=== PATIENT | female | born 1995 | race Caucasian/White ===

== ENCOUNTER 2017-01-03 19:50 | Emergency (ER) | payer OTHER ==
[2017-01-03 21:42] LABS: APPEARANCE,URINE CLOUDY; BILIRUBIN,URINE NEGATIVE (NEGATIVE); GLUCOSE, URINE NEGATIVE (NEGATIVE); KETONES,URINE NEGATIVE (NEGATIVE); LEUKOCYTE ESTERASE,URINE TRACE (NEGATIVE); NITRITE,URINE NEGATIVE (NEGATIVE); PROTEIN,URINE NEGATIVE (NEGATIVE); URINE SPECIFIC GRAVITY 1.013; UROBILINOGEN,URINE NEGATIVE mg/dL (<2.0)
[2017-01-03] MEDS ORDERED: DEXAMETHASONE SOD PHOS INJ 10 MG/1 ML VIAL IM ONE (21:50)
[2017-01-03] MEDS ORDERED: KETOROLAC TROMETHAMINE 60 MG/2 ML SDV IM ONE (21:51)
--- NOTE | 2017-01-03 21:52 | ER Document Report ---
ED General - General Chief Complaint: Pain in back and hips Stated Complaint: BACK/HIP PAIN Time Seen by Provider: 01/03/17 21:03 Mode of Arrival: Ambulatory Information source: Patient Notes: 21-year-old female presents with complaints of flank pain midline pain radiating down both legs to her toes. Patient denies any trauma notes pain has been ongoing intermittently for a while but worsened over the past 2 days. Patient denies any loss of bowel or bladder function. Patient denies any cauda equina concerns TRAVEL OUTSIDE OF THE [place] IN LAST 30 DAYS: No - HPI Onset: Other Onset/Duration: Persistent Quality of pain: Sharp Severity: Mild Pain Level: 1 Associated symptoms: Other Exacerbated by: Denies Relieved by: Denies Similar symptoms previously: Yes Recently seen / treated by doctor: Yes - Related Data Allergies/Adverse Reactions: No Known Allergies Allergy (Verified 01/03/17 21:37) Past Medical History - Social History Smoking Status: Never Smoker Cigarette use (# per day): No Chew tobacco use (# tins/day): No Smoking Education Provided: No Family History: Reviewed & Not Pertinent - Past Medical History Cardiac Medical History: Denies: Hx Heart Attack, Hx Hypertension Pulmonary Medical History: Denies: Hx Asthma Neurological Medical History: Denies: Hx Cerebrovascular Accident, Hx Seizures Renal/ Medical History: Denies: Hx Peritoneal Dialysis GI Medical History: Denies: Hx Hepatitis, Hx Hiatal Hernia, Hx Ulcer Infectious Medical History: Denies: Hx Hepatitis Past Surgical History: Reports: Hx Tonsillectomy. Denies: Hx Mastectomy, Hx Open Heart Surgery, Hx Pacemaker Review of Systems - Review of Systems Notes: REVIEW OF SYSTEMS: CONSTITUTIONAL : Denies fever, chills, or sweats. Denies recent illness. EENT: Denies eye, ear, throat, or mouth pain or symptoms. Denies nasal or sinus congestion or discharge. Denies throat, tongue, or mouth swelling or difficulty swallowing. CARDIOVASCULAR: Denies chest pain. Denies palpitations or racing or irregular heart beat. Denies ankle edema. RESPIRATORY: Denies cough, cold, or chest congestion. Denies shortness of breath, difficulty breathing, or wheezing. GASTROINTESTINAL: Denies abdominal pain or distention. Denies nausea, vomiting , or diarrhea. Denies blood in vomitus, stools, or per rectum. Denies black, tarry stools. Denies constipation. GENITOURINARY: Denies difficulty urinating, painful urination, burning, frequency, blood in urine, or discharge. FEMALE GENITOURINARY: Denies vaginal bleeding, heavy or abnormal periods, irregular periods. Denies vaginal discharge or odor. MUSCULOSKELETAL: Admits to low back pain SKIN: Denies rash, lesions or sores. HEMATOLOGIC : Denies easy bruising or bleeding. LYMPHATIC: Denies swollen, enlarged glands. NEUROLOGICAL: Denies confusion or altered mental status. Denies passing out or loss of consciousness. Denies dizziness or lightheadedness. Denies headache. Denies weakness or paralysis or loss of use of either side. Denies problems with gait or speech. Denies sensory loss, numbness, or tingling. Denies seizures. PSYCHIATRIC: Denies anxiety or stress. Denies depression, suicidal ideation, or homicidal ideation. ALL OTHER SYSTEMS REVIEWED AND NEGATIVE. PHYSICAL EXAMINATION: GENERAL: Well-appearing, well-nourished and in no acute distress. HEAD: Atraumatic, normocephalic. EYES: Pupils equal round and reactive to light, extraocular movements intact, conjunctiva are normal. ENT: Nares patent, oropharynx clear without exudates. Moist mucous membranes. NECK: Normal range of motion, supple without lymphadenopathy LUNGS: Breath sounds clear to auscultation bilaterally and equal. No wheezes rales or rhonchi. HEART: Regular rate and rhythm without murmurs ABDOMEN: Soft, nontender, nondistended abdomen. No guarding, no rebound. No masses appreciated. Female : deferred Musculoskeletal: Normal range of motion, no pitting or edema. No cyanosis. Bilateral tenderness in the sciatic nerve region NEUROLOGICAL: Cranial nerves grossly intact. Normal speech, normal gait. Normal sensory, motor exams PSYCH: Normal mood, normal affect. SKIN: Warm, Dry, normal turgor, no rashes or lesions noted. Dictation was performed using [employer] voice recognition software Physical Exam - Vital signs Vitals: Temp Pulse Resp BP Pulse Ox 97.9 F 127 H 20 122/78 99 01/03/17 20:14 01/03/17 20:14 01/03/17 20:14 01/03/17 20:14 01/03/17 20:14 Course - Re-evaluation Re-evalutation: 01/04/17 00:59 On physical examination patient appears to have sciatic nerve involvement with her low back pain. Given that she has no cauda equina concerns has no traumatic injury I do not believe imaging is appropriate at this time. Patient otherwise is well-appearing in no distress will be treated with steroids and has been given information regarding medications she was given After performing a Medical Screening Examination, I estimate there is LOW risk for EXPANDING OR RUPTURED ABDOMINAL AORTIC ANEURYSM, CAUDA EQUINA SYNDROME, EPIDURAL MASS LESION, or HERNIATED DISK CAUSING SEVERE SPINAL STENOSIS, thus I consider the discharge disposition reasonable. I have reevaluated this patient multiple times and no significant life threatening changes are noted. The patient and I have discussed the diagnosis and risks, and we agree with discharging home and close follow-up. We also discussed returning to the Emergency Department immediately if new or worsening symptoms occur with the understanding that symptoms and presentations can change. We have discussed the symptoms which are most concerning (e.g., saddle anesthesia, urinary or bowel incontinence or retention, changing or worsening pain) that necessitate immediate return. - Vital Signs Vital signs: Temp Pulse Resp BP Pulse Ox 97.9 F 110 H 18 124/77 100 01/03/17 22:16 01/03/17 22:16 01/03/17 22:16 01/03/17 22:16 01/03/17 22:16 - Laboratory Laboratory results interpreted by me: 01/03/17 21:27 Ur Leukocyte Esterase TRACE H Discharge - Discharge Clinical Impression: Low back pain Qualifiers: Chronicity: acute Back pain laterality: bilateral Sciatica presence: with sciatica Sciatica laterality: bilateral sciatica Qualified Code(s): M54.42 - Lumbago with sciatica, left side Condition: Stable Disposition: HOME, SELF-CARE Instructions: Low Back Pain ([facility]) Prescriptions: Naproxen 500 mg PO BID #20 tablet Prednisone [Deltasone 20 mg Tablet] 3 tab PO DAILY 5 Days Referrals: MELANY HORNE MD [Primary Care Provider] - Follow up tomorrow
[2017-01-03 21:54] LABS: BACTERIA,URINE 4+ /HPF
[2017-01-03 22:28] VITALS: BP 124/77
== END 2017-01-03 22:28 | disposition home or self-care (01) ==
LOC: ER 19:50
DX: M54.42 Lumbago with sciatica, left side (principal); M54.41 Lumbago with sciatica, right side
CPT/HCPCS: 99283; 96372; 81025; 81001; J1885; J1100

== ENCOUNTER 2017-01-29 09:49 | Observation (INO) | payer OTHER ==
--- NOTE | 2017-01-29 10:06 | ER Document Report ---
ED Medical Screen (RME) - General TRAVEL OUTSIDE OF THE [place] IN LAST 30 DAYS: No <CHINA BENOIT - Last Filed: 01/29/17 12:26> <DAVION HOUSTON - Last Filed: 01/29/17 21:07> - General Chief Complaint: Fainting Stated Complaint: POSSIBLE SYNCOPE/HIPS PAIN Notes: Patient is a 21 year old female presenting to the emergency department for possible syncope. Patient states she passed out x2 today and fell. Patient states she does not remember falling the first time but does remember grabbing the Patient complains of pain to her hips bilaterally. Patient's syncopal events were witnessed by the patient's mother. Patient also had some sharp, burning chest pain yesterday with shortness of breath. Patient has a history of chronic migraines and has some intermittent chest pain/racing heart over the past few months. Patient states she takes vitamins such as magnesium and B2. I have greeted and performed a rapid initial assessment of this patient. A comprehensive ED assessment and evaluation of the patient, analysis of test results and completion of the medical decision making process will be conducted by additional ED providers. (CHINA BENOIT) - Related Data Allergies/Adverse Reactions: No Known Allergies Allergy (Verified 01/29/17 09:53) Home Medications: Current Home Medications Amitriptyline HCl [Elavil 25 mg Tablet] 50 mg PO QHS 01/29/17 [History] Doxepin HCl [Silenor] 3 mg PO QHS 01/29/17 [History] Promethazine HCl [Phenergan 25 mg Tablet] 25 mg PO Q6HP PRN 01/29/17 [History] Rizatriptan Benzoate [Rizatriptan] 10 mg PO DAILYP PRN 01/29/17 [History] Past Medical History - Social History Cigarette use (# per day): No Chew tobacco use (# tins/day): No Frequency of alcohol use: None Drug Abuse: None Family history: Other - Grandmother of [place] at age 58; mother anemia - Past Medical History Cardiac Medical History: Denies: Hx Heart Attack, Hx Hypertension Pulmonary Medical History: Denies: Hx Asthma Neurological Medical History: Denies: Hx Cerebrovascular Accident, Hx Seizures Renal/ Medical History: Denies: Hx Peritoneal Dialysis GI Medical History: Denies: Hx Hepatitis, Hx Hiatal Hernia, Hx Ulcer Infectious Medical History: Denies: Hx Hepatitis Past Surgical History: Reports: Hx Tonsillectomy. Denies: Hx Mastectomy, Hx Open Heart Surgery, Hx Pacemaker <CHINA BENOIT - Last Filed: 01/29/17 12:26> Physical Exam <CHINA BENOIT - Last Filed: 01/29/17 12:26> <DAVION HOUSTON - Last Filed: 01/29/17 21:07> - Vital signs Vitals: Temp Pulse Resp BP Pulse Ox 97.5 F 131 H 16 119/88 H 99 01/29/17 09:53 01/29/17 09:53 01/29/17 09:53 01/29/17 09:53 01/29/17 09:53 - Notes Notes: GENERAL: Alert, interacts well. No acute distress. LUNGS: Clear to auscultation bilaterally, no wheezes, rhonchi, or rales. No respiratory distress. HEART: Tachycardia. Regular rhythm. No murmurs, gallops, or rubs. ABDOMEN: Normal inspection, normal bowel sounds, no distension. SKIN: Appears somewhat pale. Normal capillary refill. (CHINA BENOIT) Course - Laboratory Result Diagrams: 01/29/17 10:35 01/29/17 10:35 <CHINA BENOIT - Last Filed: 01/29/17 12:26> - Laboratory Result Diagrams: 01/29/17 10:35 01/29/17 10:35 <DAVION HOUSTON - Last Filed: 01/29/17 21:07> - Vital Signs Vital signs: Temp Pulse Resp BP Pulse Ox 97.8 F 126 H 17 106/67 100 01/29/17 15:08 01/29/17 15:08 01/29/17 15:08 01/29/17 15:08 01/29/17 15:08 - Laboratory Laboratory results interpreted by me: 01/29/17 10:25 Urine Nitrite POSITIVE H Ur Leukocyte Esterase TRACE H Doctor's Discharge <CHINA BENOIT - Last Filed: 01/29/17 12:26> <DAVION HOUSTON - Last Filed: 01/29/17 21:07> - Discharge Clinical Impression: Tachycardia Syncope Qualifiers: Encounter type: initial encounter Scribe Documentation - Scribe Written by Scribe:: Chester Flores 01/29/17 10:02 acting as scribe for :: Erik <CHINA BENOIT - Last Filed: 01/29/17 12:26>
[2017-01-29 10:52] LABS: ABSOLUTE BASOPHILS # (AUTO) 0.1 10^3/uL (0.0-0.2); ABSOLUTE EOSINOPHILS # (AUTO) 0.2 10^3/uL (0.0-0.6); ABSOLUTE LYMPHOCYTES (AUTO) 2.6 10^3/uL (0.5-4.7); ABSOLUTE MONOCYTES (AUTO) 0.7 10^3/uL (0.1-1.4); ABSOLUTE NEUT (AUTO) 3.8 10^3/uL (1.7-8.2); BASOPHILS % (AUTO) 0.9 % (0-2); EOSINOPHILS % (AUTO) 2.4 % (0-6); HEMATOCRIT 39.3 % (36.0-47.0); HEMOGLOBIN 13.1 g/dL (12.0-15.5); LYMPHOCYTES % (AUTO) 35.2 % (13-45); MEAN CORPUSCULAR HEMOGLOBIN 31.2 pg (27.0-33.4); MEAN CORPUSCULAR HGB CONC 33.2 g/dL (32.0-36.0); MEAN CORPUSCULAR VOLUME 94 fl (80-97); MONOCYTES % (AUTO) 9.4 % (3-13); RED BLOOD COUNT 4.18 10^6/uL (3.72-5.28); RED CELL DISTRIBUTION WIDTH 13.2 % (11.5-14.0); SEGMENTED NEUTROPHILS % (AUTO) 52.1 % (42-78); WHITE BLOOD COUNT 7.3 10^3/uL (4.0-10.5)
[2017-01-29 10:54] LABS: URINE BARBITURATES SCREEN NEGATIVE; URINE METHADONE SCREEN NEGATIVE; URINE OPIATES LOW UNCONFIRMED POSITIVE; URINE PHENCYCLIDINE SCREEN NEGATIVE
[2017-01-29 10:58] LABS: APPEARANCE,URINE CLOUDY; BILIRUBIN,URINE NEGATIVE (NEGATIVE); GLUCOSE, URINE NEGATIVE (NEGATIVE); KETONES,URINE NEGATIVE (NEGATIVE); LEUKOCYTE ESTERASE,URINE TRACE (NEGATIVE); NITRITE,URINE POSITIVE (NEGATIVE); PROTEIN,URINE NEGATIVE (NEGATIVE); URINE SPECIFIC GRAVITY 1.017; UROBILINOGEN,URINE NEGATIVE mg/dL (<2.0)
--- NOTE | 2017-01-29 11:02 | RADIOLOGY REPORT (SQ) ---
EXAM DESCRIPTION: CHEST PA/LAT COMPLETED DATE/TIME: 01/29/2017 10:55 am REASON FOR STUDY: syncope COMPARISON: None. EXAM PARAMETERS: NUMBER OF VIEWS: two views TECHNIQUE: Digital Frontal and Lateral radiographic views of the chest acquired. RADIATION DOSE: NA LIMITATIONS: none FINDINGS: LUNGS AND PLEURA: No opacities, masses or pneumothorax. No pleural effusion. MEDIASTINUM AND HILAR STRUCTURES: No masses or contour abnormalities. HEART AND VASCULAR STRUCTURES: Heart normal size. No evidence for failure. BONES: No acute findings. HARDWARE: None in the chest. OTHER: No other significant finding. IMPRESSION: NO SIGNIFICANT RADIOGRAPHIC FINDING IN THE CHEST. TECHNICAL DOCUMENTATION: JOB ID: [id number] 1953 [employer]- All Rights Reserved
[2017-01-29 11:05] LABS: ALANINE AMINOTRANSFERASE 30 U/L (5-35); ALBUMIN 4.5 g/dL (3.7-5.6); ALKALINE PHOSPHATASE 86 U/L (50-135); ANION GAP 13 (5-19); ASPARTATE AMINO TRANSFERASE 17 U/L (5-30); BILIRUBIN,DIRECT 0.3 mg/dL (0.0-0.4); BILIRUBIN,TOTAL 0.4 mg/dL (0.2-1.3); BLOOD UREA NITROGEN 12 mg/dL (7-20); CALCIUM 9.2 mg/dL (8.4-10.2); CARBON DIOXIDE 26 mmol/L (22-30); CHLORIDE 103 mmol/L (98-107); GLUCOSE 75 mg/dL (75-110); POTASSIUM 3.8 mmol/L (3.6-5.0); SODIUM 141.9 mmol/L (137-145); TOTAL PROTEIN 7.3 g/dL (6.3-8.2)
--- NOTE | 2017-01-29 11:19 | ER Document Report ---
ED Syncope and Near Syncope - General Chief Complaint: Fainting Stated Complaint: POSSIBLE SYNCOPE/HIPS PAIN Time Seen by Provider: 01/29/17 10:16 Notes: Patient is here to be evaluated for passing out twice this morning. Patient says that she had been up and doing well and then about 830 this morning, she was standing, changing a Band-Aid on a sore on her grandmother's arm when she suddenly collapsed and fell to the floor, landing on her buttocks. She was down for a couple of seconds and told that she appeared to be pale, but not sweaty. A few minutes later, she had another episode but that time she was able to grab the counter in the kitchen and keep herself from falling to the floor. She has never had this happen before. At this time, she feels fine. Patient said she ate a few crackers this morning, which is her normal morning food. Patient says that she had chest pains, primarily the left front of the chest, all day yesterday, but does not have them today. Also yesterday, she felt as if she could not catch her breath. Patient says that she has been told previously that she has an increased heart rate and her primary care provider did an EKG a couple of months ago and the patient was not told anything was abnormal. The chest pain and problem with her breathing have subsided today. Denies any fever or chills or sweats. Denies any cough or cold or chest congestion. Denies any UTI symptoms. No history of thyroid disease. Patient is on Depo shots for control and her last period was in October. Past history of migraine headaches and is on amitriptyline which he takes at nighttime. Recently started on a new sleeping medication, Silenor, which is doxepin. Other than that, patient only takes [id number] vitamins, no cold medications or Sudafed, etc. TRAVEL OUTSIDE OF THE [place] IN LAST 30 DAYS: No - Related Data Allergies/Adverse Reactions: No Known Allergies Allergy (Verified 01/29/17 09:53) Past Medical History - Social History Smoking Status: Never Smoker Cigarette use (# per day): No Chew tobacco use (# tins/day): No Frequency of alcohol use: None Drug Abuse: None. denies: Cocaine, Methamphetamine Family History: Reviewed & Not Pertinent Neurological Medical History: Reports: Hx Migraine Past Surgical History: Reports: Hx Tonsillectomy Review of Systems - Review of Systems Notes: REVIEW OF SYSTEMS: CONSTITUTIONAL : Denies fever. EENT: Denies eye, ear, nose or mouth or throat pain or other symptoms. CARDIOVASCULAR: See HPI. Had chest pains throughout the day yesterday. RESPIRATORY: Denies cough, alex but has had shortness of breath yesterday. See HPI. GASTROINTESTINAL: Denies abdominal pain or nausea, vomiting, or diarrhea. GENITOURINARY: Denies difficulty or painful urinating, urinary frequency, blood in urine. MUSCULOSKELETAL: Denies back or neck pain. Denies joint pain or swelling. SKIN: Denies rash or skin lesions. NEUROLOGICAL: Denies LOC or altered mental status. Denies headache. Denies sensory loss or motor deficits. ALL OTHER SYSTEMS REVIEWED AND NEGATIVE. Physical Exam - Vital signs Vitals: Temp Pulse Resp BP Pulse Ox 97.5 F 131 H 16 119/88 H 99 01/29/17 09:53 01/29/17 09:53 01/29/17 09:53 01/29/17 09:53 01/29/17 09:53 Interpretation: Normal, Tachycardic - Notes Notes: PHYSICAL EXAMINATION: GENERAL: Well-appearing, in no acute distress. Tachycardia 132 in triage. EKG heart rate 124. Other vital signs normal. HEAD: Atraumatic, normocephalic. EYES: Pupils equal round and reactive to light, extraocular movements intact. NECK: Normal range of motion, supple. LUNGS: Breath sounds clear and equal bilaterally. HEART: Regular rate and rhythm without murmurs. Tachycardia about 120/min to my exam ABDOMEN: Soft, nontender. No guarding or rebound. BACK: No tenderness throughout entire back. EXTREMITIES: Normal range of motion without pain. No pain or swelling. Negative Homans. NEUROLOGICAL: Normal speech, normal gait. Normal sensory, motor, and reflex exams. Awake, alert, and oriented x3. Cranial nerves normal. PSYCH: Normal mood, normal affect. SKIN: Warm, dry, no rashes. Course - Re-evaluation Re-evalutation: 01/29/17 12:10 Workup essentially negative except that the patient does have some urine findings suggestive of a possible infection, although I do not think that would cause her to be syncopal. I spoke with Dr. O, patient's primary care provider and he is going to admit the patient for observation. - Vital Signs Vital signs: Temp Pulse Resp BP Pulse Ox 97.5 F 131 H 12 119/88 H 98 01/29/17 09:53 01/29/17 09:53 01/29/17 11:21 01/29/17 09:53 01/29/17 11:21 - Laboratory Result Diagrams: 01/29/17 10:35 01/29/17 10:35 Laboratory results interpreted by me: 01/29/17 10:25 Urine Nitrite POSITIVE H Ur Leukocyte Esterase TRACE H - EKG Interpretation by Mo EKG shows normal: Sinus rhythm Rate: Tachycardia - Rate 124 Rhythm: NSR Discharge - Discharge Clinical Impression: Tachycardia Syncope Qualifiers: Encounter type: initial encounter Condition: Stable Disposition: ADMITTED OBSERVATION Admitting Provider: [facility] Unit Admitted: Telemetry
[2017-01-29 11:56] LABS: THYROID STIMULATING HORMONE 2.06 uIU/mL (0.47-4.68)
[2017-01-29] MEDS ORDERED: LEVOFLOXACIN 750 MG TABLET PO ONE (12:15)
[2017-01-29] MEDS ORDERED: ACETAMINOPHEN SOLN 325 MG/10.15 ML UDCUP PO ONE (12:19)
[2017-01-29] MEDS ORDERED: DIPHENHYDRAMINE HCL 25 MG CAPSULE PO ONE (12:20)
[2017-01-29] MEDS ORDERED: METOCLOPRAMIDE HCL 10 MG TABLET PO ONE (12:20)
[2017-01-29] MEDS ORDERED: ACETAMINOPHEN 325 MG TABLET PO ONE (12:23)
[2017-01-29] MEDS ORDERED: DEXTROSE 5%-NORMAL SALINE 1,000 ML IV PRN (15:50)
[2017-01-29] MEDS ORDERED: (PENDING PHARMACY ID) (Rizatriptan Benzoate [Rizatriptan] 10 MG) PO PRN (17:23)
[2017-01-29] MEDS ORDERED: PROMETHAZINE HCL 25 MG TABLET PO PRN (17:23)
[2017-01-29] MEDS ORDERED: (PENDING PHARMACY ID) (Doxepin Hcl [Silenor] 3 MG) PO SCH (22:00)
[2017-01-29] MEDS ORDERED: AMITRIPTYLINE HCL 25 MG TABLET PO SCH (22:00)
[2017-01-30] MEDS ORDERED: LEVOFLOXACIN 750 MG TABLET PO SCH (10:00)
--- NOTE | 2017-01-30 15:23 | PDOC H&P ---
History of Present Illness Admission Date/PCP: 01/29/17 12:36 MELANY HORNE MD History of Present Illness: BERTIN ASTORGA is a 21 year old female, She has a history of migraine headache, she came emergency room for evaluation of a near syncope spell. There was no loss of consciousness in the emergency room she was evaluated she was found to have tachycardia, the urine dipstick was consistent with urinary tract infection, she has bacteriuria with inflammatory cells, leukocytes and the urine culture is growing gram-negative bruno. 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 This degree of tachycardia is not expected with UTI. Past Medical History Neurological Medical History: Reports: Migraine Past Surgical History Past Surgical History: Reports: Tonsillectomy Social History Smoking Status: Never Smoker Frequency of Alcohol Use: None Hx Recreational Drug Use: No Drugs: None Hx Prescription Drug Abuse: No - Advance Directive Resuscitation Status: Full Code Family History Family History: Reviewed & Not Pertinent Parental Family History Reviewed: Yes Children Family History Reviewed: Yes Sibling(s) Family History Reviewed.: Yes Medication/Allergy Home Medications: Amitriptyline HCl [Elavil 25 mg Tablet] 50 mg PO QHS 01/29/17 Doxepin HCl [Silenor] 3 mg PO QHS 01/29/17 Promethazine HCl [Phenergan 25 mg Tablet] 25 mg PO Q6HP PRN 01/29/17 Rizatriptan Benzoate [Rizatriptan] 10 mg PO DAILYP PRN 01/29/17 Allergies/Adverse Reactions: No Known Allergies Allergy (Verified 01/29/17 09:53) Review of Systems Constitutional: ABSENT: chills, fever(s), headache(s), weight gain, weight loss Eyes: ABSENT: visual disturbances Ears: ABSENT: hearing changes Cardiovascular: PRESENT: palpitations Respiratory: ABSENT: cough, hemoptysis Gastrointestinal: ABSENT: abdominal pain, constipation, diarrhea, hematemesis, hematochezia, nausea, vomiting Genitourinary: PRESENT: dysuria Musculoskeletal: ABSENT: joint swelling Integumentary: ABSENT: rash, wounds Neurological: ABSENT: abnormal gait, abnormal speech, confusion, dizziness, focal weakness, syncope Psychiatric: ABSENT: anxiety, depression, homidical ideation, suicidal ideation Endocrine: ABSENT: cold intolerance, heat intolerance, menstrual abnormalities, polydipsia, polyuria Hematologic/Lymphatic: ABSENT: easy bleeding, easy bruising, lymphadenopathy Physical Exam Vital Signs: Temp Pulse Resp BP Pulse Ox 98.6 F 147 H 17 121/84 100 01/30/17 11:23 01/30/17 14:00 01/30/17 11:23 01/30/17 11:23 01/30/17 11:23 Intake & Output 01/29/17 01/30/17 01/31/17 06:59 06:59 06:59 Intake Total 1836 Balance 1836 General appearance: PRESENT: no acute distress, well-developed, well-nourished Head exam: PRESENT: atraumatic, normocephalic Eye exam: PRESENT: conjunctiva pink, EOMI, PERRLA. ABSENT: scleral icterus Ear exam: PRESENT: normal external ear exam Mouth exam: PRESENT: moist, tongue midline Neck exam: PRESENT: full ROM. ABSENT: carotid bruit, JVD, lymphadenopathy, thyromegaly Cardiovascular exam: PRESENT: RRR. ABSENT: diastolic murmur, rubs, systolic murmur Pulses: PRESENT: normal dorsalis pedis pul, +2 pedal pulses bilateral Vascular exam: PRESENT: normal capillary refill GI/Abdominal exam: PRESENT: normal bowel sounds, soft. ABSENT: distended, guarding, mass, organolmegaly, rebound, tenderness Rectal exam: PRESENT: deferred Neurological exam: PRESENT: alert, awake, oriented to person, oriented to place , oriented to time, oriented to situation, CN II-XII grossly intact. ABSENT: motor sensory deficit Psychiatric exam: PRESENT: appropriate affect, normal mood. ABSENT: homicidal ideation, suicidal ideation Skin exam: PRESENT: dry, intact, warm. ABSENT: cyanosis, rash Results Impressions: Chest X-Ray 01/29/17 10:27 IMPRESSION: NO SIGNIFICANT RADIOGRAPHIC FINDING IN THE CHEST. Assessment & Plan - Diagnosis (1) Supraventricular tachycardia Is this a current diagnosis for this admission?: Yes (2) AV dave re-entry tachycardia Is this a current diagnosis for this admission?: Yes (3) Urinary tract infection Qualifiers: Urinary tract infection type: acute cystitis Hematuria presence: without hematuria Qualified Code(s): N30.00 - Acute cystitis without hematuria Is this a current diagnosis for this admission?: YesPlan: She will be treated with p.o. antibiotic (4) Near syncope Is this a current diagnosis for this admission?: YesPlan: The near syncope spell is most likely from the AV node reentry tachycardia, she be treated with propranolol which we also the migraine headache, she be referred to cardiology for EP evaluation.
--- NOTE | 2017-01-30 15:37 | PDOC DISCHARGE SUMMARY ---
General - Admit/Disc Date/PCP Admission Date/Primary Care Provider: 01/29/17 12:36 MELANY HORNE MD Discharge Date: 01/30/17 - Discharge Diagnosis (1) Supraventricular tachycardia Is this a current diagnosis for this admission?: Yes (2) AV dave re-entry tachycardia Is this a current diagnosis for this admission?: Yes (3) Urinary tract infection Is this a current diagnosis for this admission?: Yes (4) Near syncope Is this a current diagnosis for this admission?: Yes - Additional Information Resuscitation Status: Full Code Home Medications: Amitriptyline HCl [Elavil 25 mg Tablet] 50 mg PO QHS 01/29/17 Doxepin HCl [Silenor] 3 mg PO QHS 01/29/17 Rizatriptan Benzoate [Rizatriptan] 10 mg PO DAILYP PRN 01/29/17 Levofloxacin [Levaquin 750 mg Tablet] 750 mg PO DAILY #4 tablet 01/30/17 Propranolol HCl [Propranolol HCl ER] 80 mg PO DAILY #30 cap.sa.24h 01/30/17 History of Present Illness History of Present Illness: BERTIN ASTORGA is a 21 year old female, She has a history of migraine headache, she came emergency room for evaluation of a near syncope spell. There was no loss of consciousness in the emergency room she was evaluated she was found to have tachycardia, the urine dipstick was consistent with urinary tract infection, she has bacteriuria with inflammatory cells, leukocytes and the urine culture is growing gram-negative bruno. 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 This degree of tachycardia is not expected with UTI. Hospital Course Hospital Course: Patient was admitted for the management of near syncope associated with supra ventricular tachycardia, AV node reentrant tachycardia. She also had a UTI. She was treated with p.o. Levaquin for UTI, she was given a dose of propranolol to control the AV node activity. She has a history of migraine headache propranolol was chosen because this will also act as a prophylaxis for the migraine. She may need outpatient EP study. Physical Exam Vital Signs: Temp Pulse Resp BP Pulse Ox 98.6 F 147 H 17 121/84 100 01/30/17 11:23 01/30/17 14:00 01/30/17 11:23 01/30/17 11:23 01/30/17 11:23 Intake & Output 01/29/17 01/30/17 01/31/17 06:59 06:59 06:59 Intake Total 1836 Balance 1836 General appearance: PRESENT: no acute distress, well-developed, well-nourished Head exam: PRESENT: atraumatic, normocephalic Eye exam: PRESENT: conjunctiva pink, EOMI, PERRLA. ABSENT: scleral icterus Ear exam: PRESENT: normal external ear exam Mouth exam: PRESENT: moist, tongue midline Neck exam: PRESENT: full ROM Respiratory exam: PRESENT: clear to auscultation shannan Cardiovascular exam: PRESENT: RRR, +S1, +S2 Vascular exam: PRESENT: normal capillary refill GI/Abdominal exam: PRESENT: normal bowel sounds, soft Rectal exam: PRESENT: deferred Neurological exam: PRESENT: alert Skin exam: PRESENT: dry, intact, warm Results Impressions: Chest X-Ray 01/29/17 10:27 IMPRESSION: NO SIGNIFICANT RADIOGRAPHIC FINDING IN THE CHEST.
[2017-01-30] MEDS ORDERED: PROPRANOLOL HCL 40 MG TABLET PO ONE (16:00)
[2017-01-30 16:05] VITALS: BP 123/75
--- NOTE | 2017-01-31 13:53 | EKG REPORT ---
SEVERITY:- BORDERLINE ECG - SINUS TACHYCARDIA PROBABLE LEFT ATRIAL ABNORMALITY BORDERLINE T ABNORMALITIES, INFERIOR LEADS : Confirmed by: Kacie Smith MD 31-Jan-2017 13:52:15
== END 2017-01-30 17:24 | disposition home or self-care (01) ==
LOC: ER 09:49 → EH 12:36 → UNDOADMOB 12:36 → 4S 12:36 → EH 14:53
PROVIDERS: ADMIT Internal Medicine; ATTEND Internal Medicine
DX: I47.1 Supraventricular tachycardia (principal); N30.00 Acute cystitis without hematuria; B96.89 Other specified bacterial agents as the cause of diseases classified elsewhere; R55 Syncope and collapse; G43.909 Migraine, unspecified, not intractable, without status migrainosus; Z79.899 Other long term (current) drug therapy; Z82.49 Family history of ischemic heart disease and other diseases of the circulatory system
CPT/HCPCS: 93005; 99285; 36415; 87086; 84439; 84443; 85025; 81025; 87088; 80053; 81001; 87186; 80307; 85379; 71020; 93010; G0378 ×2; J3490 ×2

== ENCOUNTER 2017-02-04 10:07 | Emergency (ER) | payer OTHER ==
--- NOTE | 2017-02-04 10:52 | ER Document Report ---
ED Medical Screen (RME) - General Chief Complaint: Chest Pain Stated Complaint: CHEST PAIN Time Seen by Provider: 02/04/17 10:48 Notes: Patient has shortness of breath and chest pain. This started this morning. She was recently admitted to the hospital approximately 5 days ago for an episode of SVT that was controlled with a beta-ralph. Patient has been referred to cardiology but has not been able to follow-up at this time. On this recent admission she was diagnosed with a urinary tract infection as well. sHe denies any current urinary complaints. Patient's test was negative. Patient is on the Depo shot but a d-dimer was negative. TRAVEL OUTSIDE OF THE [place] IN LAST 30 DAYS: No - Related Data Allergies/Adverse Reactions: No Known Allergies Allergy (Verified 02/04/17 10:12) Past Medical History - Social History Family history: Other - Grandmother of [place] at age 58; mother anemia - Past Medical History Cardiac Medical History: Denies: Hx Heart Attack, Hx Hypertension Pulmonary Medical History: Denies: Hx Asthma Neurological Medical History: Reports: Hx Migraine. Denies: Hx Cerebrovascular Accident, Hx Seizures Renal/ Medical History: Denies: Hx Peritoneal Dialysis GI Medical History: Denies: Hx Hepatitis, Hx Hiatal Hernia, Hx Ulcer Psychiatric Medical History: Denies: Hx Depression Infectious Medical History: Denies: Hx Hepatitis Past Surgical History: Reports: Hx Tonsillectomy. Denies: Hx Mastectomy, Hx Open Heart Surgery, Hx Pacemaker Physical Exam - Vital signs Vitals: Temp Pulse Resp BP Pulse Ox 98.2 F 104 H 18 122/77 100 02/04/17 10:12 02/04/17 10:12 02/04/17 10:12 02/04/17 10:12 02/04/17 10:12 Course - Vital Signs Vital signs: Temp Pulse Resp BP Pulse Ox 98.2 F 104 H 18 122/77 100 02/04/17 10:12 02/04/17 10:12 02/04/17 10:12 02/04/17 10:12 02/04/17 10:12
[2017-02-04 11:29] LABS: ABSOLUTE BASOPHILS # (AUTO) 0.1 10^3/uL (0.0-0.2); ABSOLUTE EOSINOPHILS # (AUTO) 0.2 10^3/uL (0.0-0.6); ABSOLUTE LYMPHOCYTES (AUTO) 1.3 10^3/uL (0.5-4.7); ABSOLUTE MONOCYTES (AUTO) 0.5 10^3/uL (0.1-1.4); ABSOLUTE NEUT (AUTO) 11.9 10^3/uL (1.7-8.2); BASOPHILS % (AUTO) 0.6 % (0-2); EOSINOPHILS % (AUTO) 1.2 % (0-6); HEMATOCRIT 42.1 % (36.0-47.0); HEMOGLOBIN 14.4 g/dL (12.0-15.5); HGB HCT DIFFERENCE 1.1; LYMPHOCYTES % (AUTO) 9.6 % (13-45); MEAN CORPUSCULAR HEMOGLOBIN 32.1 pg (27.0-33.4); MEAN CORPUSCULAR HGB CONC 34.2 g/dL (32.0-36.0); MEAN CORPUSCULAR VOLUME 94 fl (80-97); MONOCYTES % (AUTO) 3.2 % (3-13); RED BLOOD COUNT 4.49 10^6/uL (3.72-5.28); RED CELL DISTRIBUTION WIDTH 13.2 % (11.5-14.0); SEGMENTED NEUTROPHILS % (AUTO) 85.4 % (42-78); WHITE BLOOD COUNT 13.9 10^3/uL (4.0-10.5)
[2017-02-04 11:32] LABS: APPEARANCE,URINE SLIGHTLY-CLOUDY; BILIRUBIN,URINE NEGATIVE (NEGATIVE); GLUCOSE, URINE NEGATIVE (NEGATIVE); KETONES,URINE NEGATIVE (NEGATIVE); LEUKOCYTE ESTERASE,URINE NEGATIVE (NEGATIVE); NITRITE,URINE NEGATIVE (NEGATIVE); PROTEIN,URINE NEGATIVE (NEGATIVE); URINE SPECIFIC GRAVITY 1.006; UROBILINOGEN,URINE NEGATIVE mg/dL (<2.0)
[2017-02-04 11:50] LABS: ANION GAP 14 (5-19); BLOOD UREA NITROGEN 14 mg/dL (7-20); CALCIUM 10.1 mg/dL (8.4-10.2); CARBON DIOXIDE 24 mmol/L (22-30); CHLORIDE 104 mmol/L (98-107); CREATININE RESULT 0.77 mg/dL (0.52-1.25); GLUCOSE 88 mg/dL (75-110); MAGNESIUM 2.4 mg/dL (1.6-2.3); POTASSIUM 4.9 mmol/L (3.6-5.0); SODIUM 141.9 mmol/L (137-145)
--- NOTE | 2017-02-04 12:19 | ER Document Report ---
ED Cardiac - General Chief Complaint: Chest Pain Stated Complaint: CHEST PAIN Time Seen by Provider: 02/04/17 10:48 Mode of Arrival: Ambulatory Information source: Patient TRAVEL OUTSIDE OF THE [place] IN LAST 30 DAYS: No - HPI Patient complains to provider of: Chest pain, Palpitations, Shortness of breath Was the onset of pain: Sudden Chest pain location: Under breast - left Quality of pain: Burning Chest pain precipitating factors: At Rest Associated symptoms: Shortness of breath Exacerbated by: Denies Relieved by: Nothing Similar symptoms previously: Yes Recently seen / treated by doctor: Yes Notes: Patient is a 21-year-old female who presents to the emergency room complaining of left-sided chest pain or shortness of breath that started when she woke up this morning, she denies any cough, cold or congestion, pain is under the left breast and has a burning sensation, she reports palpitations as well, she has a history of SVT which she was recently admitted for, started on a beta-ralph, she was also discharged with a diagnosis of urinary tract infection and is currently on antibiotics for this - Related Data Allergies/Adverse Reactions: No Known Allergies Allergy (Verified 02/04/17 10:12) Home Medications: Current Home Medications Celecoxib [Celebrex] 200 mg PO BID 02/04/17 [History] Past Medical History - General Information source: Patient - Social History Smoking Status: Never Smoker Family History: Reviewed & Not Pertinent Patient has suicidal ideation: No Patient has homicidal ideation: No - Past Medical History Cardiac Medical History: Denies: Hx Heart Attack, Hx Hypertension Pulmonary Medical History: Denies: Hx Asthma Neurological Medical History: Reports: Hx Migraine. Denies: Hx Cerebrovascular Accident, Hx Seizures Renal/ Medical History: Denies: Hx Peritoneal Dialysis GI Medical History: Denies: Hx Hepatitis, Hx Hiatal Hernia, Hx Ulcer Psychiatric Medical History: Denies: Hx Depression Infectious Medical History: Denies: Hx Hepatitis Past Surgical History: Reports: Hx Tonsillectomy. Denies: Hx Mastectomy, Hx Open Heart Surgery, Hx Pacemaker Review of Systems - Review of Systems Constitutional: No symptoms reported EENT: No symptoms reported Cardiovascular: See HPI Respiratory: See HPI Gastrointestinal: No symptoms reported Genitourinary: No symptoms reported Female Genitourinary: No symptoms reported Musculoskeletal: No symptoms reported Skin: No symptoms reported Hematologic/Lymphatic: No symptoms reported Neurological/Psychological: No symptoms reported -: Yes All other systems reviewed and negative Physical Exam - Vital signs Vitals: Temp Pulse Resp BP Pulse Ox 98.2 F 104 H 18 122/77 100 02/04/17 10:12 02/04/17 10:12 02/04/17 10:12 02/04/17 10:12 02/04/17 10:12 Interpretation: Normal - General General appearance: Appears well, Alert - HEENT Head: Normocephalic, Atraumatic Eyes: Normal Pupils: PERRL - Respiratory Respiratory status: No respiratory distress Chest status: Nontender Breath sounds: Normal Chest palpation: Normal - Cardiovascular Rhythm: Regular Heart sounds: Normal auscultation Murmur: No - Abdominal Inspection: Normal Distension: No distension Bowel sounds: Normal Tenderness: Nontender Organomegaly: No organomegaly - Back Back: Normal, Nontender - Extremities General upper extremity: Normal inspection, Nontender, Normal color, Normal ROM , Normal temperature General lower extremity: Normal inspection, Nontender, Normal color, Normal ROM , Normal temperature, Normal weight bearing. No: David's sign - Neurological Neuro grossly intact: Yes Cognition: Normal Orientation: AAOx4 Hallie Coma Scale Eye Opening: Spontaneous Hallie Coma Scale Verbal: Oriented Melina Coma Scale Motor: Obeys Commands Melina Coma Scale Total: 15 Speech: Normal Motor strength normal: LUE, RUE, LLE, RLE Sensory: Normal - Psychological Associated symptoms: Normal affect, Normal mood - Skin Skin Temperature: Warm Skin Moisture: Dry Skin Color: Normal Course - Re-evaluation Re-evalutation: 02/04/17 12:18 At time of my initial evaluation patient reports her symptoms are completely resolved, physical exam findings are unremarkable, labs show leukocytosis of 13.9, however patient is currently on antibiotics for urinary tract infection, she was discharged with instructions for follow-up and advised to return if any additional concerns, patient acknowledges understanding and agreement with this plan - Vital Signs Vital signs: Temp Pulse Resp BP Pulse Ox 98.2 F 104 H 18 122/77 100 02/04/17 10:12 02/04/17 10:12 02/04/17 10:12 02/04/17 10:12 02/04/17 10:12 - Laboratory Result Diagrams: 02/04/17 11:15 02/04/17 11:15 Laboratory results interpreted by me: 02/04/17 02/04/17 11:15 11:15 WBC 13.9 H Seg Neutrophils % 85.4 H Lymphocytes % 9.6 L Absolute Neutrophils 11.9 H Magnesium 2.4 H - EKG Interpretation by Me EKG shows normal: Sinus rhythm Rate: Tachycardia Rhythm: NSR Discharge - Discharge Clinical Impression: Chest pain Qualifiers: Chest pain type: unspecified Qualified Code(s): R07.9 - Chest pain, unspecified Condition: Stable Disposition: HOME, SELF-CARE Instructions: Chest Pain of Unclear Cause ([facility]) Additional Instructions: Follow up with your primary care provider in one to 2 days. Return to the emergency room immediately if symptoms worsen or any additional concerns.
[2017-02-04 12:26] VITALS: BP 115/72
--- NOTE | 2017-02-04 17:28 | EKG REPORT ---
SEVERITY:- OTHERWISE NORMAL ECG - SINUS TACHYCARDIA BORDERLINE RIGHT AXIS DEVIATION : Confirmed by: Kacie Smith MD 04-Feb-2017 17:27:53
== END 2017-02-04 12:44 | disposition home or self-care (01) ==
LOC: ER 10:07
DX: R07.9 Chest pain, unspecified (principal); N39.0 Urinary tract infection, site not specified; I47.1 Supraventricular tachycardia; R06.02 Shortness of breath; R00.2 Palpitations
CPT/HCPCS: 36415; 80048; 81001; 81025; 83735; 85025; 93005; 93010; 99285

== ENCOUNTER → 2017-02-17 | Outpatient (CLI) | payer OTHER ==
[2017-02-17 17:32] LABS: ANION GAP 9 (5-19); BLOOD UREA NITROGEN 13 mg/dL (7-20); CALCIUM 9.3 mg/dL (8.4-10.2); CARBON DIOXIDE 25 mmol/L (22-30); CHLORIDE 105 mmol/L (98-107); CREATININE RESULT 0.75 mg/dL (0.52-1.25); GLUCOSE 95 mg/dL (75-110); POTASSIUM 4.6 mmol/L (3.6-5.0); SODIUM 139.3 mmol/L (137-145)
[2017-02-18 10:49] LABS: ADD ON TESTING BLD IN LAB ACKNOWLEDGE
== END ==
LOC: OD 16:29
PROVIDERS: ATTEND Internal Medicine Cardiovascular Disease
DX: R07.9 Chest pain, unspecified (principal); R55 Syncope and collapse
CPT/HCPCS: 36415; 80048; 84702

== ENCOUNTER 2017-05-29 09:06 | Emergency (ER) | payer OTHER ==
[2017-05-29] MEDS ORDERED: NORMAL SALINE 1000 ML 1,000 ML IV ONE (09:24)
--- NOTE | 2017-05-29 09:27 | ER Document Report ---
ED General - General Chief Complaint: Sore Throat Stated Complaint: SORE THROAT Time Seen by Provider: 05/29/17 09:16 Mode of Arrival: Ambulatory Information source: Patient, Relative Notes: Patient is a 22-year-old female comes emergency room complaining of sores in her mouth and on her lips. Patient went to see her primary care provider yesterday and was given acyclovir. Patient is here today because she had a temp yesterday of 102.8 and has had none today but the blisters in her mouth are worse. Patient states it is difficult for her to keep fluids down but she is managing. She is a history of neurocardiogenic syncope and states that they told her if she got dehydrated she would have problems so she is here today because of the high possibility of dehydration and the increasing pain in her mouth. She currently today has no fever she has not taken any Tylenol or Motrin today because she had difficulty with the tablets. TRAVEL OUTSIDE OF THE [place] IN LAST 30 DAYS: No - HPI Onset: Other - 2 days ago Onset/Duration: Gradual Quality of pain: Burning, Throbbing Severity: Moderate Pain Level: 3 Associated symptoms: Fever, Headache, Nausea, Other - Oral sores on her lips and inside her mouth on the cheeks gums and hard palate. Exacerbated by: Food Relieved by: Denies Similar symptoms previously: Yes Recently seen / treated by doctor: Yes - Related Data Allergies/Adverse Reactions: No Known Allergies Allergy (Verified 05/29/17 09:09) Home Medications: Current Home Medications Pramipexole Di-HCl [Mirapex 0.25 mg Tablet] 1 tab PO QHS 05/29/17 [History] Past Medical History - General Information source: Patient - Social History Smoking Status: Never Smoker Cigarette use (# per day): No Chew tobacco use (# tins/day): No Smoking Education Provided: No Frequency of alcohol use: None Drug Abuse: None Lives with: Family Family History: Reviewed & Not Pertinent - Past Medical History Cardiac Medical History: Denies: Hx Heart Attack, Hx Hypertension Pulmonary Medical History: Denies: Hx Asthma Neurological Medical History: Reports: Hx Migraine. Denies: Hx Cerebrovascular Accident, Hx Seizures Renal/ Medical History: Denies: Hx Peritoneal Dialysis GI Medical History: Denies: Hx Hepatitis, Hx Hiatal Hernia, Hx Ulcer Psychiatric Medical History: Denies: Hx Depression Infectious Medical History: Denies: Hx Hepatitis Past Surgical History: Reports: Hx Tonsillectomy. Denies: Hx Mastectomy, Hx Open Heart Surgery, Hx Pacemaker Review of Systems - Review of Systems Constitutional: Fever, Malaise, Weakness, Other - Blisters on the lips and mouth EENT: Nose congestion, Mouth pain Cardiovascular: No symptoms reported Respiratory: No symptoms reported Gastrointestinal: No symptoms reported Genitourinary: No symptoms reported Female Genitourinary: No symptoms reported Musculoskeletal: No symptoms reported Skin: No symptoms reported Hematologic/Lymphatic: No symptoms reported Neurological/Psychological: No symptoms reported -: Yes All other systems reviewed and negative Physical Exam - Vital signs Vitals: Temp Pulse Resp BP Pulse Ox 98.5 F 108 H 16 116/75 97 05/29/17 09:09 05/29/17 09:09 05/29/17 09:09 05/29/17 09:09 05/29/17 09:09 Interpretation: Normal, Tachycardic - General General appearance: Other - Uncomfortable appearing In distress: Mild - HEENT Head: Normocephalic, Atraumatic Eyes: Normal External canal: Normal Tympanic membrane: Bulging Sinus: Normal Nasal: Normal Mucous membranes: Moist, Other - Examination patient's oral cavity as stated earlier shows blisters around her mouth mostly on the cheeks and hard palate although there are occasional ones on the tongue. They appear to be Aphthous sores throughout. The 2 corners of the mouth also display fever blisters did not display classic presentation of fever blisters. Teeth diagram: 1 - Multiple sores that have a reddened base with a central whitish area mid lesion. Pharynx: Erythema Neck: Normal, Posterior cervical chain, Lymphadenopathy Course - Vital Signs Vital signs: Temp Pulse Resp BP Pulse Ox 97.8 F 84 16 106/53 L 100 05/29/17 11:06 05/29/17 11:06 05/29/17 09:09 05/29/17 11:06 05/29/17 11:06 - Laboratory Result Diagrams: 05/29/17 09:49 Laboratory results interpreted by me: 05/29/17 09:49 Monocytes % 13.8 H - Transfer of Care Notes: 05/29/17 22:13 Patient received a liter of fluids and vital signs improved somewhat. I am sending her home on Magic mouthwash and little hydrocodone elixir for the discomfort and pain. Patient is also been instructed to see a pharmacist and ask about probiotics which when he recommends for this type of presentation. Patient will return to ER if she gets worse if she has any inability to hold her secretions or she spikes a fever or has any concerns. Discharge - Discharge Clinical Impression: Aphthous pharyngitis Condition: Good Disposition: HOME, SELF-CARE Instructions: Oral Narcotic Medication ([facility]), Sore Throat ([facility]) Additional Instructions: I agree with your provider that this is a viral type presentation. These sores in your mouth are virus that will help deplete himself over time. I highly suggest continuation of the acyclovir your physician placed you on. I am adding to that Magic mouthwash as she has a swish and swallow/swish and spit but medication to help with the discomfort. I am also giving you a little bit hydrocodone elixir to help with the discomfort and pain as well. Monitor yourself very closely keep fluids going as best as possible should you have any concerns or problems if you have trouble handling her secretions or your drooling all the time return to ER once for recheck. Prescriptions: Hydrocodone/Acetaminophen [Hydrocodone-Acetamn 7.5-325/15] 10 ml PO Q4 PRN #120 solution PRN Reason: Nystatin/Dexameth/Diphen [Magic Mouthwash ([facility] Formula) Susp] 5 ml PO QID #180 ml
[2017-05-29 09:59] LABS: ABSOLUTE EOSINOPHILS # (AUTO) 0.1 10^3/uL (0.0-0.6); ABSOLUTE LYMPHOCYTES (AUTO) 1.8 10^3/uL (0.5-4.7); ABSOLUTE MONOCYTES (AUTO) 1.2 10^3/uL (0.1-1.4); ABSOLUTE NEUT (AUTO) 5.5 10^3/uL (1.7-8.2); BASOPHILS % (AUTO) 0.4 % (0-2); EOSINOPHILS % (AUTO) 1.4 % (0-6); HEMATOCRIT 38.7 % (36.0-47.0); HEMOGLOBIN 13.5 g/dL (12.0-15.5); HGB HCT DIFFERENCE 1.8; LYMPHOCYTES % (AUTO) 20.7 % (13-45); MEAN CORPUSCULAR HEMOGLOBIN 31.9 pg (27.0-33.4); MEAN CORPUSCULAR HGB CONC 34.8 g/dL (32.0-36.0); MEAN CORPUSCULAR VOLUME 92 fl (80-97); MONOCYTES % (AUTO) 13.8 % (3-13); RED BLOOD COUNT 4.23 10^6/uL (3.72-5.28); RED CELL DISTRIBUTION WIDTH 13.5 % (11.5-14.0); SEGMENTED NEUTROPHILS % (AUTO) 63.7 % (42-78); WHITE BLOOD COUNT 8.6 10^3/uL (4.0-10.5)
[2017-05-29 11:13] VITALS: BP 106/53
== END 2017-05-29 11:13 | disposition home or self-care (01) ==
LOC: ER 09:06
DX: J02.9 Acute pharyngitis, unspecified (principal); R50.9 Fever, unspecified; Z79.899 Other long term (current) drug therapy
CPT/HCPCS: 99283; 96360; 36415; 85025; J7030

== ENCOUNTER 2017-08-25 15:21 | Emergency (ER) | payer OTHER ==
[2017-08-25] MEDS ORDERED: HYDROCODONE/ACETAMINOPHEN 5-325 MG TABLET PO ONE (15:39)
[2017-08-25 16:21] LABS: ABSOLUTE BASOPHILS # (AUTO) 0.1 10^3/uL (0.0-0.2); ABSOLUTE EOSINOPHILS # (AUTO) 0.1 10^3/uL (0.0-0.6); ABSOLUTE LYMPHOCYTES (AUTO) 1.9 10^3/uL (0.5-4.7); ABSOLUTE MONOCYTES (AUTO) 0.7 10^3/uL (0.1-1.4); ABSOLUTE NEUT (AUTO) 6.2 10^3/uL (1.7-8.2); BASOPHILS % (AUTO) 0.9 % (0-2); EOSINOPHILS % (AUTO) 1.3 % (0-6); HEMOGLOBIN 14.1 g/dL (12.0-15.5); LYMPHOCYTES % (AUTO) 21.7 % (13-45); MEAN CORPUSCULAR HEMOGLOBIN 32.4 pg (27.0-33.4); MEAN CORPUSCULAR HGB CONC 34.5 g/dL (32.0-36.0); MEAN CORPUSCULAR VOLUME 94 fl (80-97); MONOCYTES % (AUTO) 7.4 % (3-13); PLATELET COUNT 350 10^3/uL (150-450); RED BLOOD COUNT 4.37 10^6/uL (3.72-5.28); RED CELL DISTRIBUTION WIDTH 14.5 % (11.5-14.0); SEGMENTED NEUTROPHILS % (AUTO) 68.7 % (42-78); TOTAL CELLS COUNTED % (AUTO) 100 %
[2017-08-25 16:30] LABS: APPEARANCE,URINE CLEAR; BILIRUBIN,URINE NEGATIVE (NEGATIVE); COLOR,URINE RED; GLUCOSE, URINE NEGATIVE (NEGATIVE); KETONES,URINE NEGATIVE (NEGATIVE); LEUKOCYTE ESTERASE,URINE TRACE (NEGATIVE); NITRITE,URINE POSITIVE (NEGATIVE); PROTEIN,URINE 30 mg/dL (NEGATIVE); URINE SPECIFIC GRAVITY 1.017
[2017-08-25 16:44] LABS: ALANINE AMINOTRANSFERASE 34 U/L (9-52); ALBUMIN 5.1 g/dL (3.5-5.0); ALKALINE PHOSPHATASE 102 U/L (38-126); ANION GAP 13 (5-19); ASPARTATE AMINO TRANSFERASE 24 U/L (14-36); BILIRUBIN,DIRECT 0.2 mg/dL (0.0-0.4); BILIRUBIN,TOTAL 0.8 mg/dL (0.2-1.3); BLOOD UREA NITROGEN 10 mg/dL (7-20); CALCIUM 10.4 mg/dL (8.4-10.2); CARBON DIOXIDE 24 mmol/L (22-30); CHLORIDE 106 mmol/L (98-107); GLUCOSE 92 mg/dL (75-110); POTASSIUM 4.5 mmol/L (3.6-5.0); TOTAL PROTEIN 8.1 g/dL (6.3-8.2)
--- NOTE | 2017-08-25 17:19 | ER Document Report ---
ED General - General Chief Complaint: Back Pain Stated Complaint: BACK PAIN Time Seen by Provider: 08/25/17 15:38 Mode of Arrival: Ambulatory Information source: Patient Notes: Patient presents with a history of chronic UTIs. She states she recently saw a urologist who believed that she may have reflux. She states she is currently under evaluation for this but all the tests have not yet been performed. She states occasionally she gets back pain when she has her urinary tract infections and the signals that she has a kidney infection. She states several days ago she was diagnosed with urinary tract infection and started on Macrobid. Today she began to have back pain and is concerned that she may have a kidney infection. Patient states she does have dysuria as well as bilateral flank pain. Nothing makes it better or worse. It does not radiate. It is moderate. She states is an aching sensation. No vaginal discharge or bleeding. She does not believe that she currently is . No fevers. TRAVEL OUTSIDE OF THE [place] IN LAST 30 DAYS: No - Related Data Allergies/Adverse Reactions: No Known Allergies Allergy (Verified 08/25/17 15:21) Past Medical History - General Information source: Patient - Social History Smoking Status: Never Smoker Chew tobacco use (# tins/day): No Frequency of alcohol use: None Drug Abuse: None Family History: Reviewed & Not Pertinent Patient has suicidal ideation: No Patient has homicidal ideation: No - Past Medical History Cardiac Medical History: Denies: Hx Heart Attack, Hx Hypertension Pulmonary Medical History: Denies: Hx Asthma Neurological Medical History: Reports: Hx Migraine. Denies: Hx Cerebrovascular Accident, Hx Seizures Renal/ Medical History: Denies: Hx Peritoneal Dialysis GI Medical History: Denies: Hx Hepatitis, Hx Hiatal Hernia, Hx Ulcer Psychiatric Medical History: Denies: Hx Depression Infectious Medical History: Denies: Hx Hepatitis Past Surgical History: Reports: Hx Tonsillectomy - T&A. Denies: Hx Mastectomy, Hx Open Heart Surgery, Hx Pacemaker Review of Systems - Review of Systems Constitutional: denies: Chills, Fever Cardiovascular: denies: Chest pain, Palpitations Respiratory: denies: Cough, Short of breath -: Yes All other systems reviewed and negative Physical Exam - Vital signs Vitals: Temp Pulse Resp BP Pulse Ox 98.0 F 91 16 115/67 97 08/25/17 15:27 08/25/17 15:27 08/25/17 15:27 08/25/17 15:27 08/25/17 15:27 Interpretation: Normal - General General appearance: Appears well, Alert - HEENT Head: Normocephalic, Atraumatic Eyes: Normal Pupils: PERRL - Respiratory Respiratory status: No respiratory distress Chest status: Nontender Breath sounds: Normal Chest palpation: Normal - Cardiovascular Rhythm: Regular Heart sounds: Normal auscultation Murmur: No - Abdominal Inspection: Normal Distension: No distension Bowel sounds: Normal Tenderness: Nontender Organomegaly: No organomegaly - Back Back: Normal, Tender - Patient has bilateral flank tenderness to percussion., CVA tenderness - Extremities General upper extremity: Normal inspection, Nontender, Normal color, Normal ROM , Normal temperature General lower extremity: Normal inspection, Nontender, Normal color, Normal ROM , Normal temperature, Normal weight bearing. No: David's sign - Neurological Neuro grossly intact: Yes Cognition: Normal Orientation: AAOx4 [place] Coma Scale Eye Opening: Spontaneous Melina Coma Scale Verbal: Oriented Melina Coma Scale Motor: Obeys Commands Melina Coma Scale Total: 15 Speech: Normal Motor strength normal: LUE, RUE, LLE, RLE Sensory: Normal - Psychological Associated symptoms: Normal affect, Normal mood - Skin Skin Temperature: Warm Skin Moisture: Dry Skin Color: Normal Course - Vital Signs Vital signs: Temp Pulse Resp BP Pulse Ox 98.0 F 91 16 115/67 97 08/25/17 15:27 08/25/17 15:27 08/25/17 15:27 08/25/17 15:27 08/25/17 15:27 - Laboratory Result Diagrams: 08/25/17 16:06 08/25/17 16:06 Laboratory results interpreted by me: 08/25/17 08/25/17 08/25/17 15:53 16:06 16:06 RDW 14.5 H Calcium 10.4 H Albumin 5.1 H Urine Protein 30 H Urine Nitrite POSITIVE H Urine Urobilinogen 4.0 H Ur Leukocyte Esterase TRACE H Discharge - Discharge Clinical Impression: Urinary tract infection Qualifiers: Urinary tract infection type: site unspecified Hematuria presence: without hematuria Qualified Code(s): N39.0 - Urinary tract infection, site not specified Condition: Stable Disposition: HOME, SELF-CARE Instructions: Urinary Tract Infection ([facility]) Additional Instructions: Please follow-up with the urologist as instructed. Please continue to take your Macrobid. Prescriptions: Hydrocodone/Acetaminophen [[place] 5-325 mg Tablet] 1 tab PO Q6 PRN 3 Days #12 tablet PRN Reason: Forms: Return to Work Referrals: MELANY HORNE MD [Primary Care Provider] - Follow up as needed
[2017-08-25 17:27] VITALS: BP 115/57
== END 2017-08-25 17:26 | disposition home or self-care (01) ==
LOC: ER 15:21
DX: N39.0 Urinary tract infection, site not specified (principal); M54.9 Dorsalgia, unspecified; Z87.440 Personal history of urinary (tract) infections
CPT/HCPCS: 36415; 80053; 81001; 81025; 85025; 99283

== ENCOUNTER 2017-08-29 17:55 | Emergency (ER) | payer OTHER ==
--- NOTE | 2017-08-29 18:57 | ER Document Report ---
ED General - General Chief Complaint: Back pain, kidney infection Stated Complaint: LOW BACK PAIN Time Seen by Provider: 08/29/17 18:44 Mode of Arrival: Ambulatory Information source: Patient Notes: 22-year-old female presents with complaints of flank pain of one-week duration. Patient denies any fevers or chills at this time notes that she was diagnosed with pyelonephritis but was started on antibiotics and her symptoms improved significantly however the flank pain worsened and was consistent. She spoke with her primary care physician and they requested evaluation for kidney stone TRAVEL OUTSIDE OF THE [place] IN LAST 30 DAYS: No - HPI Onset: Last week Onset/Duration: Persistent Quality of pain: No pain Severity: Mild Pain Level: 1 Associated symptoms: Fever, Nausea, Vomiting, Other - Flank pain Exacerbated by: Denies Relieved by: Denies Similar symptoms previously: Yes Recently seen / treated by doctor: Yes - Related Data Allergies/Adverse Reactions: No Known Allergies Allergy (Verified 08/25/17 15:21) Past Medical History - Social History Smoking Status: Never Smoker Cigarette use (# per day): No Chew tobacco use (# tins/day): No Smoking Education Provided: No Family History: Reviewed & Not Pertinent - Past Medical History Cardiac Medical History: Denies: Hx Heart Attack, Hx Hypertension Pulmonary Medical History: Denies: Hx Asthma Neurological Medical History: Reports: Hx Migraine. Denies: Hx Cerebrovascular Accident, Hx Seizures Renal/ Medical History: Denies: Hx Peritoneal Dialysis GI Medical History: Denies: Hx Hepatitis, Hx Hiatal Hernia, Hx Ulcer Psychiatric Medical History: Denies: Hx Depression Infectious Medical History: Denies: Hx Hepatitis Past Surgical History: Reports: Hx Tonsillectomy. Denies: Hx Mastectomy, Hx Open Heart Surgery, Hx Pacemaker Review of Systems - Review of Systems Notes: REVIEW OF SYSTEMS: Patient had multiple complaints initially which were treated , currently only complains of flank pain CONSTITUTIONAL : Denies fever, chills, or sweats. Denies recent illness. EENT: Denies eye, ear, throat, or mouth pain or symptoms. Denies nasal or sinus congestion or discharge. Denies throat, tongue, or mouth swelling or difficulty swallowing. CARDIOVASCULAR: Denies chest pain. Denies palpitations or racing or irregular heart beat. Denies ankle edema. RESPIRATORY: Denies cough, cold, or chest congestion. Denies shortness of breath, difficulty breathing, or wheezing. GASTROINTESTINAL: Admits to flank pain GENITOURINARY: Denies difficulty urinating, painful urination, burning, frequency, blood in urine, or discharge. FEMALE GENITOURINARY: Denies vaginal bleeding, heavy or abnormal periods, irregular periods. Denies vaginal discharge or odor. MUSCULOSKELETAL: Denies back or neck pain or stiffness. Denies joint pain or swelling. SKIN: Denies rash, lesions or sores. HEMATOLOGIC : Denies easy bruising or bleeding. LYMPHATIC: Denies swollen, enlarged glands. NEUROLOGICAL: Denies confusion or altered mental status. Denies passing out or loss of consciousness. Denies dizziness or lightheadedness. Denies headache. Denies weakness or paralysis or loss of use of either side. Denies problems with gait or speech. Denies sensory loss, numbness, or tingling. Denies seizures. PSYCHIATRIC: Denies anxiety or stress. Denies depression, suicidal ideation, or homicidal ideation. ALL OTHER SYSTEMS REVIEWED AND NEGATIVE. PHYSICAL EXAMINATION: GENERAL: Well-appearing, well-nourished and in no acute distress. HEAD: Atraumatic, normocephalic. EYES: Pupils equal round and reactive to light, extraocular movements intact, conjunctiva are normal. ENT: Nares patent, oropharynx clear without exudates. Moist mucous membranes. NECK: Normal range of motion, supple without lymphadenopathy LUNGS: Breath sounds clear to auscultation bilaterally and equal. No wheezes rales or rhonchi. HEART: Regular rate and rhythm without murmurs ABDOMEN: Soft, nontender, nondistended abdomen. No guarding, no rebound. No masses appreciated. Female : deferred Musculoskeletal: Normal range of motion, no pitting or edema. No cyanosis. NEUROLOGICAL: Cranial nerves grossly intact. Normal speech, normal gait. Normal sensory, motor exams PSYCH: Normal mood, normal affect. SKIN: Warm, Dry, normal turgor, no rashes or lesions noted. Dictation was performed using invi voice recognition software Physical Exam - Vital signs Vitals: Temp Pulse Resp BP Pulse Ox 97.9 F 102 H 16 115/75 100 08/29/17 18:13 08/29/17 18:13 08/29/17 18:13 08/29/17 18:13 08/29/17 18:13 Course - Re-evaluation Re-evalutation: 08/29/17 21:05 Significant workup was performed for the patient's complaints, CT noted no acute abnormality no stones, urinalysis was clear, I believe the patient just has irritation in the flank secondary to the previous infection otherwise looks well is in no distress and is stable for discharge After performing a Medical Screening Examination, I estimate there is LOW risk for ACUTE APPENDICITIS, BOWEL OBSTRUCTION, ACUTE CHOLECYSTITIS, PERFORATED DIVERTICULITIS, INCARCERATED HERNIA, PANCREATITIS, PELVIC INFLAMMATORY DISEASE, PERFORATED ULCER, ECTOPIC , or TUBO-OVARIAN ABSCESS, thus I consider the discharge disposition reasonable. Also, there is no evidence or peritonitis , sepsis, or toxicity. I have reevaluated this patient multiple times and no significant life threatening changes are noted. The patient and I have discussed the diagnosis and risks, and we agree with discharging home with close follow-up with the understanding that symptoms and presentations can change. We also discussed returning to the Emergency Department immediately if new or worsening symptoms occur. We have discussed the symptoms which are most concerning (e.g., bloody stool, fever, changing or worsening pain, vomiting) that necessitate immediate return. - Vital Signs Vital signs: Temp Pulse Resp BP Pulse Ox 97.9 F 97 16 114/65 99 08/29/17 18:13 08/29/17 19:52 08/29/17 19:52 08/29/17 19:52 08/29/17 19:52 - Laboratory Result Diagrams: 08/29/17 19:39 08/29/17 19:39 Laboratory results interpreted by me: 08/29/17 08/29/17 08/29/17 19:14 19:39 19:39 RDW 14.2 H Calcium 10.4 H Total Protein 8.3 H Albumin 5.3 H Urine Urobilinogen 2.0 H Ur Leukocyte Esterase TRACE H - Diagnostic Test Radiology reviewed: Image reviewed, Reports reviewed Discharge - Discharge Clinical Impression: Flank pain Condition: Stable Disposition: HOME, SELF-CARE Instructions: Flank Pain ([facility]) Additional Instructions: Follow up with your physician tomorrow for further care or return to the ED IMMEDIATELY if symptoms worsen or new concerns occur. If you cannot afford to follow up with your primary care physician a list of low cost clinics have been provided at the end of your discharge papers as well.
--- NOTE | 2017-08-29 19:34 | RADIOLOGY REPORT (SQ) ---
EXAM DESCRIPTION: CT LTD RENAL STONE PROTOCOL ON COMPLETED DATE/TIME: 08/29/2017 7:20 pm REASON FOR STUDY: flank pain, recnet pyelo COMPARISON: None. TECHNIQUE: CT scan of the abdomen and pelvis performed without intravenous or oral contrast. Images reviewed with lung, soft tissue, and bone windows. Reconstructed coronal and sagittal MPR images revi ewed. All images stored on PACS. All CT scanners at this facility use dose modulation, iterative reconstruction, and/or weight based d osing when appropriate to reduce radiation dose to as low as reasonably achievable (ALARA). [facility]: Dose Right [facility]: CareDose [facility]: Dose Right [facility]: Teradose 4D [facility]: Smart VertiFlex RADIATION DOSE: CT Rad equipment meets quality standard of care and radiation dose reduction techniq ues were employed. CTDIvol: 5.2 mGy. DLP: 276 mGy-cm.mGy. LIMITATIONS: None. FINDINGS: LOWER CHEST: No significant findings. No nodules or infiltrates. NON-CONTRASTED LIVER, SPLEEN, ADRENALS: Evaluation limited by lack of IV contrast. No identified sign ificant masses. PANCREAS: No masses. No peripancreatic inflammatory changes. GALLBLADDER: No identified stones by CT criteria. No inflammatory changes to suggest cholecystitis. RIGHT KIDNEY AND URETER: No solid masses. No significant calcification. No hydronephrosis or hydroure ter. LEFT KIDNEY AND URETER: No solid masses. No significant calcification. No hydronephrosis or hydrouret er. AORTA AND RETROPERITONEUM: No aneurysm. No retroperitoneal masses or adenopathy. BOWEL AND PERITONEAL CAVITY: Large amount of debris in the stomach, which otherwise looks normal. No mechanical bowel obstruction. Mild stool throughout the colon. No active inflammatory changes, asc ites or abnormal gas. APPENDIX: Normal. PELVIS, BLADDER, AND ABDOMINAL WALL:No abnormal masses. No free fluid. Bladder normal. BONES: No significant findings. OTHER: No other significant finding. IMPRESSION: NO SIGNIFICANT OR ACUTE PROCESS IN THE ABDOMEN OR PELVIS. TECHNICAL DOCUMENTATION: JOB ID: [id number] Quality ID # [id number]: Final reports with documentation of one or more dose reduction techniques (e.g., Au tomated exposure control, adjustment of the mA and/or kV according to patient size, use of iterative reconstruction technique) 2010 [email or web address]- All Rights Reserved
[2017-08-29 19:42] LABS: APPEARANCE,URINE SLIGHTLY HAZY; BILIRUBIN,URINE NEGATIVE (NEGATIVE); COLOR,URINE DARK YELLOW; GLUCOSE, URINE NEGATIVE (NEGATIVE); KETONES,URINE NEGATIVE (NEGATIVE); LEUKOCYTE ESTERASE,URINE TRACE (NEGATIVE); NITRITE,URINE NEGATIVE (NEGATIVE); PROTEIN,URINE NEGATIVE (NEGATIVE)
[2017-08-29 19:53] VITALS: BP 114/65
[2017-08-29 19:56] LABS: ABSOLUTE BASOPHILS # (AUTO) 0.1 10^3/uL (0.0-0.2); ABSOLUTE EOSINOPHILS # (AUTO) 0.3 10^3/uL (0.0-0.6); ABSOLUTE LYMPHOCYTES (AUTO) 2.5 10^3/uL (0.5-4.7); ABSOLUTE MONOCYTES (AUTO) 0.7 10^3/uL (0.1-1.4); BASOPHILS % (AUTO) 0.8 % (0-2); EOSINOPHILS % (AUTO) 2.9 % (0-6); HEMATOCRIT 41.4 % (36.0-47.0); HEMOGLOBIN 14.1 g/dL (12.0-15.5); LYMPHOCYTES % (AUTO) 25.9 % (13-45); MEAN CORPUSCULAR HGB CONC 33.9 g/dL (32.0-36.0); MEAN CORPUSCULAR VOLUME 94 fl (80-97); MONOCYTES % (AUTO) 7.7 % (3-13); PLATELET COUNT 368 10^3/uL (150-450); RED BLOOD COUNT 4.39 10^6/uL (3.72-5.28); RED CELL DISTRIBUTION WIDTH 14.2 % (11.5-14.0); SEGMENTED NEUTROPHILS % (AUTO) 62.7 % (42-78); TOTAL CELLS COUNTED % (AUTO) 100 %; WHITE BLOOD COUNT 9.5 10^3/uL (4.0-10.5)
[2017-08-29 20:17] LABS: ALANINE AMINOTRANSFERASE 36 U/L (9-52); ALBUMIN 5.3 g/dL (3.5-5.0); ALKALINE PHOSPHATASE 117 U/L (38-126); ANION GAP 14 (5-19); ASPARTATE AMINO TRANSFERASE 22 U/L (14-36); BILIRUBIN,DIRECT 0.4 mg/dL (0.0-0.4); BILIRUBIN,TOTAL 0.9 mg/dL (0.2-1.3); BLOOD UREA NITROGEN 10 mg/dL (7-20); CALCIUM 10.4 mg/dL (8.4-10.2); CARBON DIOXIDE 26 mmol/L (22-30); CHLORIDE 100 mmol/L (98-107); GLUCOSE 92 mg/dL (75-110); POTASSIUM 4.5 mmol/L (3.6-5.0); SODIUM 139.7 mmol/L (137-145); TOTAL PROTEIN 8.3 g/dL (6.3-8.2)
== END 2017-08-29 19:52 | disposition home or self-care (01) ==
LOC: ER 17:55
DX: R10.9 Unspecified abdominal pain (principal); M54.9 Dorsalgia, unspecified; R50.9 Fever, unspecified; R11.2 Nausea with vomiting, unspecified
CPT/HCPCS: 36415; 76380; 80053; 81001; 85025; 99284

== ENCOUNTER 2017-10-05 22:15 | Emergency (ER) | payer OTHER ==
[2017-10-05] MEDS ORDERED: NORMAL SALINE 1000 ML 1,000 ML IV ONE (23:27)
[2017-10-05] MEDS ORDERED: PROPRANOLOL HCL 40 MG TABLET PO ONE (23:27)
[2017-10-05 23:36] LABS: ABSOLUTE EOSINOPHILS # (AUTO) 0.2 10^3/uL (0.0-0.6); ABSOLUTE MONOCYTES (AUTO) 0.7 10^3/uL (0.1-1.4); ABSOLUTE NEUT (AUTO) 10.2 10^3/uL (1.7-8.2); BASOPHILS % (AUTO) 0.3 % (0-2); EOSINOPHILS % (AUTO) 1.6 % (0-6); HEMATOCRIT 42.4 % (36.0-47.0); HEMOGLOBIN 14.2 g/dL (12.0-15.5); LYMPHOCYTES % (AUTO) 15.3 % (13-45); MEAN CORPUSCULAR HEMOGLOBIN 31.4 pg (27.0-33.4); MEAN CORPUSCULAR HGB CONC 33.4 g/dL (32.0-36.0); MEAN CORPUSCULAR VOLUME 94 fl (80-97); MONOCYTES % (AUTO) 5.6 % (3-13); PLATELET COUNT 369 10^3/uL (150-450); RED CELL DISTRIBUTION WIDTH 13.7 % (11.5-14.0); SEGMENTED NEUTROPHILS % (AUTO) 77.2 % (42-78); TOTAL CELLS COUNTED % (AUTO) 100 %; WHITE BLOOD COUNT 13.3 10^3/uL (4.0-10.5)
[2017-10-05] MEDS ORDERED: PROPRANOLOL HCL 40 MG TABLET ONE (23:37)
[2017-10-05 23:47] LABS: ALANINE AMINOTRANSFERASE 33 U/L (9-52); ALBUMIN 4.8 g/dL (3.5-5.0); ALKALINE PHOSPHATASE 97 U/L (38-126); ANION GAP 13 (5-19); ASPARTATE AMINO TRANSFERASE 19 U/L (14-36); BILIRUBIN,DIRECT 0.2 mg/dL (0.0-0.4); BILIRUBIN,TOTAL 0.4 mg/dL (0.2-1.3); BLOOD UREA NITROGEN 11 mg/dL (7-20); CALCIUM 10.1 mg/dL (8.4-10.2); CARBON DIOXIDE 27 mmol/L (22-30); CHLORIDE 106 mmol/L (98-107); GLUCOSE 119 mg/dL (75-110); POTASSIUM 4.3 mmol/L (3.6-5.0); SODIUM 146.3 mmol/L (137-145); TOTAL PROTEIN 7.3 g/dL (6.3-8.2)
[2017-10-05 23:48] LABS: LIPASE 232.1 U/L (23-300)
[2017-10-06 00:04] LABS: FREE T4 (FREE THYROXINE) 0.79 ng/dL (0.78-2.19)
[2017-10-06 00:18] LABS: THYROID STIMULATING HORMONE 0.71 uIU/mL (0.47-4.68)
--- NOTE | 2017-10-06 01:05 | RADIOLOGY REPORT (SQ) ---
EXAM DESCRIPTION: CHEST PA/LAT CLINICAL HISTORY: 22 years, Female, sob COMPARISON: 7.21.17 NUMBER OF VIEWS: 2 FINDINGS: Normal lung volume, clear parenchyma, normal cardiac silhouette, and intact bony thorax. IMPRESSION: No acute cardiopulmonary findings.
[2017-10-06 01:35] VITALS: BP 113/66
--- NOTE | 2017-10-06 01:39 | ER Document Report ---
ED General - General Chief Complaint: Fast heart rate Stated Complaint: FAST HEART RATE Time Seen by Provider: 10/05/17 22:55 TRAVEL OUTSIDE OF THE [place] 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 Patient states feeling palpitations earlier this afternoon. Patient states she is not taking her propranolol tonight. Patient denies any pain shortness of breath denies fever chills nausea vomiting diarrhea. Patient looks to be resting comfortably upon my evaluation drinking a Mountain Dew. - Related Data Allergies/Adverse Reactions: No Known Allergies Allergy (Verified 08/25/17 15:21) Past Medical History - Social History Smoking Status: Never Smoker Chew tobacco use (# tins/day): No Frequency of alcohol use: None Drug Abuse: None Family History: Reviewed & Not Pertinent Patient has suicidal ideation: No Patient has homicidal ideation: No - Past Medical History Cardiac Medical History: Denies: Hx Heart Attack, Hx Hypertension Pulmonary Medical History: Denies: Hx Asthma Neurological Medical History: Reports: Hx Migraine. Denies: Hx Cerebrovascular Accident, Hx Seizures Renal/ Medical History: Denies: Hx Peritoneal Dialysis GI Medical History: Denies: Hx Hepatitis, Hx Hiatal Hernia, Hx Ulcer Psychiatric Medical History: Denies: Hx Depression Infectious Medical History: Denies: Hx Hepatitis Past Surgical History: Reports: Hx Tonsillectomy. Denies: Hx Mastectomy, Hx Open Heart Surgery, Hx Pacemaker Review of Systems - Review of Systems Constitutional: No symptoms reported EENT: No symptoms reported Cardiovascular: Palpitations Respiratory: No symptoms reported Gastrointestinal: No symptoms reported Genitourinary: No symptoms reported Female Genitourinary: No symptoms reported Musculoskeletal: No symptoms reported Skin: No symptoms reported Hematologic/Lymphatic: No symptoms reported Neurological/Psychological: No symptoms reported -: Yes All other systems reviewed and negative Physical Exam - Vital signs Vitals: Temp Pulse Resp BP Pulse Ox 97.4 F 141 H 20 127/72 H 99 10/05/17 22:37 10/05/17 22:37 10/05/17 22:37 10/05/17 22:37 10/05/17 22:37 Interpretation: Normal, Tachycardic - General General appearance: Appears well, Alert - HEENT Head: Normocephalic, Atraumatic Eyes: Normal Pupils: PERRL - Respiratory Respiratory status: No respiratory distress Chest status: Nontender Breath sounds: Normal Chest palpation: Normal - Cardiovascular Rhythm: Regular, Tachycardia Heart sounds: Normal auscultation Murmur: No - Abdominal Inspection: Normal Distension: No distension Bowel sounds: Normal Tenderness: Nontender Organomegaly: No organomegaly - Back Back: Normal, Nontender - Extremities General upper extremity: Normal inspection, Nontender, Normal color, Normal ROM , Normal temperature General lower extremity: Normal inspection, Nontender, Normal color, Normal ROM , Normal temperature, Normal weight bearing. No: David's sign - Neurological Neuro grossly intact: Yes Cognition: Normal Orientation: AAOx4 [place] Coma Scale Eye Opening: Spontaneous [place] Coma Scale Verbal: Oriented [place] Coma Scale Motor: Obeys Commands Melina Coma Scale Total: 15 Speech: Normal Motor strength normal: LUE, RUE, LLE, RLE Sensory: Normal - Psychological Associated symptoms: Normal affect, Normal mood - Skin Skin Temperature: Warm Skin Moisture: Dry Skin Color: Normal Course - Re-evaluation Re-evalutation: 10/06/17 05:28 The patient has palpitations as the patient's palpitations is not suggestive of pulmonary embolus, cardiac ischemia, aortic dissection, or other serious etiology. Given the extremely low risk of these diagnoses further testing and evaluation for these possibilities does not appear to be indicated at this time. The patient has been instructed to return if the symptoms worsen or change in any way. Heart rate improved with administration of the patient's home dose of propanolol. Patient encouraged follow-up PCP. - Vital Signs Vital signs: Temp Pulse Resp BP Pulse Ox 97.7 F 141 H 19 113/66 99 10/06/17 01:28 10/05/17 22:37 10/06/17 01:29 10/06/17 01:30 10/06/17 01:29 - Laboratory Result Diagrams: 10/05/17 23:15 10/05/17 23:15 Laboratory results interpreted by me: 10/05/17 10/05/17 23:15 23:15 WBC 13.3 H Absolute Neutrophils 10.2 H Sodium 146.3 H Glucose 119 H Discharge - Discharge Clinical Impression: Tachycardia Condition: Good Disposition: HOME, SELF-CARE Instructions: Palpitations (Irregular or Rapid Heartrate) ([facility]) Additional Instructions: Your laboratory studies not did not show any significant pathology except for a little bit of dehydration. I highly recommend drink plenty of fluids such as water please avoid stimulants such as caffeine. Please continue taking medication as prescribed return to ER symptoms worsen. Follow-up with your PCP tomorrow. Referrals: MELANY HORNE MD [Primary Care Provider] - Follow up tomorrow
--- NOTE | 2017-10-06 08:04 | EKG REPORT ---
SEVERITY:- ABNORMAL ECG - SINUS TACHYCARDIA NONSPECIFIC T ABNORMALITIES, DIFFUSE LEADS : Confirmed by: Lobo Samayoa MD 06-Oct-2017 08:04:21
--- NOTE | 2017-10-06 08:04 | EKG REPORT ---
SEVERITY:- OTHERWISE NORMAL ECG - SINUS TACHYCARDIA : Confirmed by: Lobo Samayoa MD 06-Oct-2017 08:04:08
== END 2017-10-06 01:30 | disposition home or self-care (01) ==
LOC: ER 22:15
DX: I47.1 Supraventricular tachycardia (principal); Z79.899 Other long term (current) drug therapy; R00.2 Palpitations
CPT/HCPCS: 93005 ×2; 99285; 96360; 36415; 84439; 83690; 83735; 84443; 85025; 80053; 71046; 93010 ×2; J3490; J7030

== ENCOUNTER 2017-11-02 16:36 | Emergency (ER) | payer OTHER ==
--- NOTE | 2017-11-02 16:58 | ER Document Report ---
HPI - HPI Patient complains to provider of: Dysuria frequency and urgency Onset: Other - 1-1/2 weeks Pain Level: 4 Context: 22-year-old with dysuria frequency and urgency for 1 and half weeks. No vaginal discharge or lesions. No abdominal pain. She woke up this morning with some low back pain bilateral so she wanted to see if she needed treatment for urinary tract infection. No fever or chills. No nausea vomiting or diarrhea. Associated Symptoms: None Exacerbated by: Denies Relieved by: Denies Similar symptoms previously: No Recently seen / treated by doctor: No - ROS ROS below otherwise negative: Yes Systems Reviewed and Negative: Yes All other systems reviewed and negative - REPRODUCTIVE Reproductive: DENIES: : Past Medical History - General Information source: Patient - Social History Smoking Status: Never Smoker Frequency of alcohol use: None Drug Abuse: None Lives with: Family Family History: Reviewed & Not Pertinent Neurological Medical History: Reports: Hx Migraine Renal/ Medical History: Denies: Hx Peritoneal Dialysis Past Surgical History: Reports: Hx Tonsillectomy Vertical Provider Document - CONSTITUTIONAL Agree With Documented VS: Yes Exam Limitations: No Limitations - INFECTION CONTROL TRAVEL OUTSIDE OF THE [place] IN LAST 30 DAYS: No - HEENT HEENT: Normal ENT Exam - NECK Neck: Supple - RESPIRATORY Respiratory: Breath Sounds Normal, No Respiratory Distress - CARDIOVASCULAR Cardiovascular: Regular Rate, Regular Rhythm - GI/ABDOMEN Gastrointestinal: Abdomen Soft, Abdomen Non-Tender, No Organomegaly - BACK Back: Normal Inspection. negative: CVA Tenderness-Right, CVA Tenderness-Left - MUSCULOSKELETAL/EXTREMETIES Musculoskeletal/Extremeties: MAEW - NEURO Level of Consciousness: Awake - DERM Integumentary: Warm, Dry, No Rash Course - Re-evaluation Re-evalutation: 11/02/17 17:18 Apical pulse is 108 at this time. 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 Discharge - Discharge Clinical Impression: Urinary tract infection, Low back pain Condition: Good Disposition: HOME, SELF-CARE Instructions: Low Back Pain ([facility]), Acetaminophen, Ibuprofen (General) ([facility]), Cephalexin ([facility]) Additional Instructions: Antibiotic cephalexin 500 mg 4 times a day for a week pending the urine culture Plenty of water Tylenol for pain. Up to 4000 mg per day Motrin for pain to 800 mg 3 times a day Warm compress to back Return to the emergency room for worsening symptoms Urine culture is pending Prescriptions: Cephalexin Monohydrate [Keflex 500 mg Capsule] 500 mg PO QID #28 capsule Referrals: MELANY HORNE MD [Primary Care Provider] - Follow up as needed
[2017-11-02 17:29] LABS: AMORPHOUS SEDIMENT,URINE TRACE /HPF; APPEARANCE,URINE CLOUDY; BILIRUBIN,URINE NEGATIVE (NEGATIVE); COLOR,URINE YELLOW; GLUCOSE, URINE NEGATIVE (NEGATIVE); KETONES,URINE NEGATIVE (NEGATIVE); LEUKOCYTE ESTERASE,URINE SMALL (NEGATIVE); NITRITE,URINE POSITIVE (NEGATIVE); PROTEIN,URINE NEGATIVE (NEGATIVE); URINE SPECIFIC GRAVITY 1.023
[2017-11-02 18:55] VITALS: BP 115/68
== END 2017-11-02 18:55 | disposition home or self-care (01) ==
LOC: ER 16:36
DX: N39.0 Urinary tract infection, site not specified (principal); M54.5 Low back pain; R30.0 Dysuria; R39.15 Urgency of urination; R35.0 Frequency of micturition; R00.0 Tachycardia, unspecified; Z79.899 Other long term (current) drug therapy
CPT/HCPCS: 81001; 87086; 99283

== ENCOUNTER 2017-11-04 21:08 | Inpatient (IN) | payer OTHER ==
[2017-11-04] MEDS ORDERED: ONDANSETRON 4 MG TAB.RAPDIS PO ONE (22:58)
--- NOTE | 2017-11-04 23:00 | ER Document Report ---
ED Medical Screen (RME) - General Chief Complaint: Abdominal Pain Stated Complaint: NAUSEA/VOMITING Time Seen by Provider: 11/04/17 22:57 Mode of Arrival: Ambulatory Information source: Patient Notes: Patient presents complaining of right sided abdominal pain that started yesterday with nausea vomiting and diarrhea. Patient states she is vomited about 10 times today and had diarrhea just a few episodes. Patient states she is currently being treated for UTI but feels as though her UTI symptoms are starting to improve. hx: Neurogenic cardiac syncope, Cj-Danlos, arthritis, tonsillectomy adenoidectomy I have greeted and performed a rapid initial assessment of this patient. A comprehensive ED assessment and evaluation of the patient, analysis of test results and completion of the medical decision making process will be conducted by additional ED providers. TRAVEL OUTSIDE OF THE [place] IN LAST 30 DAYS: No - Related Data Allergies/Adverse Reactions: No Known Allergies Allergy (Verified 08/25/17 15:21) Past Medical History - Social History Family history: Other - Grandmother of [place] at age 58; mother anemia - Past Medical History Cardiac Medical History: Denies: Hx Heart Attack, Hx Hypertension Pulmonary Medical History: Denies: Hx Asthma Neurological Medical History: Reports: Hx Migraine. Denies: Hx Cerebrovascular Accident, Hx Seizures Renal/ Medical History: Denies: Hx Peritoneal Dialysis GI Medical History: Denies: Hx Hepatitis, Hx Hiatal Hernia, Hx Ulcer Psychiatric Medical History: Denies: Hx Depression Infectious Medical History: Denies: Hx Hepatitis Past Surgical History: Reports: Hx Tonsillectomy. Denies: Hx Mastectomy, Hx Open Heart Surgery, Hx Pacemaker Physical Exam - Vital signs Vitals: Temp Pulse Resp BP Pulse Ox 98.2 F 85 18 123/76 99 11/04/17 21:30 11/04/17 21:30 11/04/17 21:30 11/04/17 21:30 11/04/17 21:30 - Abdominal Tenderness: Tender - Right lower quadrant tenderness Course - Vital Signs Vital signs: Temp Pulse Resp BP Pulse Ox 98.2 F 85 18 123/76 99 11/04/17 21:30 11/04/17 21:30 11/04/17 21:30 11/04/17 21:30 11/04/17 21:30
[2017-11-05 00:08] LABS: ABSOLUTE LYMPHOCYTES (AUTO) 1.2 10^3/uL (0.5-4.7); ABSOLUTE MONOCYTES (AUTO) 1.2 10^3/uL (0.1-1.4); ABSOLUTE NEUT (AUTO) 20.8 10^3/uL (1.7-8.2); APPEARANCE,URINE SLIGHTLY-CLOUDY; BASOPHILS % (AUTO) 0.1 % (0-2); BILIRUBIN,URINE NEGATIVE (NEGATIVE); COLOR,URINE AMBER; GLUCOSE, URINE NEGATIVE (NEGATIVE); HEMATOCRIT 40.8 % (36.0-47.0); HEMOGLOBIN 13.8 g/dL (12.0-15.5); KETONES,URINE 80 mg/dL (NEGATIVE); LEUKOCYTE ESTERASE,URINE TRACE (NEGATIVE); LYMPHOCYTES % (AUTO) 5.3 % (13-45); MEAN CORPUSCULAR HEMOGLOBIN 30.8 pg (27.0-33.4); MEAN CORPUSCULAR HGB CONC 33.8 g/dL (32.0-36.0); MEAN CORPUSCULAR VOLUME 91 fl (80-97); MONOCYTES % (AUTO) 5.3 % (3-13); NITRITE,URINE POSITIVE (NEGATIVE); PLATELET COUNT 337 10^3/uL (150-450); PROTEIN,URINE 30 mg/dL (NEGATIVE); RED BLOOD COUNT 4.48 10^6/uL (3.72-5.28); SEGMENTED NEUTROPHILS % (AUTO) 89.3 % (42-78); TOTAL CELLS COUNTED % (AUTO) 100 %; URINE SPECIFIC GRAVITY 1.029; WHITE BLOOD COUNT 23.3 10^3/uL (4.0-10.5)
[2017-11-05 00:14] LABS: ALANINE AMINOTRANSFERASE 25 U/L (9-52); ALBUMIN 5.1 g/dL (3.5-5.0); ALKALINE PHOSPHATASE 114 U/L (38-126); ANION GAP 17 (5-19); ASPARTATE AMINO TRANSFERASE 18 U/L (14-36); BILIRUBIN,DIRECT 0.3 mg/dL (0.0-0.4); BILIRUBIN,TOTAL 1.5 mg/dL (0.2-1.3); BLOOD UREA NITROGEN 14 mg/dL (7-20); CALCIUM 10.4 mg/dL (8.4-10.2); CARBON DIOXIDE 26 mmol/L (22-30); CHLORIDE 98 mmol/L (98-107); GLUCOSE 96 mg/dL (75-110); LIPASE 71.1 U/L (23-300); POTASSIUM 4.3 mmol/L (3.6-5.0); SODIUM 140.5 mmol/L (137-145); TOTAL PROTEIN 8.1 g/dL (6.3-8.2)
[2017-11-05] MEDS ORDERED: NORMAL SALINE 1000 ML 1,000 ML IV ONE ×2 (00:23→01:40)
[2017-11-05] MEDS ORDERED: MORPHINE SULFATE 10 MG/ML INJ IV ONE (00:36)
--- NOTE | 2017-11-05 00:36 | ER Document Report ---
ED GI/ - General Mode of Arrival: Ambulatory Information source: Patient TRAVEL OUTSIDE OF THE [place] IN LAST 30 DAYS: No <SHARRI GOODRICH - Last Filed: 11/05/17 01:50> <NAVEEN REDDY - Last Filed: 11/05/17 02:00> - General Chief Complaint: Abdominal Pain Stated Complaint: NAUSEA/VOMITING Time Seen by Provider: 11/04/17 22:57 Notes: Patient is a 22-year-old female who presents to the emergency department today with complaints of right lower quadrant abdominal pain x2 days. Patient states the pain has gradually become worse since onset. Patient states lying in a position relieves her pain somewhat. Patient states she has had associated nausea, vomiting, and diarrhea with her abdominal pain. Patient denies any history of abdominal surgeries. (SHARRI GOODRICH) - Related Data Allergies/Adverse Reactions: No Known Allergies Allergy (Verified 08/25/17 15:21) Past Medical History - General Information source: Patient - Social History Smoking Status: Never Smoker Cigarette use (# per day): No Frequency of alcohol use: None Drug Abuse: None Lives with: Family Family History: Reviewed & Not Pertinent Patient has suicidal ideation: No Patient has homicidal ideation: No - Past Medical History Cardiac Medical History: Reports: Other - neurogenic syncope Neurological Medical History: Reports: Hx Migraine Past Surgical History: Reports: Hx Tonsillectomy <SHARRI GOODRICH - Last Filed: 11/05/17 01:50> Review of Systems - Review of Systems Constitutional: No symptoms reported EENT: No symptoms reported Cardiovascular: No symptoms reported Respiratory: No symptoms reported Gastrointestinal: See HPI, Abdominal pain, Diarrhea, Nausea, Vomiting Genitourinary: No symptoms reported Female Genitourinary: No symptoms reported Musculoskeletal: No symptoms reported Skin: No symptoms reported Hematologic/Lymphatic: No symptoms reported Neurological/Psychological: No symptoms reported -: Yes All other systems reviewed and negative <SHARRI GOODRICH - Last Filed: 11/05/17 01:50> Physical Exam <SHARRI GOODRICH - Last Filed: 11/05/17 01:50> <NAVEEN REDDY - Last Filed: 11/05/17 02:00> - Vital signs Vitals: Temp Pulse Resp BP Pulse Ox 98.2 F 85 18 123/76 99 11/04/17 21:30 11/04/17 21:30 11/04/17 21:30 11/04/17 21:30 11/04/17 21:30 - Notes Notes: Physical Exam: General: Alert, appears well. HEENT: Normocephalic. Atraumatic. PERRL. Extraocular movements intact. Oropharynx clear. Neck: Supple. Non-tender. Respiratory: No respiratory distress. Clear and equal breath sounds bilaterally. Cardiovascular: Regular rate and rhythm. Abdominal: Point right lower quadrant tenderness with palpation. No distension. Normal Bowel Sounds. Back: Non-tender. No deformity or step off. Extremities: Moves all four extremities. Upper extremities: Normal inspection. Normal ROM. Lower extremities: Normal inspection. No edema. Normal ROM. Neurological: Normal cognition. AAOx4. Normal speech. Psychological: Normal affect. Normal Mood. Skin: Warm. Dry. Normal color. (SHARRI GOODRICH) Course - Laboratory Result Diagrams: 11/04/17 23:44 11/04/17 23:44 <SHARRI GOODRICH - Last Filed: 11/05/17 01:50> - Laboratory Result Diagrams: 11/04/17 23:44 11/04/17 23:44 - Diagnostic Test Radiology reviewed: Reports reviewed <NAVEEN REDDY - Last Filed: 11/05/17 02:00> - Re-evaluation Re-evalutation: 11/05/17 01:30 Patient is a 22-year-old female who presents with right lower quadrant pain and vomiting. White count 23. CT is consistent with appendicitis. Dr. Blum has been contacted regarding admission. He is down in the emergency department to see the patient. Patient is informed of her CT findings and that she is going to remain n.p.o. right now. Understands and agrees with plan. Stable at time of admission. (NAVEEN REDDY) - Vital Signs Vital signs: Temp Pulse Resp BP Pulse Ox 98.2 F 85 18 123/76 99 11/04/17 21:30 11/04/17 21:30 11/04/17 21:30 11/04/17 21:30 11/04/17 21:30 - Laboratory Laboratory results interpreted by me: 11/04/17 11/04/17 11/04/17 23:44 23:44 23:44 WBC 23.3 H Seg Neutrophils % 89.3 H Lymphocytes % 5.3 L Absolute Neutrophils 20.8 H Calcium 10.4 H Total Bilirubin 1.5 H Albumin 5.1 H Urine Protein 30 H Urine Ketones 80 H Urine Blood SMALL H Urine Nitrite POSITIVE H Urine Urobilinogen 2.0 H Ur Leukocyte Esterase TRACE H Discharge <SHARRI GOODRICH - Last Filed: 11/05/17 01:50> - Discharge Admitting Provider: Surgicalist - [facility] Unit Admitted: Surgical Floor <NAVEEN REDDY - Last Filed: 11/05/17 02:00> - Discharge Clinical Impression: Acute appendicitis Qualifiers: Acute appendicitis type: with localized peritonitis Qualified Code(s): K35.3 - Acute appendicitis with localized peritonitis Condition: Stable Disposition: ADMITTED INPATIENT Scribe Attestation: 11/05/17 02:00 I personally performed the services described in the documentation, reviewed and edited the documentation which was dictated to the scribe in my presence, and it accurately records my words and actions. (NAVEEN REDDY) Scribe Documentation - Scribe Written by Scribe:: Chester Hamilton, 11/05/2017 0150 acting as scribe for :: Jonathan <SHARRI GOODRICH - Last Filed: 11/05/17 01:50>
--- NOTE | 2017-11-05 01:35 | RADIOLOGY REPORT (SQ) ---
EXAM DESCRIPTION: CT ABD/PELVIS NO ORAL OR IV CLINICAL HISTORY: 22 years Female, RLQ pain, N/V COMPARISON: 08.29.17 TECHNIQUE: No contrast. Coronal and sagittal reformat. This exam was performed according to our departmental dose-optimization program, which includes automated exposure control, adjustment of the mA and/or kV according to patient size and/or use of iterative reconstruction technique. FINDINGS: 1.1 cm diameter fluid filled taut appendix with moderate inflamed surrounding fat consistent with acute appendicitis. No significant free fluid. No evidence of abscess. Unenhanced inferior chest, abdominopelvic structures, and musculoskeleton appear otherwise grossly intact. Impression: Acute appendicitis.
[2017-11-05] MEDS ORDERED: PIPERACILLIN/TAZOBACTAM 3.375 GM VIAL IV ONE (01:36)
[2017-11-05] MEDS ORDERED: ERTAPENEM SODIUM INJ 1 GM VIAL IV ONE (02:03)
--- NOTE | 2017-11-05 02:16 | PDOC H&P ---
History of Present Illness Admission Date/PCP: 11/05/17 02:02 MELANY HORNE MD Patient complains of: Abdominal pain History of Present Illness: BERTIN ASTORGA is a 22 year old female who was feeling well until yesterday evening when she had gradual onset the right lower quadrant abdominal pain along with nausea vomiting and anorexia. No fevers or chills. The pain worsened throughout the day and she subsequently came into the emergency department. She denies any prior history of this sort of pain. She notes that the pain is worsened with certain types of movements. She has been anorexic. No diarrhea. Past Medical History Medical History: Other - Cj-Danlos syndrome with mostly joint involvement, denies any known history of vascular complications Cardiac Medical History: Reports: Other - neurogenic cardiac syncope Denies: Myocardial Infarction, Hypertension Pulmonary Medical History: Denies: Asthma Neurological Medical History: Reports: Migraine Denies: Seizures GI Medical History: Denies: Hepatitis, Hiatal Hernia Psychiatric Medical History: Denies: Depression Hematology: Denies: Anemia, Sickle Cell Disease Past Surgical History Past Surgical History: Reports: Tonsillectomy Denies: Amputation, Mastectomy, Pacemaker Social History Lives with: Family Smoking Status: Never Smoker Frequency of Alcohol Use: None Hx Recreational Drug Use: No Drugs: None Hx Prescription Drug Abuse: No Family History Family History: Reviewed & Not Pertinent Parental Family History Reviewed: No Children Family History Reviewed: No Sibling(s) Family History Reviewed.: No Medication/Allergy Home Medications: Acyclovir [Acyclovir 400 mg Tablet] 400 mg PO BID 10/05/17 Amitriptyline HCl [Elavil 50 Mg Tablet] 50 mg PO QHS 10/05/17 Doxepin HCl [Silenor] 1 tab PO QHS 10/05/17 Duloxetine HCl [Cymbalta] 30 mg PO DAILY 10/05/17 Pantoprazole Sodium [Protonix] 40 mg PO DAILY 10/05/17 Propranolol HCl [Propranolol HCl ER] 80 mg PO DAILY 10/05/17 Cephalexin Monohydrate [Keflex 500 mg Capsule] 500 mg PO QID #28 capsule Allergies/Adverse Reactions: No Known Allergies Allergy (Verified 08/25/17 15:21) Physical Exam Vital Signs: Temp Pulse Resp BP Pulse Ox 98.2 F 85 18 123/76 99 11/04/17 21:30 11/04/17 21:30 11/04/17 21:30 11/04/17 21:30 11/04/17 21:30 General appearance: PRESENT: no acute distress, cooperative Eye exam: PRESENT: conjunctiva pink Neck exam: PRESENT: other - Supple with no tenderness and no masses Respiratory exam: PRESENT: clear to auscultation shannan Cardiovascular exam: PRESENT: RRR GI/Abdominal exam: PRESENT: other - Soft, nondistended, focal tenderness to palpation the right lower quadrant with guarding Extremities exam: PRESENT: other - No swelling and no tenderness Neurological exam: PRESENT: alert, awake Psychiatric exam: PRESENT: appropriate affect Skin exam: PRESENT: warm Assessment & Plan - Diagnosis (1) Acute appendicitis Qualifiers: Acute appendicitis type: with localized peritonitis Qualified Code(s): K35.3 - Acute appendicitis with localized peritonitis Is this a current diagnosis for this admission?: Yes Plan: Her white blood cell count is 23.3. CT scan demonstrates evidence of appendicitis but not radiographic evidence of perforation. However, with her marked leukocytosis and peritoneal signs most likely she has had contained perforation. I will plan laparoscopic appendectomy, possible open appendectomy. I have had a discussion with the patient concerning the risk and benefits of the procedure including risk of mistaken diagnosis, infection, bleeding, stump leak, damage to adjacent structures. I have also expressed the concerns about potential complications and technical difficulties due to her Cj Danlos syndrome. patient understands and agrees to proceed.
[2017-11-05] MEDS ORDERED: ERTAPENEM SODIUM 1 GM in NORMAL SALINE 50 ML IV ONE ×2 (02:45→12:00)
[2017-11-05] MEDS ORDERED: ERTAPENEM SODIUM INJ 1 GM VIAL IV PRN (02:45)
[2017-11-05] MEDS ORDERED: BUPIVACAINE HCL 0.25 % INJ/PF (2.5 MG/1 ML) 30 ML VIAL ONE (02:49)
[2017-11-05] MEDS ORDERED: MIDAZOLAM 2 MG/2 ML INJ ONE (02:51)
[2017-11-05] MEDS ORDERED: DEXAMETHASONE SOD PHOSPHATE INJ 4 MG/1 ML VIAL ONE (02:51)
[2017-11-05] MEDS ORDERED: FENTANYL CITRATE INJ/PF 100 MCG/2 ML AMPUL ONE (02:51)
[2017-11-05] MEDS ORDERED: ONDANSETRON HCL INJ/PF 4 MG/2 ML SDV ONE (02:52)
[2017-11-05] MEDS ORDERED: PROPOFOL INJ 200 MG/20 ML VIAL IV ONE (02:52)
[2017-11-05] MEDS ORDERED: MORPHINE SULFATE 10 MG/ML INJ ONE (02:52)
[2017-11-05] MEDS ORDERED: ACETAMINOPHEN 100 ML IV ONE (02:52)
[2017-11-05] MEDS ORDERED: DIPHENHYDRAMINE HCL 50 MG/ML VIAL IV PRN (03:49)
[2017-11-05] MEDS ORDERED: MORPHINE SULFATE 10 MG/ML INJ IV PRN ×2 (03:49→05:13)
[2017-11-05] MEDS ORDERED: PROMETHAZINE HCL INJ 25 MG/1 ML VIAL IV PRN ×2 (03:49)
[2017-11-05] MEDS ORDERED: MEPERIDINE HCL/PF INJ 25 MG/1 ML DISP.SYRIN IV PRN (03:49)
[2017-11-05] MEDS ORDERED: FENTANYL CITRATE INJ/PF 100 MCG/2 ML AMPUL IV PRN ×3 (03:49)
[2017-11-05] MEDS ORDERED: DEXTROSE 40% GEL 15 GM TUBE PO PRN ×2 (05:13)
[2017-11-05] MEDS ORDERED: ONDANSETRON 4 MG TAB.RAPDIS PO PRN (05:13)
[2017-11-05] MEDS ORDERED: DEXTROSE 5%-1/2 NORMAL SALINE 1,000 ML IV PRN (05:13)
[2017-11-05] MEDS ORDERED: GLUCAGON,HUMAN RECOMB 1 MG INJ SUBCUT PRN (05:13)
[2017-11-05] MEDS ORDERED: DEXTROSE 50%-WATER 25 GM/50 ML DISP.SYRIN IV PRN ×2 (05:13)
--- NOTE | 2017-11-05 05:13 | Operative Report ---
Operative Report DATE OF SURGERY: 11/05/17 PREOPERATIVE DIAGNOSIS: Appendicitis POSTOPERATIVE DIAGNOSIS: Appendicitis OPERATION: Laparoscopic appendectomy SURGEON: SLAVA VAUGHN ANESTHESIA: GA TISSUE REMOVED OR ALTERED: Appendix COMPLICATIONS: None ESTIMATED BLOOD LOSS: 20 cc INTRAOPERATIVE FINDINGS: Markedly inflamed appendix without perforation. Appendix firmly adhered to the anterior lateral aspect of the cecum. PROCEDURE: Informed consent was obtained. Patient was brought to the operating room and placed on the operating room table in supine position. After satisfactory induction of general anesthesia, patient's abdomen was prepped and draped in the usual sterile fashion. A supraumbilical midline incision was made and dissection carried down through the fascia and the peritoneal cavity was entered without difficulty. Canseco trocar was then inserted and pneumoperitoneum produced with good patient toleration. A 5 mm trocar was placed in the right lateral abdomen lateral to the rectus above the level of the umbilicus. And another 5 mm trocar was placed in the left lateral abdomen lateral to the rectus below the level of the umbilicus. Patient was placed in a Trendelenburg position with the right side up. The appendix appear markedly inflamed and it was firmly adhered anterolaterally to the cecum. The plane between the cecum and the appendix was not visible initially due to the inflammation. However the inflammatory process did not appear to involve the base of the appendix. The appendix was initially mobilized laterally off of its attachments to the lateral abdominal wall. A plane was able to be created between the appendix and the mesoappendix at the base of the appendix. The appendix was then taken off the cecum using a FORREST stapling device with a blue load taking it flush with the cecum. The stump closure appeared secure. Dissection was then carried out distally with combination of blunt and sharp dissection taking great care to avoid injury to the underlying cecum. A plane was able to be teased between the cecum and the appendix. The mesoappendix was taken in some portions with clipping and dividing and at other portions when it was teased well away from the cecum, the LigaSure device. At one point when it was close to the cecum I used a FORREST stapling device to divide the remainder of the mesoappendix. The operative field was closely examined. Couple of bleeding points were controlled with clips. There was no evidence of colon injury. Hemostasis appeared good at the end of the case. The appendix was placed in an Endobag and removed to the Canseco trocar site fascial defect. The operative field was irrigated and irrigant aspirated out. All trochars were removed under the direct vision of the laparoscope to ensure hemostasis. The Canseco trocar site fascial defect was closed with interrupted Vicryl sutures. All skin incisions were closed with subcuticular interrupted Monocryl sutures. Patient tolerated procedure well with no apparent complications and was taken to the recovery area in stable condition.
--- NOTE | 2017-11-05 07:52 | EKG REPORT ---
SEVERITY:- BORDERLINE ECG - SINUS RHYTHM BORDERLINE T ABNORMALITIES, DIFFUSE LEADS : Confirmed by: Lobo Samayoa MD 05-Nov-2017 07:51:40
[2017-11-05] MEDS: KETOROLAC TROMETHAMINE INJ/PF 30 MG/1 ML SDV IV PRN ×2 (09:01→15:04)
[2017-11-05] MEDS ORDERED: SUCCINYLCHOLINE CHLORIDE INJ 200 MG/10 ML VIAL ONE (11:03)
[2017-11-05] MEDS ORDERED: ROCURONIUM BROMIDE INJ 50 MG/5 ML VIAL IV ONE (11:03)
[2017-11-05 16:28] VITALS: BP 94/35
== END 2017-11-05 17:20 | disposition home or self-care (01) | DRG 339 ==
LOC: ER 21:08 → EH 11-05 02:02 → 4W 11-05 06:36
PROVIDERS: ADMIT Surgery; ATTEND Surgery
PROC: 0DTJ4ZZ Resection of Appendix, Percutaneous Endoscopic Approach (ICD-10-PCS; principal; 2017-11-05 03:30)
DX: K35.3 Acute appendicitis with localized peritonitis (principal); Q79.6 Ehlers-Danlos syndromes; G43.909 Migraine, unspecified, not intractable, without status migrainosus; Z79.899 Other long term (current) drug therapy
CPT/HCPCS: 36415; 74176; 80053; 81001; 81025; 83690; 840; 85025; 87040; 88304; 93005; 93010; 96361; 96374; 99285; J0131; J0330; J1100; J1335; J1885; J2250; J2270; J2405; J2704; J3010; J3490; J7030; S0119

== ENCOUNTER → 2018-01-10 | Outpatient (CLI) | payer BC ==
--- NOTE | 2018-01-10 12:47 | RADIOLOGY REPORT (SQ) ---
EXAM DESCRIPTION: U/S ABDOMEN LIMITED W/O DOP COMPLETED DATE/TIME: 01/10/2018 12:38 pm REASON FOR STUDY: EPIGASTRIC PAIN R10.13 EPIGASTRIC PAIN COMPARISON: CT abdomen pelvis 08/29/2017, 11/05/2017 TECHNIQUE: Dynamic and static grayscale images acquired of the abdomen and recorded on PACS. Additio nal selected color Doppler and spectral images recorded. LIMITATIONS: None. FINDINGS: PANCREAS: Midline pancreas unremarkable LIVER: No masses. Echotexture normal. LIVER VASCULATURE: Normal directional flow of the main portal vein and hepatic veins. GALLBLADDER: No stones. Normal wall thickness. No pericholecystic fluid. ULTRASOUND-DETECTED MURRIETA'S SIGN: Negative. INTRAHEPATIC DUCTS AND COMMON DUCT: CBD and intrahepatic ducts normal caliber. No filling defects. INFERIOR VENA CAVA: Normal flow. AORTA: No aneurysm. RIGHT KIDNEY: Normal size. Normal echogenicity. No solid or suspicious masses. No hydronephrosis. No calcifications. PERITONEAL AND RIGHT PLEURAL SPACE: No ascites or effusions. OTHER: No other significant findings. IMPRESSION: NORMAL RIGHT UPPER QUADRANT ULTRASOUND. TECHNICAL DOCUMENTATION: JOB ID: [id number] [employer]- All Rights Reserved Reading location - IP/workstation name: [email or web address]
== END ==
LOC: RAD 12:05
PROVIDERS: ATTEND Internal Medicine
DX: R10.13 Epigastric pain (principal)
CPT/HCPCS: 76705

== ENCOUNTER 2018-03-08 23:57 | Emergency (ER) | payer BC ==
[2018-03-09] MEDS ORDERED: OXYCODONE-ACETAMINOPHEN 5-325 MG TABLET PO ONE (00:39)
[2018-03-09] MEDS ORDERED: NORMAL SALINE 1000 ML 1,000 ML IV ONE (00:39)
--- NOTE | 2018-03-09 00:41 | ER Document Report ---
ED General - General Chief Complaint: Shortness Of Breath Stated Complaint: BACK PAIN,SHORTNESS OF BREATH Time Seen by Provider: 03/09/18 00:30 Notes: Patient is a 23-year-old female with a history of supraventricular tachycardia and [place] that comes emergency department for chief complaint of flank pain bilaterally and also feeling like her heart rate is elevated. She is a 22 beat very fast he feels slightly short of breath. She is on propanolol for this, she does not believe she missed any doses. She denies fever or chills, nausea vomiting, she states she does believe she is dehydrated. She states she thinks she has a kidney infection because she is been told she has kidney reflux and she gets them frequently. She denies abdominal pain, dizziness, chest pain. She states her average heart rate is 110. TRAVEL OUTSIDE OF THE [place] IN LAST 30 DAYS: No - Related Data Allergies/Adverse Reactions: No Known Allergies Allergy (Verified 08/25/17 15:21) Past Medical History - General Information source: Patient - Social History Smoking Status: Never Smoker Frequency of alcohol use: None Drug Abuse: None Lives with: Family Family History: Reviewed & Not Pertinent - Past Medical History Cardiac Medical History: Denies: Hx Heart Attack, Hx Hypertension Pulmonary Medical History: Denies: Hx Asthma Neurological Medical History: Reports: Hx Migraine. Denies: Hx Cerebrovascular Accident, Hx Seizures Renal/ Medical History: Denies: Hx Peritoneal Dialysis GI Medical History: Denies: Hx Hepatitis, Hx Hiatal Hernia, Hx Ulcer Psychiatric Medical History: Denies: Hx Depression Infectious Medical History: Denies: Hx Hepatitis Past Surgical History: Reports: Hx Tonsillectomy. Denies: Hx Mastectomy, Hx Open Heart Surgery, Hx Pacemaker - Immunizations Hx Diphtheria, Pertussis, Tetanus Vaccination: Yes Review of Systems - Review of Systems Constitutional: No symptoms reported EENT: No symptoms reported Cardiovascular: See HPI Respiratory: See HPI Gastrointestinal: See HPI Genitourinary: See HPI Female Genitourinary: No symptoms reported Musculoskeletal: No symptoms reported Skin: No symptoms reported Hematologic/Lymphatic: No symptoms reported Neurological/Psychological: No symptoms reported Physical Exam - Vital signs Vitals: Temp Pulse Resp BP Pulse Ox 97.7 F 152 H 18 142/78 H 97 03/09/18 00:05 03/09/18 00:05 03/09/18 00:05 03/09/18 00:05 03/09/18 00:05 - Notes Notes: GENERAL: Alert, interacts well. No acute distress. HEAD: Normocephalic, atraumatic. EYES: Pupils equal, round, and reactive to light. Extraocular movements intact. ENT: Oral mucosa moist, tongue midline. NECK: Full range of motion. Supple. Trachea midline. LUNGS: Clear to auscultation bilaterally, no wheezes, rales, or rhonchi. No respiratory distress. HEART: Tachycardic, regular rate, no extrasystoles, no murmur ABDOMEN: Soft, non-tender. Non-distended. Bowel sounds present in all 4 quadrants. EXTREMITIES: Moves all 4 extremities spontaneously. No edema, normal radial and dorsalis pedis pulses bilaterally. No cyanosis. BACK: no cervical, thoracic, lumbar midline tenderness. No saddle anesthesia, normal distal neurovascular exam. Mild bilateral CVA tenderness. NEUROLOGICAL: Alert and oriented x3. Normal speech. [cranial nerves II through XII grossly intact]. PSYCH: Normal affect, normal mood. SKIN: Warm, dry, normal turgor. No rashes or lesions noted. Course - Re-evaluation Re-evalutation: Patient initially given IV fluids and pain medication. After this her heart rate dropped to 115. She has a soft benign abdomen, she does have mild bilateral CVA tenderness, she is smiling and well-appearing. CBC shows mild leukocytosis, chemistry generally unremarkable, magnesium unremarkable, EKG showing sinus tachycardia. Chest x-ray unremarkable. Patient asymptomatic on my reevaluation. She does still have intermittent tachycardia, she was given a dose of propanolol with her home dose, after this her heart rate stayed at about 105. She does have a urinary tract infection with positive nitrates and leukocyte esterase, culture was placed, given dose of Rocephin. Patient is asking to leave. No fever, no vomiting, because of bilateral symptoms and history of the same I have low suspicion of infected ureterolithiasis. Discussed antibiotics, follow-up, and return precautions, patient states satisfaction and agreement. - Vital Signs Vital signs: Temp Pulse Resp BP Pulse Ox 97.7 F 152 H 15 115/83 99 03/09/18 00:05 03/09/18 00:05 03/09/18 03:01 03/09/18 03:00 03/09/18 03:01 - Laboratory Result Diagrams: 03/09/18 00:40 03/09/18 00:40 Laboratory results interpreted by me: 03/09/18 03/09/18 03/09/18 00:40 00:40 00:53 WBC 13.9 H RDW 14.7 H Absolute Neutrophils 9.7 H Sodium 145.4 H Alkaline Phosphatase 158 H Total Protein 8.5 H Urine Protein 30 H Urine Blood MODERATE H Urine Nitrite POSITIVE H Ur Leukocyte Esterase LARGE H Discharge - Discharge Clinical Impression: Flank pain, Tachycardia Urinary tract infection Qualifiers: Urinary tract infection type: site unspecified Hematuria presence: without hematuria Qualified Code(s): N39.0 - Urinary tract infection, site not specified Condition: Stable Disposition: HOME, SELF-CARE Additional Instructions: Take Keflex as prescribed for treatment of urinary tract infection, suspected kidney infection. Rest. Drink plenty of fluids. Because of your tachycardia continue propanolol, avoid caffeine, continue follow -up with cardiology. Return if you worsen including fever, vomiting, severe pain, passing out, or any other concerning or worsening symptoms. Prescriptions: Cephalexin Monohydrate [Keflex 500 mg Capsule] 500 mg PO BID #14 capsule Referrals: MELANY HORNE MD [Primary Care Provider] - Follow up as needed
[2018-03-09 00:50] LABS: ABSOLUTE BASOPHILS # (AUTO) 0.1 10^3/uL (0.0-0.2); ABSOLUTE EOSINOPHILS # (AUTO) 0.2 10^3/uL (0.0-0.6); ABSOLUTE LYMPHOCYTES (AUTO) 2.7 10^3/uL (0.5-4.7); ABSOLUTE MONOCYTES (AUTO) 1.2 10^3/uL (0.1-1.4); ABSOLUTE NEUT (AUTO) 9.7 10^3/uL (1.7-8.2); BASOPHILS % (AUTO) 0.8 % (0-2); EOSINOPHILS % (AUTO) 1.3 % (0-6); HEMOGLOBIN 15.3 g/dL (12.0-15.5); LYMPHOCYTES % (AUTO) 19.5 % (13-45); MEAN CORPUSCULAR HEMOGLOBIN 30.8 pg (27.0-33.4); MEAN CORPUSCULAR VOLUME 91 fl (80-97); MONOCYTES % (AUTO) 8.3 % (3-13); PLATELET COUNT 432 10^3/uL (150-450); RED BLOOD COUNT 4.96 10^6/uL (3.72-5.28); RED CELL DISTRIBUTION WIDTH 14.7 % (11.5-14.0); SEGMENTED NEUTROPHILS % (AUTO) 70.1 % (42-78); TOTAL CELLS COUNTED % (AUTO) 100 %; WHITE BLOOD COUNT 13.9 10^3/uL (4.0-10.5)
[2018-03-09 01:06] LABS: ALANINE AMINOTRANSFERASE 28 U/L (9-52); ALKALINE PHOSPHATASE 158 U/L (38-126); ANION GAP 17 (5-19); ASPARTATE AMINO TRANSFERASE 23 U/L (14-36); BILIRUBIN,DIRECT 0.4 mg/dL (0.0-0.4); BILIRUBIN,TOTAL 0.8 mg/dL (0.2-1.3); BLOOD UREA NITROGEN 18 mg/dL (7-20); CALCIUM 10.1 mg/dL (8.4-10.2); CARBON DIOXIDE 22 mmol/L (22-30); CHLORIDE 106 mmol/L (98-107); GLUCOSE 99 mg/dL (75-110); POTASSIUM 3.7 mmol/L (3.6-5.0); SODIUM 145.4 mmol/L (137-145); TOTAL PROTEIN 8.5 g/dL (6.3-8.2)
[2018-03-09 01:15] LABS: APPEARANCE,URINE CLOUDY; BILIRUBIN,URINE NEGATIVE (NEGATIVE); COLOR,URINE AMBER; GLUCOSE, URINE NEGATIVE (NEGATIVE); KETONES,URINE NEGATIVE (NEGATIVE); LEUKOCYTE ESTERASE,URINE LARGE (NEGATIVE); NITRITE,URINE POSITIVE (NEGATIVE); PROTEIN,URINE 30 mg/dL (NEGATIVE); URINE SPECIFIC GRAVITY 1.028; UROBILINOGEN,URINE NEGATIVE mg/dL (<2.0)
--- NOTE | 2018-03-09 01:16 | RADIOLOGY REPORT (SQ) ---
XR CHEST 1 VIEW HISTORY: Shortness of breath. Back pain. COMPARISON: None. FINDINGS/IMPRESSION: Normal cardiomediastinal contours. Pulmonary vasculature is unremarkable. Lungs are clear. No pleural effusion or pneumothorax. No acute osseous findings.
[2018-03-09] MEDS ORDERED: CEFTRIAXONE INJ 1000 MG VIAL IV ONE (01:35)
[2018-03-09] MEDS ORDERED: PROPRANOLOL HCL 40 MG TABLET PO ONE (01:38)
[2018-03-09] MEDS ORDERED: PROPRANOLOL HCL 40 MG TABLET ONE (02:31)
[2018-03-09] MEDS ORDERED: HYDROCODONE/ACETAMINOPHEN 5-325 MG (6 TAB/ER DISP) PO PRN (03:16)
[2018-03-09 03:33] VITALS: BP 115/83
--- NOTE | 2018-03-09 07:53 | EKG REPORT ---
SEVERITY:- ABNORMAL ECG - SINUS TACHYCARDIA BORDERLINE RIGHT AXIS DEVIATION ABNORMAL T, CONSIDER ISCHEMIA, DIFFUSE LEADS : Confirmed by: Lobo Samayoa MD 09-Mar-2018 07:52:52
== END 2018-03-09 03:25 | disposition home or self-care (01) ==
LOC: ER 23:57
DX: N39.0 Urinary tract infection, site not specified (principal); R00.0 Tachycardia, unspecified; R10.9 Unspecified abdominal pain; R06.02 Shortness of breath
CPT/HCPCS: 93005; 99284; 36415; 87086; 83735; 84703; 85025; 87088; 80053; 81001; 87186; 71045; 93010; J3490; J0696; J7030

== ENCOUNTER 2018-03-16 22:29 | Emergency (ER) | payer BC ==
[2018-03-16 22:38] VITALS: BP 113/67
--- NOTE | 2018-03-17 | ER Document Report ---
Doctor's Note Notes: 03/17/18 00:00 Note: Patient walked out prior to my evaluation
== END 2018-03-17 00:05 | disposition left against medical advice (07) ==
LOC: ER 22:29
DX: R55 Syncope and collapse (principal); Z53.21 Procedure and treatment not carried out due to patient leaving prior to being seen by health care provider

== ENCOUNTER 2018-04-27 12:14 | Emergency (ER) | payer BC ==
[2018-04-27] MEDS ORDERED: MECLIZINE HCL 25 MG TABLET PO ONE (13:38)
[2018-04-27] MEDS ORDERED: PROCHLORPERAZINE MALEATE 10 MG TABLET PO ONE (13:38)
--- NOTE | 2018-04-27 13:43 | ER Document Report ---
ED Dizziness/Weakness - General Chief Complaint: Dizziness Stated Complaint: DIZZINESS Time Seen by Provider: 04/27/18 13:33 Mode of Arrival: Ambulatory Information source: Patient Notes: Chief complaint: Dizziness History of complain:( obtained from----patient) 23 years old female presents today with ringing sensation in the year and spinning sensation and dizziness since this morning. She has been taking anti-depression medications like Cymbalta and also she has positional hypotension for that she is taking taking propranolol. Denies any headache focal weakness numbness tingling sensation denies any fever chills or other constitutional symptoms. She had a CT scan of the head done last late last year, which was reported as normal. Onset: As above Duration: Just prior to arrival Severity: Moderate Quality: As above Context: As above Exacerbating factor and relieving factors: Change of position REVIEW OF SYSTEMS: CONSTITUTIONAL : Denies fever, chills, or sweats. Denies recent illness. EENT: Denies eye, ear, throat, or mouth pain or symptoms. Denies nasal or sinus congestion or discharge. Denies throat, tongue, or mouth swelling or difficulty swallowing. CARDIOVASCULAR: Denies chest pain. Denies palpitations or racing or irregular heart beat. Denies ankle edema. RESPIRATORY: Denies cough, cold, or chest congestion. Denies shortness of breath, difficulty breathing, or wheezing. GASTROINTESTINAL: Denies distention. Denies nausea, vomiting, or diarrhea. Denies blood in vomitus, stools, or per rectum. Denies black, tarry stools. Denies constipation. GENITOURINARY: Denies difficulty urinating, painful urination, burning, frequency, blood in urine, or discharge. FEMALE GENITOURINARY: Denies vaginal bleeding, heavy or abnormal periods, irregular periods. Denies vaginal discharge or odor. MUSCULOSKELETAL: Denies back or neck pain or stiffness. Denies joint pain or swelling. SKIN: Denies rash, lesions or sores. HEMATOLOGIC : Denies easy bruising or bleeding. LYMPHATIC: Denies swollen, enlarged glands. NEUROLOGICAL: Denies confusion or altered mental status. Denies passing out or loss of consciousness. Denies dizziness or lightheadedness. Denies headache. Denies weakness or paralysis or loss of use of either side. Denies problems with gait or speech. Denies sensory loss, numbness, or tingling. Denies seizures. PSYCHIATRIC: Denies anxiety or stress. Denies depression, suicidal ideation, or homicidal ideation. ALL OTHER SYSTEMS REVIEWED AND NEGATIVE. PHYSICAL EXAMINATION: GENERAL: Well-appearing, well-nourished and in no acute distress. HEAD: Atraumatic, normocephalic. EYES: Pupils equal round and reactive to light, extraocular movements intact, conjunctiva are normal. But has sharp lateral nystagmus both on the right and the left side. ENT: Nares patent, oropharynx clear without exudates. Moist mucous membranes. NECK: Normal range of motion, supple without lymphadenopathy LUNGS: Breath sounds clear to auscultation bilaterally and equal. No wheezes rales or rhonchi. HEART: Regular rate and rhythm without murmurs ABDOMEN: Soft, nontender, nondistended abdomen. No guarding, no rebound. No masses appreciated. Examination of genitals-deferred Musculoskeletal: Normal range of motion, no pitting or edema. No cyanosis. NEUROLOGICAL: Cranial nerves grossly intact. Normal speech, normal gait. Normal sensory, motor exams PSYCH: Normal mood, normal affect. SKIN: Warm, Dry, normal turgor, no rashes or lesions noted. Dictation was performed using [employer] voice recognition software TRAVEL OUTSIDE OF THE [place] IN LAST 30 DAYS: No - HPI Notes: Dictated - Related Data Allergies/Adverse Reactions: No Known Allergies Allergy (Verified 04/27/18 12:15) Past Medical History - Social History Smoking Status: Never Smoker Frequency of alcohol use: None Drug Abuse: None Family History: Reviewed & Not Pertinent Patient has suicidal ideation: No Patient has homicidal ideation: No - Past Medical History Cardiac Medical History: Denies: Hx Heart Attack, Hx Hypertension Pulmonary Medical History: Denies: Hx Asthma Neurological Medical History: Reports: Hx Migraine. Denies: Hx Cerebrovascular Accident, Hx Seizures Renal/ Medical History: Denies: Hx Peritoneal Dialysis GI Medical History: Denies: Hx Hepatitis, Hx Hiatal Hernia, Hx Ulcer Psychiatric Medical History: Denies: Hx Depression Infectious Medical History: Denies: Hx Hepatitis Past Surgical History: Reports: Hx Appendectomy, Hx Tonsillectomy. Denies: Hx Mastectomy, Hx Open Heart Surgery, Hx Pacemaker - Immunizations Hx Diphtheria, Pertussis, Tetanus Vaccination: Yes Review of Systems - Review of Systems Notes: Dictated Physical Exam - Vital signs Vitals: Temp Pulse Resp BP Pulse Ox 97.9 F 73 16 95/48 L 98 04/27/18 12:54 04/27/18 12:54 04/27/18 12:54 04/27/18 12:54 04/27/18 12:54 - Notes Notes: Dictated Course - Re-evaluation Re-evalutation: 04/27/18 13:41 Given Antivert, Compazine - Vital Signs Vital signs: Temp Pulse Resp BP Pulse Ox 97.9 F 73 16 95/48 L 98 04/27/18 12:54 04/27/18 12:54 04/27/18 12:54 04/27/18 12:54 04/27/18 12:54 Discharge - Discharge Clinical Impression: Benign positional vertigo Qualifiers: Laterality: bilateral Qualified Code(s): H81.13 - Benign paroxysmal vertigo, bilateral Condition: Fair Disposition: HOME, SELF-CARE Instructions: Vertigo ([facility]) Prescriptions: Meclizine HCl 25 mg PO TID #30 tab.chew Prochlorperazine Maleate [Compazine 10 mg Tablet] 10 mg PO ASDIR PRN #30 tablet PRN Reason: 4 times daily Referrals: MELANY HORNE MD [Primary Care Provider] - Follow up as needed
[2018-04-27 14:09] VITALS: BP 93/55
== END 2018-04-27 14:09 | disposition home or self-care (01) ==
LOC: ER 12:14
DX: H81.13 Benign paroxysmal vertigo, bilateral (principal); I95.9 Hypotension, unspecified; H93.19 Tinnitus, unspecified ear; Z79.899 Other long term (current) drug therapy
CPT/HCPCS: 99283; S0183

== ENCOUNTER 2018-04-29 10:15 | Inpatient (IN) | payer BC ==
--- NOTE | 2018-04-29 10:21 | ER Document Report ---
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 When she got out of bed her vision was fuzzy she got lightheaded everything got black and she passed out. She woke up on the floor and she states that she passed out for only a few seconds. This occurred 7-8 times today. Her disabled mother called her who called EMS and when they got there her systolic pressure was 80. On her way to the hospital she developed a frontal headache 5/5 and feeling sore on the left hip and neck. She also states she thinks she has had a UTI this week because she has had dysuria and frequency. She states her blood pressure gets low when she gets urinary tract infections. She takes amitriptyline 50 mg daily, hydrocodone for her joint pain but she has not had any for a few days, ambien 5mg, Cymbalta 60 mg daily, propanolol 80 mg are daily, pramipexole 0.125 daily, and 2 new meds prescribed on 04-27 for vertigo. Meclizine HCl 25 mg PO TID and Prochlorperazine Maleate 10mg qid. PCP dr. oconnor, as Lilo Mcghee. TRAVEL OUTSIDE OF THE [place] IN LAST 30 DAYS: No - Related Data Allergies/Adverse Reactions: No Known Allergies Allergy (Verified 04/29/18 13:03) Past Medical History - General Information source: Patient - Social History Smoking Status: Unknown if Ever Smoked Family History: Reviewed & Not Pertinent - Past Medical History Cardiac Medical History: Denies: Hx Heart Attack, Hx Hypertension Pulmonary Medical History: Denies: Hx Asthma Neurological Medical History: Reports: Hx Migraine. Denies: Hx Cerebrovascular Accident, Hx Seizures Renal/ Medical History: Denies: Hx Peritoneal Dialysis GI Medical History: Denies: Hx Hepatitis, Hx Hiatal Hernia, Hx Ulcer Psychiatric Medical History: Denies: Hx Depression Infectious Medical History: Denies: Hx Hepatitis Past Surgical History: Reports: Hx Appendectomy, Hx Tonsillectomy. Denies: Hx Mastectomy, Hx Open Heart Surgery, Hx Pacemaker - Immunizations Hx Diphtheria, Pertussis, Tetanus Vaccination: Yes Physical Exam - Vital signs Vitals: Resp Pulse Ox 22 H 100 04/29/18 10:22 04/29/18 10:22 Interpretation: Hypotensive - General General appearance: Alert, Other - pale, dry - HEENT Head: Normocephalic, Atraumatic Eyes: Normal Pupils: PERRL - Respiratory Respiratory status: No respiratory distress Chest status: Nontender Breath sounds: Normal Chest palpation: Normal - Cardiovascular Rhythm: Regular Heart sounds: Normal auscultation Murmur: No - Abdominal Inspection: Normal Distension: No distension Bowel sounds: Normal Tenderness: Nontender Organomegaly: No organomegaly - Back Back: Normal, Nontender - Extremities General upper extremity: Normal inspection, Nontender, Normal color, Normal ROM , Normal temperature General lower extremity: Normal inspection, Nontender, Normal color, Normal ROM , Normal temperature, Normal weight bearing. No: David's sign - Neurological Neuro grossly intact: Yes Cognition: Normal Orientation: AAOx4 [place] Coma Scale Eye Opening: Spontaneous Melina Coma Scale Verbal: Oriented [place] Coma Scale Motor: Obeys Commands Melina Coma Scale Total: 15 Speech: Normal Motor strength normal: LUE, RUE, LLE, RLE Sensory: Normal - Psychological Associated symptoms: Normal affect, Normal mood - Skin Skin Temperature: Warm Skin Moisture: Dry Skin Color: Normal Course - Re-evaluation Re-evalutation: 04/29/18 12:23 chem show acute renal failure most likely dehydration. ua is negative for infection and spec grav 1.009 which is not consistant with dehydration. BP sys above 100 now, looks better. xray's and ct's negative per rad. c collar removed. 04/29/18 12:40 Urine toxicology is negative 04/29/18 13:23 Patient looks better her blood pressure is 109 systolic her basic chemistry hemolyzed will be getting another one. 04/29/18 14:59 Repeat chemistry after 2 L of fluid the BUN and creatinine are normal. no symptoms when standing but bp 56/46, then 68/29. supine prior was 96/[address] oconnor for admission. 04/29/18 15:20 Dr. Oconnor will admit the patient and put her on IMCU I asked if there were any other orders that he wanted to to do I had already added a TSH and a test. Patient is agreeable to being admitted - Vital Signs Vital signs: Temp Pulse Resp BP Pulse Ox 98.1 F 19 102/69 100 04/29/18 10:26 04/29/18 12:35 04/29/18 12:35 04/29/18 12:35 - Laboratory Result Diagrams: 04/29/18 10:25 04/29/18 13:57 Laboratory results interpreted by me: 04/29/18 04/29/18 04/29/18 10:25 10:25 10:53 WBC 16.2 H RDW 15.4 H Seg Neutrophils % 86.9 H Lymphocytes % 5.3 L Absolute Neutrophils 14.1 H VBG pH 7.25 L VBG HCO3 19.2 L Chloride Carbon Dioxide 19 L BUN 22 H Creatinine 1.47 H Est GFR ( Amer) 54 L Est GFR (Non-Af Amer) 45 L Glucose 115 H Urine Glucose (UA) Urine Blood Urine Urobilinogen 04/29/18 04/29/18 11:51 13:57 WBC RDW Seg Neutrophils % Lymphocytes % Absolute Neutrophils VBG pH VBG HCO3 Chloride 110 H Carbon Dioxide 21 L BUN Creatinine Est GFR ( Amer) Est GFR (Non-Af Amer) Glucose Urine Glucose (UA) 50 H Urine Blood SMALL H Urine Urobilinogen 2.0 H Discharge - Discharge Clinical Impression: Dysuria Hypotension Qualifiers: Hypotension type: other hypotension type Qualified Code(s): I95.89 - Other hypotension Acute renal failure Qualifiers: Acute renal failure type: unspecified Qualified Code(s): N17.9 - Acute kidney failure, unspecified Syncope Qualifiers: Syncope type: unspecified Qualified Code(s): R55 - Syncope and collapse Condition: Fair Disposition: ADMITTED INPATIENT Admitting Provider: [facility] Unit Admitted: [facility]
[2018-04-29] MEDS ORDERED: RINGERS SOLUTION,LACTATED 1,000 ML IV ONE (10:25)
[2018-04-29] MEDS ORDERED: NORMAL SALINE 1000 ML 1,000 ML IV ONE ×2 (10:41→16:27)
[2018-04-29 10:47] LABS: ABSOLUTE EOSINOPHILS # (AUTO) 0.1 10^3/uL (0.0-0.6); ABSOLUTE LYMPHOCYTES (AUTO) 0.9 10^3/uL (0.5-4.7); ABSOLUTE MONOCYTES (AUTO) 1.1 10^3/uL (0.1-1.4); ABSOLUTE NEUT (AUTO) 14.1 10^3/uL (1.7-8.2); BASOPHILS % (AUTO) 0.3 % (0-2); EOSINOPHILS % (AUTO) 0.6 % (0-6); HEMATOCRIT 36.6 % (36.0-47.0); HEMOGLOBIN 12.5 g/dL (12.0-15.5); LYMPHOCYTES % (AUTO) 5.3 % (13-45); MEAN CORPUSCULAR HEMOGLOBIN 31.3 pg (27.0-33.4); MEAN CORPUSCULAR VOLUME 92 fl (80-97); MONOCYTES % (AUTO) 6.9 % (3-13); PLATELET COUNT 299 10^3/uL (150-450); RED BLOOD COUNT 3.98 10^6/uL (3.72-5.28); RED CELL DISTRIBUTION WIDTH 15.4 % (11.5-14.0); SEGMENTED NEUTROPHILS % (AUTO) 86.9 % (42-78); TOTAL CELLS COUNTED % (AUTO) 100 %; WHITE BLOOD COUNT 16.2 10^3/uL (4.0-10.5)
[2018-04-29] MEDS ORDERED: CEFTRIAXONE 1 GM/D5W RTU 50 ML IV ONE (10:55)
[2018-04-29 11:09] LABS: ALANINE AMINOTRANSFERASE 16 U/L (9-52); ALBUMIN 3.9 g/dL (3.5-5.0); ALKALINE PHOSPHATASE 124 U/L (38-126); ANION GAP 17 (5-19); ASPARTATE AMINO TRANSFERASE 19 U/L (14-36); BILIRUBIN,DIRECT 0.4 mg/dL (0.0-0.4); BILIRUBIN,TOTAL 0.8 mg/dL (0.2-1.3); BLOOD UREA NITROGEN 22 mg/dL (7-20); CALCIUM 9.2 mg/dL (8.4-10.2); CARBON DIOXIDE 19 mmol/L (22-30); CHLORIDE 104 mmol/L (98-107); GLUCOSE 115 mg/dL (75-110); POTASSIUM 4.1 mmol/L (3.6-5.0); SODIUM 139.5 mmol/L (137-145); TOTAL PROTEIN 6.9 g/dL (6.3-8.2)
[2018-04-29 11:17] LABS: VENOUS BLOOD BASE EXCESS -7.9 mmol/L; VENOUS BLOOD HCO3 19.2 mmol/L (20-32); VENOUS BLOOD PCO2 44.4 mmHg (35-63); VENOUS BLOOD PH 7.25 (7.30-7.42)
[2018-04-29] MEDS ORDERED: RINGERS SOLUTION,LACTATED 1,000 ML IV PRN (11:21)
[2018-04-29 11:22] LABS: CREATINE KINASE MB < 0.22 ng/mL (<4.55); TROPONIN I < 0.012 ng/mL
[2018-04-29] MEDS ORDERED: CEFTRIAXONE SODIUM 1,000 MG in NORMAL SALINE 50 ML IV ONE (11:30)
--- NOTE | 2018-04-29 11:38 | RADIOLOGY REPORT (SQ) ---
EXAM DESCRIPTION: CT CERVICAL SPINE WITHOUT COMPLETED DATE/TIME: 04/29/2018 11:27 am REASON FOR STUDY: neck pain after syncope falls COMPARISON: None. TECHNIQUE: Axial images acquired through the cervical spine without intravenous contrast. Images re viewed with lung, soft tissue and bone windows. Reconstructed coronal and sagittal MPR images review ed. Images stored on PACS. All CT scanners at this facility use dose modulation, iterative reconstruction, and/or weight based d osing when appropriate to reduce radiation dose to as low as reasonably achievable (ALARA). [facility]: Dose Right [facility]: CareDose [facility]: Dose Right [facility]: Teradose 4D [facility]: Smart [employer] RADIATION DOSE: CT Rad equipment meets quality standard of care and radiation dose reduction techniq ues were employed. CTDIvol: 16.6 mGy. DLP: 293 mGy-cm. mGy. LIMITATIONS: None. FINDINGS: ALIGNMENT: Anatomic. MINERALIZATION: Normal. VERTEBRAL BODIES: No fractures or dislocation. DISCS: No significant disc disease. FACETS, LATERAL MASSES, POSTERIOR ELEMENTS: No fractures. No dislocation. No acute findings. HARDWARE: None in the spine. VISUALIZED RIBS: No fractures. LUNG APICES AND SOFT TISSUES: No significant or acute findings. OTHER: No other significant finding. IMPRESSION: NO ACUTE OR SIGNIFICANT FINDINGS IN THE CERVICAL SPINE. TECHNICAL DOCUMENTATION: JOB ID: [id number] Quality ID # [id number]: Final reports with documentation of one or more dose reduction techniques (e.g., Au tomated exposure control, adjustment of the mA and/or kV according to patient size, use of iterative reconstruction technique) 2010 [employer]- All Rights Reserved Reading location - IP/workstation name: [email or web address]
--- NOTE | 2018-04-29 11:39 | RADIOLOGY REPORT (SQ) ---
EXAM DESCRIPTION: CT HEAD WITHOUT COMPLETED DATE/TIME: 04/29/2018 11:27 am REASON FOR STUDY: headache COMPARISON: None. TECHNIQUE: Axial images acquired through the brain without intravenous contrast. Images reviewed wi th bone, brain and subdural windows. Additional sagittal and coronal reconstructions were generated. Images stored on PACS. All CT scanners at this facility use dose modulation, iterative reconstruction, and/or weight based d osing when appropriate to reduce radiation dose to as low as reasonably achievable (ALARA). [facility]: Dose Right [facility]: CareDose [facility]: Dose Right [facility]: Teradose 4D [facility]: [employer] RADIATION DOSE: CT Rad equipment meets quality standard of care and radiation dose reduction techniq ues were employed. CTDIvol: 53.2 mGy. DLP: 1044 mGy-cm. mGy. LIMITATIONS: None. FINDINGS: VENTRICLES: Normal size and contour. CEREBRUM: No masses. No hemorrhage. No midline shift. No evidence for acute infarction. Normal gra y/white matter differentiation. No areas of low density in the white matter. CEREBELLUM: No masses. No hemorrhage. No alteration of density. No evidence for acute infarction. EXTRAAXIAL SPACES: No fluid collections. No masses. ORBITS AND GLOBE: No intra- or extraconal masses. Normal contour of globe without masses. CALVARIUM: No fracture. PARANASAL SINUSES: No fluid or mucosal thickening. SOFT TISSUES: No mass or hematoma. OTHER: No other significant finding. IMPRESSION: NORMAL BRAIN CT WITHOUT CONTRAST. EVIDENCE OF ACUTE STROKE: NO. COMMENT: Quality ID # [id number]: Final reports with documentation of one or more dose reduction techniques (e.g., Automated exposure control, adjustment of the mA and/or kV according to patient size, use of iterative reconstruction technique) TECHNICAL DOCUMENTATION: JOB ID: [id number] [employer]- All Rights Reserved Reading location - IP/workstation name: [email or web address]
--- NOTE | 2018-04-29 11:49 | RADIOLOGY REPORT (SQ) ---
EXAM DESCRIPTION: T SPINE AP/LAT COMPLETED DATE/TIME: 04/29/2018 11:37 am REASON FOR STUDY: mid t spine pain after fall COMPARISON: None. NUMBER OF VIEWS: Two views. TECHNIQUE: AP and lateral radiographic images acquired of the thoracic spine. LIMITATIONS: None. FINDINGS: MINERALIZATION: Normal. ALIGNMENT: Normal. No scoliosis. VERTEBRAE: No fracture or bone lesion. Maintained height, normal segmentation. DISCS: No significant loss of height or significant narrowing. No large osteophytes. HARDWARE: None in the spine. MEDIASTINUM AND SOFT TISSUES: Normal heart size and aortic contour. No soft tissue abnormality. VISUALIZED LUNG PERSON: Clear. OTHER: No other significant finding. IMPRESSION: NO SIGNIFICANT RADIOGRAPHIC FINDING IN THE THORACIC SPINE. TECHNICAL DOCUMENTATION: JOB ID: [id number] [employer]- All Rights Reserved Reading location - IP/workstation name: [email or web address]
--- NOTE | 2018-04-29 11:49 | RADIOLOGY REPORT (SQ) ---
EXAM DESCRIPTION: HIP LEFT AP/LATERAL COMPLETED DATE/TIME: 04/29/2018 11:37 am REASON FOR STUDY: hip pain after syncope and fall COMPARISON: None. NUMBER OF VIEWS: Two views. TECHNIQUE: AP pelvis and additional frog-leg view of the left hip. LIMITATIONS: None. FINDINGS: MINERALIZATION: Normal. LEFT HIP: No fracture or dislocation. No worrisome bone lesions. RIGHT HIP: No fracture or dislocation. No worrisome bone lesions. PUBIS AND ISCHIUM: No fracture. PELVIS: No fracture. SACRUM: No fracture or dislocation. No worrisome bone lesions. LOWER LUMBAR SPINE: No fracture or dislocation. No worrisome bone lesions. No significant disc disea se. SOFT TISSUES: No findings. OTHER: No other significant finding. IMPRESSION: NEGATIVE STUDY OF THE LEFT HIP AND PELVIS. NO RADIOGRAPHIC EVIDENCE OF ACUTE INJURY. TECHNICAL DOCUMENTATION: JOB ID: [id number] [employer]- All Rights Reserved Reading location - IP/workstation name: [email or web address]
[2018-04-29 12:20] LABS: APPEARANCE,URINE SLIGHTLY-CLOUDY; BILIRUBIN,URINE NEGATIVE (NEGATIVE); GLUCOSE, URINE 50 mg/dL (NEGATIVE); KETONES,URINE NEGATIVE (NEGATIVE); LEUKOCYTE ESTERASE,URINE NEGATIVE (NEGATIVE); NITRITE,URINE NEGATIVE (NEGATIVE); PROTEIN,URINE NEGATIVE (NEGATIVE); URINE SPECIFIC GRAVITY 1.009
[2018-04-29 12:21] LABS: COLOR,URINE DARK YELLOW
[2018-04-29 12:35] LABS: URINE AMPHETAMINES SCREEN NEGATIVE; URINE BARBITURATES SCREEN NEGATIVE; URINE BENZODIAZEPINES SCREEN NEGATIVE; URINE COCAINE SCREEN NEGATIVE; URINE MARIJUANA (THC) SCREEN NEGATIVE; URINE METHADONE SCREEN NEGATIVE; URINE PHENCYCLIDINE SCREEN NEGATIVE
--- NOTE | 2018-04-29 13:23 | EKG REPORT ---
SEVERITY:- NORMAL ECG - SINUS RHYTHM : Confirmed by: Lobo Samayoa MD 29-Apr-2018 13:22:59
[2018-04-29 14:46] LABS: ANION GAP 12 (5-19); BLOOD UREA NITROGEN 17 mg/dL (7-20); CALCIUM 8.5 mg/dL (8.4-10.2); CARBON DIOXIDE 21 mmol/L (22-30); CHLORIDE 110 mmol/L (98-107); GLUCOSE 83 mg/dL (75-110); POTASSIUM 4.3 mmol/L (3.6-5.0); SODIUM 142.6 mmol/L (137-145)
--- NOTE | 2018-04-29 15:35 | ER Document Report ---
ED Syncope and Near Syncope - General Chief Complaint: Syncope Stated Complaint: FALL/SYNCOPAL EPISODE Time Seen by Provider: 04/29/18 10:21 Mode of Arrival: Medic TRAVEL OUTSIDE OF THE [place] IN LAST 30 DAYS: No - Related Data Allergies/Adverse Reactions: No Known Allergies Allergy (Verified 04/29/18 13:03) Past Medical History - General Information source: Patient - Social History Smoking Status: Unknown if Ever Smoked Chew tobacco use (# tins/day): No Frequency of alcohol use: None Drug Abuse: None Family History: Reviewed & Not Pertinent Patient has suicidal ideation: No Patient has homicidal ideation: No - Past Medical History Cardiac Medical History: Denies: Hx Heart Attack, Hx Hypertension Pulmonary Medical History: Denies: Hx Asthma Neurological Medical History: Reports: Hx Migraine. Denies: Hx Cerebrovascular Accident, Hx Seizures Renal/ Medical History: Denies: Hx Peritoneal Dialysis GI Medical History: Denies: Hx Hepatitis, Hx Hiatal Hernia, Hx Ulcer Psychiatric Medical History: Denies: Hx Depression Infectious Medical History: Denies: Hx Hepatitis Past Surgical History: Reports: Hx Appendectomy, Hx Tonsillectomy. Denies: Hx Mastectomy, Hx Open Heart Surgery, Hx Pacemaker - Immunizations Hx Diphtheria, Pertussis, Tetanus Vaccination: Yes Physical Exam - Vital signs Vitals: Resp Pulse Ox 22 H 100 04/29/18 10:22 04/29/18 10:22 Course - Re-evaluation Re-evalutation: 04/29/18 15:35 04/29/18 16:02 - Vital Signs Vital signs: Temp Pulse Resp BP Pulse Ox 98.1 F 28 H 89/36 L 100 04/29/18 10:26 04/29/18 15:56 04/29/18 15:56 04/29/18 15:56 - Laboratory Result Diagrams: 04/29/18 10:25 04/29/18 13:57 Laboratory results interpreted by me: 04/29/18 04/29/18 04/29/18 10:25 10:25 10:53 WBC 16.2 H RDW 15.4 H Seg Neutrophils % 86.9 H Lymphocytes % 5.3 L Absolute Neutrophils 14.1 H VBG pH 7.25 L VBG HCO3 19.2 L Chloride Carbon Dioxide 19 L BUN 22 H Creatinine 1.47 H Est GFR ( Amer) 54 L Est GFR (Non-Af Amer) 45 L Glucose 115 H Urine Glucose (UA) Urine Blood Urine Urobilinogen 04/29/18 04/29/18 11:51 13:57 WBC RDW Seg Neutrophils % Lymphocytes % Absolute Neutrophils VBG pH VBG HCO3 Chloride 110 H Carbon Dioxide 21 L BUN Creatinine Est GFR ( Amer) Est GFR (Non-Af Amer) Glucose Urine Glucose (UA) 50 H Urine Blood SMALL H Urine Urobilinogen 2.0 H Discharge - Discharge Clinical Impression: Dysuria Hypotension Qualifiers: Hypotension type: other hypotension type Qualified Code(s): I95.89 - Other hypotension Acute renal failure Qualifiers: Acute renal failure type: unspecified Qualified Code(s): N17.9 - Acute kidney failure, unspecified Syncope Qualifiers: Syncope type: unspecified Qualified Code(s): R55 - Syncope and collapse Condition: Fair Disposition: ADMITTED INPATIENT
[2018-04-29 16:22] LABS: APPEARANCE,URINE CLEAR; BILIRUBIN,URINE NEGATIVE (NEGATIVE); COLOR,URINE YELLOW; GLUCOSE, URINE NEGATIVE (NEGATIVE); KETONES,URINE NEGATIVE (NEGATIVE); LEUKOCYTE ESTERASE,URINE NEGATIVE (NEGATIVE); NITRITE,URINE NEGATIVE (NEGATIVE); PROTEIN,URINE NEGATIVE (NEGATIVE); UROBILINOGEN,URINE NEGATIVE mg/dL (<2.0)
--- NOTE | 2018-04-29 19:04 | RADIOLOGY REPORT (SQ) ---
EXAM DESCRIPTION: CHEST SINGLE VIEW COMPLETED DATE/TIME: 04/29/2018 6:45 pm REASON FOR STUDY: syncope, hypotension COMPARISON: 10/06/2017 EXAM PARAMETERS: NUMBER OF VIEWS: One view. TECHNIQUE: Single frontal radiographic view of the chest acquired. RADIATION DOSE: NA LIMITATIONS: None. FINDINGS: LUNGS AND PLEURA: No opacities, masses or pneumothorax. No pleural effusion. MEDIASTINUM AND HILAR STRUCTURES: No masses. Contour normal. HEART AND VASCULAR STRUCTURES: Heart normal in size. Normal vasculature. BONES: No acute findings. HARDWARE: None in the chest. OTHER: No other significant finding. IMPRESSION: NO ACUTE RADIOGRAPHIC FINDING IN THE CHEST. TECHNICAL DOCUMENTATION: JOB ID: [id number] [employer]- All Rights Reserved Reading location - IP/workstation name: [email or web address]
--- NOTE | 2018-04-29 21:05 | PDOC H&P ---
History of Present Illness Admission Date/PCP: 04/29/18 15:36 MELANY HORNE MD History of Present Illness: BERTIN HECK is a 23 year old female,She was brought to the emergency room for evaluation of loss of consciousness, she has a history of ehler-danlos syndrome. In the emergency room she was found to be hypotensive and also orthostatic, the blood pressure recorded was 60 systolic. She has a history of narrow complex tachycardia that was extensively evaluated from cardiac standpoint, ultimately she was referred to neurology, it was felt that she may have seizure disorder and that could be the provocative etiology of the tachycardia that she was experiencing previously. She apparently is on opioid therapy, she was referred to pain specialist by the neurologist she is also on a nonselective beta-ralph, propranolol this is for migraine prophylaxis. In the Emergency room she was also found to have leukocytosis, she stated that it seemed that she had a UTI 2 days ago Past Medical History Neurological Medical History: Reports: Migraine Psychiatric Medical History: Denies: Depression Hematology: Denies: Anemia, Sickle Cell Disease Past Surgical History Past Surgical History: Reports: Appendectomy, Tonsillectomy Social History Smoking Status: Never Smoker Frequency of Alcohol Use: None Hx Recreational Drug Use: No Drugs: None Hx Prescription Drug Abuse: No Family History Family History: Reviewed & Not Pertinent Parental Family History Reviewed: Yes Children Family History Reviewed: Yes Sibling(s) Family History Reviewed.: Yes Medication/Allergy Home Medications: Amitriptyline HCl [Elavil 50 Mg Tablet] 50 mg PO QHS 04/29/18 Duloxetine HCl [Cymbalta] 60 mg PO QHS 04/29/18 Hydrocodone/Acetaminophen [[place] 5-325 mg Tablet] 1 tab PO Q6HP PRN 04/29/18 Pantoprazole Sodium [Protonix] 20 mg PO DAILY 04/29/18 Pramipexole Di-HCl [Pramipexole Dihydrochloride] 0.125 mg PO QHS 04/29/18 Propranolol HCl [Propranolol HCl ER] 80 mg PO QHS 04/29/18 Zolpidem Tartrate [Ambien 5 mg Tablet] 5 mg PO QHS 04/29/18 Allergies/Adverse Reactions: No Known Allergies Allergy (Verified 04/29/18 13:03) Review of Systems Constitutional: ABSENT: chills, fever(s), headache(s), weight gain, weight loss Eyes: ABSENT: visual disturbances Ears: ABSENT: hearing changes Cardiovascular: ABSENT: chest pain, dyspnea on exertion, edema, orthropnea, palpitations Respiratory: ABSENT: cough, hemoptysis Gastrointestinal: ABSENT: abdominal pain, constipation, diarrhea, hematemesis, hematochezia, nausea, vomiting Genitourinary: ABSENT: dysuria, hematuria Musculoskeletal: ABSENT: joint swelling Integumentary: ABSENT: rash, wounds Neurological: PRESENT: syncope. ABSENT: abnormal gait, abnormal speech, confusion, dizziness, focal weakness Psychiatric: ABSENT: anxiety, depression, homidical ideation, suicidal ideation Endocrine: ABSENT: cold intolerance, heat intolerance, menstrual abnormalities, polydipsia, polyuria Hematologic/Lymphatic: ABSENT: easy bleeding, easy bruising, lymphadenopathy Physical Exam Vital Signs: Temp Pulse Resp BP Pulse Ox 98.0 F 82 16 102/53 L 100 04/29/18 19:32 04/29/18 19:32 04/29/18 19:32 04/29/18 19:32 04/29/18 19:32 Intake & Output 04/28/18 04/29/18 04/30/18 06:59 06:59 06:59 Intake Total 610 Balance 610 General appearance: PRESENT: no acute distress Eye exam: PRESENT: conjunctiva pink, EOMI, PERRLA Ear exam: PRESENT: normal external ear exam Neck exam: PRESENT: full ROM Respiratory exam: PRESENT: clear to auscultation shannan Cardiovascular exam: PRESENT: RRR, +S1, +S2 Vascular exam: PRESENT: normal capillary refill GI/Abdominal exam: PRESENT: normal bowel sounds, soft Rectal exam: PRESENT: deferred Neurological exam: PRESENT: alert, awake, oriented to person, oriented to place , oriented to time, oriented to situation, CN II-XII grossly intact Psychiatric exam: PRESENT: appropriate affect, normal mood Skin exam: PRESENT: dry, intact, warm Results Laboratory Results: 04/29/18 15:53 Urine Color YELLOW Urine Appearance CLEAR Urine pH 5.0 Ur Specific [place] 1.010 Urine Protein NEGATIVE Urine Glucose (UA) NEGATIVE Urine Ketones NEGATIVE Urine Blood MODERATE H Urine Nitrite NEGATIVE Ur Leukocyte Esterase NEGATIVE Urine WBC (Auto) 3 Urine RBC (Auto) 3 Impressions: Cervical Spine CT 04/29/18 10:44 IMPRESSION: NO ACUTE OR SIGNIFICANT FINDINGS IN THE CERVICAL SPINE. Head CT 04/29/18 10:44 IMPRESSION: NORMAL BRAIN CT WITHOUT CONTRAST. EVIDENCE OF ACUTE STROKE: NO. Thoracic Spine X-Ray 04/29/18 10:45 IMPRESSION: NO SIGNIFICANT RADIOGRAPHIC FINDING IN THE THORACIC SPINE. Hip X-Ray 04/29/18 10:46 IMPRESSION: NEGATIVE STUDY OF THE LEFT HIP AND PELVIS. NO RADIOGRAPHIC EVIDENCE OF ACUTE INJURY. Chest X-Ray 04/29/18 17:22 IMPRESSION: NO ACUTE RADIOGRAPHIC FINDING IN THE CHEST. Assessment & Plan - Diagnosis (1) Hypotension Qualifiers: Hypotension type: unspecified hypotension type Qualified Code(s): I95.9 - Hypotension, unspecified Is this a current diagnosis for this admission?: Yes Plan: She has orthostatic hypotension, the exact cause is not clear in standing position the blood pressure drops precipitously, the nonselective beta ralph could also be a factor in the etiology of the orthostasis., Continue hydration (2) Urinary tract infection Qualifiers: Urinary tract infection type: site unspecified Hematuria presence: without hematuria Qualified Code(s): N39.0 - Urinary tract infection, site not specified Is this a current diagnosis for this admission?: Yes Plan: Treat with antibiotic
[2018-04-29 21:15] LABS: ARTERIAL BLOOD BASE EXCESS -5.1 mmol/L; ARTERIAL BLOOD H2CO3 0.92 mmol/L (1.05-1.35); ARTERIAL BLOOD HCO3 18.6 mmol/L (20-24); ARTERIAL BLOOD PCO2 30.4 mmHg (35-45); ARTERIAL BLOOD PO2 107.4 mmHg (80-100); ARTERIAL BLOOD TOTAL CO2 19.5 mmol/L (21-25)
[2018-04-29 21:16] LABS: ARTERIAL BLOOD FIO2 21%
[2018-04-30] MEDS: NORMAL SALINE 1000 ML 1,000 ML IV PRN ×3 (01:22→16:50)
[2018-04-30] MEDS: CEFTRIAXONE SODIUM 1,000 MG in DEXTROSE 5%-WATER 50 ML IV SCH (09:04)
[2018-04-30] MEDS ORDERED: (PENDING PHARMACY ID) (Pantoprazole Sodium [Protonix] 20 MG) PO SCH (10:00)
[2018-04-30] MEDS ORDERED: CEFTRIAXONE 1 GM/D5W RTU 1 GM/50 ML RTUPB IV SCH (10:00)
[2018-04-30] MEDS: LANSOPRAZOLE 30 MG TAB.RAP.DR PO SCH (10:09)
--- NOTE | 2018-04-30 10:09 | PDOC PROGRESS REPORT ---
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 Also have a chronic migraine headache and currently see a neurologist Patient also schedule the EEG per neurologist as outpatient Patient was admitted yesterday because of the hypotensive and a syncopal episode Is a very orthostatic Currently patient's doing well Patient's denied any chest pain denied any shortness of the breath No any syncopal episode in the hospital Patient was taking the propranolol currently on hold Reason For Visit: HYPOTENSION,DYSURIA,ACUTE RENAL FAILURE,SYNCOPE Physical Exam Vital Signs: Temp Pulse Resp BP Pulse Ox 98.4 F 68 18 122/78 100 04/30/18 07:51 04/30/18 07:51 04/30/18 07:51 04/30/18 07:51 04/30/18 07:51 Intake & Output 04/29/18 04/30/18 05/01/18 06:59 06:59 06:59 Intake Total 2202 926 Balance 2202 926 Weight 68.7 kg General appearance: PRESENT: no acute distress, well-developed, well-nourished Head exam: PRESENT: atraumatic, normocephalic Eye exam: PRESENT: conjunctiva pink, EOMI, PERRLA. ABSENT: scleral icterus Ear exam: PRESENT: normal external ear exam Mouth exam: PRESENT: moist, tongue midline Neck exam: PRESENT: full ROM. ABSENT: carotid bruit, JVD, lymphadenopathy, thyromegaly Respiratory exam: PRESENT: clear to auscultation shannan Cardiovascular exam: PRESENT: RRR. ABSENT: diastolic murmur, rubs, systolic murmur Pulses: PRESENT: normal dorsalis pedis pul, +2 pedal pulses bilateral Vascular exam: PRESENT: normal capillary refill GI/Abdominal exam: PRESENT: normal bowel sounds, soft. ABSENT: distended, guarding, mass, organolmegaly, rebound, tenderness Rectal exam: PRESENT: deferred Extremities exam: ABSENT: pedal edema Musculoskeletal exam: PRESENT: ambulatory Neurological exam: PRESENT: alert, awake, oriented to person, oriented to place , oriented to time, oriented to situation, CN II-XII grossly intact. ABSENT: motor sensory deficit Psychiatric exam: PRESENT: appropriate affect, normal mood. ABSENT: homicidal ideation, suicidal ideation Skin exam: PRESENT: dry, intact, warm. ABSENT: cyanosis, rash Results Laboratory Results: 04/29/18 04/29/18 15:53 21:05 Carbonic Acid 0.92 L HCO3/H2CO3 Ratio 20:1 ABG pH 7.40 ABG pCO2 30.4 L ABG pO2 107.4 H ABG HCO3 18.6 L ABG O2 Saturation 98.0 ABG Base Excess -5.1 FiO2 21% Urine Color YELLOW Urine Appearance CLEAR Urine pH 5.0 Ur Specific [place] 1.010 Urine Protein NEGATIVE Urine Glucose (UA) NEGATIVE Urine Ketones NEGATIVE Urine Blood MODERATE H Urine Nitrite NEGATIVE Ur Leukocyte Esterase NEGATIVE Urine WBC (Auto) 3 Urine RBC (Auto) 3 Impressions: Cervical Spine CT 04/29/18 10:44 IMPRESSION: NO ACUTE OR SIGNIFICANT FINDINGS IN THE CERVICAL SPINE. Head CT 04/29/18 10:44 IMPRESSION: NORMAL BRAIN CT WITHOUT CONTRAST. EVIDENCE OF ACUTE STROKE: NO. Thoracic Spine X-Ray 04/29/18 10:45 IMPRESSION: NO SIGNIFICANT RADIOGRAPHIC FINDING IN THE THORACIC SPINE. Hip X-Ray 04/29/18 10:46 IMPRESSION: NEGATIVE STUDY OF THE LEFT HIP AND PELVIS. NO RADIOGRAPHIC EVIDENCE OF ACUTE INJURY. Chest X-Ray 04/29/18 17:22 IMPRESSION: NO ACUTE RADIOGRAPHIC FINDING IN THE CHEST. Assessment & Plan - Diagnosis (1) Acute renal failure Qualifiers: Acute renal failure type: unspecified Qualified Code(s): N17.9 - Acute kidney failure, unspecified Is this a current diagnosis for this admission?: Yes Plan: Currently all improving continues to IV fluid (2) Hypotension Qualifiers: Hypotension type: other hypotension type Qualified Code(s): I95.89 - Other hypotension Is this a current diagnosis for this admission?: Yes Plan: Currently all resolving continues IV fluid (3) Syncope Qualifiers: Syncope type: unspecified Qualified Code(s): R55 - Syncope and collapse Is this a current diagnosis for this admission?: Yes Plan: Not very clear etiology Patient seen by the cardiology and seen by the neurology We will consult the cardiology here currently hold the beta-ralph (4) Urinary tract infection Qualifiers: Urinary tract infection type: site unspecified Hematuria presence: without hematuria Qualified Code(s): N39.0 - Urinary tract infection, site not specified Is this a current diagnosis for this admission?: Yes Plan: Continues to IV antibiotic (5) AV dave re-entry tachycardia Is this a current diagnosis for this admission?: Yes - Time Time Spent with patient: 15-24 minutes Medications reviewed and adjusted accordingly: Yes Anticipated discharge: Home Within: Other - Inpatient Certification Medical Necessity: Need Close Monitoring Due to Risk of Patient Decompensation, Need For IV Fluids Post Hospital Care: D/C Biochemistry Technician Documentation - Plan Summary Plan Summary: Continues to current medication
[2018-04-30] MEDS: HYDROCODONE/ACETAMINOPHEN 5-325 MG TABLET PO PRN ×2 (11:54→18:16)
[2018-04-30] MEDS ORDERED: ZOLPIDEM TARTRATE 5 MG TABLET PO SCH (22:00)
[2018-04-30] MEDS ORDERED: PROPRANOLOL HCL 40 MG TABLET PO SCH (22:00)
[2018-04-30] MEDS ORDERED: AMITRIPTYLINE HCL 50 MG TABLET PO SCH (22:00)
[2018-05-01] MEDS: HYDROCODONE/ACETAMINOPHEN 5-325 MG TABLET PO PRN ×3 (00:01→12:12)
[2018-05-01] MEDS: NORMAL SALINE 1000 ML 1,000 ML IV PRN ×2 (00:46→09:15)
[2018-05-01 08:37] VITALS: BP 114/60
[2018-05-01] MEDS: CEFTRIAXONE SODIUM 1,000 MG in DEXTROSE 5%-WATER 50 ML IV SCH (09:15)
[2018-05-01] MEDS: LANSOPRAZOLE 30 MG TAB.RAP.DR PO SCH (09:15)
--- NOTE | 2018-05-01 10:43 | PDOC PROGRESS REPORT ---
Subjective Progress Note for:: 05/01/18 Subjective:: Patient is feeling much better no episode of presyncopal here As per discussed with the cardiology locally here Dr. Smith and suggest no need for further evaluation well patient already all evaluations done Reason For Visit: HYPOTENSION,DYSURIA,ACUTE RENAL FAILURE,SYNCOPE Physical Exam Vital Signs: Temp Pulse Resp BP Pulse Ox 98.2 F 75 18 114/60 100 05/01/18 08:13 05/01/18 08:13 05/01/18 08:13 05/01/18 08:13 05/01/18 08:13 Intake & Output 04/30/18 05/01/18 05/02/18 06:59 06:59 06:59 Intake Total 2202 3305 1000 Output Total 2150 Balance 2202 1155 1000 Weight 68.7 kg 66.8 kg General appearance: PRESENT: no acute distress, well-developed, well-nourished Head exam: PRESENT: atraumatic, normocephalic Eye exam: PRESENT: conjunctiva pink, EOMI, PERRLA. ABSENT: scleral icterus Ear exam: PRESENT: normal external ear exam Mouth exam: PRESENT: moist, tongue midline Neck exam: PRESENT: full ROM. ABSENT: carotid bruit, JVD, lymphadenopathy, thyromegaly Respiratory exam: PRESENT: clear to auscultation shannan Cardiovascular exam: PRESENT: RRR. ABSENT: diastolic murmur, rubs, systolic murmur Pulses: PRESENT: normal dorsalis pedis pul, +2 pedal pulses bilateral Vascular exam: PRESENT: normal capillary refill GI/Abdominal exam: PRESENT: normal bowel sounds, soft. ABSENT: distended, guarding, mass, organolmegaly, rebound, tenderness Rectal exam: PRESENT: deferred Musculoskeletal exam: PRESENT: ambulatory Neurological exam: PRESENT: alert, awake, oriented to person, oriented to place , oriented to time, oriented to situation, CN II-XII grossly intact. ABSENT: motor sensory deficit Psychiatric exam: PRESENT: appropriate affect, normal mood. ABSENT: homicidal ideation, suicidal ideation Skin exam: PRESENT: dry, intact, warm. ABSENT: cyanosis, rash Results Laboratory Results: 04/30/18 09:50 TSH 1.45 Impressions: Cervical Spine CT 04/29/18 10:44 IMPRESSION: NO ACUTE OR SIGNIFICANT FINDINGS IN THE CERVICAL SPINE. Head CT 04/29/18 10:44 IMPRESSION: NORMAL BRAIN CT WITHOUT CONTRAST. EVIDENCE OF ACUTE STROKE: NO. Thoracic Spine X-Ray 04/29/18 10:45 IMPRESSION: NO SIGNIFICANT RADIOGRAPHIC FINDING IN THE THORACIC SPINE. Hip X-Ray 04/29/18 10:46 IMPRESSION: NEGATIVE STUDY OF THE LEFT HIP AND PELVIS. NO RADIOGRAPHIC EVIDENCE OF ACUTE INJURY. Chest X-Ray 04/29/18 17:22 IMPRESSION: NO ACUTE RADIOGRAPHIC FINDING IN THE CHEST. Assessment & Plan - Diagnosis (1) Acute renal failure Qualifiers: Acute renal failure type: unspecified Qualified Code(s): N17.9 - Acute kidney failure, unspecified Is this a current diagnosis for this admission?: Yes Plan: Currently all resolved we will stop the IV fluid recheck the BMP (2) Hypotension Qualifiers: Hypotension type: other hypotension type Qualified Code(s): I95.89 - Other hypotension Is this a current diagnosis for this admission?: Yes Plan: Currently all resolved (3) Syncope Qualifiers: Syncope type: unspecified Qualified Code(s): R55 - Syncope and collapse Is this a current diagnosis for this admission?: Yes Plan: Not very clear etiology Patient seen by the cardiology and seen by the neurology We will consult the cardiology here currently hold the beta-ralph (4) Urinary tract infection Qualifiers: Urinary tract infection type: site unspecified Hematuria presence: without hematuria Qualified Code(s): N39.0 - Urinary tract infection, site not specified Is this a current diagnosis for this admission?: Yes Plan: Continues to IV antibiotic (5) AV dave re-entry tachycardia Is this a current diagnosis for this admission?: Yes - Time Time Spent with patient: 15-24 minutes Medications reviewed and adjusted accordingly: Yes Anticipated discharge: Home Within: within 24 hours - Inpatient Certification Based on my medical assessment, after consideration of the patient's comorbidities, presenting symptoms, or acuity I expect that the services needed warrant INPATIENT care.: Yes I certify that my determination is in accordance with my understanding of Medicare's requirements for reasonable and necessary INPATIENT services [42 CFR 412.3e].: Yes Medical Necessity: Need For IV Fluids Post Hospital Care: D/C Carpenter/Labor Documentation - Plan Summary Plan Summary: Will check the BMP stop the IV fluid stop the IV antibiotic monitor for next 24 hours the patient's remained stable discharge home
[2018-05-01 11:19] LABS: ANION GAP 12 (5-19); BLOOD UREA NITROGEN 3 mg/dL (7-20); CALCIUM 9.5 mg/dL (8.4-10.2); CARBON DIOXIDE 26 mmol/L (22-30); CHLORIDE 104 mmol/L (98-107); GLUCOSE 96 mg/dL (75-110); POTASSIUM 3.9 mmol/L (3.6-5.0); SODIUM 141.6 mmol/L (137-145)
[2018-05-01] MEDS ORDERED: CEPHALEXIN 500 MG CAPSULE PO SCH (12:00)
--- NOTE | 2018-06-20 10:30 | PDOC DISCHARGE SUMMARY ---
General - Admit/Disc Date/PCP Admission Date/Primary Care Provider: 04/29/18 15:36 MELANY HORNE MD Discharge Date: 06/01/18 - Discharge Diagnosis (1) Acute renal failure Is this a current diagnosis for this admission?: Yes Summary: Resolved (2) Hypotension Is this a current diagnosis for this admission?: Yes Summary: Currently all resolved (3) Syncope Is this a current diagnosis for this admission?: Yes (4) Urinary tract infection Is this a current diagnosis for this admission?: Yes (5) AV dave re-entry tachycardia Is this a current diagnosis for this admission?: Yes Summary: discuss with the Dr. Smith and suggested no need for further evaluation - Additional Information Home Medications: Acyclovir [Acyclovir 400 mg Tablet] 400 mg PO BID 06/03/18 Hydrocodone Bit/Acetaminophen [Hydrocodon-Acetaminophen 5-325] 1 tab PO Q6HP PRN 06/03/18 Levetiracetam [Keppra 500 mg Tablet] 500 mg PO Q12 06/03/18 Metoprolol Succinate [Toprol Xl 25 mg Tab.sr] 25 mg PO DAILY 06/03/18 Pramipexole Di-HCl [Pramipexole Dihydrochloride] 0.125 mg PO QHS 06/03/18 Prochlorperazine Maleate [Compazine 10 mg Tablet] 10 mg PO Q6HP PRN 06/03/18 History of Present Illness History of Present Illness: BERTIN HECK is a 23 year old female Patient was admitted for the hypertension's and urinary tract infections [facility] Hospital Course Hospital Course: This is a 23-year-old female admitting in the hospital for the hypertension's possible UTI and ongoing tachycardia problems Patient is giving the IV fluid and antibiotics Patient is seen by the Dr. Smith Patient's all blood work is stable Patient's renal failure is all resolved Patient's all cultures negatives At this point patient is discharged home to follow outpatient Physical Exam Vital Signs: Temp Pulse Resp BP Pulse Ox 98.2 F 72 18 114/60 100 05/01/18 08:13 05/01/18 14:00 05/01/18 08:13 05/01/18 08:13 05/01/18 08:13 General appearance: PRESENT: no acute distress, well-developed, well-nourished Head exam: PRESENT: atraumatic, normocephalic Eye exam: PRESENT: conjunctiva pink, EOMI, PERRLA. ABSENT: scleral icterus Ear exam: PRESENT: normal external ear exam Mouth exam: PRESENT: moist, tongue midline Neck exam: PRESENT: full ROM. ABSENT: carotid bruit, JVD, lymphadenopathy, thyromegaly Respiratory exam: PRESENT: clear to auscultation shannan Cardiovascular exam: PRESENT: RRR. ABSENT: diastolic murmur, rubs, systolic murmur Pulses: PRESENT: normal dorsalis pedis pul, +2 pedal pulses bilateral Vascular exam: PRESENT: normal capillary refill GI/Abdominal exam: PRESENT: normal bowel sounds, soft. ABSENT: distended, guarding, mass, organolmegaly, rebound, tenderness Rectal exam: PRESENT: deferred Musculoskeletal exam: PRESENT: ambulatory Neurological exam: PRESENT: alert, awake, oriented to person, oriented to place , oriented to time, oriented to situation, CN II-XII grossly intact. ABSENT: motor sensory deficit Psychiatric exam: PRESENT: appropriate affect, normal mood. ABSENT: homicidal ideation, suicidal ideation Skin exam: PRESENT: dry, intact, warm. ABSENT: cyanosis, rash Results Laboratory Results: 05/01/18 10:45 Impressions: Cervical Spine CT 04/29/18 10:44 IMPRESSION: NO ACUTE OR SIGNIFICANT FINDINGS IN THE CERVICAL SPINE. Head CT 04/29/18 10:44 IMPRESSION: NORMAL BRAIN CT WITHOUT CONTRAST. EVIDENCE OF ACUTE STROKE: NO. Thoracic Spine X-Ray 04/29/18 10:45 IMPRESSION: NO SIGNIFICANT RADIOGRAPHIC FINDING IN THE THORACIC SPINE. Hip X-Ray 04/29/18 10:46 IMPRESSION: NEGATIVE STUDY OF THE LEFT HIP AND PELVIS. NO RADIOGRAPHIC EVIDENCE OF ACUTE INJURY. Chest X-Ray 04/29/18 17:22 IMPRESSION: NO ACUTE RADIOGRAPHIC FINDING IN THE CHEST. Qualifiers - * PATIENT BEING DISCHARGED WITH ANY OF THE FOLLOWING DIAGNOSIS: No VTE patient discharged on overlapping Therapy?: Yes Plan Time Spent: Greater than 30 Minutes - All stable discharge home
== END 2018-05-01 16:43 | disposition left against medical advice (07) | DRG 312 ==
LOC: ER 10:15 → EH 15:36 → 3S 18:15
PROVIDERS: ADMIT Internal Medicine; ATTEND Internal Medicine
DX: I95.1 Orthostatic hypotension (principal); Q79.6 Ehlers-Danlos syndromes; N39.0 Urinary tract infection, site not specified; I47.1 Supraventricular tachycardia; N17.9 Acute kidney failure, unspecified; G43.909 Migraine, unspecified, not intractable, without status migrainosus; Z79.899 Other long term (current) drug therapy
CPT/HCPCS: 36415; 36600; 51701; 70450; 71045; 72070; 72125; 80048; 80053; 80307; 81001; 82550; 82553; 82803; 83605; 84443; 84484; 84703; 85025; 87040; 87086; 93005; 93010; 96361; 96365; 99285; J0696; J3490; J7030; J7120

== ENCOUNTER 2018-05-13 12:04 | Emergency (ER) | payer BC ==
--- NOTE | 2018-05-13 12:47 | ER Document Report ---
ED Seizure - General Mode of Arrival: Ambulatory Information source: Patient, Friend - [facility] Patient complains to provider of: Other - History of possible seizures <SHARRI GOODRICH - Last Filed: 05/13/18 14:07> <CHERELLE PATRICIA - Last Filed: 05/13/18 15:00> - General Chief Complaint: Probable Seizure Stated Complaint: POSSIBLE SEIZURE Time Seen by Provider: 05/13/18 12:31 Notes: 23 year old female that presents to the emergency department today with complaints of seizure-like activity prior to arrival. Patient was seen in this ED about one week ago for a similar complaint. According to the records from that visit, a video of the episode was shown and with that and the history at that time the ED provider stated that the episodes seemed to be more indicative of narcolepsy than a seizure disorder. Patient has not been worked up by neurology yet but does have an appointment with Dr. Godinez coming up shortly but she cannot remember when. Friend at bedside states that the patient called her today because she was alone at her home and began "twitching really bad" and she became scared. Friend states when she arrived the patient was having "twitches" that are described as looking like "extreme cold chills". Patient was able to talk during these. Friend states that they got in the car and about 5 minutes later the patients "eyes rolled back, legs went stiff, arms and head began shaking". Friend states the patient was not responsive during this episode , which lasted about 60 seconds. Friend states that for 2-3 minutes after this episode the patient was "unable to focus, blank stare, not talking". Patient is now back to baseline. Patient has no tongue chewing and denies any urinary incontinence. (SHARRI GOODRICH) - Related Data Allergies/Adverse Reactions: No Known Allergies Allergy (Verified 05/06/18 21:50) Past Medical History - General Information source: Patient - Social History Smoking Status: Never Smoker Cigarette use (# per day): No Chew tobacco use (# tins/day): No Frequency of alcohol use: None Drug Abuse: None Lives with: Family Family History: Reviewed & Not Pertinent Patient has suicidal ideation: No Patient has homicidal ideation: No Neurological Medical History: Reports: Hx Migraine, Hx Seizures - History of possible seizures, no neuro work up yet Psychiatric Medical History: Reports: Hx Depression Past Surgical History: Reports: Hx Adenoidectomy, Hx Appendectomy, Hx Tonsillectomy - Immunizations Hx Diphtheria, Pertussis, Tetanus Vaccination: Yes <SHARRI GOODRICH - Last Filed: 05/13/18 14:07> Review of Systems - Review of Systems Constitutional: No symptoms reported EENT: No symptoms reported Cardiovascular: No symptoms reported Respiratory: No symptoms reported Gastrointestinal: No symptoms reported Genitourinary: No symptoms reported Female Genitourinary: No symptoms reported Musculoskeletal: No symptoms reported Skin: No symptoms reported Hematologic/Lymphatic: No symptoms reported Neurological/Psychological: See HPI, Seizure -: Yes All other systems reviewed and negative <SHARRI GOODRICH - Last Filed: 05/13/18 14:07> Physical Exam <SHARRI GOODRICH - Last Filed: 05/13/18 14:07> <CHERELLE PATRICIA - Last Filed: 05/13/18 15:00> - Vital signs Vitals: Resp 25 H 05/13/18 12:21 - Notes Notes: Physical Exam: General: Alert, appears well. HEENT: Normocephalic. Atraumatic. PERRL. Extraocular movements intact. Oropharynx clear. Tongue is unremarkable without any chewing/laceration. Neck: Supple. Non-tender. Respiratory: No respiratory distress. Clear and equal breath sounds bilaterally. Cardiovascular: Tachycardic, regular rhythm. Abdominal: Normal Inspection. Non-tender. No distension. Normal Bowel Sounds. Back: Non-tender. No deformity or step off. Extremities: Moves all four extremities. Upper extremities: Normal inspection. Normal ROM. Lower extremities: Normal inspection. No edema. Normal ROM. Neurological: Normal cognition. AAOx4. Normal speech. Denies any incontinence. Psychological: Normal affect. Normal Mood. Skin: Warm. Dry. Normal color. (SHARRI GOODRICH) Course - Laboratory Result Diagrams: 05/13/18 11:35 05/13/18 11:35 <SHARRI GOODRICH - Last Filed: 05/13/18 14:07> - Laboratory Result Diagrams: 05/13/18 13:00 05/13/18 13:00 <CHERELLE PATRICIA - Last Filed: 05/13/18 15:00> - Vital Signs Vital signs: Temp Pulse Resp BP Pulse Ox 98.6 F 18 114/73 96 05/13/18 12:22 05/13/18 13:06 05/13/18 13:06 05/13/18 13:06 - Laboratory Laboratory results interpreted by me: 05/13/18 05/13/18 05/13/18 13:00 13:00 13:00 RDW 15.4 H Seg Neutrophils % 89.1 H Lymphocytes % 6.3 L Absolute Neutrophils 8.3 H Carbon Dioxide 19 L Glucose 116 H Urine Protein 30 H Urine Blood SMALL H Ur Leukocyte Esterase TRACE H Discharge <SHARRI GOODRICH - Last Filed: 05/13/18 14:07> <CHERELLE PATRICIA - Last Filed: 05/13/18 15:00> - Discharge Clinical Impression: Witnessed seizure-like activity Condition: Stable Disposition: HOME, SELF-CARE Additional Instructions: Seizure: You MAY have had a seizure. Seizure disorders (epilepsy) of one sort or another affect about one out of 50 people. The seizure occurs because of abnormal electrical activity in the brain. Seizures may be due to drugs and alcohol, strokes, brain injury, or infection. In the most common form of epilepsy, no cause can be found. You will require further evaluation to determine the cause of your seizure, and to determine whether anti-seizure medication is required. This follow-up testing is important, so please call us if you encounter problems with scheduling of tests or appointments. YOU SHOULD NOT DRIVE until released to do so by your physician. The law requires that seizures be reported to the [place] driver's license bureau--a seizure while driving could be catastrophic. Call the doctor if seizures recur, or if you develop new symptoms such as fever, severe headache, stiff neck, confusion or increasing sleepiness, weakness or numbness, or visual problems. Take the medication as prescribed to prevent having further seizures. Follow-up with Dr. Godinez next week for further evaluation. RETURN TO THE EMERGENCY ROOM IF ANY NEW OR WORSENING SYMPTOMS. Prescriptions: Levetiracetam [Keppra 500 mg Tablet] 500 mg PO Q12 #30 tablet Referrals: MELANY HORNE MD [Primary Care Provider] - Follow up as needed HANNA GODINEZ MD [NO LOCAL MD] - Follow up in 1 week Scribe Attestation: 05/13/18 12:58 I personally performed the services described in the documentation, reviewed and edited the documentation which was dictated to the scribe in my presence, and it accurately records my words and actions. (CHERELLE PATRICIA) Scribe Documentation - Scribe Written by Chester:: Chester Hamilton, 05/13/2018 [id number] acting as scribe for :: Marino <SHARRI GOODRICH - Last Filed: 05/13/18 14:07>
[2018-05-13] MEDS ORDERED: LEVETIRACETAM 500 MG TABLET PO ONE (12:56)
[2018-05-13 13:29] LABS: APPEARANCE,URINE CLOUDY; BILIRUBIN,URINE NEGATIVE (NEGATIVE); COLOR,URINE YELLOW; GLUCOSE, URINE NEGATIVE (NEGATIVE); KETONES,URINE NEGATIVE (NEGATIVE); LEUKOCYTE ESTERASE,URINE TRACE (NEGATIVE); NITRITE,URINE NEGATIVE (NEGATIVE); PROTEIN,URINE 30 mg/dL (NEGATIVE); URINE SPECIFIC GRAVITY 1.017; UROBILINOGEN,URINE NEGATIVE mg/dL (<2.0)
[2018-05-13 14:17] LABS: ABSOLUTE BASOPHILS # (AUTO) 0.1 10^3/uL (0.0-0.2); ABSOLUTE LYMPHOCYTES (AUTO) 0.6 10^3/uL (0.5-4.7); ABSOLUTE MONOCYTES (AUTO) 0.3 10^3/uL (0.1-1.4); ABSOLUTE NEUT (AUTO) 8.3 10^3/uL (1.7-8.2); BASOPHILS % (AUTO) 0.7 % (0-2); EOSINOPHILS % (AUTO) 0.4 % (0-6); HEMATOCRIT 39.6 % (36.0-47.0); HEMOGLOBIN 13.8 g/dL (12.0-15.5); LYMPHOCYTES % (AUTO) 6.3 % (13-45); MEAN CORPUSCULAR HEMOGLOBIN 32.1 pg (27.0-33.4); MEAN CORPUSCULAR HGB CONC 34.8 g/dL (32.0-36.0); MEAN CORPUSCULAR VOLUME 93 fl (80-97); MONOCYTES % (AUTO) 3.5 % (3-13); PLATELET COUNT 333 10^3/uL (150-450); RED BLOOD COUNT 4.28 10^6/uL (3.72-5.28); RED CELL DISTRIBUTION WIDTH 15.4 % (11.5-14.0); SEGMENTED NEUTROPHILS % (AUTO) 89.1 % (42-78); TOTAL CELLS COUNTED % (AUTO) 100 %; WHITE BLOOD COUNT 9.3 10^3/uL (4.0-10.5)
[2018-05-13 14:45] LABS: ALANINE AMINOTRANSFERASE 21 U/L (9-52); ALBUMIN 4.8 g/dL (3.5-5.0); ALKALINE PHOSPHATASE 111 U/L (38-126); ANION GAP 17 (5-19); ASPARTATE AMINO TRANSFERASE 21 U/L (14-36); BILIRUBIN,DIRECT 0.2 mg/dL (0.0-0.4); BILIRUBIN,TOTAL 0.4 mg/dL (0.2-1.3); BLOOD UREA NITROGEN 8 mg/dL (7-20); CALCIUM 9.8 mg/dL (8.4-10.2); CARBON DIOXIDE 19 mmol/L (22-30); CHLORIDE 107 mmol/L (98-107); CREATINE KINASE 55 U/L (30-135); GLUCOSE 116 mg/dL (75-110); POTASSIUM 4.7 mmol/L (3.6-5.0); SODIUM 143.3 mmol/L (137-145); TOTAL PROTEIN 7.7 g/dL (6.3-8.2)
[2018-05-13 15:10] VITALS: BP 110/65
== END 2018-05-13 15:40 | disposition home or self-care (01) ==
LOC: ER 12:04
DX: R56.9 Unspecified convulsions (principal)
CPT/HCPCS: 36415; 80053; 81001; 82550; 83735; 84703; 85025; 99285

== ENCOUNTER 2018-05-28 02:27 | Emergency (ER) | payer BC ==
[2018-05-28 02:34] VITALS: BP 129/74
--- NOTE | 2018-05-28 03:04 | ER Document Report ---
ED General - General Chief Complaint: Knee Pain Stated Complaint: RIGHT KNEE PAIN Time Seen by Provider: 05/28/18 02:37 TRAVEL OUTSIDE OF THE [place] IN LAST 30 DAYS: No - HPI Patient complains to provider of: knee pain and burning Notes: 23-year-old well-appearing female no acute distress with past medical history of pots and possible seizures who presents to the emergency department with knee pain that started last Wednesday but got acutely worse at 8 PM tonight. She denies any trauma denies fever, chills, shortness of breath, nausea, vomiting or any other constitutional symptoms. She denies any warmth or erythema to the right knee. He endorses normal range of motion and is able to bear weight. She says that she just could not fall asleep and was concerned about the sudden change. - Related Data Allergies/Adverse Reactions: No Known Allergies Allergy (Verified 05/06/18 21:50) Past Medical History - General Information source: Patient - Social History Smoking Status: Never Smoker Frequency of alcohol use: None Drug Abuse: None Family History: Reviewed & Not Pertinent - Past Medical History Cardiac Medical History: Denies: Hx Heart Attack, Hx Hypertension Pulmonary Medical History: Denies: Hx Asthma Neurological Medical History: Reports: Hx Migraine, Hx Seizures - History of possible seizures, no neuro work up yet. Denies: Hx Cerebrovascular Accident Renal/ Medical History: Denies: Hx Peritoneal Dialysis GI Medical History: Denies: Hx Hepatitis, Hx Hiatal Hernia, Hx Ulcer Psychiatric Medical History: Reports: Hx Depression Infectious Medical History: Denies: Hx Hepatitis Past Surgical History: Reports: Hx Adenoidectomy, Hx Appendectomy, Hx Tonsillectomy. Denies: Hx Mastectomy, Hx Open Heart Surgery, Hx Pacemaker - Immunizations Hx Diphtheria, Pertussis, Tetanus Vaccination: Yes Review of Systems - Review of Systems Constitutional: See HPI EENT: No symptoms reported Cardiovascular: No symptoms reported Respiratory: See HPI Gastrointestinal: See HPI Genitourinary: No symptoms reported Female Genitourinary: No symptoms reported Musculoskeletal: Joint pain - right knee Skin: No symptoms reported Hematologic/Lymphatic: No symptoms reported Neurological/Psychological: No symptoms reported Physical Exam - Vital signs Vitals: Temp Pulse Resp BP Pulse Ox 97.6 F 118 H 16 129/74 H 97 05/28/18 02:27 05/28/18 02:27 05/28/18 02:27 05/28/18 02:27 05/28/18 02:27 Interpretation: Normal - General General appearance: Appears well, Alert - HEENT Head: Normocephalic, Atraumatic Eyes: Normal Pupils: PERRL - Respiratory Respiratory status: No respiratory distress Chest status: Nontender Breath sounds: Normal Chest palpation: Normal - Cardiovascular Rhythm: Regular Heart sounds: Normal auscultation Murmur: No - Abdominal Inspection: Normal Distension: No distension Bowel sounds: Normal Tenderness: Nontender Organomegaly: No organomegaly - Back Back: Normal, Nontender - Extremities General upper extremity: Normal inspection, Nontender, Normal color, Normal ROM , Normal temperature General lower extremity: Tender - Right knee with tenderness to palpation in region of patellofemoral tendon. No edema, no erythema, normal range of motion both passive and active. No tenderness to palpation of any other joint line. Negative anterior drawers, negative varus and valgus stress testing, negative Dilma's, negative patellar grind.. No: David's sign - Neurological Neuro grossly intact: Yes Cognition: Normal Orientation: AAOx4 Melina Coma Scale Eye Opening: Spontaneous Melina Coma Scale Verbal: Oriented Melina Coma Scale Motor: Obeys Commands [place] Coma Scale Total: 15 Speech: Normal Motor strength normal: LUE, RUE, LLE, RLE Sensory: Normal - Psychological Associated symptoms: Normal affect, Normal mood - Skin Skin Temperature: Warm Skin Moisture: Dry Skin Color: Normal Course - Re-evaluation Re-evalutation: 05/28/18 03:05 Patient most likely presents with a right knee strain from "popping" her knees. Endorses that she does not subconsciously. Vascular status was intact, distal pulses were strong 2+, no evidence of erythema, no warmth at the joint, no concern for septic arthritis as she has normal range of motion to the joint. Advised patient to follow-up with her primary care doc on Wednesday, take ibuprofen 600 mg 4 times a day with food or milk, and to wear an Nazario wrap for comfort. Patient is safe to discharge home - Vital Signs Vital signs: Temp Pulse Resp BP Pulse Ox 97.6 F 118 H 16 129/74 H 97 05/28/18 02:27 05/28/18 02:27 05/28/18 02:27 05/28/18 02:27 05/28/18 02:27 Discharge - Discharge Clinical Impression: Knee pain, right Qualifiers: Chronicity: acute Qualified Code(s): M25.561 - Pain in right knee Condition: Good Disposition: HOME, SELF-CARE Instructions: Sprained Knee ([facility]) Additional Instructions: Came to the emergency department tonight for knee pain. It is okay to bear weight on it. Keep an Nazario wrap on it, rest it, ice it for 20 minutes at a time , and elevate it as needed. If you develop a fever greater than 101 if he noticed the knee becomes red or swollen, or if you lose range of motion in your knee and cannot bear weight on it please immediately return to the emergency department. Referrals: MELANY HORNE MD [Primary Care Provider] - Follow up as needed
== END 2018-05-28 03:18 | disposition home or self-care (01) ==
LOC: ER 02:27
DX: M25.561 Pain in right knee (principal)
CPT/HCPCS: 99283

== ENCOUNTER 2018-05-28 09:34 | Observation (INO) | payer BC ==
[2018-05-28 10:17] LABS: ABSOLUTE LYMPHOCYTES (AUTO) 0.9 10^3/uL (0.5-4.7); ABSOLUTE MONOCYTES (AUTO) 0.5 10^3/uL (0.1-1.4); ABSOLUTE NEUT (AUTO) 5.1 10^3/uL (1.7-8.2); BASOPHILS % (AUTO) 0.6 % (0-2); EOSINOPHILS % (AUTO) 0.5 % (0-6); HEMATOCRIT 35.6 % (36.0-47.0); LYMPHOCYTES % (AUTO) 13.7 % (13-45); MEAN CORPUSCULAR HEMOGLOBIN 31.9 pg (27.0-33.4); MEAN CORPUSCULAR HGB CONC 33.8 g/dL (32.0-36.0); MEAN CORPUSCULAR VOLUME 94 fl (80-97); MONOCYTES % (AUTO) 7.5 % (3-13); PLATELET COUNT 230 10^3/uL (150-450); RED BLOOD COUNT 3.78 10^6/uL (3.72-5.28); RED CELL DISTRIBUTION WIDTH 15.2 % (11.5-14.0); SEGMENTED NEUTROPHILS % (AUTO) 77.7 % (42-78); TOTAL CELLS COUNTED % (AUTO) 100 %; WHITE BLOOD COUNT 6.5 10^3/uL (4.0-10.5)
[2018-05-28] MEDS ORDERED: LEVETIRACETAM 500 MG/NACL-ISO 500 MG/100 ML RTUPB IV ONE (10:22)
[2018-05-28 10:23] LABS: ALANINE AMINOTRANSFERASE 53 U/L (9-52); ALBUMIN 4.4 g/dL (3.5-5.0); ALKALINE PHOSPHATASE 114 U/L (38-126); ANION GAP 14 (5-19); ASPARTATE AMINO TRANSFERASE 33 U/L (14-36); BILIRUBIN,DIRECT 0.3 mg/dL (0.0-0.4); BILIRUBIN,TOTAL 0.3 mg/dL (0.2-1.3); BLOOD UREA NITROGEN 15 mg/dL (7-20); CALCIUM 9.4 mg/dL (8.4-10.2); CARBON DIOXIDE 27 mmol/L (22-30); CHLORIDE 100 mmol/L (98-107); GLUCOSE 149 mg/dL (75-110); POTASSIUM 4.6 mmol/L (3.6-5.0); SODIUM 140.5 mmol/L (137-145)
[2018-05-28 10:24] LABS: ALCOHOL < 10 mg/dL (NONE DETECTED)
[2018-05-28 10:56] LABS: APPEARANCE,URINE CLEAR; BILIRUBIN,URINE NEGATIVE (NEGATIVE); COLOR,URINE STRAW; GLUCOSE, URINE NEGATIVE (NEGATIVE); KETONES,URINE NEGATIVE (NEGATIVE); LEUKOCYTE ESTERASE,URINE NEGATIVE (NEGATIVE); NITRITE,URINE NEGATIVE (NEGATIVE); PROTEIN,URINE NEGATIVE (NEGATIVE); URINE SPECIFIC GRAVITY 1.012; UROBILINOGEN,URINE NEGATIVE mg/dL (<2.0)
[2018-05-28 11:12] LABS: URINE AMPHETAMINES SCREEN NEGATIVE; URINE BARBITURATES SCREEN NEGATIVE; URINE BENZODIAZEPINES SCREEN NEGATIVE; URINE COCAINE SCREEN NEGATIVE; URINE MARIJUANA (THC) SCREEN NEGATIVE; URINE METHADONE SCREEN NEGATIVE; URINE PHENCYCLIDINE SCREEN NEGATIVE
--- NOTE | 2018-05-28 12:00 | RADIOLOGY REPORT (SQ) ---
EXAM DESCRIPTION: CT HEAD WITHOUT COMPLETED DATE/TIME: 05/28/2018 11:30 am REASON FOR STUDY: SEIZURE, FOUND IN CAR COMPARISON: 05/06/2018 TECHNIQUE: Axial images acquired through the brain without intravenous contrast. Images reviewed wi th bone, brain and subdural windows. Additional sagittal and coronal reconstructions were generated. Images stored on PACS. All CT scanners at this facility use dose modulation, iterative reconstruction, and/or weight based d osing when appropriate to reduce radiation dose to as low as reasonably achievable (ALARA). [facility]: Dose Right [facility]: CareDose [facility]: Dose Right [facility]: Teradose 4D [facility]: Smart PBS-Bio RADIATION DOSE: CT Rad equipment meets quality standard of care and radiation dose reduction techniq ues were employed. CTDIvol: 53.2 mGy. DLP: 1017 mGy-cm. mGy. LIMITATIONS: None. FINDINGS: VENTRICLES: Normal size and contour. CEREBRUM: No masses. No hemorrhage. No midline shift. No evidence for acute infarction. Normal gra y/white matter differentiation. No areas of low density in the white matter. CEREBELLUM: No masses. No hemorrhage. No alteration of density. No evidence for acute infarction. EXTRAAXIAL SPACES: No fluid collections. No masses. ORBITS AND GLOBE: No intra- or extraconal masses. Normal contour of globe without masses. CALVARIUM: No fracture. PARANASAL SINUSES: No fluid or mucosal thickening. SOFT TISSUES: No mass or hematoma. OTHER: No other significant finding. IMPRESSION: No acute intracranial pathology. EVIDENCE OF ACUTE STROKE: NO. COMMENT: Quality ID # [id number]: Final reports with documentation of one or more dose reduction techniques (e.g., Automated exposure control, adjustment of the mA and/or kV according to patient size, use of iterative reconstruction technique) TECHNICAL DOCUMENTATION: JOB ID: [id number] [employer]- All Rights Reserved Reading location - IP/workstation name: [email or web address]
[2018-05-28] MEDS ORDERED: NORMAL SALINE 1000 ML 1,000 ML IV ONE (13:28)
--- NOTE | 2018-05-28 15:04 | ER Document Report ---
ED General - General Chief Complaint: Seizure Stated Complaint: SEIZURE Time Seen by Provider: 05/28/18 09:51 Mode of Arrival: Medic Information source: Emergency Med Personnel Notes: Patient is a 23-year-old female with past medical history of epilepsy, tachycardia and Cj-Danlos syndrome. Patient presents the emergency department via EMS after she was found sitting in her car unresponsive this morning. Patient's reported to EMS that he believes she had a seizure, he stated to them that she typically has a long period of time where she is unresponsive after having seizures. Patient takes Keppra but he is unsure if she has been compliant with her medications. It was reports that patient was hypothermic on their arrival but otherwise had normal vital signs. TRAVEL OUTSIDE OF THE [place] IN LAST 30 DAYS: No - Related Data Allergies/Adverse Reactions: No Known Allergies Allergy (Verified 05/06/18 21:50) Past Medical History - General Information source: Relative - Social History Smoking Status: Current Some Day Smoker Frequency of alcohol use: None Drug Abuse: None Family History: Reviewed & Not Pertinent Patient has suicidal ideation: No Patient has homicidal ideation: No - Past Medical History Cardiac Medical History: Denies: Hx Heart Attack, Hx Hypertension Pulmonary Medical History: Denies: Hx Asthma Neurological Medical History: Reports: Hx Migraine, Hx Seizures - History of possible seizures, no neuro work up yet. Denies: Hx Cerebrovascular Accident Renal/ Medical History: Denies: Hx Peritoneal Dialysis GI Medical History: Denies: Hx Hepatitis, Hx Hiatal Hernia, Hx Ulcer Psychiatric Medical History: Reports: Hx Depression Infectious Medical History: Denies: Hx Hepatitis Past Surgical History: Reports: Hx Adenoidectomy, Hx Appendectomy, Hx Tonsillectomy. Denies: Hx Mastectomy, Hx Open Heart Surgery, Hx Pacemaker - Immunizations Hx Diphtheria, Pertussis, Tetanus Vaccination: Yes Review of Systems - Review of Systems Neurological/Psychological: Seizure Physical Exam - Vital signs Vitals: Temp 92.7 F L 05/28/18 09:35 - Notes Notes: PHYSICAL EXAMINATION: GENERAL: Well-appearing, well-nourished and in no acute distress. HEAD: Atraumatic, normocephalic. EYES: Pupils equal round and reactive to light, extraocular movements intact, conjunctiva are normal. ENT: Airway patent. Nares patent, oropharynx clear without exudates. Moist mucous membranes. Poor dentition. NECK: Normal range of motion, supple without lymphadenopathy LUNGS: Breath sounds clear to auscultation bilaterally and equal. No wheezes rales or rhonchi. HEART: S1-S2 present, no murmur appreciated. ABDOMEN: Soft, nontender, nondistended abdomen. No guarding, no rebound. No masses appreciated. Female : deferred Musculoskeletal: Normal range of motion, no pitting or edema. No cyanosis. NEUROLOGICAL: Pupils 3 mm bilaterally, equal and reactive. Cranial nerves grossly intact. Patient responds to painful stimuli, opens her eyes looks around and then nods back off to sleep. Patient maintaining her own airway. PSYCH: Deferred. SKIN: Warm, Dry, normal turgor, no rashes or lesions noted. Course - Re-evaluation Re-evalutation: On arrival to the emergency department patient is somnolent but arousable with sternal rub. Patient maintaining her own airway. Patient is normotensive, tachycardic, hypothermic. Patient will open her eyes for brief amounts of time and then not back off to sleep. Patient's physical assessment is otherwise benign, there are no skin abnormalities or evidence of IV drug use. There is no family at bedside to obtain history from. Temperature monitoring [place] was inserted on arrival to the emergency department and bear hugger was applied. 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 HCG is negative. Chest x-ray is normal. Head CT negative for any acute findings. EKG sinus rhythm, rate of 97, normal axis, no ST segment elevations or depressions. Patient continues to be very somnolent. Maintaining her own airway. Dr. Melara did come to the bedside to evaluate the patient. Patient has not had any seizure-like activity while in the department. Family has now arrived to the bedside and states that she is they are not sure if she actually had a seizure prior to arrival. They state that she does have a history of seizures and does have prolonged periods of somnolence after her seizures. Patient currently being given IV fluid bolus as her heart rate has increased to the 130s. Mild hypotension noted however map is staying around 65. Patient continues to maintain her own airway. Patient's temperature now up to 99, bear hugger discontinued. Patient does remain with a heart rate in the 120s-130s, remains very sleepy although she did have a brief period where she woke up and was speaking in full and complete sentences although she did appear to have some confusion about the events leading up to her arrival to the emergency department. On further review patient's chart does state that she has been previously diagnosed with narcolepsy. Called and spoke with Dr. Horne who is patient's primary care provider. He agrees to admit the patient to IMCU for continued monitoring. - Vital Signs Vital signs: Temp Pulse Resp BP Pulse Ox 100.0 F 13 91/49 L 96 05/28/18 16:01 05/28/18 16:01 05/28/18 16:00 05/28/18 16:01 - Laboratory Result Diagrams: 05/28/18 09:41 05/28/18 09:41 Laboratory results interpreted by me: 05/28/18 05/28/18 05/28/18 09:41 09:41 09:41 Hct 35.6 L RDW 15.2 H Glucose 149 H ALT 53 H Acetaminophen < 10 L - Diagnostic Test Radiology reviewed: Reports reviewed - EKG Interpretation by Me EKG shows normal: Sinus rhythm Rate: Normal When compared to previous EKG there are: No significant change Critical Care Note - Critical Care Note Total time excluding time spent on procedures (mins): 45 - Multiple re- evaluations Discharge - Discharge Clinical Impression: Tachycardia, Somnolence Hypothermia Qualifiers: Encounter type: initial encounter Qualified Code(s): T68.XXXA - Hypothermia, initial encounter Condition: Stable Disposition: ADMITTED INPATIENT Admitting Provider: Donal Unit Admitted: [facility] Referrals: MELANY HORNE MD [Primary Care Provider] - Follow up as needed
--- NOTE | 2018-05-28 15:04 | RADIOLOGY REPORT (SQ) ---
EXAM DESCRIPTION: CHEST SINGLE VIEW COMPLETED DATE/TIME: 05/28/2018 2:53 pm REASON FOR STUDY: altered mental status COMPARISON: 04/29/2018 NUMBER OF VIEWS: One view. TECHNIQUE: Single frontal radiographic view of the chest acquired. LIMITATIONS: None. FINDINGS: LUNGS AND PLEURA: Low lung volumes. No opacities, masses or pneumothorax. No pleural eff usion. MEDIASTINUM AND HILAR STRUCTURES: No masses. No contour abnormality. HEART AND VASCULAR STRUCTURES: Normal size. No evidence for failure. BONES: No acute findings. HARDWARE: None in the chest. OTHER: No other significant finding. IMPRESSION: LOW LUNG VOLUMES. NO SIGNIFICANT RADIOGRAPHIC FINDING IN THE CHEST. TECHNICAL DOCUMENTATION: JOB ID: [id number] [employer]- All Rights Reserved Reading location - IP/workstation name: [email or web address]
[2018-05-28] MEDS ORDERED: ACYCLOVIR 200 MG CAPSULE PO ONE (20:00)
[2018-05-28] MEDS ORDERED: NALOXONE HCL INJ/PF 0.4 MG/1 ML SDV IV ONE (20:00)
[2018-05-28] MEDS: NORMAL SALINE 1000 ML 1,000 ML IV PRN (20:11)
[2018-05-28] MEDS ORDERED: DULOXETINE HCL 30 MG CAPSULE.DR PO SCH (22:00)
[2018-05-28] MEDS ORDERED: AMITRIPTYLINE HCL 50 MG TABLET PO SCH (22:00)
[2018-05-28] MEDS ORDERED: PRAMIPEXOLE DI-HCL 0.25 MG TABLET PO SCH (22:00)
[2018-05-28] MEDS ORDERED: PRAMIPEXOLE DI-HCL 0.25 MG TABLET PO ONE (22:15)
[2018-05-28] MEDS ORDERED: LEVETIRACETAM 500 MG TABLET PO ONE (22:41)
[2018-05-28] MEDS ORDERED: PRAMIPEXOLE DI-HCL 0.25 MG TABLET ONE (22:41)
[2018-05-28] MEDS ORDERED: ACYCLOVIR 200 MG CAPSULE ONE (22:43)
[2018-05-28] MEDS: LEVETIRACETAM 500 MG TABLET PO SCH (22:55)
[2018-05-29] MEDS: NORMAL SALINE 1000 ML 1,000 ML IV PRN (05:16)
[2018-05-29] MEDS ORDERED: METOPROLOL SUCCINATE 25 MG TAB.SR.24H PO SCH (10:00)
[2018-05-29] MEDS ORDERED: ACYCLOVIR 200 MG CAPSULE PO SCH (10:00)
[2018-05-29] MEDS: LEVETIRACETAM 500 MG TABLET PO SCH (10:25)
--- NOTE | 2018-05-29 10:48 | EKG REPORT ---
SEVERITY:- NORMAL ECG - SINUS RHYTHM : Confirmed by: Ken Mcgovern 29-May-2018 10:48:30
[2018-05-29] MEDS ORDERED: LORAZEPAM INJ 2 MG/1 ML VIAL ONE (12:06)
[2018-05-29 12:32] VITALS: BP 103/53
--- NOTE | 2018-05-29 13:20 | RADIOLOGY REPORT (SQ) ---
EXAM DESCRIPTION: MRI HEAD WITHOUT COMPLETED DATE/TIME: 05/29/2018 12:41 pm REASON FOR STUDY: unexplained weakness of the right upper extremity COMPARISON: None. TECHNIQUE: Multiplanar imaging includes non-contrasted T1, T2, FLAIR, and diffusion with ADC map seq uences. Images stored on PACS. LIMITATIONS: None. FINDINGS: ANATOMY: No anomalies. Normal vascular flow voids. Pituitary fossa normal. CSF SPACES: Normal in size and contour. No hemorrhage. CEREBRUM: Sulci and gyri normal in size and contour. Normal white matter signal on FLAIR imaging. No evidence of hemorrhage, mass, or extraaxial fluid collection. POSTERIOR FOSSA: No signal alteration. No hemorrhage. No edema, masses or mass effect. Internal nguyen tory canals, cerebello-pontine angles, mastoids normal. DIFFUSION IMAGING: Negative for acute or sub-acute infarction. ORBITS: No masses. Globes normal. PARANASAL SINUSES: No fluid levels. Mucosa normal. OTHER: No other significant finding. IMPRESSION: NORMAL MRI OF THE BRAIN WITHOUT INTRAVENOUS GADOLINIUM CONTRAST. EVIDENCE OF ACUTE STROKE: NO. TECHNICAL DOCUMENTATION: JOB ID: [id number] [employer]- All Rights Reserved Reading location - IP/workstation name: [email or web address]
--- NOTE | 2018-05-29 14:57 | PDOC H&P ---
History of Present Illness Admission Date/PCP: 05/28/18 15:38 MELANY HORNE MD History of Present Illness: BERTIN HECK is a 23 year old female, she has a history of seizure she apparently was transferred from her residence when she was found unresponsive in her own car in the parking lot of her residence. She stated that she was in the emergency room earlier in the day for evaluation of knee pain that was the last she remembered. She has history of seizure the concern was if she had episode of seizure and she was postictal phase no one witnessed the seizure activity she was transferred to the emergency room for evaluation by EMS. When she arrived in the emergency room she was evaluated CT head was done it was negative she was hypothermic otherwise vital signs were stable the electrolytes were normal. She was very somnolent in the ER but arousable on sternal pressure because of continued somnolence the ED physician/provider suggest that patient needed to be admitted for continued monitoring. She was admitted into IMCU bed MRI of the brain was done this morning and that came back normal. Past Medical History Neurological Medical History: Reports: Migraine, Seizures - History of possible seizures, no neuro work up yet Psychiatric Medical History: Reports: Depression Past Surgical History Past Surgical History: Reports: Adenoidectomy, Appendectomy, Tonsillectomy Social History Smoking Status: Never Smoker Frequency of Alcohol Use: None Hx Recreational Drug Use: No Drugs: None Hx Prescription Drug Abuse: No - Advance Directive Resuscitation Status: Full Code Family History Family History: Reviewed & Not Pertinent Parental Family History Reviewed: Yes Children Family History Reviewed: Yes Sibling(s) Family History Reviewed.: Yes Medication/Allergy Home Medications: Amitriptyline HCl [Elavil 50 Mg Tablet] 50 mg PO QHS 04/29/18 Duloxetine HCl [Cymbalta] 60 mg PO QHS 04/29/18 Hydrocodone/Acetaminophen [[place] 5-325 mg Tablet] 1 tab PO Q6HP PRN 04/29/18 Pramipexole Di-HCl [Pramipexole Dihydrochloride] 0.125 mg PO QHS 04/29/18 Zolpidem Tartrate [Ambien 5 mg Tablet] 10 mg PO QHS 04/29/18 Metoprolol Succinate [Toprol Xl] 25 mg PO DAILY 05/06/18 Levetiracetam [Keppra 500 mg Tablet] 500 mg PO Q12 #30 tablet 05/13/18 Acyclovir [Acyclovir 400 mg Tablet] 400 mg PO BID 05/28/18 Allergies/Adverse Reactions: No Known Allergies Allergy (Verified 05/06/18 21:50) Review of Systems Constitutional: ABSENT: chills, fever(s), headache(s), weight gain, weight loss Eyes: ABSENT: visual disturbances Ears: ABSENT: hearing changes Cardiovascular: ABSENT: chest pain, dyspnea on exertion, edema, orthropnea, palpitations Respiratory: ABSENT: cough, hemoptysis Gastrointestinal: ABSENT: abdominal pain, constipation, diarrhea, hematemesis, hematochezia, nausea, vomiting Genitourinary: ABSENT: dysuria, hematuria Musculoskeletal: ABSENT: joint swelling Integumentary: ABSENT: rash, wounds Neurological: PRESENT: confusion Psychiatric: ABSENT: anxiety, depression, homidical ideation, suicidal ideation Endocrine: ABSENT: cold intolerance, heat intolerance, menstrual abnormalities, polydipsia, polyuria Hematologic/Lymphatic: ABSENT: easy bleeding, easy bruising, lymphadenopathy Physical Exam Vital Signs: Temp Pulse Resp BP Pulse Ox 98.0 F 101 H 16 103/53 L 97 05/29/18 11:27 05/29/18 11:27 05/29/18 11:27 05/29/18 11:27 05/29/18 11:27 Intake & Output 05/28/18 05/29/18 05/30/18 06:59 06:59 06:59 Intake Total 908 450 Output Total 1100 1100 Balance -192 -650 Weight 69.2 kg General appearance: PRESENT: no acute distress, well-developed, well-nourished Head exam: PRESENT: atraumatic, normocephalic Eye exam: PRESENT: conjunctiva pink, EOMI, PERRLA Ear exam: PRESENT: normal external ear exam Mouth exam: PRESENT: moist, tongue midline Neck exam: PRESENT: full ROM Respiratory exam: PRESENT: clear to auscultation shannan Cardiovascular exam: PRESENT: RRR, +S1, +S2 Pulses: PRESENT: normal dorsalis pedis pul, +2 pedal pulses bilateral Vascular exam: PRESENT: normal capillary refill GI/Abdominal exam: PRESENT: normal bowel sounds, soft Rectal exam: PRESENT: deferred Neurological exam: PRESENT: alert, awake, oriented to person, oriented to place , oriented to time, oriented to situation, CN II-XII grossly intact Psychiatric exam: PRESENT: appropriate affect, normal mood Skin exam: PRESENT: dry, intact, warm Results Impressions: Head CT 05/28/18 10:20 IMPRESSION: No acute intracranial pathology. EVIDENCE OF ACUTE STROKE: NO. Chest X-Ray 05/28/18 13:32 IMPRESSION: LOW LUNG VOLUMES. NO SIGNIFICANT RADIOGRAPHIC FINDING IN THE CHEST. Head MRI 05/29/18 00:00 IMPRESSION: NORMAL MRI OF THE BRAIN WITHOUT INTRAVENOUS GADOLINIUM CONTRAST. EVIDENCE OF ACUTE STROKE: NO. Assessment & Plan - Diagnosis (1) Loss of consciousness Is this a current diagnosis for this admission?: Yes Plan: The etiology is not clear, history of seizure disorder, it was felt that this is probably postictal phase of seizure. She is admitted for observation because she was excessively somnolent in the emergency room there was no activity recorded throughout his admission. (2) Seizure Is this a current diagnosis for this admission?: Yes
--- NOTE | 2018-05-29 15:00 | PDOC DISCHARGE SUMMARY ---
General - Admit/Disc Date/PCP Admission Date/Primary Care Provider: 05/28/18 15:38 MELANY HORNE MD Discharge Date: 05/29/18 - Discharge Diagnosis (1) Loss of consciousness Is this a current diagnosis for this admission?: Yes (2) Seizure Is this a current diagnosis for this admission?: Yes - Additional Information Resuscitation Status: Full Code Home Medications: Amitriptyline HCl [Elavil 50 mg Tablet] 50 mg PO QHS 04/29/18 Duloxetine HCl [Cymbalta] 60 mg PO QHS 04/29/18 Pramipexole Di-HCl [Pramipexole Dihydrochloride] 0.125 mg PO QHS 04/29/18 Metoprolol Succinate [Toprol Xl] 25 mg PO DAILY 05/06/18 Levetiracetam [Keppra 500 mg Tablet] 500 mg PO Q12 #30 tablet 05/13/18 Acyclovir [Acyclovir 400 mg Tablet] 400 mg PO BID 05/28/18 History of Present Illness History of Present Illness: BERTIN HECK is a 23 year old female, she has a history of seizure she apparently was transferred from her residence when she was found unresponsive in her own car in the parking lot of her residence. She stated that she was in the emergency room earlier in the day for evaluation of knee pain that was the last she remembered. She has history of seizure the concern was if she had episode of seizure and she was postictal phase no one witnessed the seizure activity she was transferred to the emergency room for evaluation by EMS. When she arrived in the emergency room she was evaluated CT head was done it was negative she was hypothermic otherwise vital signs were stable the electrolytes were normal. She was very somnolent in the ER but arousable on sternal pressure because of continued somnolence the ED physician/provider suggest that patient needed to be admitted for continued monitoring. She was admitted into [facility] bed MRI of the brain was done this morning and that came back normal. Hospital Course Hospital Course: She was admitted for observation because she was excessively somnolent, MRI brain was done it was negative for any acute pathology no definitive lesion was found, the electrolytes were normal, she is advised to stop Ambien and hydrocodone this could also be contributing to her symptoms Physical Exam Vital Signs: Temp Pulse Resp BP Pulse Ox 98.0 F 101 H 16 103/53 L 97 05/29/18 11:27 05/29/18 11:27 05/29/18 11:27 05/29/18 11:27 05/29/18 11:27 Intake & Output 05/28/18 05/29/18 05/30/18 06:59 06:59 06:59 Intake Total 908 450 Output Total 1100 1100 Balance -192 -650 Weight 69.2 kg General appearance: PRESENT: no acute distress, well-developed, well-nourished Head exam: PRESENT: atraumatic, normocephalic Eye exam: PRESENT: conjunctiva pink, EOMI, PERRLA Ear exam: PRESENT: normal external ear exam Mouth exam: PRESENT: moist, tongue midline Neck exam: PRESENT: full ROM Respiratory exam: PRESENT: clear to auscultation shannan Cardiovascular exam: PRESENT: RRR, +S1, systolic murmur Pulses: PRESENT: normal dorsalis pedis pul, +2 pedal pulses bilateral Vascular exam: PRESENT: normal capillary refill GI/Abdominal exam: PRESENT: normal bowel sounds, soft Rectal exam: PRESENT: deferred Neurological exam: PRESENT: alert, awake, oriented to person, oriented to place , oriented to time, oriented to situation, CN II-XII grossly intact Psychiatric exam: PRESENT: appropriate affect, normal mood Skin exam: PRESENT: dry, intact, warm Results Impressions: Head CT 05/28/18 10:20 IMPRESSION: No acute intracranial pathology. EVIDENCE OF ACUTE STROKE: NO. Chest X-Ray 05/28/18 13:32 IMPRESSION: LOW LUNG VOLUMES. NO SIGNIFICANT RADIOGRAPHIC FINDING IN THE CHEST. Head MRI 05/29/18 00:00 IMPRESSION: NORMAL MRI OF THE BRAIN WITHOUT INTRAVENOUS GADOLINIUM CONTRAST. EVIDENCE OF ACUTE STROKE: NO. Qualifiers - * PATIENT BEING DISCHARGED WITH ANY OF THE FOLLOWING DIAGNOSIS: No
[2018-05-29] MEDS ORDERED: PRAMIPEXOLE DI-HCL 0.25 MG TABLET PO SCH ×2 (22:00)
== END 2018-05-29 16:30 | disposition home or self-care (01) ==
LOC: ER 09:34 → INTOOBSV 15:38 → EH 15:38 → 3W 17:51
PROVIDERS: ADMIT Internal Medicine; ATTEND Internal Medicine
DX: R55 Syncope and collapse (principal); R56.9 Unspecified convulsions; T68.XXXA Hypothermia, initial encounter; X58.XXXA Exposure to other specified factors, initial encounter; R40.0 Somnolence; R41.0 Disorientation, unspecified; R00.0 Tachycardia, unspecified; I95.9 Hypotension, unspecified; Q79.6 Ehlers-Danlos syndromes; F17.200 Nicotine dependence, unspecified, uncomplicated; Z86.69 Personal history of other diseases of the nervous system and sense organs; Z79.899 Other long term (current) drug therapy; Z90.49 Acquired absence of other specified parts of digestive tract; Z23 Encounter for immunization
CPT/HCPCS: 99291; 96361; 51702; 96365; 36415; 80307 ×3; 83735; 85025; 81025; 80053; 81001; 70551; 71045; 70450; 90686; 93005; 93010; G0378 ×2; J3490; J2060; J7030 ×2; J1953

== ENCOUNTER 2018-06-03 01:57 | Inpatient (IN) | payer BC ==
[2018-06-03] MEDS ORDERED: DIPHENHYDRAMINE HCL 50 MG/ML VIAL IV ONE (02:01)
[2018-06-03] MEDS ORDERED: HALOPERIDOL LACTATE INJ 5 MG/1 ML VIAL IV ONE (02:01)
--- NOTE | 2018-06-03 02:07 | ER Document Report ---
ED General - General Stated Complaint: TREMORS Time Seen by Provider: 06/03/18 02:00 Notes: Patient is a 23-year-old female, previously known to me from a prior visit in the emergency department who presents by EMS with concerns of uncontrollable muscle spasms. The patient has been seen and evaluated multiple times in this facility for a multitude of vague neurologic complaints including episodes of falling asleep randomly, possible seizures, and today is complaining of involuntary muscle movements which apparently she alleges is a prodrome for generalized tonic-clonic seizures. The history is somewhat limited due to the patient's degree of agitation and inability to cooperate with examination or history taking. She is apparently taking Keppra for a possible diagnosis of seizures. TRAVEL OUTSIDE OF THE [place] IN LAST 30 DAYS: No - Related Data Allergies/Adverse Reactions: No Known Allergies Allergy (Verified 05/06/18 21:50) Past Medical History - General Information source: Patient - Social History Smoking Status: Current Every Day Smoker Frequency of alcohol use: None Drug Abuse: None Lives with: Family Family History: Reviewed & Not Pertinent - Past Medical History Cardiac Medical History: Denies: Hx Heart Attack, Hx Hypertension Pulmonary Medical History: Denies: Hx Asthma Neurological Medical History: Reports: Hx Migraine, Hx Seizures - History of possible seizures, no neuro work up yet. Denies: Hx Cerebrovascular Accident Renal/ Medical History: Denies: Hx Peritoneal Dialysis GI Medical History: Denies: Hx Hepatitis, Hx Hiatal Hernia, Hx Ulcer Psychiatric Medical History: Reports: Hx Depression Infectious Medical History: Denies: Hx Hepatitis Past Surgical History: Reports: Hx Adenoidectomy, Hx Appendectomy, Hx Tonsillectomy. Denies: Hx Mastectomy, Hx Open Heart Surgery, Hx Pacemaker - Immunizations Hx Diphtheria, Pertussis, Tetanus Vaccination: Yes Review of Systems - Review of Systems Notes: Constitutional: Negative for fever. HENT: Negative for sore throat. Eyes: Negative for visual changes. Cardiovascular: Negative for chest pain. Respiratory: Negative for shortness of breath. Gastrointestinal: Negative for abdominal pain, vomiting or diarrhea. Genitourinary: Negative for dysuria. Musculoskeletal: Negative for back pain. Skin: Negative for rash. Neurological: Negative for headaches, weakness or numbness. 10 point ROS negative except as marked above and in HPI. Physical Exam - Vital signs Vitals: Resp 18 06/03/18 02:10 Interpretation: Normal Notes: PHYSICAL EXAMINATION: GENERAL: Patient is agitated, moving around rapidly. Has periods where she speaks cogently and then has periods where she apparently either chooses to or become psychiatrically unable to answer questions. Again rapidly moving around the bed. HEAD: Atraumatic, normocephalic. EYES: Pupils equal round and reactive to light, extraocular movements intact, sclera anicteric, conjunctiva are normal. ENT: nares patent, oropharynx clear without exudates. Moist mucous membranes. NECK: Normal range of motion, supple without lymphadenopathy LUNGS: Breath sounds clear to auscultation bilaterally and equal. No wheezes rales or rhonchi. HEART: Regular rate and rhythm without murmurs ABDOMEN: Soft, nontender, normoactive bowel sounds. No guarding, no rebound. No masses appreciated. EXTREMITIES: Normal range of motion, no pitting or edema. No cyanosis. NEUROLOGICAL: Face symmetric. Tongue protrudes midline. Extraocular motions intact. Pupils are 2 mm and equally reactive. Normal speech, normal gait. 5 out of 5 strength in both the distal and proximal upper and lower extremities bilaterally. Sensation is grossly intact throughout. PSYCH: Agitated, anxious SKIN: Warm, Dry, normal turgor, no rashes or lesions noted. Course - Re-evaluation Re-evalutation: 06/03/18 02:02 Patient presents with complaints of whole body tremors which she states usually follow episodes of seizures. The patient to clarify has never been formally diagnosed with true seizures by a neurologist. I know this patient well from a previous encounter. She states that they were working through possible considerations of seizures versus narcolepsy versus cataplexy. The way the patient presents today is somewhat agitated, thrashing around in the bed. There is nothing consistent with a seizure about her current presentation. There are no neurologic deficits on examination. The patient will require anxiolysis. She has already received Lorazepam without any apparent improvement. She will receive haloperidol and Benadryl. No indication for repeat neuroimaging as the patient has had an MRI and 2 CTs of her head within the past 1 month. She has had 4 distinct sets of blood work all of which have been unremarkable. 06/03/18 03:00 Patient continues to have periods of agitation, despite both haloperidol and Versed continues to act out, thrashing around in the bed. Her behaviors are consistent with voluntary actions as she is redirectable momentarily and then continues her behaviors. This is concerning for either behavioral versus toxin induced. These are not generalized tonic-clonic activity. Will continue to treat the patient symptomatically. I do suspect that there may be a component of sympathomimetic and drug intoxication. Will continue to monitor. Patient does continue to have periods of tachycardia. This is a known issue for which the patient is supposed be taking beta-blockers which she notes she is currently not taking. She has been evaluated extensively by cardiology regarding this issue. 06/03/18 03:31 Patient continues to have periods of tachycardia and agitation. At this point I do believe that she will require psychiatric evaluation. Will obtain standard psychiatric screening laboratories, obtain creatinine kinase. Reestablish IV access. 06/03/18 04:17 Patient continues to demonstrate periods most consistent with either toxin induced behavioral disturbances. The quantity of benzodiazepines that have been required to calm the patient are extraordinarily suggestive of a sympathomimetic ingestion. Mother at the bedside does provide history that the patient was acting completely normally this evening, ate things giving dinner with her and apparently symptoms started after the patient returned to her grandmother's home where she resides. Mother states very clearly that the neighbors adjacent to the grandmother are very heavy drug users, frequently use sympathomimetic type drugs and that she is very concerned that the patient may have used these type of drugs tonight. We have been able to establish IV access , patient has been placed in soft restraints to include re-removal of the IV. Dr. Liu will monitor the patient in the interim. - Vital Signs Vital signs: Temp Pulse Resp BP Pulse Ox 28 H 149/114 H 06/03/18 02:19 06/03/18 02:19 - Laboratory Result Diagrams: 06/03/18 04:20 06/03/18 04:20 Critical Care Note - Critical Care Note Total time excluding time spent on procedures (mins): 38 Comments: Critical care time spent on multiple re-evaluations of the patient, reevaluation of response to medications, ordering laboratories, review of vitals. Discharge - Discharge Clinical Impression: Pseudoseizure, Agitation, Tachycardia Referrals: MELANY HORNE MD [Primary Care Provider] - Follow up as needed
[2018-06-03] MEDS: MIDAZOLAM 2 MG/2 ML INJ IV ONE ×2 (02:39→02:50)
[2018-06-03] MEDS ORDERED: MIDAZOLAM 2 MG/2 ML INJ ONE (02:45)
[2018-06-03] MEDS ORDERED: MIDAZOLAM 2 MG/2 ML INJ IM ONE ×2 (02:49→03:22)
[2018-06-03] MEDS ORDERED: NORMAL SALINE 1000 ML 1,000 ML IV ONE ×2 (03:29→07:34)
[2018-06-03] MEDS ORDERED: PROPRANOLOL HCL 40 MG TABLET PO ONE (03:38)
[2018-06-03] MEDS ORDERED: LORAZEPAM INJ 2 MG/1 ML VIAL IV ONE ×2 (04:18→05:28)
[2018-06-03 04:31] LABS: ABSOLUTE LYMPHOCYTES (AUTO) 1.7 10^3/uL (0.5-4.7); ABSOLUTE MONOCYTES (AUTO) 0.6 10^3/uL (0.1-1.4); ABSOLUTE NEUT (AUTO) 12.7 10^3/uL (1.7-8.2); BASOPHILS % (AUTO) 0.3 % (0-2); EOSINOPHILS % (AUTO) 0.3 % (0-6); HEMATOCRIT 41.4 % (36.0-47.0); HEMOGLOBIN 13.9 g/dL (12.0-15.5); MEAN CORPUSCULAR HEMOGLOBIN 31.6 pg (27.0-33.4); MEAN CORPUSCULAR HGB CONC 33.5 g/dL (32.0-36.0); MEAN CORPUSCULAR VOLUME 94 fl (80-97); MONOCYTES % (AUTO) 4.3 % (3-13); PLATELET COUNT 416 10^3/uL (150-450); SEGMENTED NEUTROPHILS % (AUTO) 84.1 % (42-78); TOTAL CELLS COUNTED % (AUTO) 100 %; WHITE BLOOD COUNT 15.1 10^3/uL (4.0-10.5)
[2018-06-03 04:44] LABS: ACETAMINOPHEN 12 ug/mL (10-30); ALANINE AMINOTRANSFERASE 75 U/L (9-52); ALBUMIN 5.5 g/dL (3.5-5.0); ALCOHOL < 10 mg/dL (NONE DETECTED); ALKALINE PHOSPHATASE 145 U/L (38-126); ASPARTATE AMINO TRANSFERASE 38 U/L (14-36); BILIRUBIN,DIRECT 0.2 mg/dL (0.0-0.4); BILIRUBIN,TOTAL 0.4 mg/dL (0.2-1.3); BLOOD UREA NITROGEN 14 mg/dL (7-20); CREATINE KINASE 98 U/L (30-135); GLUCOSE 122 mg/dL (75-110); POTASSIUM 4.6 mmol/L (3.6-5.0); SALICYLATE < 1.0 mg/dL (2.0-20.0); TOTAL PROTEIN 8.6 g/dL (6.3-8.2)
[2018-06-03 04:48] LABS: ANION GAP 24 (5-19); CARBON DIOXIDE 22 mmol/L (22-30); CHLORIDE 106 mmol/L (98-107); SODIUM 151.5 mmol/L (137-145)
[2018-06-03] MEDS ORDERED: MIDAZOLAM 2 MG/2 ML INJ IV ONE ×3 (05:50→08:14)
[2018-06-03] MEDS ORDERED: CEFTRIAXONE INJ 1000 MG VIAL IV ONE (06:12)
[2018-06-03] MEDS ORDERED: VANCOMYCIN HCL INJ 1000 MG VIAL IV ONE (06:12)
[2018-06-03] MEDS ORDERED: ETOMIDATE INJ/PF 20 MG/10 ML SDV IV ONE ×3 (06:26→06:56)
[2018-06-03] MEDS ORDERED: MIDAZOLAM HCL 50 MG/100 ML RTUINJ ONE (06:31)
[2018-06-03] MEDS: MIDAZOLAM HCL 50 MG/100 ML RTUINJ IV PRN ×4 (06:42→14:34)
[2018-06-03] MEDS ORDERED: SUCCINYLCHOLINE CHLORIDE INJ 200 MG/10 ML VIAL IV ONE (06:45)
[2018-06-03] MEDS ORDERED: LIDOCAINE 1% INJ-PF (10 MG/ML) 30 ML SDV INJ ONE (06:48)
--- NOTE | 2018-06-03 07:09 | RADIOLOGY REPORT (SQ) ---
CLINICAL HISTORY: post intubation COMPARISON: May 28, 2018. TECHNIQUE: XR CHEST 1 VIEW 06/03/2018 6:46 AM INK BLENDER FINDINGS: Cardiac silhouette is normal in size. Lungs are clear without consolidation, atelectasis, mass or edema. There is no pleural effusion. There is no pneumothorax. There are no acute osseous findings. There is a new endotracheal tube with the tip in the midtrachea. NG tube tip is in the stomach. IMPRESSION: Clear lungs.
[2018-06-03] MEDS ORDERED: ACYCLOVIR SODIUM INJ/PF 500 MG/10 ML SDV IV ONE ×2 (07:12→11:30)
[2018-06-03 08:03] LABS: APPEARANCE,URINE CLEAR; BILIRUBIN,URINE NEGATIVE (NEGATIVE); COLOR,URINE STRAW; GLUCOSE, URINE NEGATIVE (NEGATIVE); KETONES,URINE NEGATIVE (NEGATIVE); LEUKOCYTE ESTERASE,URINE NEGATIVE (NEGATIVE); NITRITE,URINE NEGATIVE (NEGATIVE); PROTEIN,URINE NEGATIVE (NEGATIVE); URINE SPECIFIC GRAVITY 1.015; UROBILINOGEN,URINE NEGATIVE mg/dL (<2.0)
[2018-06-03 08:13] LABS: URINE AMPHETAMINES SCREEN NEGATIVE; URINE BARBITURATES SCREEN NEGATIVE; URINE BENZODIAZEPINES SCREEN UNCONFIRMED POSITIVE; URINE COCAINE SCREEN NEGATIVE; URINE MARIJUANA (THC) SCREEN NEGATIVE; URINE METHADONE SCREEN NEGATIVE; URINE PHENCYCLIDINE SCREEN NEGATIVE
[2018-06-03] MEDS ORDERED: VANCOMYCIN HCL INJ 1000 MG VIAL ONE (08:21)
[2018-06-03] MEDS: PROPOFOL 1,000 MG/100 ML INFUS..BTL IV PRN ×2 (08:35→12:25)
--- NOTE | 2018-06-03 08:37 | RADIOLOGY REPORT (SQ) ---
EXAM DESCRIPTION: CT HEAD WITHOUT COMPLETED DATE/TIME: 06/03/2018 8:16 am REASON FOR STUDY: altered mental status COMPARISON: None. TECHNIQUE: Axial images acquired through the brain without intravenous contrast. Images reviewed wi th bone, brain and subdural windows. Additional sagittal and coronal reconstructions were generated. Images stored on PACS. All CT scanners at this facility use dose modulation, iterative reconstruction, and/or weight based d osing when appropriate to reduce radiation dose to as low as reasonably achievable (ALARA). [facility]: Dose Right [facility]: CareDose [facility]: Dose Right [facility]: Teradose 4D [facility]: Smart [employer] RADIATION DOSE: CT Rad equipment meets quality standard of care and radiation dose reduction techniq ues were employed. CTDIvol: 55.2 mGy. DLP: 1029 mGy-cm. mGy. LIMITATIONS: None. FINDINGS: VENTRICLES: Normal size and contour. CEREBRUM: No masses. No hemorrhage. No midline shift. No evidence for acute infarction. Normal gra y/white matter differentiation. No areas of low density in the white matter. CEREBELLUM: No masses. No hemorrhage. No alteration of density. No evidence for acute infarction. EXTRAAXIAL SPACES: No fluid collections. No masses. ORBITS AND GLOBE: No intra- or extraconal masses. Normal contour of globe without masses. CALVARIUM: No fracture. PARANASAL SINUSES: No fluid or mucosal thickening. SOFT TISSUES: No mass or hematoma. OTHER: Nasogastric tube down. IMPRESSION: NORMAL BRAIN CT WITHOUT CONTRAST. EVIDENCE OF ACUTE STROKE: NO. COMMENT: Quality ID # [id number]: Final reports with documentation of one or more dose reduction techniques (e.g., Automated exposure control, adjustment of the mA and/or kV according to patient size, use of iterative reconstruction technique) TECHNICAL DOCUMENTATION: JOB ID: [id number] [employer]- All Rights Reserved Reading location - IP/workstation name: [email or web address]
[2018-06-03] MEDS ORDERED: SUCCINYLCHOLINE CHLORIDE INJ 200 MG/10 ML VIAL ONE (08:57)
[2018-06-03] MEDS ORDERED: PROPOFOL 1,000 MG/100 ML INFUS..BTL IV PRN (11:44)
[2018-06-03] MEDS ORDERED: LEVETIRACETAM 500 MG/NACL-ISO 500 MG/100 ML RTUPB IV SCH (12:00)
[2018-06-03] MEDS ORDERED: DEXTROSE 5%-1/2 NORMAL SALINE 1,000 ML IV PRN (13:36)
[2018-06-03] MEDS ORDERED: IPRATROPIUM/ALBUTEROL 0.5-2.5 MG/3 ML AMPUL NEB PRN (13:36)
[2018-06-03] MEDS ORDERED: ACETAMINOPHEN 650 MG SUPP.RECT PR PRN (13:36)
[2018-06-03 13:50] LABS: ARTERIAL BLOOD BASE EXCESS -1.1 mmol/L; ARTERIAL BLOOD O2 SATURATION 78.4 % (94-98); ARTERIAL BLOOD PCO2 36.4 mmHg (35-45); ARTERIAL BLOOD PH 7.42 (7.35-7.45); ARTERIAL BLOOD PO2 41.6 mmHg (80-100); ARTERIAL BLOOD TOTAL CO2 24.1 mmol/L (21-25)
[2018-06-03 13:51] LABS: ARTERIAL BLOOD FIO2 25%
[2018-06-03] MEDS ORDERED: HEPARIN SOD (PORCINE) 5,000 UNIT/ML 1 ML SYRINGE SUBCUT SCH (14:00)
--- NOTE | 2018-06-03 14:18 | PDOC H&P ---
History of Present Illness Admission Date/PCP: 06/03/18 08:30 MELANY HORNE MD Patient complains of: Agitation and altered mental status History of Present Illness: BERTIN HECK is a 23 year old female This is a 23-year-old female with a history of the seizures disorders diagnosed 1 month back seen by the neurologist last week had a EEG done and put on a Keppra and the patient also scheduled for 48 hours EEG Patient also have a tachycardia syndrome and extensive workup done per cardiology was also stable According to the mother patient was very agitated yesterday and act very strange and patient's 's brought to the emergency department where patient was found like very active differently very agitated and patient was given several sedative drugs unable to control and finally need to intubated Patient had a lumbar puncture attempt unable to successfully done Is covered with acyclovir and IV antibiotic When I saw the patient in the emergency departments in ICU patients was intubated with a high-dose of the sedating drugs and still presented with some involuntary movements According to the mother patients may be given some drugs but patient's not using drugs by herself and according to the mother somebody may be given drugs to the patient Patient urine drug screen so the positive for opiates and positive for benzo Patient is currently taking the Vicodin for the pain Also taking the cyclobenzaprine for the muscle relaxants Past Medical History Cardiac Medical History: Reports: Other Denies: Myocardial Infarction, Hypertension Cardiac History Note: Tachycardic syndrome Pulmonary Medical History: Denies: Asthma Neurological Medical History: Reports: Migraine, Seizures - History of possible seizures, no neuro work up yet GI Medical History: Denies: Hepatitis, Hiatal Hernia Psychiatric Medical History: Reports: Depression Hematology: Denies: Anemia, Sickle Cell Disease Past Surgical History Past Surgical History: Reports: Adenoidectomy, Appendectomy, Tonsillectomy Denies: Amputation, Mastectomy, Pacemaker Social History Lives with: Family Smoking Status: Current Every Day Smoker Frequency of Alcohol Use: None Hx Recreational Drug Use: No Drugs: None Hx Prescription Drug Abuse: No - Advance Directive Resuscitation Status: Full Code Family History Family History: Reviewed & Not Pertinent Parental Family History Reviewed: Yes Children Family History Reviewed: Yes Sibling(s) Family History Reviewed.: Yes Medication/Allergy Home Medications: Acyclovir [Acyclovir 400 mg Tablet] 400 mg PO BID 06/03/18 Hydrocodone Bit/Acetaminophen [Hydrocodon-Acetaminophen 5-325] 1 tab PO Q6HP PRN 06/03/18 Levetiracetam [Keppra 500 mg Tablet] 500 mg PO Q12 06/03/18 Metoprolol Succinate [Toprol Xl 25 mg Tab.sr] 25 mg PO DAILY 06/03/18 Pramipexole Di-HCl [Pramipexole Dihydrochloride] 0.125 mg PO QHS 06/03/18 Prochlorperazine Maleate [Compazine 10 mg Tablet] 10 mg PO Q6HP PRN 06/03/18 Allergies/Adverse Reactions: No Known Allergies Allergy (Verified 05/06/18 21:50) Review of Systems ROS unobtainable: Due to endotracheal tube, Due to mental status, Other All systems: reviewed and no additional remarkable complaints except as stated Physical Exam Vital Signs: Temp Pulse Resp BP Pulse Ox 100.3 F 16 112/58 L 100 06/03/18 06:06 06/03/18 13:01 06/03/18 13:01 06/03/18 13:36 Intake & Output 06/02/18 06/03/18 06/04/18 06:59 06:59 06:59 Intake Total 265 Output Total 425 Balance -160 Physical Exam: Currently intubated under sedation's General appearance: PRESENT: other Head exam: PRESENT: atraumatic Eye exam: PRESENT: PERRLA Mouth exam: PRESENT: dry mucosa Respiratory exam: PRESENT: clear to auscultation shannan Cardiovascular exam: PRESENT: +S1, +S2, tachycardia GI/Abdominal exam: PRESENT: normal bowel sounds, soft Neurological exam: PRESENT: altered Skin exam: PRESENT: dry Results Laboratory Results: 06/03/18 13:40 Carbonic Acid 1.10 HCO3/H2CO3 Ratio 20:1 ABG pH 7.42 ABG pCO2 36.4 ABG pO2 41.6 L ABG HCO3 23.0 ABG O2 Saturation 78.4 L ABG Base Excess -1.1 FiO2 25% Impressions: Chest X-Ray 06/03/18 06:46 IMPRESSION: Clear lungs. Head CT 06/03/18 07:20 IMPRESSION: NORMAL BRAIN CT WITHOUT CONTRAST. EVIDENCE OF ACUTE STROKE: NO. Assessment & Plan - Diagnosis (1) Altered mental status Qualifiers: Altered mental status type: unspecified Qualified Code(s): R41.82 - Altered mental status, unspecified Is this a current diagnosis for this admission?: Yes Plan: Due to the multifactorial may be a seizures activity versus infectious versus a synthetic drug use Patient is currently covered with the IV antibiotic and acyclovir Unfortunately we do not have a no neurology service available (2) Agitation Is this a current diagnosis for this admission?: Yes Plan: Due to the synthetic drugs versus seizure activity versus infections (3) Tachycardia Is this a current diagnosis for this admission?: Yes Plan: She did have extensive workup done by cardiology currently on a beta-ralph (4) Seizure Is this a current diagnosis for this admission?: Yes Plan: increase dose thousand milligrams twice a day - Time Time Spent: 50 to 70 Minutes Critical Time spent with patient: 35 or more minutes Medications reviewed and adjusted accordingly: Yes Anticipated discharge: [facility] Within: when bed available - Inpatient Certification Based on my medical assessment, after consideration of the patient's comorbidities, presenting symptoms, or acuity I expect that the services needed warrant INPATIENT care.: Yes I certify that my determination is in accordance with my understanding of Medicare's requirements for reasonable and necessary INPATIENT services [42 CFR 412.3e].: Yes Medical Necessity: Significant Comorbidiites Make Outpatient Treatment Too Risky , Need Close Monitoring Due to Risk of Patient Decompensation, Need For IV Fluids, Need for IV Antibiotics Post Hospital Care: D/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
--- NOTE | 2018-06-03 14:21 | PDOC TRANSFER SUMMARY ---
General Admission Date/PCP: 06/03/18 08:30 MELANY HORNE MD Transfer Date: 06/03/18 Accepting Facility: [facility] Resuscitation Status: Full Code - Transfer Diagnosis (1) Altered mental status Is this a current diagnosis for this admission?: Yes (2) Agitation Is this a current diagnosis for this admission?: Yes (3) Tachycardia Is this a current diagnosis for this admission?: Yes (4) Seizure Is this a current diagnosis for this admission?: Yes - Transfer Medications Home Medications: Acyclovir [Acyclovir 400 mg Tablet] 400 mg PO BID 06/03/18 Hydrocodone Bit/Acetaminophen [Hydrocodon-Acetaminophen 5-325] 1 tab PO Q6HP PRN 06/03/18 Levetiracetam [Keppra 500 mg Tablet] 500 mg PO Q12 06/03/18 Metoprolol Succinate [Toprol Xl 25 mg Tab.sr] 25 mg PO DAILY 06/03/18 Pramipexole Di-HCl [Pramipexole Dihydrochloride] 0.125 mg PO QHS 06/03/18 Prochlorperazine Maleate [Compazine 10 mg Tablet] 10 mg PO Q6HP PRN 06/03/18 Transfer Medications: Current Medications Acetaminophen (Tylenol 650 Mg Supp) 650 mg OH Q4HP PRN PRN Reason: FOR PAIN OR TEMP Stop: 07/03/18 13:35 Albuterol/Ipratropium (Duoneb 3 Ml Ampul) 3 ml NEB RTQ6HP PRN PRN Reason: SHORTNESS OF BREATH Stop: 07/03/18 13:35 Heparin Sodium (Porcine) (Heparin Inj 5,000 Units/Ml 1 Ml Syringe) 5,000 unit SUBCUT Q8 LINA Stop: 07/03/18 13:59 Levetiracetam (Keppra Rtu 500 Mg/Nacl-Iso 100 Ml Premix) 500 mg in 100 mls @ 400 mls/hr IV Q12 LINA Stop: 07/03/18 11:59 Last Infusion: 06/03/18 12:28 Dose: Infused Acyclovir Sodium 800 mg/ (Sodium Chloride) 266 mls @ 266 mls/hr IV Q8A LINA Stop: 06/10/18 17:59 Ceftriaxone Sodium 2,000 mg/ (Dextrose) 100 mls @ 200 mls/hr IV Q12A LINA Stop: 06/10/18 17:59 Midazolam HCl (Versed Rtu 50 Mg/100 Ml Premix Bag) 50 mg in 100 mls @ 0 mls/hr IV CONTINUOUS PRN; Protocol; Titrate PRN Reason: THIS MED IS NOT "PRN" Stop: 06/10/18 11:42 Last Admin: 06/03/18 14:04 Dose: 30 mls/hr, 30 mls/hr Propofol (Diprivan Rtu 1000 Mg/100 Ml Inf.Bottle) 1,000 mg in 100 mls @ 0 mls/ hr IV CONTINUOUS PRN; Protocol; Titrate PRN Reason: THIS MED IS NOT "PRN" Stop: 07/03/18 11:43 Last Admin: 06/03/18 14:03 Dose: 25.56 mls/hr, 25.56 mls/hr Dextrose/Sodium Chloride (D5-1/2ns 1000 Ml Iv Soln) 1,000 mls @ 70 mls/hr IV CONTINUOUS PRN PRN Reason: THIS MED IS NOT "PRN" Stop: 07/03/18 13:35 Last Admin: 06/03/18 14:06 Dose: 70 mls/hr Vancomycin HCl 1,500 mg/ (Dextrose) 250 mls @ 166.667 mls/hr IV Q12 LINA Stop: 06/10/18 21:59 Pantoprazole Sodium (Protonix Iv Inj 40 Mg Vial) 40 mg IV Q12 LINA Stop: 06/06/18 21:59 Sodium Chloride (Saline Flush 2.5 Ml Monoject Prefil Syrin) 2.5 ml IV Q8 [facility] Stop: 07/03/18 13:59 - Allergies Allergies/Adverse Reactions: No Known Allergies Allergy (Verified 05/06/18 21:50) Hospital Course Hospital Course: This is a 23-year-old female admitting in the hospital for the altered mental status and agitation's with questionable infections versus drugs patient's intubated in the ICU and patient received IV antibiotic and IV acyclovir and unsuccessful lumbar puncture Was recently diagnosed with the seizures activity seen by the neurologist locally had a EEG done and scheduled for 48-hour EEG with this unquestionable involuntary movement Patient is currently intubated still having some involuntary movement at this point patient is requiring further evaluation and symptom neurology service while there is no local neurologist come to the hospital transport the patient faustino for further evaluations Physical Exam Vital Signs: Temp Pulse Resp BP Pulse Ox 100.3 F 16 112/58 L 100 06/03/18 06:06 06/03/18 13:01 06/03/18 13:01 06/03/18 13:36 Intake & Output 06/02/18 06/03/18 06/04/18 06:59 06:59 06:59 Intake Total 265 Output Total 425 Balance -160 General appearance: PRESENT: no acute distress Exam: Currently intubated under sedation Head exam: PRESENT: atraumatic Eye exam: PRESENT: PERRLA Mouth exam: PRESENT: dry mucosa Respiratory exam: PRESENT: clear to auscultation shannan Cardiovascular exam: PRESENT: +S1, +S2, tachycardia GI/Abdominal exam: PRESENT: normal bowel sounds, soft Neurological exam: PRESENT: altered Skin exam: PRESENT: dry Results Laboratory Results: 06/03/18 13:40 Carbonic Acid 1.10 HCO3/H2CO3 Ratio 20:1 ABG pH 7.42 ABG pCO2 36.4 ABG pO2 41.6 L ABG HCO3 23.0 ABG O2 Saturation 78.4 L ABG Base Excess -1.1 FiO2 25% Impressions: Chest X-Ray 06/03/18 06:46 IMPRESSION: Clear lungs. Head CT 06/03/18 07:20 IMPRESSION: NORMAL BRAIN CT WITHOUT CONTRAST. EVIDENCE OF ACUTE STROKE: NO. Plan Time Spent: Greater than 30 Minutes - Transfer the patient and agreed with neurological ICU discussed with the mother and the bedside regarding the patient 's current condition is currently critical
[2018-06-03 17:41] VITALS: BP 109/63
[2018-06-03] MEDS ORDERED: ACYCLOVIR SODIUM 800 MG in NORMAL SALINE 250 ML IV SCH (18:00)
[2018-06-03] MEDS ORDERED: CEFTRIAXONE SODIUM 2,000 MG in DEXTROSE 5%-WATER 100 ML IV SCH (18:00)
--- NOTE | 2018-06-03 19:17 | EKG REPORT ---
SEVERITY:- OTHERWISE NORMAL ECG - SINUS TACHYCARDIA : Confirmed by: Kacie Smith MD 03-Jun-2018 19:17:13
[2018-06-03] MEDS ORDERED: PANTOPRAZOLE SODIUM 40 MG VIAL IV SCH (22:00)
[2018-06-03] MEDS ORDERED: VANCOMYCIN HCL 1,500 MG in DEXTROSE 5%-WATER 250 ML IV SCH (22:00)
--- NOTE | 2018-06-04 12:38 | PSYCHOLOGICAL NOTE ---
Psych Note - Psych Note Psych Note: Reason for Consult: possible substance abuse Patient is a 23-year-old female, previously known to me from a prior visit in the emergency department who presents by EMS with concerns of uncontrollable muscle spasms. Patient was intubated prior to clinician arrival yesterday. She was accepted as a medical patient to ICU however during the evening was flown to [place]. Patient was not seen by the Behavioral Health Team.
--- NOTE | 2018-06-06 13:35 | PDOC CONSULTATION ---
Consultation Consult Date: 06/03/18 Attending physician:: CHARLES ORTIZ Consult reason:: septic shock History of Present Illness Admission Date/PCP: 06/03/18 08:30 MELANY HORNE MD History of Present Illness: BERTIN HECK is a 23 year old female, presented to the emergency room with seizures and altered mental status lumbar puncture and other workups were non- diagnostic and she was subsequently sent to the ICU where she became agitated and intubated. Patient was very very difficult to sedate history subsequently transferred to [facility] with on board neurology services Past Medical History Cardiac Medical History: Reports: Other Denies: Myocardial Infarction, Hypertension Pulmonary Medical History: Denies: Asthma Neurological Medical History: Reports: Migraine, Seizures - History of possible seizures, no neuro work up yet GI Medical History: Denies: Hepatitis, Hiatal Hernia Psychiatric Medical History: Reports: Depression Hematology: Denies: Anemia, Sickle Cell Disease Past Surgical History Past Surgical History: Reports: Adenoidectomy, Appendectomy, Tonsillectomy Denies: Amputation, Mastectomy, Pacemaker Social History Lives with: Family Smoking Status: Current Every Day Smoker Frequency of Alcohol Use: None Hx Recreational Drug Use: No Drugs: None Hx Prescription Drug Abuse: No - Advance Directive Resuscitation Status: Full Code Family History Parental Family History Reviewed: No Children Family History Reviewed: No Sibling(s) Family History Reviewed.: No Medication/Allergy Home Medications: Acyclovir [Acyclovir 400 mg Tablet] 400 mg PO BID 06/03/18 Hydrocodone Bit/Acetaminophen [Hydrocodon-Acetaminophen 5-325] 1 tab PO Q6HP PRN 06/03/18 Levetiracetam [Keppra 500 mg Tablet] 500 mg PO Q12 06/03/18 Metoprolol Succinate [Toprol Xl 25 mg Tab.sr] 25 mg PO DAILY 06/03/18 Pramipexole Di-HCl [Pramipexole Dihydrochloride] 0.125 mg PO QHS 06/03/18 Prochlorperazine Maleate [Compazine 10 mg Tablet] 10 mg PO Q6HP PRN 06/03/18 Allergies/Adverse Reactions: No Known Allergies Allergy (Verified 05/06/18 21:50) Review of Systems ROS unobtainable: Due to endotracheal tube, Due to mental status Physical Exam Vital Signs: Temp Pulse Resp BP Pulse Ox 98.4 F 120 H 16 109/63 100 06/03/18 14:00 06/03/18 14:00 06/03/18 14:00 06/03/18 14:00 06/03/18 14:00 General appearance: PRESENT: disheveled, well-developed, well-nourished. ABSENT : cooperative Head exam: PRESENT: atraumatic, normocephalic Eye exam: PRESENT: conjunctiva pale. ABSENT: nystagmus, periorbital swelling, scleral icterus Mouth exam: PRESENT: dry mucosa, neck supple, tongue midline, other - ET tube in place Neck exam: ABSENT: carotid bruit, JVD, lymphadenopathy, thyromegaly, tracheal deviation, tracheostomy Respiratory exam: PRESENT: rhonchi, symmetrical, unlabored. ABSENT: retraction , stridor, tachypnea Cardiovascular exam: PRESENT: RRR, +S1, +S2, tachycardia Pulses: PRESENT: normal radial pulses GI/Abdominal exam: PRESENT: soft. ABSENT: tenderness Gentrourinary exam: PRESENT: indwelling catheter Extremities exam: ABSENT: calf tenderness, clubbing, joint swelling, pedal edema Musculoskeletal exam: ABSENT: ambulatory, deformity, dislocation Neurological exam: ABSENT: awake Skin exam: PRESENT: dry, warm Results Impressions: Chest X-Ray 06/03/18 06:46 IMPRESSION: Clear lungs. Head CT 06/03/18 07:20 IMPRESSION: NORMAL BRAIN CT WITHOUT CONTRAST. EVIDENCE OF ACUTE STROKE: NO. Assessment & Plan - Diagnosis (1) Altered mental status Qualifiers: Altered mental status type: unspecified Qualified Code(s): R41.82 - Altered mental status, unspecified Is this a current diagnosis for this admission?: Yes Plan: Etiology unknown (2) Seizure Is this a current diagnosis for this admission?: Yes Plan: Etiology unknown unable to protect her airway - Time Total Critical Time (Minutes): 50
== END 2018-06-03 15:35 | disposition short-term general hospital (02) | DRG 101 ==
LOC: ER 01:57 → EH 08:30 → ICU 13:21
PROVIDERS: ADMIT Internal Medicine; ATTEND Internal Medicine
PROC: 00JU3ZZ Inspection of Spinal Canal, Percutaneous Approach (ICD-10-PCS; principal; 2018-06-03)
PROC: 0BH17EZ Insertion of Endotracheal Airway into Trachea, Via Natural or Artificial Opening (ICD-10-PCS; 2018-06-03)
PROC: 5A1935Z Respiratory Ventilation, Less than 24 Consecutive Hours (ICD-10-PCS; 2018-06-03)
DX: G40.909 Epilepsy, unspecified, not intractable, without status epilepticus (principal); R41.82 Altered mental status, unspecified; T44.901A Poisoning by unspecified drugs primarily affecting the autonomic nervous system, accidental (unintentional), initial encounter; R45.1 Restlessness and agitation; R00.0 Tachycardia, unspecified; R25.9 Unspecified abnormal involuntary movements; F17.200 Nicotine dependence, unspecified, uncomplicated; G43.909 Migraine, unspecified, not intractable, without status migrainosus; F32.9 Major depressive disorder, single episode, unspecified; Z90.49 Acquired absence of other specified parts of digestive tract; Z79.899 Other long term (current) drug therapy; Z78.1 Physical restraint status
CPT/HCPCS: 36415; 51702; 70450; 71045; 80053; 80307; 81001; 82550; 82803; 84703; 85025; 87040; 93005; 93010; 94002; 96361; 96365; 96372; 96375; 96376; 99291; J0133; J0330; J0696; J1200; J1630; J1953; J2060; J2250; J2704; J3370; J3490; J7030

== ENCOUNTER 2018-06-07 13:13 | Emergency (ER) | payer BC ==
--- NOTE | 2018-06-07 13:20 | ER Document Report ---
ED General - General Stated Complaint: WEAKNESS Time Seen by Provider: 06/07/18 13:20 Notes: Patient is a 23-year-old female with seizure disorder that presents to the emergency department for chief complaint of seizure activity. Patient reportedly had just been discharged from a tertiary center, yesterday, for having severe agitation, and seizure-like activity, she did have extensive workup according to EMS, and her mother that at bedside, and was discharged to home, to follow-up with neuroloGY. During that workup she was intubated, due to extreme agitation, and what sounds like ongoing seizure activity. Today the patient was apparently convulsing, and was postictal per EMS, and then she was more alert, but speaking incoherently, and nonsensically. Patient is unable to provide any significant history at this time. Patient's mother did prior to bedside, and stated she did not specifically speak to the physician at [facility], so she is not sure of any of the diagnoses. She is also not sure of any new medications that she was prescribed, she was previously on Keppra for seizures. Past Medical History: Seizure disorder Past Surgical History: Reviewed and not pertinent to presentation Social History: Per family, no alcohol, tobacco or drug use, but they are not 100% sure. Family History: Reviewed and noncontributory for presenting illness Allergies: Reviewed, see documented allergy list. REVIEW OF SYSTEMS: Other than noted above, the 12 point review of systems was reviewed with the patient and were negative, all pertinent findings are included in the HPI. PHYSICAL EXAMINATION: Vital signs reviewed, nursing noted reviewed. GENERAL: Agitated, not speaking in complete sentences currently HEAD: Atraumatic, normocephalic. EYES: Eyes appear normal, extraocular movements intact, sclera anicteric, conjunctiva are normal. ENT: nares patent, oropharynx clear without exudates. Moist mucous membranes. No tongue lacerations. NECK: Normal range of motion, supple without lymphadenopathy LUNGS: Breath sounds clear to auscultation bilaterally and equal. No wheezes rales or rhonchi. HEART: Heart rate tachycardic, regular rhythm, no audible murmur ABDOMEN: Soft, nontender, normoactive bowel sounds. No rebound, guarding, or rigidity. No masses appreciated. EXTREMITIES: Nontender, good range of motion, no pitting or edema. NEUROLOGICAL: No focal neurological deficits. Moves all extremities spontaneously Motor and sensory grossly intact on exam. PSYCH: Patient is rather agitated on exam, not answering questions appropriately , bizarre affect. SKIN: Warm, Dry, normal turgor, bruising noted on the upper and lower extremities, various degrees of healing. TRAVEL OUTSIDE OF THE [place] IN LAST 30 DAYS: No - Related Data Allergies/Adverse Reactions: No Known Allergies Allergy (Verified 06/07/18 14:58) Past Medical History - Social History Smoking Status: Never Smoker Family History: Reviewed & Not Pertinent - Past Medical History Cardiac Medical History: Denies: Hx Heart Attack, Hx Hypertension Pulmonary Medical History: Denies: Hx Asthma Neurological Medical History: Reports: Hx Migraine, Hx Seizures - History of possible seizures, no neuro work up yet. Denies: Hx Cerebrovascular Accident Renal/ Medical History: Denies: Hx Peritoneal Dialysis GI Medical History: Denies: Hx Hepatitis, Hx Hiatal Hernia, Hx Ulcer Psychiatric Medical History: Reports: Hx Depression Infectious Medical History: Denies: Hx Hepatitis Past Surgical History: Reports: Hx Adenoidectomy, Hx Appendectomy, Hx Tonsillectomy. Denies: Hx Mastectomy, Hx Open Heart Surgery, Hx Pacemaker - Immunizations Hx Diphtheria, Pertussis, Tetanus Vaccination: Yes Physical Exam - Vital signs Vitals: Resp Pulse Ox 26 H 96 06/07/18 15:00 06/07/18 15:00 Course - Re-evaluation Re-evalutation: Patient seen and examined, vital signs reviewed. Patient was noted to very agitated and writhing, and intermittently would be unresponsive and have convulsive/tremor activity. She was initially given 2mg of IV ativan and 1000mg of keppra. Patient continued to be agitated, tachycardic, she was given additional 3mg of IV ativan with no effect on her condition, continued to be tachycardic and agitated, and inconherent. At this point it was decided it was best for the patient to intubate her for her own protection to prevent her from harming herself and for possible atypical status epilepticus. I am also concerned that the patient may have ingested a sympathomemetic drug as a possible explanation of her symptoms. Bloodwork was obtained and essentially unremarkable. Prior charts were reviewed and CSF studies were unremarkable as well. I discussed with the patients mother that she will need further work up and evaluation at a tertiary center and since she was recently discharged from [facility] that it would make sense to have her transfer to there again. Patient's mother was agreeable to this plan of care. Patient was intubated and placed on versed and propofol infusion, her heart rate was improving on sedation but was still agitated, and was given a bolus of 4mg of versed, which did help with her overall agitated state and tachycardia. Patient's evaluation was most consistent with agitated state, seizure activity, differential at this point is broad, including serotonin syndrome, as the patient is tachycardic and severely agitated and flushed on her exam, I did relay this concern to the fabrication lead that was accepting at [facility], Dr. Howard who agreed to accept the patient, and they will look into more extensive workup with the patient on this admission. Results were discussed with the patient mother at this point after careful consideration I feel that that patient should be transferred to [facility] due to need for neurological evaluation, and intensive workup. This was discussed with the patient mother that it is in the best interest for their care to be transferred, the risks and benefits of transfer were discussed, including but not limited to clinical deterioration during transport, respiratory distress, and potential for traumatic injuries. Patient mother agreed with this plan of care. *Note is created using voice recognition software and may contain spelling, syntax or grammatical errors. Laboratory 06/07/18 06/07/18 06/07/18 13:33 13:33 14:15 WBC 5.5 RBC 3.94 Hgb 12.6 Hct 36.2 MCV 92 MCH 31.9 MCHC 34.8 RDW 14.6 H Plt Count 292 Seg Neutrophils % 78.0 Lymphocytes % 13.9 Monocytes % 5.5 Eosinophils % 1.9 Basophils % 0.7 Absolute Neutrophils 4.3 Absolute Lymphocytes 0.8 Absolute Monocytes 0.3 Absolute Eosinophils 0.1 Absolute Basophils 0.0 Sodium 144.9 Potassium 4.2 Chloride 106 Carbon Dioxide 26 Anion Gap 13 BUN 11 Creatinine 0.59 Est GFR ( Amer) > 60 Est GFR (Non-Af Amer) > 60 Glucose 125 H Calcium 10.1 Total Bilirubin 0.5 Direct Bilirubin 0.3 Neonat Total Bilirubin Not Reportable Neonat Direct Bilirubin Not Reportable Neonat Indirect Bili Not Reportable AST 33 ALT 30 Alkaline Phosphatase 115 Total Protein 8.2 Albumin 4.7 Urine Color YELLOW Urine Appearance CLOUDY Urine pH 8.0 Ur Specific [place] 1.005 Urine Protein NEGATIVE Urine Glucose (UA) NEGATIVE Urine Ketones NEGATIVE Urine Blood NEGATIVE Urine Nitrite NEGATIVE Urine Bilirubin NEGATIVE Urine Urobilinogen NEGATIVE Ur Leukocyte Esterase MODERATE H Urine WBC (Auto) 8 Urine RBC (Auto) 6 Urine Bacteria (Auto) 2+ Squamous Epi Cells Auto 85 Urine Mucus (Auto) RARE Urine Ascorbic Acid NEGATIVE Urine HCG, Qual Urine Opiates Screen Urine Methadone Screen Ur Barbiturates Screen Ur Phencyclidine Scrn Ur Amphetamines Screen U Benzodiazepines Scrn Urine Cocaine Screen U Marijuana (THC) Screen 06/07/18 06/07/18 14:15 14:15 WBC RBC Hgb Hct MCV MCH MCHC RDW Plt Count Seg Neutrophils % Lymphocytes % Monocytes % Eosinophils % Basophils % Absolute Neutrophils Absolute Lymphocytes Absolute Monocytes Absolute Eosinophils Absolute Basophils Sodium Potassium Chloride Carbon Dioxide Anion Gap BUN Creatinine Est GFR ( Amer) Est GFR (Non-Af Amer) Glucose Calcium Total Bilirubin Direct Bilirubin Neonat Total Bilirubin Neonat Direct Bilirubin Neonat Indirect Bili AST ALT Alkaline Phosphatase Total Protein Albumin Urine Color Urine Appearance Urine pH Ur Specific [place] Urine Protein Urine Glucose (UA) Urine Ketones Urine Blood Urine Nitrite Urine Bilirubin Urine Urobilinogen Ur Leukocyte Esterase Urine WBC (Auto) Urine RBC (Auto) Urine Bacteria (Auto) Squamous Epi Cells Auto Urine Mucus (Auto) Urine Ascorbic Acid Urine HCG, Qual NEGATIVE Urine Opiates Screen NEGATIVE Urine Methadone Screen NEGATIVE Ur Barbiturates Screen NEGATIVE Ur Phencyclidine Scrn NEGATIVE Ur Amphetamines Screen NEGATIVE U Benzodiazepines Scrn NEGATIVE Urine Cocaine Screen NEGATIVE U Marijuana (THC) Screen NEGATIVE Chest X-Ray 06/07/18 00:00 IMPRESSION: No acute finding in the chest. Endotracheal tube remains in position. - Vital Signs Vital signs: Temp Pulse Resp BP Pulse Ox 99.3 F 25 H 136/81 H 99 06/07/18 17:55 06/07/18 17:55 06/07/18 17:55 06/07/18 17:55 - Laboratory Result Diagrams: 06/07/18 13:33 06/07/18 13:33 Laboratory results interpreted by me: 06/07/18 06/07/18 06/07/18 13:33 13:33 14:15 RDW 14.6 H Glucose 125 H Ur Leukocyte Esterase MODERATE H - EKG Interpretation by Me Additional EKG results interpreted by me: EKG demonstrates sinus tachycardia with a ventricular rate of 116 bpm, normal axis, normal intervals, no evidence of acute ischemia on this EKG, this is compared with prior EKG from 06/03/2018, without significant change. Procedures - Intubation Orotracheal Mallampati Classification: Class 1 Intubation method: Orotracheal Blade type: Mouna Blade size: 4 ETT size: 7.5 ETT secured at: Teeth ETT secured at (cm): 21 Breath Sounds after Intubation: Equal End tidal CO2 confirmed: Yes Ventilator settings: SIMV Post Intubation Xray: Yes Intubation Complications: No complications Critical Care Note - Critical Care Note Total time excluding time spent on procedures (mins): 110 Comments: Critical care time 110 minutes exclusive from separate billable procedures for a patient requiring complex medical decision making, and high potential for clinical deterioration. For patient with agitated state, persistent tachycardia , agitation reducing of multiple benzodiazepines, requiring intubation, and frequent reevaluation, for persistent agitation, and setting of transport to tertiary facility. Time spent obtaining history from patient or surrogate, discussions with consultants, development of treatment plan with patient or surrogate, evaluation of patient's response to treatment, examination of patient , ordering and performing treatments and interventions, ordering and review of laboratory studies, re-evaluation of patient's condition, ordering and review of radiographic studies and review of old charts Discharge - Discharge Clinical Impression: Seizure, Agitation, Tachycardia Acute respiratory failure Qualifiers: Respiratory failure complication: unspecified whether with hypoxia or hypercapnia Qualified Code(s): J96.00 - Acute respiratory failure, unspecified whether with hypoxia or hypercapnia Condition: Stable Disposition: [facility] Referrals: MELANY HORNE MD [Primary Care Provider] - Follow up as needed
[2018-06-07] MEDS ORDERED: NORMAL SALINE 1000 ML 1,000 ML IV ONE (13:21)
[2018-06-07] MEDS ORDERED: LORAZEPAM INJ 2 MG/1 ML VIAL IV ONE ×2 (13:21→14:27)
[2018-06-07] MEDS ORDERED: LEVETIRACETAM 1000 MG/NACL-ISO 1,000 MG/100 ML RTUPB IV ONE (13:22)
[2018-06-07 13:54] LABS: ABSOLUTE EOSINOPHILS # (AUTO) 0.1 10^3/uL (0.0-0.6); ABSOLUTE LYMPHOCYTES (AUTO) 0.8 10^3/uL (0.5-4.7); ABSOLUTE MONOCYTES (AUTO) 0.3 10^3/uL (0.1-1.4); ABSOLUTE NEUT (AUTO) 4.3 10^3/uL (1.7-8.2); BASOPHILS % (AUTO) 0.7 % (0-2); EOSINOPHILS % (AUTO) 1.9 % (0-6); HEMATOCRIT 36.2 % (36.0-47.0); HEMOGLOBIN 12.6 g/dL (12.0-15.5); LYMPHOCYTES % (AUTO) 13.9 % (13-45); MEAN CORPUSCULAR HEMOGLOBIN 31.9 pg (27.0-33.4); MEAN CORPUSCULAR HGB CONC 34.8 g/dL (32.0-36.0); MEAN CORPUSCULAR VOLUME 92 fl (80-97); MONOCYTES % (AUTO) 5.5 % (3-13); PLATELET COUNT 292 10^3/uL (150-450); RED BLOOD COUNT 3.94 10^6/uL (3.72-5.28); RED CELL DISTRIBUTION WIDTH 14.6 % (11.5-14.0); TOTAL CELLS COUNTED % (AUTO) 100 %; WHITE BLOOD COUNT 5.5 10^3/uL (4.0-10.5)
[2018-06-07 14:21] LABS: ALANINE AMINOTRANSFERASE 30 U/L (9-52); ALBUMIN 4.7 g/dL (3.5-5.0); ALKALINE PHOSPHATASE 115 U/L (38-126); ANION GAP 13 (5-19); ASPARTATE AMINO TRANSFERASE 33 U/L (14-36); BILIRUBIN,DIRECT 0.3 mg/dL (0.0-0.4); BILIRUBIN,TOTAL 0.5 mg/dL (0.2-1.3); BLOOD UREA NITROGEN 11 mg/dL (7-20); CALCIUM 10.1 mg/dL (8.4-10.2); CARBON DIOXIDE 26 mmol/L (22-30); CHLORIDE 106 mmol/L (98-107); GLUCOSE 125 mg/dL (75-110); POTASSIUM 4.2 mmol/L (3.6-5.0); SODIUM 144.9 mmol/L (137-145); TOTAL PROTEIN 8.2 g/dL (6.3-8.2)
[2018-06-07 14:50] LABS: APPEARANCE,URINE CLOUDY; BILIRUBIN,URINE NEGATIVE (NEGATIVE); COLOR,URINE YELLOW; GLUCOSE, URINE NEGATIVE (NEGATIVE); KETONES,URINE NEGATIVE (NEGATIVE); LEUKOCYTE ESTERASE,URINE MODERATE (NEGATIVE); NITRITE,URINE NEGATIVE (NEGATIVE); PROTEIN,URINE NEGATIVE (NEGATIVE); URINE SPECIFIC GRAVITY 1.005; UROBILINOGEN,URINE NEGATIVE mg/dL (<2.0)
[2018-06-07] MEDS ORDERED: ETOMIDATE INJ/PF 20 MG/10 ML SDV IV ONE ×2 (15:45→16:14)
[2018-06-07] MEDS ORDERED: PROPOFOL 1,000 MG/100 ML INFUS..BTL IV ONE (15:58)
[2018-06-07] MEDS ORDERED: MIDAZOLAM HCL 50 MG/100 ML RTUINJ IV PRN (16:01)
[2018-06-07 16:06] LABS: URINE AMPHETAMINES SCREEN NEGATIVE; URINE BARBITURATES SCREEN NEGATIVE; URINE BENZODIAZEPINES SCREEN NEGATIVE; URINE COCAINE SCREEN NEGATIVE; URINE MARIJUANA (THC) SCREEN NEGATIVE; URINE METHADONE SCREEN NEGATIVE; URINE PHENCYCLIDINE SCREEN NEGATIVE
[2018-06-07] MEDS: PROPOFOL 1,000 MG/100 ML INFUS..BTL IV PRN ×2 (16:10→18:17)
[2018-06-07] MEDS ORDERED: ROCURONIUM BROMIDE INJ 50 MG/5 ML VIAL IV ONE ×2 (16:14→21:22)
--- NOTE | 2018-06-07 16:36 | RADIOLOGY REPORT (SQ) ---
EXAM DESCRIPTION: CHEST SINGLE VIEW COMPLETED DATE/TIME: 06/07/2018 4:25 pm REASON FOR STUDY: INTUBATION COMPARISON: None. EXAM PARAMETERS: NUMBER OF VIEWS: One view. TECHNIQUE: Single frontal radiographic view of the chest acquired. RADIATION DOSE: NA LIMITATIONS: None. FINDINGS: LUNGS AND PLEURA: No opacities, masses or pneumothorax. No pleural effusion. MEDIASTINUM AND HILAR STRUCTURES: No masses. Contour normal. HEART AND VASCULAR STRUCTURES: Heart normal in size. Normal vasculature. BONES: No acute findings. HARDWARE: An endotracheal tube has its tip 3 cm above the jeanie. OTHER: No other significant finding. IMPRESSION: No acute finding in the chest. Endotracheal tube remains in position. TECHNICAL DOCUMENTATION: JOB ID: [id number] [employer]- All Rights Reserved Reading location - IP/workstation name: [email or web address]
[2018-06-07] MEDS ORDERED: MIDAZOLAM 2 MG/2 ML INJ IV ONE (17:28)
[2018-06-07 17:51] VITALS: BP 136/81
--- NOTE | 2018-06-07 18:35 | EKG REPORT ---
SEVERITY:- BORDERLINE ECG - SINUS TACHYCARDIA WITH IRREGULAR RATE 91-135 BORDERLINE T WAVE ABNORMALITIES : Confirmed by: Lobo Samayoa MD 07-Jun-2018 18:35:11
== END 2018-06-07 18:15 | disposition short-term general hospital (02) ==
LOC: ER 13:13
DX: G40.909 Epilepsy, unspecified, not intractable, without status epilepticus (principal); J96.00 Acute respiratory failure, unspecified whether with hypoxia or hypercapnia; R53.1 Weakness; R00.0 Tachycardia, unspecified; R45.1 Restlessness and agitation
CPT/HCPCS: 93005; 96376; 99291; 99292; 96361; 51702; 96374; 96375; 36415; 85025; 81025; 80053; 81001; 80307; 71045; 94660; 93010; 31500; J2250 ×2; J3490; J2704; J2060; J7030; J1953

== ENCOUNTER 2018-07-28 20:13 | Emergency (ER) | payer BC ==
[2018-07-28] MEDS ORDERED: RINGERS SOLUTION,LACTATED 1,000 ML IV ONE (20:31)
--- NOTE | 2018-07-28 20:35 | ER Document Report ---
ED General - General Stated Complaint: HYPOTENSIVE Time Seen by Provider: 07/28/18 20:25 Mode of Arrival: Medic Information source: Patient, Emergency Med Personnel, [facility] Records Notes: 23-year-old female with POTS, migraine headaches, pseudoseizures presents via EMS after 2 near syncopal episodes. Patient states that "I am dehydrated". When asked why she thinks that she states that "I get return current urinary tr act infection". Patient denies decreased p.o. intake, vomiting, diarrhea, recent illness, headache, chest pain, shortness of breath, abdominal pain, nausea, chills, diarrhea. Patient does admit to dysuria that started 3 days prior to arrival. TRAVEL OUTSIDE OF THE [place] IN LAST 30 DAYS: No - HPI Onset: Just prior to arrival Onset/Duration: Sudden Quality of pain: No pain Associated symptoms: denies: Body/muscle aches, Chest pain, Fever, Nausea, Vomiting, Shortness of breath Exacerbated by: Other - Standing up too quickly Relieved by: Supine Similar symptoms previously: Yes Recently seen / treated by doctor: Yes - Related Data Allergies/Adverse Reactions: No Known Allergies Allergy (Verified 06/07/18 14:58) Past Medical History - General Information source: Patient, [facility] Records - Social History Smoking Status: Never Smoker Frequency of alcohol use: None Drug Abuse: None Lives with: Family Family History: Reviewed & Not Pertinent Patient has suicidal ideation: No Patient has homicidal ideation: No - Past Medical History Cardiac Medical History: Denies: Hx Heart Attack, Hx Hypertension Pulmonary Medical History: Denies: Hx Asthma Neurological Medical History: Reports: Hx Migraine, Hx Seizures - History of possible seizures, no neuro work up yet. Denies: Hx Cerebrovascular Accident Renal/ Medical History: Denies: Hx Peritoneal Dialysis GI Medical History: Denies: Hx Hepatitis, Hx Hiatal Hernia, Hx Ulcer Psychiatric Medical History: Reports: Hx Depression Infectious Medical History: Denies: Hx Hepatitis Past Surgical History: Reports: Hx Adenoidectomy, Hx Appendectomy, Hx Tonsillectomy. Denies: Hx Mastectomy, Hx Open Heart Surgery, Hx Pacemaker - Immunizations Hx Diphtheria, Pertussis, Tetanus Vaccination: Yes Review of Systems - Review of Systems Notes: REVIEW OF SYSTEMS: CONSTITUTIONAL : Denies fever, chills, or sweats. Denies recent illness. Denies weight loss, recent hospitalizations. EENT: Denies visual changes, eye pain. Denies sore throat, oral lesions, difficulty swallowing. CARDIOVASCULAR: Denies chest pain. Denies palpitations. Denies lower extremity edema. RESPIRATORY: Denies cough. Denies shortness of breath, wheezing. GASTROINTESTINAL: Denies abdominal pain or distention. Denies nausea, vomiting, or diarrhea. Denies blood in vomitus, stools, or per rectum. Denies black, tarry stools. Denies constipation. GENITOURINARY: Denies difficulty urinating, painful urination, frequency, blood in urine, or vaginal discharge. MUSCULOSKELETAL: Denies back or neck pain or stiffness. Denies joint pain or swelling. SKIN: Denies rash, lesions or sores. HEMATOLOGIC : Denies easy bruising or bleeding. LYMPHATIC: Denies swollen glands. NEUROLOGICAL: Denies confusion or altered mental status. Denies headache. Denies weakness or paralysis. Denies problems difficulty with ambulation, slurred speech. Denies sensory loss, numbness, or tingling. PSYCHIATRIC: Denies anxiety or stress. Denies depression, suicidal ideation, or homicidal ideation. Denies visual or auditory hallucinations. Physical Exam - Vital signs Vitals: Temp Resp Pulse Ox 97.9 F 21 H 100 07/28/18 20:17 07/28/18 20:17 07/28/18 20:17 - Notes Notes: PHYSICAL EXAMINATION: GENERAL: Well-appearing, well-nourished and in no acute distress. HEAD: Atraumatic, normocephalic. EYES: Pupils equal round and reactive to light, extraocular movements intact, conjunctiva are normal. ENT: Nares patent, oropharynx clear without exudates. Moist mucous membranes. Poor dentition NECK: Normal range of motion, supple without lymphadenopathy LUNGS: Breath sounds clear to auscultation bilaterally and equal. No wheezes rales or rhonchi. HEART: Regular rate and rhythm without murmurs ABDOMEN: Soft, nontender, nondistended abdomen. No guarding, no rebound. No masses appreciated. Female : deferred Musculoskeletal: Normal range of motion, no pitting or edema. No cyanosis. NEUROLOGICAL: Cranial nerves grossly intact. Normal speech, normal gait. Normal sensory, motor exams PSYCH: Normal mood, normal affect. SKIN: Pale, no rash.. Course - Re-evaluation Re-evalutation: 07/28/18 22:05 Laboratory 07/28/18 07/28/18 07/28/18 20:25 20:25 21:16 WBC 8.3 RBC 4.07 Hgb 12.3 Hct 37.1 MCV 91 MCH 30.4 MCHC 33.3 RDW 14.3 H Plt Count 347 Seg Neutrophils % 66.3 Lymphocytes % 25.1 Monocytes % 6.0 Eosinophils % 1.9 Basophils % 0.7 Absolute Neutrophils 5.5 Absolute Lymphocytes 2.1 Absolute Monocytes 0.5 Absolute Eosinophils 0.2 Absolute Basophils 0.1 Sodium 137.1 Potassium 4.3 Chloride 104 Carbon Dioxide 24 Anion Gap 9 BUN 10 Creatinine 0.56 Est GFR ( Amer) > 60 Est GFR (Non-Af Amer) > 60 Glucose 96 Calcium 8.8 Urine Color YELLOW Urine Appearance CLEAR Urine pH 7.0 Ur Specific Richards 1.008 Urine Protein NEGATIVE Urine Glucose (UA) NEGATIVE Urine Ketones NEGATIVE Urine Blood NEGATIVE Urine Nitrite NEGATIVE Urine Bilirubin NEGATIVE Urine Urobilinogen NEGATIVE Ur Leukocyte Esterase NEGATIVE Urine WBC (Auto) 1 Urine RBC (Auto) 0 U Hyaline Cast (Auto) 3 Squamous Epi Cells Auto 2 Urine Mucus (Auto) RARE Urine Ascorbic Acid NEGATIVE Urine HCG, Qual NEGATIVE Urine Opiates Screen Urine Methadone Screen Ur Barbiturates Screen Ur Phencyclidine Scrn Ur Amphetamines Screen U Benzodiazepines Scrn Urine Cocaine Screen U Marijuana (THC) Screen 07/28/18 21:16 WBC RBC Hgb Hct MCV MCH MCHC RDW Plt Count Seg Neutrophils % Lymphocytes % Monocytes % Eosinophils % Basophils % Absolute Neutrophils Absolute Lymphocytes Absolute Monocytes Absolute Eosinophils Absolute Basophils Sodium Potassium Chloride Carbon Dioxide Anion Gap BUN Creatinine Est GFR ( Amer) Est GFR (Non-Af Amer) Glucose Calcium Urine Color Urine Appearance Urine pH Ur Specific Richards Urine Protein Urine Glucose (UA) Urine Ketones Urine Blood Urine Nitrite Urine Bilirubin Urine Urobilinogen Ur Leukocyte Esterase Urine WBC (Auto) Urine RBC (Auto) U Hyaline Cast (Auto) Squamous Epi Cells Auto Urine Mucus (Auto) Urine Ascorbic Acid Urine HCG, Qual Urine Opiates Screen UNCONFIRMED POSITIVE Urine Methadone Screen NEGATIVE Ur Barbiturates Screen NEGATIVE Ur Phencyclidine Scrn NEGATIVE Ur Amphetamines Screen NEGATIVE U Benzodiazepines Scrn NEGATIVE Urine Cocaine Screen NEGATIVE U Marijuana (THC) Screen NEGATIVE Temp Pulse Resp BP Pulse Ox 97.9 F 18 107/69 100 07/28/18 20:17 07/28/18 20:18 07/28/18 20:18 07/28/18 20:18 23-year-old female with POTS, migraine headaches, pseudoseizures presents via EMS after 2 near syncopal episodes. Patient states that "I am dehydrated". Wh en asked why she thinks that she states that "I get return current urinary tract infection". Patient denies decreased p.o. intake, vomiting, diarrhea, recent illness, headache, chest pain, shortness of breath, abdominal pain, nausea, chills, diarrhea. Patient does admit to dysuria that started 3 days prior to arrival. Vital signs reviewed upon arrival and patient initially mildly bradycardic but this resolved prior to discharge. Patient reevaluated after receiving IV fluids. She states that she is feeling much better. She has ambulated to the bathroom several times without difficulty. Her hemoglobin is within normal limits. BMP within normal limits. Urinalysis within normal limits. HCG negative. Urine drug screen positive for opiates. 07/28/18 22:09 Mother is at the bedside and states that she will take the patient home. 07/28/18 22:25 Patient was evaluated and treated as appropriate for the patient's presenting symptoms and complaint, with consideration of any critical or life threatening conditions that may be associated with their obtained history and exam as noted above. All results were discussed with patient and the patient's mother, patient provided the opportunity to ask questions, and express concerns. Patient was educated on treatments based on their presumed diagnosis as noted above. At this time we will discharge the patient with return precautions and follow-up recommendations. Verbal discharge instructions given a the bedside. Medication warnings reviewed. Patient is in agreement with this plan and has verbalized understanding of return precautions. After careful consideration I feel that that patient can be safely discharged from the emergency department, they were advised to followup with a primary care physician in 2-3 days. Dictation on this chart was performed using voice recognition software and may result in unintended grammatical, spelling, syntax or errors. - Vital Signs Vital signs: Temp Pulse Resp BP Pulse Ox 97.9 F 15 114/72 100 07/28/18 20:17 07/28/18 22:00 07/28/18 22:01 07/28/18 22:01 - Laboratory Result Diagrams: 07/28/18 20:25 07/28/18 20:25 Laboratory results interpreted by me: 07/28/18 20:25 RDW 14.3 H - EKG Interpretation by Me EKG shows normal: Sinus rhythm Rate: Bradycardia Rhythm: NSR Discharge - Discharge Clinical Impression: POTS (postural orthostatic tachycardia syndrome) Syncope Qualifiers: Syncope type: unspecified Qualified Code(s): R55 - Syncope and collapse Condition: Good Disposition: HOME, SELF-CARE Instructions: Near Syncopal Episode ([facility]) Additional Instructions: Follow up with your [id number] hours for further care or return to the ED IMMEDIATELY if symptoms worsen or you have any concerns. If you cannot afford to follow up with your primary care physician a list of low cost clinics have been provided at the end of your discharge papers as well. Most prescribed medications have multiple side effects. The safest thing to do is when filling your prescription speak to your pharmacist regarding possible interactions with your normal home medications and over the counter medications such as Ibuprofen, Tylenol, Benadryl. If you experience any symptoms that cause you discomfort or concern you should discontinue the medication immediately and return to the emergency room or call your primary care physician. Referrals: MELANY HORNE MD [Primary Care Provider] - Follow up in 3-5 days
[2018-07-28 20:41] LABS: ABSOLUTE BASOPHILS # (AUTO) 0.1 10^3/uL (0.0-0.2); ABSOLUTE EOSINOPHILS # (AUTO) 0.2 10^3/uL (0.0-0.6); ABSOLUTE LYMPHOCYTES (AUTO) 2.1 10^3/uL (0.5-4.7); ABSOLUTE MONOCYTES (AUTO) 0.5 10^3/uL (0.1-1.4); ABSOLUTE NEUT (AUTO) 5.5 10^3/uL (1.7-8.2); BASOPHILS % (AUTO) 0.7 % (0-2); EOSINOPHILS % (AUTO) 1.9 % (0-6); HEMATOCRIT 37.1 % (36.0-47.0); HEMOGLOBIN 12.3 g/dL (12.0-15.5); LYMPHOCYTES % (AUTO) 25.1 % (13-45); MEAN CORPUSCULAR HEMOGLOBIN 30.4 pg (27.0-33.4); MEAN CORPUSCULAR HGB CONC 33.3 g/dL (32.0-36.0); MEAN CORPUSCULAR VOLUME 91 fl (80-97); PLATELET COUNT 347 10^3/uL (150-450); RED BLOOD COUNT 4.07 10^6/uL (3.72-5.28); RED CELL DISTRIBUTION WIDTH 14.3 % (11.5-14.0); SEGMENTED NEUTROPHILS % (AUTO) 66.3 % (42-78); TOTAL CELLS COUNTED % (AUTO) 100 %; WHITE BLOOD COUNT 8.3 10^3/uL (4.0-10.5)
[2018-07-28 20:59] LABS: ANION GAP 9 (5-19); BLOOD UREA NITROGEN 10 mg/dL (7-20); CALCIUM 8.8 mg/dL (8.4-10.2); CARBON DIOXIDE 24 mmol/L (22-30); CHLORIDE 104 mmol/L (98-107); GLUCOSE 96 mg/dL (75-110); POTASSIUM 4.3 mmol/L (3.6-5.0); SODIUM 137.1 mmol/L (137-145)
[2018-07-28 21:38] LABS: APPEARANCE,URINE CLEAR; BILIRUBIN,URINE NEGATIVE (NEGATIVE); COLOR,URINE YELLOW; GLUCOSE, URINE NEGATIVE (NEGATIVE); KETONES,URINE NEGATIVE (NEGATIVE); LEUKOCYTE ESTERASE,URINE NEGATIVE (NEGATIVE); NITRITE,URINE NEGATIVE (NEGATIVE); PROTEIN,URINE NEGATIVE (NEGATIVE); URINE SPECIFIC GRAVITY 1.008; UROBILINOGEN,URINE NEGATIVE mg/dL (<2.0)
[2018-07-28 21:52] LABS: URINE AMPHETAMINES SCREEN NEGATIVE; URINE BARBITURATES SCREEN NEGATIVE; URINE BENZODIAZEPINES SCREEN NEGATIVE; URINE COCAINE SCREEN NEGATIVE; URINE MARIJUANA (THC) SCREEN NEGATIVE; URINE METHADONE SCREEN NEGATIVE; URINE PHENCYCLIDINE SCREEN NEGATIVE
[2018-07-28 22:09] VITALS: BP 114/72
--- NOTE | 2018-07-28 23:08 | EKG REPORT ---
SEVERITY:- OTHERWISE NORMAL ECG - SINUS BRADYCARDIA : Confirmed by: Ken Mcgovern 28-Jul-2018 23:07:31
== END 2018-07-28 22:26 | disposition home or self-care (01) ==
LOC: ER 20:13
DX: I95.1 Orthostatic hypotension (principal)
CPT/HCPCS: 36415; 80048; 80307; 81001; 81025; 85025; 93005; 93010; 99284

== ENCOUNTER 2018-07-29 20:20 | Emergency (ER) | payer BC ==
[2018-07-29] MEDS ORDERED: OLANZAPINE INJ/PF 10 MG SDV IM ONE (20:40)
[2018-07-29] MEDS ORDERED: DIAZEPAM INJ 10 MG/2 ML DISP.SYRIN IV ONE ×3 (20:45→23:39)
--- NOTE | 2018-07-29 20:49 | ER Document Report ---
ED General - General Chief Complaint: Altered Mental Status Stated Complaint: ALTERED MENTAL STATUS Time Seen by Provider: 07/29/18 20:30 Cannot obtain history due to: Uncooperative, Altered mental status Notes: Patient is a 23-year-old female who presents for concerns of altered mental status. History is quite limited as patient is unable to provide any kind of meaningful history. Her symptoms apparently started 10-20 minutes prior to arrival at the hospital. She has had similar presentations in the past. TRAVEL OUTSIDE OF THE [place] IN LAST 30 DAYS: No - Related Data Allergies/Adverse Reactions: No Known Allergies Allergy (Verified 06/07/18 14:58) Past Medical History - General Information source: Patient Cannot obtain history due to: Altered mental status - Social History Smoking Status: Unknown if Ever Smoked Frequency of alcohol use: Rare Drug Abuse: None Lives with: Family Family History: Reviewed & Not Pertinent - Past Medical History Cardiac Medical History: Denies: Hx Heart Attack, Hx Hypertension Pulmonary Medical History: Denies: Hx Asthma Neurological Medical History: Reports: Hx Migraine, Hx Seizures - History of possible seizures, no neuro work up yet. Denies: Hx Cerebrovascular Accident Renal/ Medical History: Denies: Hx Peritoneal Dialysis GI Medical History: Denies: Hx Hepatitis, Hx Hiatal Hernia, Hx Ulcer Psychiatric Medical History: Reports: Hx Depression Infectious Medical History: Denies: Hx Hepatitis Past Surgical History: Reports: Hx Adenoidectomy, Hx Appendectomy, Hx Tonsillectomy. Denies: Hx Mastectomy, Hx Open Heart Surgery, Hx Pacemaker - Immunizations Hx Diphtheria, Pertussis, Tetanus Vaccination: Yes Review of Systems - Review of Systems -: Yes ROS unobtainable due to patient's medical condition Physical Exam - Vital signs Vitals: Temp 98.7 F 07/29/18 20:05 Interpretation: Hypertensive, Tachycardic Notes: PHYSICAL EXAMINATION: GENERAL: Agitated, combative, unable to be redirected. HEAD: Atraumatic, normocephalic. EYES: Pupils are 6-7 mm, reactive bilaterally ENT: nares patent, oropharynx clear without exudates. Moderately dry mucous membranes. NECK: Normal range of motion, supple without lymphadenopathy LUNGS: Moderate tachypnea. Breath sounds clear to auscultation bilaterally and equal. No wheezes rales or rhonchi. HEART: Regular tachycardia without murmurs ABDOMEN: Soft, nontender, normoactive bowel sounds. No guarding, no rebound. No masses appreciated. EXTREMITIES: Normal range of motion, no pitting or edema. No cyanosis. NEUROLOGICAL: No focal neurological deficits. Moves all extremities spontaneously and on command. PSYCH: Highly agitated, intermittent periods of unintelligible speech. Unable to be redirected. SKIN: Warm, Dry, normal turgor, no rashes or lesions noted. Course - Re-evaluation Re-evalutation: 07/29/18 20:47 Patient presents with severe agitation, tachycardia, fluctuating mental status between lying flat in the bed and then again speaking in nonsensical terms. I have seen this patient on multiple previous occasions under one circumstance she was presenting exactly the same as she is today. On 2 separate occasions since May 2018 the patient is active and intubated secondary to her degree of agitation and inability to calm the patient with standard doses of benzodiazepines and antipsychotics. I have ongoing strong suspicion that the patient continues to abuse some variant of a sympathomimetic toxin that does not show up on urine tox screens. Her pupils are 7 mm and dilated, she is agitated, has tachycardia and hypertension at the time of my evaluation. The patient also presents in this manner abruptly and did so again when I saw her in May. Family reports that she goes from acting normally, leaves disability from other family members and then returned like this. I did contact [facility] where she has been transferred on 2 separate occasions. 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 To confirm, the patient does not have a history of true seizures or any alternative neurologic disorder. The patient has multiple known psychiatric diagnoses. She was seen yesterday for complaints of dehydration and apparently at that time was acting normally. Labs obtained at that time are noted to be unremarkable. Will repeat basic laboratories today, proceed with IV fluids, calming agents of Zyprexa and diazepam which although they have not worked in the past would still be first-line agents. I plan to speak to the patient's primary care physician for admission to the hospital as I do believe that the patient requires monitoring particularly for tachycardia and agitation do not resolve with these measures. 07/29/18 22:36 I reassessed this patient on multiple occasions. Patient remains agitated, continues to not provide any meaningful history. Despite 20 mg of olanzapine as well as 10 mg of intravenous Valium the patient remains quite agitated, requiring soft restraints for her safety as well as safety of staff. Patient continues to remain quite tachycardic, current heart rate 152 which does respond intermittently to receiving diazepam. Blood pressure is currently normal at 117 and 73. Laboratories today are notable for hypocalcemia and hypokalemia. Magnesium, calcium and potassium repletion have been initiated. The patient will be discussed with her primary care physician Dr. Rivers for admission. I have ordered a 10 mg of additional diazepam. 07/29/18 22:42 I did discuss this case at length with Dr. Rivers who does not feel comfortable readmitting the patient as he has done so in the past the patient was very difficult to manage and required transfer to [facility] on both previous occasions. I did discuss with [facility] and I am awaiting callback. Patient will continue to reassess at regular intervals. 07/29/18 23:37 I did discuss with Dr. Grant at [facility] who has accepted the patient. I have reviewed at length the patient's ongoing agitation and tachycardia. Will obtain a CT head to definitively exclude any intracranial process for which have a very low suspicion. 07/30/18 00:50 Patient has received an additional 20 mg of diazepam since the most recent documentation. The shear quantity of benzodiazepines that the patient is able to tolerate goes against a true psychiatric origin and again makes me very suspicious for a sympathomimetic toxicity particular given her ongoing tachycardia. I am giving her doses of 10 mg at a time to avoid having recurrence of what has happened on previous occasions with the patient has had respiratory suppression secondary to sedation. Patient does not respond relatively well to this dose, has improvement of her heart rate and agitation lasting approximately 1 hour and then requires additional dosing. 07/30/18 03:34 Patient has remained relatively calm since her last dose of diazepam. Remains tachycardic. Continues to receive fluids. Awaiting transport. - Vital Signs Vital signs: Temp Pulse Resp BP Pulse Ox 98.7 F 27 H 112/42 L 100 07/29/18 20:05 07/29/18 23:01 07/29/18 23:01 07/29/18 22:29 - Laboratory Result Diagrams: 07/29/18 20:30 07/29/18 20:30 Laboratory results interpreted by me: 07/29/18 07/29/18 20:30 20:30 RDW 14.1 H Potassium 2.9 L* Chloride 119 H Carbon Dioxide 18 L Creatinine 0.46 L Calcium 6.9 L* Total Protein 5.3 L Albumin 3.2 L Salicylates < 1.0 L Acetaminophen < 10 L - Diagnostic Test Radiology reviewed: Image reviewed, Reports reviewed Radiology results interpreted by me: 07/30/18 03:36 CT head: No acute intracranial bleed or mass Critical Care Note - Critical Care Note Total time excluding time spent on procedures (mins): 40 Comments: Critical care time spent obtaining history from patient or surrogate, discussions with consultants, development of treatment plan with patient or surrogate, evaluation of patient's response to treatment, examination of patient, ordering and performing treatments and interventions, ordering and review of laboratory studies, re-evaluation of patient's condition, ordering and review of radiographic studies and review of old charts Discharge - Discharge Clinical Impression: Agitation, Pseudoseizure, Tachycardia Altered mental status Qualifiers: Altered mental status type: disorientation Qualified Code(s): R41.0 - Disorientation, unspecified Condition: Serious Disposition: [facility] Referrals: MELANY HORNE MD [Primary Care Provider] - Follow up as needed
[2018-07-29 21:02] LABS: ABSOLUTE LYMPHOCYTES (AUTO) 1.2 10^3/uL (0.5-4.7); ABSOLUTE MONOCYTES (AUTO) 0.5 10^3/uL (0.1-1.4); BASOPHILS % (AUTO) 0.6 % (0-2); EOSINOPHILS % (AUTO) 0.4 % (0-6); HEMATOCRIT 37.7 % (36.0-47.0); HEMOGLOBIN 12.7 g/dL (12.0-15.5); LYMPHOCYTES % (AUTO) 15.3 % (13-45); MEAN CORPUSCULAR HEMOGLOBIN 30.4 pg (27.0-33.4); MEAN CORPUSCULAR HGB CONC 33.8 g/dL (32.0-36.0); MEAN CORPUSCULAR VOLUME 90 fl (80-97); MONOCYTES % (AUTO) 6.4 % (3-13); PLATELET COUNT 287 10^3/uL (150-450); RED BLOOD COUNT 4.19 10^6/uL (3.72-5.28); RED CELL DISTRIBUTION WIDTH 14.1 % (11.5-14.0); SEGMENTED NEUTROPHILS % (AUTO) 77.3 % (42-78); TOTAL CELLS COUNTED % (AUTO) 100 %; WHITE BLOOD COUNT 7.7 10^3/uL (4.0-10.5)
[2018-07-29 21:08] LABS: ALANINE AMINOTRANSFERASE 39 U/L (9-52); ALBUMIN 3.2 g/dL (3.5-5.0); ALKALINE PHOSPHATASE 94 U/L (38-126); ANION GAP 7 (5-19); ASPARTATE AMINO TRANSFERASE 15 U/L (14-36); BILIRUBIN,DIRECT 0.2 mg/dL (0.0-0.4); BILIRUBIN,TOTAL 0.3 mg/dL (0.2-1.3); BLOOD UREA NITROGEN 7 mg/dL (7-20); CARBON DIOXIDE 18 mmol/L (22-30); CHLORIDE 119 mmol/L (98-107); CREATINE KINASE 35 U/L (30-135); GLUCOSE 80 mg/dL (75-110); TOTAL PROTEIN 5.3 g/dL (6.3-8.2)
[2018-07-29 21:15] LABS: ACETAMINOPHEN < 10 ug/mL (10-30); ALCOHOL < 10 mg/dL (NONE DETECTED); SALICYLATE < 1.0 mg/dL (2.0-20.0)
[2018-07-29 21:18] LABS: CALCIUM 6.9 mg/dL (8.4-10.2); POTASSIUM 2.9 mmol/L (3.6-5.0)
[2018-07-29 22:05] LABS: APPEARANCE,URINE CLEAR; BILIRUBIN,URINE NEGATIVE (NEGATIVE); COLOR,URINE STRAW; GLUCOSE, URINE NEGATIVE (NEGATIVE); KETONES,URINE NEGATIVE (NEGATIVE); LEUKOCYTE ESTERASE,URINE NEGATIVE (NEGATIVE); NITRITE,URINE NEGATIVE (NEGATIVE); PROTEIN,URINE NEGATIVE (NEGATIVE); URINE SPECIFIC GRAVITY 1.004; UROBILINOGEN,URINE NEGATIVE mg/dL (<2.0)
[2018-07-29 22:16] LABS: URINE AMPHETAMINES SCREEN NEGATIVE; URINE BARBITURATES SCREEN NEGATIVE; URINE BENZODIAZEPINES SCREEN NEGATIVE; URINE COCAINE SCREEN NEGATIVE; URINE MARIJUANA (THC) SCREEN NEGATIVE; URINE METHADONE SCREEN NEGATIVE; URINE PHENCYCLIDINE SCREEN NEGATIVE
[2018-07-29] MEDS ORDERED: RINGERS SOLUTION,LACTATED 1,000 ML IV ONE (22:35)
[2018-07-29] MEDS ORDERED: CALCIUM GLUCONATE 1000 MG/10 ML INJ IV ONE (22:35)
[2018-07-29] MEDS: MAGNESIUM SULFATE/D5W 1 GM/100 ML RTUPB IV SCH (23:15)
[2018-07-30] MEDS: MAGNESIUM SULFATE/D5W 1 GM/100 ML RTUPB IV SCH (00:06)
[2018-07-30] MEDS: POTASSI CL 20 MEQ/50 ML RIDER 20 MEQ/50 ML RTUPB IV SCH ×2 (00:21→01:37)
[2018-07-30] MEDS ORDERED: DIAZEPAM INJ 10 MG/2 ML DISP.SYRIN IV ONE (00:49)
--- NOTE | 2018-07-30 01:37 | RADIOLOGY REPORT (SQ) ---
EXAM DESCRIPTION: CT HEAD WITHOUT IV CONTRAST COMPLETED DATE/TME: 07/29/2018 22:47 CLINICAL HISTORY: 23 years Female, ams COMPARISON: None. TECHNIQUE: No contrast. Coronal and sagittal reformat. This exam was performed according to our departmental dose-optimization program, which includes automated exposure control, adjustment of the mA and/or kV according to patient size and/or use of iterative reconstruction technique. Quality: Suboptimal. Streak artifact. FINDINGS: No hemorrhage or infarct. No mass, mass effect, or midline shift. Subcentimeter left maxillary mucous retention cyst. Brain and extra-axial structures appear otherwise intact. IMPRESSION: No acute findings.
[2018-07-30 08:42] LABS: ALANINE AMINOTRANSFERASE 50 U/L (9-52); ALBUMIN 4.5 g/dL (3.5-5.0); ALKALINE PHOSPHATASE 142 U/L (38-126); ANION GAP 8 (5-19); ASPARTATE AMINO TRANSFERASE 33 U/L (14-36); BILIRUBIN,DIRECT 0.3 mg/dL (0.0-0.4); BILIRUBIN,TOTAL 0.7 mg/dL (0.2-1.3); BLOOD UREA NITROGEN 5 mg/dL (7-20); CALCIUM 9.2 mg/dL (8.4-10.2); CARBON DIOXIDE 23 mmol/L (22-30); CHLORIDE 112 mmol/L (98-107); GLUCOSE 90 mg/dL (75-110); SODIUM 143.3 mmol/L (137-145); TOTAL PROTEIN 6.8 g/dL (6.3-8.2)
[2018-07-30 08:54] LABS: POTASSIUM 4.3 mmol/L (3.6-5.0)
[2018-07-30] MEDS ORDERED: ACETAMINOPHEN 325 MG TABLET PO ONE ×2 (09:12→14:57)
[2018-07-30] MEDS ORDERED: RINGERS SOLUTION,LACTATED 1,000 ML IV ONE ×2 (18:25)
--- NOTE | 2018-07-30 18:35 | EKG REPORT ---
SEVERITY:- OTHERWISE NORMAL ECG - SINUS TACHYCARDIA : Confirmed by: Ken Mcgovern 30-Jul-2018 18:35:00
[2018-07-30] MEDS ORDERED: METOPROLOL SUCCINATE 50 MG TAB.SR.24H PO ONE (19:31)
[2018-07-30] MEDS ORDERED: DIPHENHYDRAMINE HCL 50 MG CAPSULE PO ONE (19:50)
[2018-07-31 11:03] LABS: ABSOLUTE BASOPHILS # (AUTO) 0.1 10^3/uL (0.0-0.2); ABSOLUTE EOSINOPHILS # (AUTO) 0.1 10^3/uL (0.0-0.6); ABSOLUTE LYMPHOCYTES (AUTO) 1.5 10^3/uL (0.5-4.7); ABSOLUTE MONOCYTES (AUTO) 0.4 10^3/uL (0.1-1.4); ABSOLUTE NEUT (AUTO) 3.7 10^3/uL (1.7-8.2); BASOPHILS % (AUTO) 1.1 % (0-2); EOSINOPHILS % (AUTO) 1.1 % (0-6); HEMATOCRIT 37.4 % (36.0-47.0); HEMOGLOBIN 12.6 g/dL (12.0-15.5); LYMPHOCYTES % (AUTO) 25.6 % (13-45); MEAN CORPUSCULAR HEMOGLOBIN 30.1 pg (27.0-33.4); MEAN CORPUSCULAR HGB CONC 33.8 g/dL (32.0-36.0); MEAN CORPUSCULAR VOLUME 89 fl (80-97); MONOCYTES % (AUTO) 7.7 % (3-13); PLATELET COUNT 296 10^3/uL (150-450); RED BLOOD COUNT 4.19 10^6/uL (3.72-5.28); RED CELL DISTRIBUTION WIDTH 14.6 % (11.5-14.0); SEGMENTED NEUTROPHILS % (AUTO) 64.5 % (42-78); TOTAL CELLS COUNTED % (AUTO) 100 %; WHITE BLOOD COUNT 5.7 10^3/uL (4.0-10.5)
[2018-07-31 11:20] LABS: ALANINE AMINOTRANSFERASE 49 U/L (9-52); ALBUMIN 4.6 g/dL (3.5-5.0); ALKALINE PHOSPHATASE 125 U/L (38-126); ANION GAP 10 (5-19); ASPARTATE AMINO TRANSFERASE 33 U/L (14-36); BILIRUBIN,DIRECT 0.1 mg/dL (0.0-0.4); BILIRUBIN,TOTAL 0.4 mg/dL (0.2-1.3); BLOOD UREA NITROGEN 8 mg/dL (7-20); CALCIUM 9.7 mg/dL (8.4-10.2); CARBON DIOXIDE 28 mmol/L (22-30); CHLORIDE 106 mmol/L (98-107); GLUCOSE 103 mg/dL (75-110); POTASSIUM 3.9 mmol/L (3.6-5.0); SODIUM 143.7 mmol/L (137-145); TOTAL PROTEIN 6.8 g/dL (6.3-8.2)
--- NOTE | 2018-07-31 12:37 | ER Document Report ---
Doctor's Note Notes: 07/31/18 14:50 CBC repeated and normal. Able to ambulate around the department with some tachycardia but no difficulty with ambulating. No falls. Discussed discharging the patient home and she states that she thinks she is having some intermittent problems with her speech although this has never been observed by myself or nursing staff.
[2018-07-31 15:19] VITALS: BP 113/67
== END 2018-07-31 16:05 | disposition home or self-care (01) ==
LOC: ER 20:20
DX: R45.1 Restlessness and agitation (principal); R41.0 Disorientation, unspecified; R00.0 Tachycardia, unspecified; R56.9 Unspecified convulsions
CPT/HCPCS: 93005; 99291; 99292; 36415; 80307 ×4; 82550; 83735; 84703; 85025; 80053; 81001; 70450; 93010; J0610; J3360 ×2; J3475 ×2; J3480; J7120 ×2

== ENCOUNTER 2018-08-03 06:44 | Emergency (ER) | payer BC ==
--- NOTE | 2018-08-03 08:20 | ER Document Report ---
Addendum entered and electronically signed by BROCK NICOLE PA-C 08/03/18 09:09: Discharge - Discharge Clinical Impression: Sacroiliitis, Cough, Near syncope Condition: Stable Disposition: HOME, SELF-CARE Additional Instructions: Maintain adequate fluid and food intake Healthy diet, exercise Monitor blood pressure daily and keep a log Monitor symptoms for any acute changes Recheck with your PCM in 3-5 days Consider a follow-up with your neurologist Return to the ED with any worsening symptoms and/or development of fever, headache, chest pain, palpitations, syncope, shortness of breath, trouble breathing, abdominal pain, n/v/d, blood in stool/urine, loss of control of bowel/bladder, urinary retention, muscle weakness/paralysis, numbness/tingling, or other worsening symptoms that are concerning to you. Prescriptions: Benzonatate [Tessalon Perle 100 mg Capsule] 100 mg PO Q8HP PRN #15 cap PRN Reason: Referrals: MELANY HORNE MD [Primary Care Provider] - 08/05/18 Original Note: ED General - General Chief Complaint: Probable Seizure Stated Complaint: CONFUSION SYNCOPE Time Seen by Provider: 08/03/18 08:02 Primary Care Provider: MELANY HORNE MD [Primary Care Provider] - Follow up as needed TRAVEL OUTSIDE OF THE [place] IN LAST 30 DAYS: No - HPI Notes: Patient is a 23-year-old female with a history of PNES, POTS, migraines, and other mental health disorders who presents to the emergency department complaining of a near syncopal episode prior to arrival. Patient states that she stood up too quickly and started getting lightheaded and seeing spots when she slid herself down to the floor and resulted in soreness in her buttock area. Patient states that she has been able to ambulate since then without difficult ies. Patient states that her mom suggested that she come to the emergency department for evaluation. Patient states that she is otherwise feeling well and at baseline. She is eating and drinking without difficulty. She is urinating normally and having normal bowel movements. She denies any smoking or IV drug abuse. No alcohol intake. She has no other concerns or complaints aside from an occasional cough and would like Tessalon. Patient states that she does not want any blood work performed. She was here a couple times within the last week and had blood work done that was unremarkable. Denies any headache, fever, head injury, neck pain, changes in vision/speech/mentation/hearing, URI, sore throat, chest pain, palpitations, full syncopal episode, cough, shortness of breath, wheeze, dyspnea, abdominal pain, nausea/vomiting/diarrhea, urinary retention, dysuria, hematuria, loss of control of bowel or bladder, numbness/tingling, saddle anesthesia, muscle paralysis/weakness, or rash. - Related Data Allergies/Adverse Reactions: No Known Allergies Allergy (Verified 06/07/18 14:58) Past Medical History - Social History Smoking Status: Never Smoker Frequency of alcohol use: None Drug Abuse: None Family History: Reviewed & Not Pertinent Patient has suicidal ideation: No Patient has homicidal ideation: No - Past Medical History Cardiac Medical History: Denies: Hx Heart Attack, Hx Hypertension Pulmonary Medical History: Denies: Hx Asthma Neurological Medical History: Reports: Hx Migraine. Denies: Hx Cerebrovascular Accident. Comment Only: Hx Seizures - History of possible seizures, no neuro work up yet Renal/ Medical History: Denies: Hx Peritoneal Dialysis GI Medical History: Denies: Hx Hepatitis, Hx Hiatal Hernia, Hx Ulcer Psychiatric Medical History: Reports: Hx Depression Infectious Medical History: Denies: Hx Hepatitis Past Surgical History: Reports: Hx Adenoidectomy, Hx Appendectomy, Hx Tonsillectomy. Denies: Hx Mastectomy, Hx Open Heart Surgery, Hx Pacemaker - Immunizations Hx Diphtheria, Pertussis, Tetanus Vaccination: Yes Review of Systems - Review of Systems -: Yes All other systems reviewed and negative Physical Exam - Vital signs Vitals: Temp Pulse Resp BP Pulse Ox 97.9 F 136 H 19 131/76 H 99 08/03/18 06:56 08/03/18 06:56 08/03/18 06:56 08/03/18 06:56 08/03/18 06:56 - Notes Notes: PHYSICAL EXAMINATION: GENERAL: Well-appearing, well-nourished and in no acute distress. A&Ox4. Answers questions appropriately. HEAD: Atraumatic, normocephalic. Non-tender. EYES: Pupils equal round and reactive to light, extraocular movements intact, sclera anicteric, conjunctiva are normal. No nystagmus. vis key intact. ENT: EAC clear b/l. TM's intact b/l without erythema, fluid, or perforation. Nares patent and without discharge. oropharynx clear without exudates. No tonsilar hypertrophy or erythema. Moist mucous membranes. No sinus tenderness. NECK: Normal range of motion, supple without lymphadenopathy. No rigidity/meningismus. No midline tenderness. LUNGS: Breath sounds clear to auscultation bilaterally and equal. No wheezes rales or rhonchi. HEART: Regular rate and rhythm without murmurs, rubs, gallops. ABDOMEN: Soft, nontender, nondistended abdomen. No guarding, no rebound. Normal bowel sounds present. No CVA tenderness bilaterally. Musculoskeletal: Ext's b/l: FROM to passive/active. Strength 5+/5. No deficits noted. No bony tenderness of extremities. Back: FROM. Strength 5+/5. SLR neg. No foot drop. + reproducible mild tenderness at her left SI joint. Pt is able to stand, walk, and sit cross- legged without any discomfort otherwise. Extremities: No cyanosis, clubbing, or edema b/l. Peripheral pulses 2+. Capillary refill less than 2 seconds. NEUROLOGICAL: NIH 0. GCS 15. Cranial nerves grossly intact. Normal speech, normal gait. Normal sensory, motor exams. Reflexes 2+ b/l. BRIGETTE's negative. Pronator drift negative. Heel/parker, finger/nose wnl. PSYCH: Normal mood, normal affect. SKIN: Warm, Dry, normal turgor, no rashes or lesions noted. Course - Re-evaluation Re-evalutation: 08/03/18 08:55 Patient is an afebrile, well-hydrated, 23-year-old female who presents emergency department with a cough (suspect viral-mild), left buttock pain that I suspect to be sacroiliitis and near syncopal episode. Vitals are acceptable without significant tachycardia from baseline, tachypnea, or hypoxia. PE is otherwise unremarkable for any focal neurological deficits. Orthostatics were unremarkable. Patient is nontoxic-appearing and is tolerating p.o. without difficulty. Patient has declined any lab work at this time. EKG unremarkable. She has not had any obvious rhythm abnormalities. Lungs are clear to auscultation bilaterally. Abdomen is soft nontender. Low suspicion for any acute intracranial process, sepsis, meningitis, severe dehydration, respiratory compromise, or other systemic emergent condition at this time. Patient is aware that condition can change from initial presentation and she needs to monitor symptoms closely and seek medical attention with any acute changes. Pt states that she feels well and at her normal baseline. I will send her home with a prescription for Tessalon Perles per her request for her cough. Recheck with your PCM in 2-3 days. Consider consult with your neurologist. Return to the ED with any other worsening/concerning symptoms as reviewed. Patient is in agreement. Reviewed with Dr. Cummings who is in agreement with dispo/plan. - Vital Signs Vital signs: Temp Pulse Resp BP Pulse Ox 97.9 F 120 H 19 122/77 99 08/03/18 06:56 08/03/18 08:32 08/03/18 06:56 08/03/18 08:32 08/03/18 06:56 Discharge - Discharge Clinical Impression: Sacroiliitis, Cough, Near syncope Condition: Stable Disposition: HOME, SELF-CARE Additional Instructions: Maintain adequate fluid and food intake Healthy diet, exercise Monitor blood pressure daily and keep a log Monitor symptoms for any acute changes Recheck with your PCM in 3-5 days Consider a follow-up with your neurologist Return to the ED with any worsening symptoms and/or development of fever, headache, chest pain, palpitations, syncope, shortness of breath, trouble breathing, abdominal pain, n/v/d, blood in stool/urine, loss of control of bowel/bladder, urinary retention, muscle weakness/paralysis, numbness/tingling, or other worsening symptoms that are concerning to you. Referrals: MELANY HORNE MD [Primary Care Provider] - 08/05/18
[2018-08-03 09:20] VITALS: BP 120/70
--- NOTE | 2018-08-04 08:05 | EKG REPORT ---
SEVERITY:- BORDERLINE ECG - SINUS TACHYCARDIA BORDERLINE T ABNORMALITIES, DIFFUSE LEADS : Confirmed by: Kacie Smith MD 04-Aug-2018 08:05:05
== END 2018-08-03 09:17 | disposition home or self-care (01) ==
LOC: ER 06:44
DX: R55 Syncope and collapse (principal); M46.1 Sacroiliitis, not elsewhere classified; R05 Cough
CPT/HCPCS: 93005; 93010; 99284

== ENCOUNTER 2018-08-17 22:25 | Emergency (ER) | payer BC ==
--- NOTE | 2018-08-18 00:10 | ER Document Report ---
ED Medical Screen (RME) - General Chief Complaint: Seizure Stated Complaint: POSSIBLE SEIZURE Time Seen by Provider: 08/18/18 00:05 Primary Care Provider: MELANY HORNE MD [Primary Care Provider] - Follow up as needed Information source: Patient Notes: Patient is a 23-year-old female coming in today with history of frontal seizures. She is currently being evaluated for these. Is not presently on any antiseizure medication. Patient also is very tachycardic. Has a history of POTS. 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 I have treated and performed a rapid initial assessment of this patient. A comprehensive ED assessment and evaluation of the patient, analysis of test results and completion of medical decision making process will be conducted by additional ED providers. PHYSICAL EXAMINATION: GENERAL: Well-appearing, well-nourished and in no acute distress. A&Ox4. Answers questions appropriately. LUNGS: Breath sounds clear to auscultation bilaterally and equal. No wheezes rales or rhonchi. HEART: TACHYCARDIC ABDOMEN: Soft, nondistended abdomen. No guarding, no rebound. Normal bowel sounds present. No CVA tenderness bilaterally. + mild epigastric tenderness (cannot elicit thorough abd exam w/o table, however). Extremities: No cyanosis, clubbing, or edema b/l. NEUROLOGICAL: No FOCAL NEURO DEFICITS PSYCH: Normal mood, normal affect. TRAVEL OUTSIDE OF THE [place] IN LAST 30 DAYS: No - Related Data Allergies/Adverse Reactions: No Known Allergies Allergy (Verified 08/17/18 22:28) Past Medical History - Social History Frequency of alcohol use: None Drug Abuse: None Family history: Other - Grandmother of [place] at age 58; mother anemia - Past Medical History Cardiac Medical History: Denies: Hx Heart Attack, Hx Hypertension Pulmonary Medical History: Reports: Hx Asthma Neurological Medical History: Reports: Hx Migraine, Hx Seizures - History of possible seizures, no neuro work up yet. Denies: Hx Cerebrovascular Accident Renal/ Medical History: Denies: Hx Peritoneal Dialysis GI Medical History: Denies: Hx Hepatitis, Hx Hiatal Hernia, Hx Ulcer Psychiatric Medical History: Reports: Hx Depression Infectious Medical History: Denies: Hx Hepatitis Past Surgical History: Reports: Hx Adenoidectomy, Hx Appendectomy, Hx Tonsillectomy. Denies: Hx Mastectomy, Hx Open Heart Surgery, Hx Pacemaker - Immunizations Hx Diphtheria, Pertussis, Tetanus Vaccination: Yes History of Influenza Vaccine for 04/2017 - 09/2017 Season: Unknown Physical Exam - Vital signs Vitals: Temp Pulse Resp BP Pulse Ox 98.8 F 150 H 16 140/80 H 100 08/17/18 22:31 08/17/18 22:31 08/17/18 22:31 08/17/18 22:31 08/17/18 22:31 Course - Vital Signs Vital signs: Temp Pulse Resp BP Pulse Ox 98.8 F 150 H 16 140/80 H 100 08/17/18 22:31 08/17/18 22:31 08/17/18 22:31 08/17/18 22:31 08/17/18 22:31 Doctor's Discharge - Discharge Referrals: MELANY HORNE MD [Primary Care Provider] - Follow up as needed
[2018-08-18 01:40] LABS: ABSOLUTE BASOPHILS # (AUTO) 0.1 10^3/uL (0.0-0.2); ABSOLUTE EOSINOPHILS # (AUTO) 0.2 10^3/uL (0.0-0.6); ABSOLUTE LYMPHOCYTES (AUTO) 2.6 10^3/uL (0.5-4.7); ABSOLUTE MONOCYTES (AUTO) 0.9 10^3/uL (0.1-1.4); BASOPHILS % (AUTO) 0.7 % (0-2); EOSINOPHILS % (AUTO) 1.2 % (0-6); HEMOGLOBIN 13.9 g/dL (12.0-15.5); LYMPHOCYTES % (AUTO) 17.5 % (13-45); MEAN CORPUSCULAR HEMOGLOBIN 30.2 pg (27.0-33.4); MEAN CORPUSCULAR HGB CONC 33.9 g/dL (32.0-36.0); MEAN CORPUSCULAR VOLUME 89 fl (80-97); MONOCYTES % (AUTO) 6.3 % (3-13); PLATELET COUNT 357 10^3/uL (150-450); RED CELL DISTRIBUTION WIDTH 15.4 % (11.5-14.0); SEGMENTED NEUTROPHILS % (AUTO) 74.3 % (42-78); TOTAL CELLS COUNTED % (AUTO) 100 %; WHITE BLOOD COUNT 14.7 10^3/uL (4.0-10.5)
[2018-08-18 01:43] LABS: APPEARANCE,URINE CLEAR; BILIRUBIN,URINE MODERATE (NEGATIVE); COLOR,URINE YELLOW; GLUCOSE, URINE NEGATIVE (NEGATIVE); KETONES,URINE NEGATIVE (NEGATIVE); LEUKOCYTE ESTERASE,URINE NEGATIVE (NEGATIVE); NITRITE,URINE NEGATIVE (NEGATIVE); PROTEIN,URINE NEGATIVE (NEGATIVE); UROBILINOGEN,URINE NEGATIVE mg/dL (<2.0)
[2018-08-18 01:54] LABS: ALANINE AMINOTRANSFERASE 30 U/L (9-52); ALBUMIN 5.4 g/dL (3.5-5.0); ALKALINE PHOSPHATASE 147 U/L (38-126); ANION GAP 15 (5-19); ASPARTATE AMINO TRANSFERASE 22 U/L (14-36); BILIRUBIN,DIRECT 0.4 mg/dL (0.0-0.4); BILIRUBIN,TOTAL 0.5 mg/dL (0.2-1.3); BLOOD UREA NITROGEN 19 mg/dL (7-20); CALCIUM 10.2 mg/dL (8.4-10.2); CARBON DIOXIDE 26 mmol/L (22-30); CHLORIDE 103 mmol/L (98-107); GLUCOSE 100 mg/dL (75-110); POTASSIUM 4.1 mmol/L (3.6-5.0); SODIUM 143.7 mmol/L (137-145); TOTAL PROTEIN 8.4 g/dL (6.3-8.2)
[2018-08-18] MEDS ORDERED: METOPROLOL TARTRATE 50 MG TABLET PO ONE (02:49)
--- NOTE | 2018-08-18 02:50 | ER Document Report ---
ED General - General Chief Complaint: Seizure Stated Complaint: POSSIBLE SEIZURE Time Seen by Provider: 08/18/18 00:05 Primary Care Provider: MELANY HORNE MD [Primary Care Provider] - Follow up as needed Notes: 23-year-old female patient emergency department for tachycardia. Patient has history of pots disease. On beta-blockers. Questionable whether she is taking them today. Also has some sort of seizure disorder but does not think she has had a seizure. Wanted to get seen here before she did though. TRAVEL OUTSIDE OF THE [place] IN LAST 30 DAYS: No - Related Data Allergies/Adverse Reactions: No Known Allergies Allergy (Verified 08/17/18 22:28) Past Medical History - General Information source: Patient - Social History Smoking Status: Never Smoker Frequency of alcohol use: None Drug Abuse: None Family History: Reviewed & Not Pertinent Patient has suicidal ideation: No Patient has homicidal ideation: No - Past Medical History Cardiac Medical History: Denies: Hx Heart Attack, Hx Hypertension Pulmonary Medical History: Reports: Hx Asthma Neurological Medical History: Reports: Hx Migraine, Hx Seizures - History of possible seizures, no neuro work up yet. Denies: Hx Cerebrovascular Accident Renal/ Medical History: Denies: Hx Peritoneal Dialysis GI Medical History: Denies: Hx Hepatitis, Hx Hiatal Hernia, Hx Ulcer Psychiatric Medical History: Reports: Hx Depression Infectious Medical History: Denies: Hx Hepatitis Past Surgical History: Reports: Hx Adenoidectomy, Hx Appendectomy, Hx Tonsillectomy. Denies: Hx Mastectomy, Hx Open Heart Surgery, Hx Pacemaker - Immunizations Hx Diphtheria, Pertussis, Tetanus Vaccination: Yes Review of Systems - Review of Systems Notes: Constitutional: denies: Chills, Diaphoresis, Fever, Malaise, Weakness EENT: denies: Eye discharge, Blurred vision, Tearing, Double vision, Nose congestion, Nose discharge, Throat swelling, Mouth pain Cardiovascular: + chest pain, tachycardia, heart racing. Respiratory: denies: Cough, Hurts to breathe, Wheezing, Shortness of breath Gastrointestinal: denies: Abdominal pain, Diarrhea, Nausea, Vomiting, Black stools, bright red blood in stool Genitourinary: denies: Burning, Dysuria, Discharge, Frequency, Flank pain, Hematuria Musculoskeletal: denies: Joint pain, Joint swelling, Muscle pain, Muscle stiffness, back pain Hematologic/Lymphatic: denies: Anemia, Easy bleeding, Easy bruising, Blood clots Neurological/Psychological: denies: Confusion, Dementia, Depression, Loss of consciousness Skin: No lesions, no masses, no skin breakdown, no abscesses Physical Exam - Vital signs Vitals: Temp Pulse Resp BP Pulse Ox 98.8 F 150 H 16 140/80 H 100 08/17/18 22:31 08/17/18 22:31 08/17/18 22:31 08/17/18 22:31 08/17/18 22:31 Interpretation: Tachycardic - General General appearance: Appears well, Alert - HEENT Head: Normocephalic, Atraumatic Eyes: Normal Pupils: PERRL, Dilated - Respiratory Respiratory status: No respiratory distress Chest status: Nontender Breath sounds: Normal Chest palpation: Normal - Cardiovascular Rhythm: Tachycardia Heart sounds: Normal auscultation Murmur: No - Abdominal Inspection: Normal Distension: No distension Bowel sounds: Normal Tenderness: Nontender Organomegaly: No organomegaly - Back Back: Normal, Nontender - Extremities General upper extremity: Normal inspection, Nontender, Normal color, Normal ROM, Normal temperature General lower extremity: Normal inspection, Nontender, Normal color, Normal ROM, Normal temperature, Normal weight bearing. No: David's sign - Neurological Neuro grossly intact: Yes Cognition: Normal Orientation: AAOx4 [place] Coma Scale Eye Opening: Spontaneous [place]ina Coma Scale Verbal: Oriented Melina Coma Scale Motor: Obeys Commands [place] Coma Scale Total: 15 Speech: Normal Motor strength normal: LUE, RUE, LLE, RLE Sensory: Normal - Psychological Associated symptoms: Normal affect, Normal mood - Skin Skin Temperature: Warm Skin Moisture: Dry Skin Color: Normal Course - Re-evaluation Re-evalutation: 08/18/18 03:42 This is a well-appearing 23-year-old female no acute distress. No seizure-like activity. Tachycardia has resolved after putting her on beta-blockers. Patient is being prescribed beta blockers. I find no convincing evidence that this time that she has any pathology going on. Is followed by cardiology. Followed by neurology. Patient has been checked multiple times for thyroid dysfunction which is neg. DC at this time in stable condition. Laboratory 08/18/18 08/18/18 08/18/18 01:18 01:18 01:18 WBC 14.7 H RBC 4.60 Hgb 13.9 Hct 41.0 MCV 89 MCH 30.2 MCHC 33.9 RDW 15.4 H Plt Count 357 Seg Neutrophils % 74.3 Lymphocytes % 17.5 Monocytes % 6.3 Eosinophils % 1.2 Basophils % 0.7 Absolute Neutrophils 11.0 H Absolute Lymphocytes 2.6 Absolute Monocytes 0.9 Absolute Eosinophils 0.2 Absolute Basophils 0.1 Sodium 143.7 Potassium 4.1 Chloride 103 Carbon Dioxide 26 Anion Gap 15 BUN 19 Creatinine 0.74 Est GFR ( Amer) > 60 Est GFR (Non-Af Amer) > 60 Glucose 100 Calcium 10.2 Total Bilirubin 0.5 Direct Bilirubin 0.4 Neonat Total Bilirubin Not Reportable Neonat Direct Bilirubin Not Reportable Neonat Indirect Bili Not Reportable AST 22 ALT 30 Alkaline Phosphatase 147 H Troponin I < 0.012 Total Protein 8.4 H Albumin 5.4 H Urine Color Urine Appearance Urine pH Ur Specific [place] Urine Protein Urine Glucose (UA) Urine Ketones Urine Blood Urine Nitrite Urine Bilirubin Urine Urobilinogen Ur Leukocyte Esterase Urine WBC (Auto) Urine RBC (Auto) Urine Bacteria (Auto) Squamous Epi Cells Auto Urine Mucus (Auto) Urine Ascorbic Acid Urine HCG, Qual 08/18/18 01:25 WBC RBC Hgb Hct MCV MCH MCHC RDW Plt Count Seg Neutrophils % Lymphocytes % Monocytes % Eosinophils % Basophils % Absolute Neutrophils Absolute Lymphocytes Absolute Monocytes Absolute Eosinophils Absolute Basophils Sodium Potassium Chloride Carbon Dioxide Anion Gap BUN Creatinine Est GFR ( Amer) Est GFR (Non-Af Amer) Glucose Calcium Total Bilirubin Direct Bilirubin Neonat Total Bilirubin Neonat Direct Bilirubin Neonat Indirect Bili AST ALT Alkaline Phosphatase Troponin I Total Protein Albumin Urine Color YELLOW Urine Appearance CLEAR Urine pH 5.0 Ur Specific [place] 1.040 Urine Protein NEGATIVE Urine Glucose (UA) NEGATIVE Urine Ketones NEGATIVE Urine Blood NEGATIVE Urine Nitrite NEGATIVE Urine Bilirubin MODERATE H Urine Urobilinogen NEGATIVE Ur Leukocyte Esterase NEGATIVE Urine WBC (Auto) 1 Urine RBC (Auto) 6 Urine Bacteria (Auto) TRACE Squamous Epi Cells Auto 1 Urine Mucus (Auto) RARE Urine Ascorbic Acid NEGATIVE Urine HCG, Qual NEGATIVE 08/18/18 03:43 - Vital Signs Vital signs: Temp Pulse Resp BP Pulse Ox 97.9 F 150 H 20 97/64 L 100 08/18/18 03:55 08/17/18 22:31 08/18/18 03:55 08/18/18 03:55 08/18/18 03:55 - Laboratory Result Diagrams: 08/18/18 01:18 08/18/18 01:18 Laboratory results interpreted by me: 08/18/18 08/18/18 08/18/18 01:18 01:18 01:25 WBC 14.7 H RDW 15.4 H Absolute Neutrophils 11.0 H Alkaline Phosphatase 147 H Total Protein 8.4 H Albumin 5.4 H Urine Bilirubin MODERATE H - EKG Interpretation by Me EKG shows normal: [place], Intervals, QRS Complexes, ST-T Waves Rate: Tachycardia Discharge - Discharge Clinical Impression: Sinus tachycardia Condition: Good Disposition: HOME, SELF-CARE Instructions: Beta Blockers ([facility]), Sinus Tachycardia ([facility]) Additional Instructions: Follow-up with your regular doctors. Continue with your current medications. Referrals: MELANY HORNE MD [Primary Care Provider] - Follow up as needed
[2018-08-18] MEDS ORDERED: IBUPROFEN 600 MG TABLET PO ONE (03:07)
[2018-08-18 03:58] VITALS: BP 97/64
--- NOTE | 2018-08-18 11:11 | EKG REPORT ---
SEVERITY:- OTHERWISE NORMAL ECG - SINUS TACHYCARDIA : Confirmed by: Ken Mcgovern 18-Aug-2018 11:10:56
== END 2018-08-18 03:58 | disposition home or self-care (01) ==
LOC: ER 22:25
DX: R00.0 Tachycardia, unspecified (principal); R56.9 Unspecified convulsions; J45.909 Unspecified asthma, uncomplicated
CPT/HCPCS: 36415; 80053; 81001; 81025; 84484; 85025; 93005; 93010; 99284

== ENCOUNTER 2018-08-22 15:40 | Emergency (ER) | payer BC ==
--- NOTE | 2018-08-22 15:47 | ER Document Report ---
ED General - General Stated Complaint: POSSIBLE SEIZURE Time Seen by Provider: 08/22/18 15:47 Primary Care Provider: MELANY HORNE MD [Primary Care Provider] - Follow up as needed Notes: Patient is a 23-year-old female well-known to this emergency department that presents to the emergency department for chief complaint of seizure-like activity. Patient is currently not speaking, being uncooperative, not answering questions, per report the patient had seizure-like activity, and was acting altered so she was brought to the emergency department. Patient had multiple episodes like this in the past, has been diagnosed with pseudoseizures, she has been intubated several times for erratic behavior, and transferred to a tertiary facility, where she has not been diagnosed with any organic cause of her symptoms. There has been concern in the past that she has been using illicit drugs sympathomimetic drugs leading to her symptoms. Patient denied this in the past. No other history obtainable at this time. Past Medical History: Pseudoseizures, depression, anxiety, pots Past Surgical History: Not obtainable at this time Social History: No smoking history, suspected drug use, no reported alcohol use. Family History: Reviewed and noncontributory for presenting illness Allergies: Reviewed, see documented allergy list. REVIEW OF SYSTEMS: Complete review of systems is not obtainable at this time secondary to the patient's mental state. PHYSICAL EXAMINATION: Vital signs reviewed, nursing noted reviewed. GENERAL: Patient is lying in the bed, but intermittently will be agitated HEAD: Atraumatic, normocephalic. EYES: Eyes appear normal, extraocular movements intact, sclera anicteric, conjunctiva are normal. No nystagmus, PERRLA ENT: nares patent, oropharynx clear without exudates. Moist mucous membranes. NECK: Normal range of motion, supple without lymphadenopathy LUNGS: Breath sounds clear to auscultation bilaterally and equal. No wheezes rales or rhonchi. HEART: Heart rate tachycardic, regular rhythm ABDOMEN: Soft, nontender, normoactive bowel sounds. No rebound, guarding, or rigidity. No masses appreciated. EXTREMITIES: Nontender, good range of motion, no pitting or edema. NEUROLOGICAL: GCS 14, occasional spastic with behavior, will talk answer questions intermittently, and then will act as if she is catatonic, and then started speaking again. PSYCH: Flat affect, and bizarre mood SKIN: Warm, Dry, normal turgor, no rashes or lesions noted on exposed skin TRAVEL OUTSIDE OF THE [place] IN LAST 30 DAYS: No - Related Data Allergies/Adverse Reactions: No Known Allergies Allergy (Verified 08/17/18 22:28) Past Medical History - Social History Smoking Status: Never Smoker Family History: Reviewed & Not Pertinent - Past Medical History Cardiac Medical History: Denies: Hx Heart Attack, Hx Hypertension Pulmonary Medical History: Reports: Hx Asthma Neurological Medical History: Reports: Hx Migraine, Hx Seizures - History of possible seizures, no neuro work up yet. Denies: Hx Cerebrovascular Accident Renal/ Medical History: Denies: Hx Peritoneal Dialysis GI Medical History: Denies: Hx Hepatitis, Hx Hiatal Hernia, Hx Ulcer Psychiatric Medical History: Reports: Hx Depression Infectious Medical History: Denies: Hx Hepatitis Past Surgical History: Reports: Hx Adenoidectomy, Hx Appendectomy, Hx Tonsillectomy. Denies: Hx Mastectomy, Hx Open Heart Surgery, Hx Pacemaker - Immunizations Hx Diphtheria, Pertussis, Tetanus Vaccination: Yes Course - Re-evaluation Re-evalutation: Patient seen and examined vital signs reviewed. Patient is presenting very similar to how she has in the past, her behavior is bizarre, but she is redirectable at times, her did arrive, was able to redirect her better than staff, I do not feel that the patient needed blood work, or further testing at this time, as she is presenting very similar way, and in the past her workups have been negative, she is had extensive evaluation, and felt to have nonepileptic seizures. She was given a dose of IM Geodon, to help with her behavior, and this did seem to improve her overall mental state, she was discharged home with her . 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 *Note is created using voice recognition software and may contain spelling, syntax or grammatical errors. - EKG Interpretation by Me Additional EKG results interpreted by me: EKG demonstrates sinus tachycardia with a ventricular rate of 119 bpm, normal axis, normal intervals, no evidence of acute ischemia on this EKG. Discharge - Discharge Clinical Impression: Seizure-like activity Condition: Stable Disposition: HOME, SELF-CARE Instructions: Seizure, Known Epileptic ([facility]) Additional Instructions: Please follow-up with your neurologist and your primary care physician, you need to continue your current medications. Referrals: MELANY HORNE MD [Primary Care Provider] - Follow up as needed
[2018-08-22] MEDS ORDERED: ZIPRASIDONE MESYLATE INJ/PF 20 MG SDV IM ONE (16:02)
--- NOTE | 2018-08-23 17:54 | EKG REPORT ---
SEVERITY:- BORDERLINE ECG - SINUS TACHYCARDIA PROBABLE LEFT ATRIAL ABNORMALITY : Confirmed by: Kacie Smith MD 23-Aug-2018 17:53:47
== END 2018-08-22 18:14 | disposition home or self-care (01) ==
LOC: ER 15:40
DX: R56.9 Unspecified convulsions (principal); J45.909 Unspecified asthma, uncomplicated
CPT/HCPCS: 93005; 99284; 82962; 93010; J3486

== ENCOUNTER 2018-09-05 22:43 | Emergency (ER) | payer BC ==
[2018-09-05] MEDS ORDERED: ONDANSETRON 4 MG TAB.RAPDIS PO ONE (23:37)
[2018-09-05] MEDS ORDERED: HYDROCODONE/ACETAMINOPHEN 5-325 MG TABLET PO ONE (23:37)
--- NOTE | 2018-09-05 23:40 | ER Document Report ---
ED Medical Screen (RME) - General Chief Complaint: Ankle injury, shoulder pn Stated Complaint: ANKLE PAIN/SHOULDER PAIN Time Seen by Provider: 09/05/18 23:37 Primary Care Provider: MELANY HORNE MD [Primary Care Provider] - Follow up as needed Notes: 23-year-old female with history of pots comes to the emergency department for chief complaint of injury from fall. She states that she frequently will start passing out and fall, she is used to this, she states the only reason she is here is because she landed on the tip of her shoulder and twisted her ankle. She reports pain in both her ankle and shoulder. She denies hitting her head, denies any other complaints. TRAVEL OUTSIDE OF THE [place] IN LAST 30 DAYS: No - Related Data Allergies/Adverse Reactions: No Known Allergies Allergy (Verified 08/17/18 22:28) Past Medical History - Social History Chew tobacco use (# tins/day): No Frequency of alcohol use: None Drug Abuse: None Family history: Other - Grandmother of [place] at age 58; mother anemia - Past Medical History Cardiac Medical History: Denies: Hx Heart Attack, Hx Hypertension Pulmonary Medical History: Reports: Hx Asthma Neurological Medical History: Reports: Hx Migraine, Hx Seizures - History of possible seizures, no neuro work up yet. Denies: Hx Cerebrovascular Accident Renal/ Medical History: Denies: Hx Peritoneal Dialysis GI Medical History: Denies: Hx Hepatitis, Hx Hiatal Hernia, Hx Ulcer Psychiatric Medical History: Reports: Hx Depression Infectious Medical History: Denies: Hx Hepatitis Past Surgical History: Reports: Hx Adenoidectomy, Hx Appendectomy, Hx Tonsillectomy. Denies: Hx Mastectomy, Hx Open Heart Surgery, Hx Pacemaker - Immunizations Hx Diphtheria, Pertussis, Tetanus Vaccination: Yes History of Influenza Vaccine for 04/2017 - 09/2017 Season: Unknown Physical Exam - Vital signs Vitals: Temp Pulse Resp BP Pulse Ox 98.0 F 125 H 20 126/72 H 99 09/05/18 23:19 09/05/18 23:19 09/05/18 23:19 09/05/18 23:19 09/05/18 23:19 - Extremities Shoulder: Other - Tender over right AC joint Ankle: Other - Tender generally over the base of the right ankle mainly over the lateral aspect normal distal pulses and sensation, no deformity Course - Re-evaluation Re-evalutation: Patient heart rate in the 120s. Patient takes metoprolol for this. She states she is used to this happening and sometimes she will take a second dose. Declined second dose at this time. Asking for something for pain. This was provided, x-rays ordered. I have greeted and performed a rapid initial assessment of this patient. A comprehensive ED assessment and evaluation of the patient, analysis of test results and completion of the medical decision making process will be conducted by additional ED providers. - Vital Signs Vital signs: Temp Pulse Resp BP Pulse Ox 98.0 F 125 H 20 126/72 H 99 09/05/18 23:19 09/05/18 23:19 09/05/18 23:19 09/05/18 23:19 09/05/18 23:19 Doctor's Discharge - Discharge Referrals: MELANY HORNE MD [Primary Care Provider] - Follow up as needed
--- NOTE | 2018-09-05 23:41 | RADIOLOGY REPORT (SQ) ---
CLINICAL HISTORY: Passed out and twisted ankle COMPARISON: None. TECHNIQUE: XR ANKLE 3 OR MORE VIEWS 09/05/2018 12:00 AM [facility] FINDINGS: There is no fracture. Joint spaces are preserved. Soft tissues are unremarkable. IMPRESSION: No acute osseous findings.
--- NOTE | 2018-09-06 01:49 | ER Document Report ---
ED Extremity Problem, Lower - General Chief Complaint: Ankle injury, shoulder pn Stated Complaint: ANKLE PAIN/SHOULDER PAIN Time Seen by Provider: 09/05/18 23:37 Primary Care Provider: MELANY HORNE MD [Primary Care Provider] - Follow up as needed Notes: 23-year-old female with history of pots comes to the emergency department for chief complaint of injury from fall. She states that she frequently will start passing out and fall, she is used to this, she states the only reason she is here is because she landed on the tip of her shoulder and twisted her ankle. She reports pain in both her right ankle and right shoulder. She denies hitting her head, denies any other complaints. TRAVEL OUTSIDE OF THE [place] IN LAST 30 DAYS: No - Related Data Allergies/Adverse Reactions: No Known Allergies Allergy (Verified 08/17/18 22:28) Past Medical History - General Information source: Patient - Social History Smoking Status: Never Smoker Chew tobacco use (# tins/day): No Frequency of alcohol use: None Drug Abuse: None Lives with: Family Family History: Reviewed & Not Pertinent Patient has suicidal ideation: No Patient has homicidal ideation: No - Past Medical History Cardiac Medical History: Denies: Hx Heart Attack, Hx Hypertension Pulmonary Medical History: Reports: Hx Asthma Neurological Medical History: Reports: Hx Migraine, Hx Seizures - History of possible seizures, no neuro work up yet. Denies: Hx Cerebrovascular Accident Renal/ Medical History: Denies: Hx Peritoneal Dialysis GI Medical History: Denies: Hx Hepatitis, Hx Hiatal Hernia, Hx Ulcer Psychiatric Medical History: Reports: Hx Depression Infectious Medical History: Denies: Hx Hepatitis Past Surgical History: Reports: Hx Adenoidectomy, Hx Appendectomy, Hx Tonsillectomy. Denies: Hx Mastectomy, Hx Open Heart Surgery, Hx Pacemaker - Immunizations Hx Diphtheria, Pertussis, Tetanus Vaccination: Yes Review of Systems - Review of Systems Constitutional: No symptoms reported EENT: No symptoms reported Cardiovascular: See HPI Respiratory: No symptoms reported Gastrointestinal: No symptoms reported Genitourinary: No symptoms reported Female Genitourinary: No symptoms reported Musculoskeletal: See HPI Skin: No symptoms reported Hematologic/Lymphatic: No symptoms reported Neurological/Psychological: No symptoms reported Physical Exam - Vital signs Vitals: Temp Pulse Resp BP Pulse Ox 98.0 F 125 H 20 126/72 H 99 09/05/18 23:19 09/05/18 23:19 09/05/18 23:19 09/05/18 23:19 09/05/18 23:19 - Notes Notes: GENERAL: Alert, interacts well. No acute distress. HEAD: Normocephalic, atraumatic. EYES: Pupils equal, round, and reactive to light. Extraocular movements intact. ENT: Oral mucosa moist, tongue midline. Oropharynx unremarkable. Airway patent. Nares patent, no nasal septal hematoma, TM's intact. NECK: Full range of motion. Supple. Trachea midline. LUNGS: Clear to auscultation bilaterally, no wheezes, rales, or rhonchi. No respiratory distress. HEART: Borderline tachycardic, normal rhythm no murmur ABDOMEN: Soft, non-tender. Non-distended. Bowel sounds present in all 4 quadrants. GENITOURINARY: Deferred EXTREMITIES: There is minimal generalized tenderness over the right shoulder, no specific tenderness, no ecchymosis or swelling, range of motion intact. Normal distal neurovascular exam. There is tenderness over the right ATF area over the dorsal foot, questionable minimal soft tissue swelling, no ecchymosis, normal distal neurovascular exam. Otherwise unremarkable. BACK: no cervical, thoracic, lumbar midline tenderness. No saddle anesthesia, normal distal neurovascular exam. NEUROLOGICAL: Alert and oriented x3. Normal speech. [cranial nerves II through XII grossly intact]. PSYCH: Normal affect, normal mood. SKIN: Warm, dry, normal turgor. No rashes or lesions noted. Course - Re-evaluation Re-evalutation: Ankle x-ray was ordered at triage, I did not realize she did not have a shoulder x-ray ordered, when I evaluated patient I offered an x-ray of the shoulder but she declined. No other signs of injury. There is mild soft tissue swelling. X-ray is negative, consistent with sprain, given immobilization and instructions. Patient is mildly tachycardic now. She reports a history of pots, tachycardia, takes metoprolol for this, states she frequently takes an additional dose as instructed, I offered this, I offered additional workup and treatment of tachycardia and syncope but she declined stating this is a chronic problem and she is used to this. Discussed follow-up and return precautions. Patient states satisfaction and agreement. - Vital Signs Vital signs: Temp Pulse Resp BP Pulse Ox 97.5 F 111 H 18 115/66 99 09/06/18 01:57 09/06/18 01:57 09/06/18 01:57 09/06/18 01:57 09/06/18 01:57 Procedures - Immobilization Right ankle Pre-Proc Neuro Vasc Exam: Normal Immobilizer type: Nazario wrap, Ankle stirrup Performed by: PCT Post-Proc Neuro Vasc Exam: Normal Alignment checked and good: Yes Discharge - Discharge Clinical Impression: Right ankle injury Qualifiers: Encounter type: initial encounter Qualified Code(s): S99.911A - Unspecified injury of right ankle, initial encounter Syncopal episodes Qualifiers: Syncope type: unspecified Qualified Code(s): R55 - Syncope and collapse Condition: Stable Disposition: HOME, SELF-CARE Additional Instructions: No fracture is seen in the ankle. This is consistent with a sprain of the ATF ligament. Recommendation is for the first 2-3 days to use the ankle stirrup and wrap, ice 3-4 times a day, elevate, take the anti-inflammatory, use the crutches if you are going to walk an extended distance. Resume normal activity as tolerated. Follow-up with primary care. Return if you worsen including severe swelling or pain or for any other concerning symptoms. Prescriptions: Naproxen 500 mg PO BID PRN #20 tablet PRN Reason: Forms: Return to Work Referrals: MELANY HORNE MD [Primary Care Provider] - Follow up as needed
[2018-09-06 01:58] VITALS: BP 115/66
--- NOTE | 2018-09-07 10:18 | EKG REPORT ---
SEVERITY:- OTHERWISE NORMAL ECG - SINUS TACHYCARDIA : Confirmed by: Ken Mcgovern 07-Sep-2018 10:17:46
== END 2018-09-06 02:10 | disposition home or self-care (01) ==
LOC: ER 22:43
DX: S99.911A Unspecified injury of right ankle, initial encounter (principal); R55 Syncope and collapse; W18.30XA Fall on same level, unspecified, initial encounter
CPT/HCPCS: 93005; 99283; 73610; 93010; L4350; S0119

== ENCOUNTER 2018-10-07 13:01 | Emergency (ER) | payer BC ==
[2018-10-07 13:50] LABS: APPEARANCE,URINE SLIGHTLY-CLOUDY; BILIRUBIN,URINE NEGATIVE (NEGATIVE); CALCIUM OXALATE CRYSTALS,URINE RARE /HPF; COLOR,URINE YELLOW; GLUCOSE, URINE 150 mg/dL (NEGATIVE); KETONES,URINE 20 mg/dL (NEGATIVE); LEUKOCYTE ESTERASE,URINE NEGATIVE (NEGATIVE); NITRITE,URINE NEGATIVE (NEGATIVE); PROTEIN,URINE NEGATIVE (NEGATIVE); URINE SPECIFIC GRAVITY 1.011; UROBILINOGEN,URINE NEGATIVE mg/dL (<2.0)
[2018-10-07 14:01] LABS: URINE AMPHETAMINES SCREEN NEGATIVE; URINE BARBITURATES SCREEN NEGATIVE; URINE BENZODIAZEPINES SCREEN NEGATIVE; URINE COCAINE SCREEN NEGATIVE; URINE MARIJUANA (THC) SCREEN NEGATIVE; URINE METHADONE SCREEN NEGATIVE; URINE PHENCYCLIDINE SCREEN NEGATIVE
[2018-10-07 14:14] LABS: HEMATOCRIT 37.7 % (36.0-47.0); HEMOGLOBIN 12.8 g/dL (12.0-15.5); MEAN CORPUSCULAR HEMOGLOBIN 29.3 pg (27.0-33.4); MEAN CORPUSCULAR HGB CONC 33.8 g/dL (32.0-36.0); MEAN CORPUSCULAR VOLUME 87 fl (80-97); PLATELET COUNT 317 10^3/uL (150-450); RED BLOOD COUNT 4.36 10^6/uL (3.72-5.28); RED CELL DISTRIBUTION WIDTH 15.8 % (11.5-14.0); WHITE BLOOD COUNT 20.5 10^3/uL (4.0-10.5)
[2018-10-07 14:36] LABS: ABSOLUTE MONOCYTES # (MANUAL) 1.4 10^3/uL (0.1-1.4); BAND NEUTROPHILS % (MANUAL) 1 % (3-5); BASOPHILS % (MANUAL) 0 % (0-2); EOSINOPHILS % (MANUAL) 0 % (0-6); LYMPHOCYTES % (MANUAL) 5 % (13-45); MONOCYTES % (MANUAL) 7 % (3-13); SEGMENTED NEUTROPHILS % (MAN) 87 % (42-78); TOTAL CELLS COUNTED 100
[2018-10-07 14:37] LABS: ALANINE AMINOTRANSFERASE 31 U/L (9-52); ALBUMIN 4.8 g/dL (3.5-5.0); ALKALINE PHOSPHATASE 136 U/L (38-126); ANION GAP 12 (5-19); ASPARTATE AMINO TRANSFERASE 26 U/L (14-36); BILIRUBIN,DIRECT 0.3 mg/dL (0.0-0.4); BILIRUBIN,TOTAL 0.7 mg/dL (0.2-1.3); BLOOD UREA NITROGEN 10 mg/dL (7-20); CALCIUM 10.7 mg/dL (8.4-10.2); CARBON DIOXIDE 29 mmol/L (22-30); CHLORIDE 100 mmol/L (98-107); GLUCOSE 86 mg/dL (75-110); POTASSIUM 3.9 mmol/L (3.6-5.0); TOTAL PROTEIN 8.2 g/dL (6.3-8.2)
[2018-10-07 14:38] LABS: ALCOHOL < 10 mg/dL (NONE DETECTED); ANISOCYTOSIS SLIGHT; OVALOCYTES SLIGHT; PLATELET COMMENT ADEQUATE; POIKILOCYTOSIS 1+; TEAR DROP CELLS SLIGHT
--- NOTE | 2018-10-07 15:26 | ER Document Report ---
ED General - General Chief Complaint: Altered Mental Status Stated Complaint: ALTERED MENTAL STATUS Time Seen by Provider: 10/07/18 15:10 Primary Care Provider: MELANY HORNE MD [Primary Care Provider] - Follow up as needed Notes: 23-year-old female patient emergency department chief complaint of altered mental status. Patient seen on a on multiple occasions for similar issues. 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 Not taking any medication at this time. Mother states that this happens on a regular basis. Apparently patient's blood sugar was in the 50s by EMS. Patient is coming back to normal at this time. Denies any drug use. Patient has had opiates on and previous drug screens. Patient denies any illicit substances at this time. Was reportedly found on the ground by patient's mother. TRAVEL OUTSIDE OF THE [place] IN LAST 30 DAYS: No - HPI Onset: Just prior to arrival Quality of pain: No pain Severity: Moderate Pain Level: Denies Associated symptoms: Weakness - Related Data Allergies/Adverse Reactions: No Known Allergies Allergy (Verified 08/17/18 22:28) Past Medical History - General Information source: Patient, Parent - Social History Smoking Status: Current Every Day Smoker Frequency of alcohol use: None Drug Abuse: None Lives with: Family Family History: Reviewed & Not Pertinent Patient has suicidal ideation: No Patient has homicidal ideation: No - Past Medical History Cardiac Medical History: Denies: Hx Heart Attack, Hx Hypertension Pulmonary Medical History: Reports: Hx Asthma Neurological Medical History: Reports: Hx Migraine, Hx Seizures - History of possible seizures, no neuro work up yet. Denies: Hx Cerebrovascular Accident Renal/ Medical History: Denies: Hx Peritoneal Dialysis GI Medical History: Denies: Hx Hepatitis, Hx Hiatal Hernia, Hx Ulcer Psychiatric Medical History: Reports: Hx Depression Infectious Medical History: Denies: Hx Hepatitis Past Surgical History: Reports: Hx Adenoidectomy, Hx Appendectomy, Hx Tonsillectomy. Denies: Hx Mastectomy, Hx Open Heart Surgery, Hx Pacemaker - Immunizations Hx Diphtheria, Pertussis, Tetanus Vaccination: Yes Review of Systems - Review of Systems -: Yes ROS unobtainable due to patient's medical condition - altered. Sleepy. Questionable postictal Physical Exam - Vital signs Vitals: Temp Pulse Resp BP Pulse Ox 97.7 F 81 17 123/91 H 100 10/07/18 13:30 10/07/18 13:30 10/07/18 13:30 10/07/18 13:30 10/07/18 13:30 Interpretation: Normal - General General appearance: Appears well, Lethargic In distress: None - HEENT Head: Normocephalic, Atraumatic Eyes: Normal Pupils: PERRL, Dilated - Respiratory Respiratory status: No respiratory distress Chest status: Nontender Breath sounds: Normal Chest palpation: Normal - Cardiovascular Rhythm: Regular Heart sounds: Normal auscultation Murmur: No - Abdominal Inspection: Normal Distension: No distension Bowel sounds: Normal Tenderness: Nontender Organomegaly: No organomegaly - Back Back: Normal, Nontender - Extremities General upper extremity: Normal inspection, Nontender, Normal color, Normal ROM, Normal temperature General lower extremity: Normal inspection, Nontender, Normal color, Normal ROM, Normal temperature. No: David's sign - Neurological Neuro grossly intact: Yes Cognition: Confused Orientation: Disoriented to place [place] Coma Scale Eye Opening: Spontaneous [place] Coma Scale Verbal: Confused [place] Coma Scale Motor: Obeys Commands [place] Coma Scale Total: 14 Speech: Normal Motor strength normal: LUE, RUE, LLE, RLE Sensory: Normal - Psychological Associated symptoms: Normal affect, Normal mood - Skin Skin Temperature: Warm Skin Moisture: Dry Skin Color: Normal Course - Re-evaluation Re-evalutation: 10/07/18 17:48 Patient presents here once again for altered mental status. Patient has been seen here on multiple occasions for similar symptoms. Of note, patient's blood counts are usually elevated. Today she did have a blood count that was elevated. Lactate was normal. Afebrile. Repeat CBC performed in the WBC counts were going down. This would be consistent with a seizure. Repeat lactate pending. Patient is awake and alert and back to normal at this time and in no acute distress. Her blood sugars are persistently in the 50s but she is asymptomatic. We are giving her some IV fluids with dextrose and she is eating at this time. Laboratory 10/07/18 10/07/18 10/07/18 13:12 13:38 13:38 WBC RBC Hgb Hct MCV MCH MCHC RDW Plt Count Total Counted Seg Neutrophils % Seg Neuts % (Manual) Band Neutrophils % Lymphocytes % Lymphocytes % (Manual) Monocytes % Monocytes % (Manual) Eosinophils % Eosinophils % (Manual) Basophils % Basophils % (Manual) Absolute Neutrophils Abs Neuts (Manual) Absolute Lymphocytes Abs Lymphs (Manual) Absolute Monocytes Abs Monocytes (Manual) Absolute Eosinophils Absolute Eos (Manual) Absolute Basophils Abs Basophils (Manual) Platelet Comment Poikilocytosis Anisocytosis Tear Drop Cells Ovalocytes Sodium Potassium Chloride Carbon Dioxide Anion Gap BUN Creatinine Est GFR ( Amer) Est GFR (Non-Af Amer) Glucose POC Glucose 163 H Lactic Acid Calcium Magnesium Total Bilirubin Direct Bilirubin Neonat Total Bilirubin Neonat Direct Bilirubin Neonat Indirect Bili AST ALT Alkaline Phosphatase Total Protein Albumin Serum HCG, Qual Urine Color YELLOW Urine Appearance SLIGHTLY-CLOUDY Urine pH 6.0 Ur Specific [place] 1.011 Urine Protein NEGATIVE Urine Glucose (UA) 150 H Urine Ketones 20 H Urine Blood LARGE H Urine Nitrite NEGATIVE Urine Bilirubin NEGATIVE Urine Urobilinogen NEGATIVE Ur Leukocyte Esterase NEGATIVE Urine WBC (Auto) 2 Urine RBC (Auto) 129 Squamous Epi Cells Auto 7 Calcium Oxalate Cr Auto RARE Urine Mucus (Auto) RARE Urine Ascorbic Acid NEGATIVE Urine Opiates Screen UNCONFIRMED POSITIVE Urine Methadone Screen NEGATIVE Ur Barbiturates Screen NEGATIVE Ur Phencyclidine Scrn NEGATIVE Ur Amphetamines Screen NEGATIVE U Benzodiazepines Scrn NEGATIVE Urine Cocaine Screen NEGATIVE U Marijuana (THC) Screen NEGATIVE Serum Alcohol 10/07/18 10/07/18 10/07/18 13:55 13:55 13:55 WBC 20.5 H RBC 4.36 Hgb 12.8 Hct 37.7 MCV 87 MCH 29.3 MCHC 33.8 RDW 15.8 H Plt Count 317 Total Counted 100 Seg Neutrophils % Not Reportable Seg Neuts % (Manual) 87 H Band Neutrophils % 1 L Lymphocytes % Not Reportable Lymphocytes % (Manual) 5 L Monocytes % Not Reportable Monocytes % (Manual) 7 Eosinophils % Not Reportable Eosinophils % (Manual) 0 Basophils % Not Reportable Basophils % (Manual) 0 Absolute Neutrophils Not Reportable Abs Neuts (Manual) 18.0 H Absolute Lymphocytes Not Reportable Abs Lymphs (Manual) 1.0 Absolute Monocytes Not Reportable Abs Monocytes (Manual) 1.4 Absolute Eosinophils Not Reportable Absolute Eos (Manual) 0.0 Absolute Basophils Not Reportable Abs Basophils (Manual) 0.0 Platelet Comment ADEQUATE Poikilocytosis 1+ Anisocytosis SLIGHT Tear Drop Cells SLIGHT Ovalocytes SLIGHT Sodium 141.0 Potassium 3.9 Chloride 100 Carbon Dioxide 29 Anion Gap 12 BUN 10 Creatinine 0.47 L Est GFR ( Amer) > 60 Est GFR (Non-Af Amer) > 60 Glucose 86 POC Glucose Lactic Acid Calcium 10.7 H Magnesium 2.1 Total Bilirubin 0.7 Direct Bilirubin 0.3 Neonat Total Bilirubin Not Reportable Neonat Direct Bilirubin Not Reportable Neonat Indirect Bili Not Reportable AST 26 ALT 31 Alkaline Phosphatase 136 H Total Protein 8.2 Albumin 4.8 Serum HCG, Qual NEGATIVE Urine Color Urine Appearance Urine pH Ur Specific [place] Urine Protein Urine Glucose (UA) Urine Ketones Urine Blood Urine Nitrite Urine Bilirubin Urine Urobilinogen Ur Leukocyte Esterase Urine WBC (Auto) Urine RBC (Auto) Squamous Epi Cells Auto Calcium Oxalate Cr Auto Urine Mucus (Auto) Urine Ascorbic Acid Urine Opiates Screen Urine Methadone Screen Ur Barbiturates Screen Ur Phencyclidine Scrn Ur Amphetamines Screen U Benzodiazepines Scrn Urine Cocaine Screen U Marijuana (THC) Screen Serum Alcohol < 10 10/07/18 10/07/18 10/07/18 15:34 15:34 17:14 WBC 17.8 H RBC 4.59 Hgb 13.6 Hct 40.0 MCV 87 MCH 29.6 MCHC 34.0 RDW 15.9 H Plt Count 337 Total Counted Seg Neutrophils % 86.8 H Seg Neuts % (Manual) Band Neutrophils % Lymphocytes % 8.1 L Lymphocytes % (Manual) Monocytes % 4.4 Monocytes % (Manual) Eosinophils % 0.4 Eosinophils % (Manual) Basophils % 0.3 Basophils % (Manual) Absolute Neutrophils 15.5 H Abs Neuts (Manual) Absolute Lymphocytes 1.4 Abs Lymphs (Manual) Absolute Monocytes 0.8 Abs Monocytes (Manual) Absolute Eosinophils 0.1 Absolute Eos (Manual) Absolute Basophils 0.0 Abs Basophils (Manual) Platelet Comment Poikilocytosis Anisocytosis Tear Drop Cells Ovalocytes Sodium Potassium Chloride Carbon Dioxide Anion Gap BUN Creatinine Est GFR ( Amer) Est GFR (Non-Af Amer) Glucose POC Glucose 53 L Lactic Acid 1.2 Calcium Magnesium Total Bilirubin Direct Bilirubin Neonat Total Bilirubin Neonat Direct Bilirubin Neonat Indirect Bili AST ALT Alkaline Phosphatase Total Protein Albumin Serum HCG, Qual Urine Color Urine Appearance Urine pH Ur Specific [place] Urine Protein Urine Glucose (UA) Urine Ketones Urine Blood Urine Nitrite Urine Bilirubin Urine Urobilinogen Ur Leukocyte Esterase Urine WBC (Auto) Urine RBC (Auto) Squamous Epi Cells Auto Calcium Oxalate Cr Auto Urine Mucus (Auto) Urine Ascorbic Acid Urine Opiates Screen Urine Methadone Screen Ur Barbiturates Screen Ur Phencyclidine Scrn Ur Amphetamines Screen U Benzodiazepines Scrn Urine Cocaine Screen U Marijuana (THC) Screen Serum Alcohol 10/07/18 17:50 10/07/18 18:04 She is sitting upright, in, no acute distress. D/C at This time in stable condition. Follow-up with neurology. - Vital Signs Vital signs: Temp Pulse Resp BP Pulse Ox 97.7 F 81 17 126/89 H 100 10/07/18 13:30 10/07/18 13:30 10/07/18 13:30 10/07/18 15:55 10/07/18 13:30 - Laboratory Result Diagrams: 10/07/18 15:34 10/07/18 13:55 Laboratory results interpreted by me: 10/07/18 10/07/18 10/07/18 13:12 13:38 13:55 WBC 20.5 H RDW 15.8 H Seg Neutrophils % Seg Neuts % (Manual) 87 H Band Neutrophils % 1 L Lymphocytes % Lymphocytes % (Manual) 5 L Absolute Neutrophils Abs Neuts (Manual) 18.0 H Creatinine POC Glucose 163 H Calcium Alkaline Phosphatase Urine Glucose (UA) 150 H Urine Ketones 20 H Urine Blood LARGE H 10/07/18 10/07/18 10/07/18 13:55 15:34 17:14 WBC 17.8 H RDW 15.9 H Seg Neutrophils % 86.8 H Seg Neuts % (Manual) Band Neutrophils % Lymphocytes % 8.1 L Lymphocytes % (Manual) Absolute Neutrophils 15.5 H Abs Neuts (Manual) Creatinine 0.47 L POC Glucose 53 L Calcium 10.7 H Alkaline Phosphatase 136 H Urine Glucose (UA) Urine Ketones Urine Blood Discharge - Discharge Clinical Impression: Altered mental status, unspecified Qualifiers: Altered mental status type: unspecified Qualified Code(s): R41.82 - Altered mental status, unspecified Condition: Good Disposition: HOME, SELF-CARE Instructions: Altered Mental Status ([facility]) Additional Instructions: Follow-up with your neurologist and regular doctor. Return for any worsening symptoms or concerns. Referrals: MELANY HORNE MD [Primary Care Provider] - Follow up as needed
[2018-10-07 17:05] LABS: ABSOLUTE EOSINOPHILS # (AUTO) 0.1 10^3/uL (0.0-0.6); ABSOLUTE LYMPHOCYTES (AUTO) 1.4 10^3/uL (0.5-4.7); ABSOLUTE MONOCYTES (AUTO) 0.8 10^3/uL (0.1-1.4); ABSOLUTE NEUT (AUTO) 15.5 10^3/uL (1.7-8.2); BASOPHILS % (AUTO) 0.3 % (0-2); EOSINOPHILS % (AUTO) 0.4 % (0-6); HEMOGLOBIN 13.6 g/dL (12.0-15.5); LYMPHOCYTES % (AUTO) 8.1 % (13-45); MEAN CORPUSCULAR HEMOGLOBIN 29.6 pg (27.0-33.4); MEAN CORPUSCULAR VOLUME 87 fl (80-97); MONOCYTES % (AUTO) 4.4 % (3-13); PLATELET COUNT 337 10^3/uL (150-450); RED BLOOD COUNT 4.59 10^6/uL (3.72-5.28); RED CELL DISTRIBUTION WIDTH 15.9 % (11.5-14.0); SEGMENTED NEUTROPHILS % (AUTO) 86.8 % (42-78); TOTAL CELLS COUNTED % (AUTO) 100 %; WHITE BLOOD COUNT 17.8 10^3/uL (4.0-10.5)
[2018-10-07] MEDS ORDERED: DEXTROSE 5%-NORMAL SALINE 1,000 ML IV ONE (17:22)
[2018-10-07] MEDS ORDERED: HYDROCODONE/ACETAMINOPHEN 5-325 MG TABLET PO ONE (17:57)
[2018-10-07 18:29] VITALS: BP 133/36
--- NOTE | 2018-10-07 21:03 | EKG REPORT ---
SEVERITY:- NORMAL ECG - SINUS RHYTHM : Confirmed by: Kacie Smith MD 07-Oct-2018 21:02:09
== END 2018-10-07 18:29 | disposition home or self-care (01) ==
LOC: ER 13:01
DX: R41.82 Altered mental status, unspecified (principal); R53.1 Weakness; H57.04 Mydriasis; F17.200 Nicotine dependence, unspecified, uncomplicated; J45.909 Unspecified asthma, uncomplicated
CPT/HCPCS: 36415; 80053; 80307; 81001; 82962; 83605; 83735; 84703; 85025; 93005; 93010; 96360; 99285

== ENCOUNTER 2018-11-02 23:33 | Emergency (ER) | payer BC, OTHER ==
[2018-11-03] VITALS: BP 128/109
== END 2018-11-03 02:30 | disposition left against medical advice (07) ==
LOC: ER 23:33
DX: Z53.21 Procedure and treatment not carried out due to patient leaving prior to being seen by health care provider (principal)
CPT/HCPCS: 99283

== ENCOUNTER 2018-11-09 18:05 | Emergency (ER) | payer BC, OTHER ==
[2018-11-09] MEDS ORDERED: NORMAL SALINE 1000 ML 1,000 ML IV ONE (18:14)
--- NOTE | 2018-11-09 18:15 | ER Document Report ---
ED General <FAY KATE - Last Filed: 11/10/18 04:51> - General TRAVEL OUTSIDE OF THE U.S. IN LAST 30 DAYS: No <JL GALINDO - Last Filed: 11/10/18 22:17> - General Stated Complaint: ALTERED MENTAL STATUS Time Seen by Provider: 11/09/18 18:11 Primary Care Provider: MELANY HORNE MD [Primary Care Provider] - Follow up as needed Notes: Patient is a 23-year-old female that presents to the emergency department for chief complaint of altered mental status. Patient is currently unresponsive, unable to provide any significant history at this time. Per EMS the patient was found unresponsive. She apparently had texted what sounds like a jugular in town according to the patient's and asking "I have money, do you have anything for me," and he is concerned that she is using drugs. The patient has been seen in our emergency department on numerous occasions, for concern for unintentional overdose, of sympathomimetics, she has been seen at [facility], for suspected seizures, and these visits improvement negative after discussion with ICU attendings there. No other history obtainable at this time. Past Medical History: Seizure disorder Past Surgical History: Not obtainable at this time Social History: Denies alcohol use or tobacco use according to , but there is concern for drug use. Family History: Not obtainable at this time Allergies: Reviewed, see documented allergy list. REVIEW OF SYSTEMS: Other than noted above, the 12 point review of systems was reviewed with the patient and were negative, all pertinent findings are included in the HPI. PHYSICAL EXAMINATION: Vital signs reviewed, nursing noted reviewed. GENERAL: GCS: 5, patient unresponsive, decerebrate posturing on exam. HEAD: Atraumatic, normocephalic. EYES: Eyes appear normal, extraocular movements intact, sclera anicteric, conjunctiva are normal. Pupils are somewhat dilated, but reactive to light. Corneal reflex intact. ENT: nares patent, oropharynx clear without exudates. Moist mucous membranes. NECK: supple without lymphadenopathy LUNGS: Lung sounds coarse bilaterally, but equal. HEART: Heart rate tachycardic, regular rhythm. ABDOMEN: Soft, not apparently tender, nondistended, normoactive bowel sounds. No rebound, guarding, or rigidity. No masses appreciated. EXTREMITIES: Nontender, good range of motion, no pitting or edema. Neurological: The cerebral posturing, unresponsive to verbal stimuli, will posture with noxious stimuli, no eye-opening, only groans, no comprehensible words. PSYCH: Unresponsive. SKIN: Warm, Dry, normal turgor, no rashes or lesions noted on exposed skin (JL GALINDO) - Related Data Allergies/Adverse Reactions: No Known Allergies Allergy (Verified 08/17/18 22:28) Past Medical History - Social History Smoking Status: Never Smoker Family History: Reviewed & Not Pertinent - Past Medical History Cardiac Medical History: Denies: Hx Heart Attack, Hx Hypertension Pulmonary Medical History: Reports: Hx Asthma Neurological Medical History: Reports: Hx Migraine, Hx Seizures - History of possible seizures, no neuro work up yet. Denies: Hx Cerebrovascular Accident Renal/ Medical History: Denies: Hx Peritoneal Dialysis GI Medical History: Denies: Hx Hepatitis, Hx Hiatal Hernia, Hx Ulcer Psychiatric Medical History: Reports: Hx Depression Infectious Medical History: Denies: Hx Hepatitis Past Surgical History: Reports: Hx Adenoidectomy, Hx Appendectomy, Hx Tonsillectomy. Denies: Hx Mastectomy, Hx Open Heart Surgery, Hx Pacemaker - Immunizations Hx Diphtheria, Pertussis, Tetanus Vaccination: Yes <JL GALINDO - Last Filed: 11/10/18 22:17> - Vital signs Vitals: Resp Pulse Ox 23 H 95 11/09/18 18:09 11/09/18 18:09 Course - Laboratory Result Diagrams: 11/09/18 18:14 11/09/18 18:14 <FAY KATE - Last Filed: 11/10/18 04:51> - Laboratory Result Diagrams: 11/09/18 18:14 11/09/18 18:14 <JL GALINDO - Last Filed: 11/10/18 22:17> - Re-evaluation Re-evalutation: 11/09/18 23:12 [facility] called to say that they do not have any ICU bed available at any of the 3 hospitals. Patient will remain on [facility]'s transfer list. 11/10/18 00:44 Patient is tachycardic and at times moving around on the vent. We will add Versed to her sedation to try to keep her more comfortable. 11/10/18 03:36 I reevaluated patient. Lung key are clear. She is resting comfortably on the vent since starting the Versed. Heart rate is down to 112. Oxygenation is 100% on vent. 11/10/18 04:01 [facility] is called and given us a bed assignment. [id number] 11/10/18 04:51 Patient continues to do well. She is well sedated and doing well in the event. I just carito an ABG as requested by [facility]. We will send to lab for testing. (FAY KATE) Patient seen and examined vital signs reviewed. Laboratory data and imaging were ordered as appropriate for the patient's presenting symptoms and complaint, with consideration of any critical or life threatening conditions that may be associated with their obtained history and exam as noted above. Patient was treated with IV fluids, initially the patient was monitored, to see if she would improve from her mental status, with suspected drug overdose, however the patient was not improving, and at this point with a GCS of 5, I decided to intubate the patient to protect her airway as she did have sonorous breathing. I discussed this with the patient's who is at bedside, he was agreeable with this plan of care. Patient was successfully intubated as noted. The was requesting to transfer the patient to [facility], she had been seen in [place] in the past, but they did not want to take her back there. I did place a call to [facility], they stated that they are on 24-hour hold for ICU beds, I spoke with Dr. Balderas who did accept the patient, but they states there is a hold. I then proceeded to call [facility], who also stated there on a 24-hour bed hold, but would call the physician to see if there would be excepted. I had then called [facility] in [place], however there also on a 24-hour bed hold, at this point the patient is accepted at a facility, there is no tertiary centers that have beds available, and so the patient will need to be held in this department, until availability opens up. Results were reviewed when available and demonstrated mild hypernatremia, mild leukocytosis, tox screen negative, alcohol negative, CT of the head was negative, and chest x-ray demonstrated ET tube in position, no sign of pneumo saad. The patient was re-evaluated and was stable on the ventilator, on propofol infusion Evaluation was most consistent with acute respiratory failure, acute encephalopathy, suspected illicit drug overdose and possible anoxic brain injury. Results were discussed with the patient family at this point after careful consideration I feel that that patient should be transferred to [facility] due to need for neurology evaluation, and family preference, accepted by Dr. Balderas. This was discussed with the patient family that it is in the best interest for their care to be transferred, the risks and benefits of transfer were discussed, including but not limited to clinical deterioration during transport, respiratory distress, and potential for traumatic injuries. Patient family agreed with this plan of care. *Note is created using voice recognition software and may contain spelling, syntax or grammatical errors. Laboratory 11/09/18 11/09/18 11/09/18 18:14 18:14 18:14 WBC 11.6 H RBC 4.62 Hgb 13.7 Hct 41.4 MCV 90 MCH 29.6 MCHC 33.0 RDW 15.3 H Plt Count 330 Seg Neutrophils % 73.7 Lymphocytes % 19.6 Monocytes % 5.3 Eosinophils % 0.5 Basophils % 0.9 Absolute Neutrophils 8.5 H Absolute Lymphocytes 2.3 Absolute Monocytes 0.6 Absolute Eosinophils 0.1 Absolute Basophils 0.1 Sodium 147.4 H Potassium 5.1 H Chloride 108 H Carbon Dioxide 27 Anion Gap 12 BUN 10 Creatinine 0.55 Est GFR ( Amer) > 60 Est GFR (Non-Af Amer) > 60 Glucose 101 Calcium 10.4 H Total Bilirubin 0.6 Direct Bilirubin 0.2 Neonat Total Bilirubin Not Reportable Neonat Direct Bilirubin Not Reportable Neonat Indirect Bili Not Reportable AST 23 ALT 27 Alkaline Phosphatase 147 H Total Protein 8.3 H Albumin 5.0 Serum HCG, Qual NEGATIVE Urine Color Urine Appearance Urine pH Ur Specific [place] Urine Protein Urine Glucose (UA) Urine Ketones Urine Blood Urine Nitrite Urine Bilirubin Urine Urobilinogen Ur Leukocyte Esterase Urine WBC (Auto) Urine RBC (Auto) Urine Bacteria (Auto) Squamous Epi Cells Auto Urine Ascorbic Acid Salicylates < 1.0 L Urine Opiates Screen Urine Methadone Screen Acetaminophen < 10 L Ur Barbiturates Screen Ur Phencyclidine Scrn Ur Amphetamines Screen U Benzodiazepines Scrn Urine Cocaine Screen U Marijuana (THC) Screen Serum Alcohol < 10 11/09/18 11/09/18 18:20 18:20 WBC RBC Hgb Hct MCV MCH MCHC RDW Plt Count Seg Neutrophils % Lymphocytes % Monocytes % Eosinophils % Basophils % Absolute Neutrophils Absolute Lymphocytes Absolute Monocytes Absolute Eosinophils Absolute Basophils Sodium Potassium Chloride Carbon Dioxide Anion Gap BUN Creatinine Est GFR ( Amer) Est GFR (Non-Af Amer) Glucose Calcium Total Bilirubin Direct Bilirubin Neonat Total Bilirubin Neonat Direct Bilirubin Neonat Indirect Bili AST ALT Alkaline Phosphatase Total Protein Albumin Serum HCG, Qual Urine Color STRAW Urine Appearance CLEAR Urine pH 6.0 Ur Specific [place] 1.004 Urine Protein NEGATIVE Urine Glucose (UA) NEGATIVE Urine Ketones NEGATIVE Urine Blood SMALL H Urine Nitrite NEGATIVE Urine Bilirubin NEGATIVE Urine Urobilinogen NEGATIVE Ur Leukocyte Esterase NEGATIVE Urine WBC (Auto) 1 Urine RBC (Auto) 0 Urine Bacteria (Auto) 3+ Squamous Epi Cells Auto 5 Urine Ascorbic Acid NEGATIVE Salicylates Urine Opiates Screen NEGATIVE Urine Methadone Screen NEGATIVE Acetaminophen Ur Barbiturates Screen NEGATIVE Ur Phencyclidine Scrn NEGATIVE Ur Amphetamines Screen NEGATIVE U Benzodiazepines Scrn NEGATIVE Urine Cocaine Screen NEGATIVE U Marijuana (THC) Screen NEGATIVE Serum Alcohol Head CT 11/09/18 18:27 IMPRESSION: There are no acute intracranial findings. Chest X-Ray 11/09/18 20:24 IMPRESSION: 1. Intubated. 2. No acute pulmonary findings. (JL GALINDO) - Vital Signs Vital signs: Temp Pulse Resp BP Pulse Ox 99.7 F 125 H 15 128/84 H 100 11/10/18 10:37 11/10/18 10:37 11/10/18 10:37 11/10/18 10:37 11/10/18 10:37 - Laboratory Laboratory results interpreted by me: 11/09/18 11/09/18 11/09/18 18:14 18:14 18:20 WBC 11.6 H RDW 15.3 H Absolute Neutrophils 8.5 H ABG pO2 ABG HCO3 ABG Total CO2 ABG O2 Saturation Sodium 147.4 H Potassium 5.1 H Chloride 108 H Calcium 10.4 H Alkaline Phosphatase 147 H Total Protein 8.3 H Urine Blood SMALL H Salicylates < 1.0 L Acetaminophen < 10 L 11/10/18 04:51 WBC RDW Absolute Neutrophils ABG pO2 189.7 H ABG HCO3 26.2 H ABG Total CO2 27.4 H ABG O2 Saturation 99.3 H Sodium Potassium Chloride Calcium Alkaline Phosphatase Total Protein Urine Blood Salicylates Acetaminophen - EKG Interpretation by Me Additional EKG results interpreted by me: EKG demonstrates sinus tachycardia with a ventricular rate of 136 bpm, normal axis, QTC 422 ms, no evidence of acute ischemia on this EKG. (JL GALINDO) Procedures - Intubation Orotracheal Airway evaluation: Normal anatomy Mallampati Classification: Class 1 Medications: Etomidate - 20mg, Other - Rocuronium 75mg Intubation method: Orotracheal Blade type: Mouna Blade size: 4 ETT size: 7.5 ETT secured at: Teeth ETT secured at (cm): 23 Breath Sounds after Intubation: Equal End tidal CO2 confirmed: Yes Ventilator settings: SIMV Post Intubation Xray: Yes Intubation Complications: No complications <JL GALINDO - Last Filed: 11/10/18 22:17> Critical Care Note - Critical Care Note Total time excluding time spent on procedures (mins): 78 <JL GALINDO - Last Filed: 11/10/18 22:17> - Critical Care Note Comments: Critical care time 78 minutes exclusive from separate billable procedures for a patient requiring complex medical decision making, and high potential for clinical deterioration. Patient with altered mental status, suspected overdose and anoxic brain injury, requiring close monitoring, intubation and ultimately transfer. Time spent obtaining history from patient or surrogate, discussions with consultants, development of treatment plan with patient or surrogate, evaluation of patient's response to treatment, examination of patient, ordering and performing treatments and interventions, ordering and review of laboratory studies, re-evaluation of patient's condition, ordering and review of radiographic studies and review of old charts (JL GALINDO) Discharge <FAY KATE - Last Filed: 11/10/18 04:51> <JL GALINDO - Last Filed: 11/10/18 22:17> - Discharge Clinical Impression: Acute encephalopathy, Hypernatremia Acute respiratory failure Qualifiers: Respiratory failure complication: unspecified whether with hypoxia or hypercapnia Qualified Code(s): J96.00 - Acute respiratory failure, unspecified whether with hypoxia or hypercapnia Condition: Stable Disposition: [place] Forms: Parent Work Note, Return to Work Referrals: MELANY HORNE MD [Primary Care Provider] - Follow up as needed
[2018-11-09 18:41] LABS: ABSOLUTE BASOPHILS # (AUTO) 0.1 10^3/uL (0.0-0.2); ABSOLUTE EOSINOPHILS # (AUTO) 0.1 10^3/uL (0.0-0.6); ABSOLUTE LYMPHOCYTES (AUTO) 2.3 10^3/uL (0.5-4.7); ABSOLUTE MONOCYTES (AUTO) 0.6 10^3/uL (0.1-1.4); ABSOLUTE NEUT (AUTO) 8.5 10^3/uL (1.7-8.2); BASOPHILS % (AUTO) 0.9 % (0-2); EOSINOPHILS % (AUTO) 0.5 % (0-6); HEMATOCRIT 41.4 % (36.0-47.0); HEMOGLOBIN 13.7 g/dL (12.0-15.5); LYMPHOCYTES % (AUTO) 19.6 % (13-45); MEAN CORPUSCULAR HEMOGLOBIN 29.6 pg (27.0-33.4); MEAN CORPUSCULAR VOLUME 90 fl (80-97); MONOCYTES % (AUTO) 5.3 % (3-13); PLATELET COUNT 330 10^3/uL (150-450); RED BLOOD COUNT 4.62 10^6/uL (3.72-5.28); RED CELL DISTRIBUTION WIDTH 15.3 % (11.5-14.0); SEGMENTED NEUTROPHILS % (AUTO) 73.7 % (42-78); TOTAL CELLS COUNTED % (AUTO) 100 %; WHITE BLOOD COUNT 11.6 10^3/uL (4.0-10.5)
[2018-11-09 19:01] LABS: ALANINE AMINOTRANSFERASE 27 U/L (9-52); ALKALINE PHOSPHATASE 147 U/L (38-126); ANION GAP 12 (5-19); ASPARTATE AMINO TRANSFERASE 23 U/L (14-36); BILIRUBIN,DIRECT 0.2 mg/dL (0.0-0.4); BILIRUBIN,TOTAL 0.6 mg/dL (0.2-1.3); BLOOD UREA NITROGEN 10 mg/dL (7-20); CALCIUM 10.4 mg/dL (8.4-10.2); CARBON DIOXIDE 27 mmol/L (22-30); CHLORIDE 108 mmol/L (98-107); GLUCOSE 101 mg/dL (75-110); POTASSIUM 5.1 mmol/L (3.6-5.0); SODIUM 147.4 mmol/L (137-145); TOTAL PROTEIN 8.3 g/dL (6.3-8.2)
[2018-11-09 19:13] LABS: APPEARANCE,URINE CLEAR; BILIRUBIN,URINE NEGATIVE (NEGATIVE); COLOR,URINE STRAW; GLUCOSE, URINE NEGATIVE (NEGATIVE); KETONES,URINE NEGATIVE (NEGATIVE); LEUKOCYTE ESTERASE,URINE NEGATIVE (NEGATIVE); NITRITE,URINE NEGATIVE (NEGATIVE); PROTEIN,URINE NEGATIVE (NEGATIVE); URINE SPECIFIC GRAVITY 1.004; UROBILINOGEN,URINE NEGATIVE mg/dL (<2.0)
[2018-11-09 19:28] LABS: URINE AMPHETAMINES SCREEN NEGATIVE; URINE BARBITURATES SCREEN NEGATIVE; URINE BENZODIAZEPINES SCREEN NEGATIVE; URINE COCAINE SCREEN NEGATIVE; URINE MARIJUANA (THC) SCREEN NEGATIVE; URINE METHADONE SCREEN NEGATIVE; URINE PHENCYCLIDINE SCREEN NEGATIVE
[2018-11-09 19:37] LABS: ACETAMINOPHEN < 10 ug/mL (10-30); ALCOHOL < 10 mg/dL (NONE DETECTED); SALICYLATE < 1.0 mg/dL (2.0-20.0)
[2018-11-09] MEDS ORDERED: ETOMIDATE INJ/PF 20 MG/10 ML SDV IV ONE (20:07)
[2018-11-09] MEDS ORDERED: ROCURONIUM BROMIDE INJ 50 MG/5 ML VIAL IV ONE ×2 (20:07→21:50)
[2018-11-09] MEDS ORDERED: PROPOFOL 1,000 MG/100 ML INFUS..BTL IV ONE (20:07)
[2018-11-09] MEDS: PROPOFOL 1,000 MG/100 ML INFUS..BTL IV PRN (20:26)
--- NOTE | 2018-11-09 20:38 | RADIOLOGY REPORT (SQ) ---
EXAM DESCRIPTION: CT HEAD WITHOUT INTRAVENOUS CONTRAST CLINICAL HISTORY: Acute mental status change. Possible overdose. COMPARISON: 07/30/2018. TECHNIQUE: CT of the head was performed without intravenous contrast .This exam was performed according to our departmental dose-optimization program, which includes automated exposure control, adjustment of the mA and/or KV according to the patient's size and/or use of iterative reconstruction technique. FINDINGS: There is no intracranial hemorrhage, midline shift, mass effect or acute focal infarct. There is good grewal/white matter differentiation. The ventricular system is normal. Visualized mastoid air cells within normal limits. The paranasal sinuses within normal limits. There is no visualization of calvarial or skull base fractures. IMPRESSION: There are no acute intracranial findings.
--- NOTE | 2018-11-09 21:07 | RADIOLOGY REPORT (SQ) ---
EXAM DESCRIPTION: [facility]: XR CHEST 1 VIEW CLINICAL HISTORY: 23 years Female, post intubation COMPARISON: 06/07/2018 FINDINGS: Endotracheal tube is 2.5 cm above jeanie. Lungs are clear, with no focal infiltrate, pneumothorax, or pleural effusion. Mediastinum is within normal limits for this positioning. Bony structures are unremarkable. IMPRESSION: 1. Intubated. 2. No acute pulmonary findings.
--- NOTE | 2018-11-09 22:19 | RADIOLOGY REPORT (SQ) ---
EXAM DESCRIPTION: XR ABDOMEN 1 VIEW (KUB) COMPLETED DATE/TME: 11/09/2018 00:00 CLINICAL HISTORY: 23 years, Female, Verify OG tube COMPARISON: None. NUMBER OF VIEWS: AP abdomen TECHNIQUE: AP abdomen LIMITATIONS: None. FINDINGS: The bowel gas pattern is nonspecific. Enteric tube with the distal tip likely in the distal stomach. No gross evidence for free air IMPRESSION: Tip of the enteric tube in the distal stomach copyright 2010 [employer]- All Rights Reserved
[2018-11-09] MEDS ORDERED: DEXTROSE 5%-1/2 NORMAL SALINE 1,000 ML IV ONE (22:45)
--- NOTE | 2018-11-09 23:11 | EKG REPORT ---
SEVERITY:- OTHERWISE NORMAL ECG - SINUS TACHYCARDIA : Confirmed by: Ken Mcgovern 09-Nov-2018 23:09:56
[2018-11-10] MEDS: MIDAZOLAM HCL 50 MG/100 ML RTUINJ IV PRN ×2 (00:57→06:47)
[2018-11-10] MEDS: PROPOFOL 1,000 MG/100 ML INFUS..BTL IV PRN ×2 (01:45→11:03)
[2018-11-10 05:15] LABS: ARTERIAL BLOOD BASE EXCESS 1.7 mmol/L; ARTERIAL BLOOD H2CO3 1.22 mmol/L (1.05-1.35); ARTERIAL BLOOD HCO3 26.2 mmol/L (20-24); ARTERIAL BLOOD O2 SATURATION 99.3 % (94-98); ARTERIAL BLOOD PCO2 40.6 mmHg (35-45); ARTERIAL BLOOD PH 7.43 (7.35-7.45); ARTERIAL BLOOD PO2 189.7 mmHg (80-100); ARTERIAL BLOOD TOTAL CO2 27.4 mmol/L (21-25)
[2018-11-10 05:16] LABS: ARTERIAL BLOOD FIO2 40%
[2018-11-10] MEDS ORDERED: MIDAZOLAM HCL 50 MG/100 ML RTUINJ ONE (06:41)
--- NOTE | 2018-11-10 10:26 | ER Document Report ---
Doctor's Note Notes: 11/10/18 10:22 Rounds: Evaluated patient. Patient is currently intubated on a ventilator. Patient appears to be comfortable on the ventilator. All vital signs are normal. O2 sat is 100%. Heart rate about 100. Patient came in yesterday for altered mental status. There were some suspicion that the patient may have ove rdosed. She did not awaken from her level of consciousness when she arrived. Ultimately, she was intubated to protect her airway. Lab studies of all been essentially normal are unremarkable. Drug screen was negative. Alcohol negative. It was felt that the patient need to be transferred to a tertiary care facility. Family did not want the patient transferred to [facility], where he she has been seen previously, reportedly having a seizure disorder. The physician taking care of this patient called [facility] at [place] and was told they were on 24-hour divert, but they would accept the patient pending a bed. Also a call was made to [place] and similar response. I am told that patient does have a bed assignment and transport is on their way and should be here very soon to transfer patient to [facility]. Patient appears to be medically stable for zaire Parson MD 0
[2018-11-10 11:06] VITALS: BP 128/84
--- NOTE | 2018-11-10 23:20 | EKG REPORT ---
SEVERITY:- OTHERWISE NORMAL ECG - SINUS TACHYCARDIA : Confirmed by: Ken Mcgovern 10-Nov-2018 23:19:30
== END 2018-11-10 10:59 | disposition short-term general hospital (02) ==
LOC: ER 18:05
DX: G93.49 Other encephalopathy (principal); E87.0 Hyperosmolality and hypernatremia; R41.82 Altered mental status, unspecified; J45.909 Unspecified asthma, uncomplicated
CPT/HCPCS: 93005 ×2; 99291; 99292; 36415; 82962; 80307 ×4; 82803; 84703; 85025; 80053; 81001; 71045; 74018; 70450; 94660; 93010 ×2; J3490 ×2; J2704 ×2; J2250; J7030

== ENCOUNTER 2018-11-29 13:55 | Emergency (ER) | payer OTHER ==
[2018-11-29 14:02] VITALS: BP 107/84
--- NOTE | 2018-11-29 14:42 | ER Document Report ---
ED Medical Screen (RME) - General Chief Complaint: Probable Seizure Stated Complaint: POSSIBLE SEIZURE Time Seen by Provider: 11/29/18 14:32 Primary Care Provider: MELANY HORNE MD [Primary Care Provider] - Follow up as needed Mode of Arrival: Ambulatory Information source: Patient TRAVEL OUTSIDE OF THE U.[place]. IN LAST 30 DAYS: No - HPI Patient complains to provider of: POSSIBLE SEIZURE Notes: 11/29/18 14:41 Patient here with complaints of possible seizure. The patient has a history of either seizures or pseudoseizures, she states they have not made a formal diagnosis. She is been seen for this multiple times in the past. States that she does not really have shaking episodes she is gets confused. She states that she had an episode similar to that last night. Similar to previous episode she had in the past. The reason she came to the ER today is because she is having trouble holding still. Exam No distress, nontoxic. Very dilated pupils. No focal neuro deficits. Lungs clear and equal throughout. Heart sounds normal. Plan CBC, CMP, urine, urine , urine drug screen. An initial examination was made on the patient as part of the triage process, and it was determined a more comprehensive evaluation was necessary. Initial labs were ordered and patient was transferred to another provider in the ED who assumed care and finished evaluation and plan. - Related Data Allergies/Adverse Reactions: No Known Allergies Allergy (Verified 11/29/18 13:57) Past Medical History - Social History Family history: Other - Grandmother of [place] at age 58; mother anemia - Past Medical History Cardiac Medical History: Denies: Hx Heart Attack, Hx Hypertension Pulmonary Medical History: Reports: Hx Asthma Neurological Medical History: Reports: Hx Migraine, Hx Seizures - History of possible seizures, no neuro work up yet. Denies: Hx Cerebrovascular Accident Renal/ Medical History: Denies: Hx Peritoneal Dialysis GI Medical History: Denies: Hx Hepatitis, Hx Hiatal Hernia, Hx Ulcer Psychiatric Medical History: Reports: Hx Depression Infectious Medical History: Denies: Hx Hepatitis Past Surgical History: Reports: Hx Adenoidectomy, Hx Appendectomy, Hx Tonsillectomy. Denies: Hx Mastectomy, Hx Open Heart Surgery, Hx Pacemaker - Immunizations Hx Diphtheria, Pertussis, Tetanus Vaccination: Yes History of Influenza Vaccine for 04/2017 - 09/2017 Season: Unknown Physical Exam - Vital signs Vitals: Temp Pulse Resp BP Pulse Ox 98.2 F 77 16 107/84 100 11/29/18 14:01 11/29/18 14:01 11/29/18 14:01 11/29/18 14:01 11/29/18 14:01 Course - Vital Signs Vital signs: Temp Pulse Resp BP Pulse Ox 98.2 F 77 16 107/84 100 11/29/18 14:01 11/29/18 14:01 11/29/18 14:01 11/29/18 14:01 11/29/18 14:01 Doctor's Discharge - Discharge Referrals: MELANY HORNE MD [Primary Care Provider] - Follow up as needed
[2018-11-29 15:50] LABS: ABSOLUTE LYMPHOCYTES (AUTO) 1.3 10^3/uL (0.5-4.7); ABSOLUTE MONOCYTES (AUTO) 0.5 10^3/uL (0.1-1.4); ABSOLUTE NEUT (AUTO) 6.5 10^3/uL (1.7-8.2); BASOPHILS % (AUTO) 0.3 % (0-2); EOSINOPHILS % (AUTO) 0.1 % (0-6); HEMATOCRIT 43.1 % (36.0-47.0); HEMOGLOBIN 14.1 g/dL (12.0-15.5); LYMPHOCYTES % (AUTO) 15.2 % (13-45); MEAN CORPUSCULAR HEMOGLOBIN 29.3 pg (27.0-33.4); MEAN CORPUSCULAR HGB CONC 32.7 g/dL (32.0-36.0); MEAN CORPUSCULAR VOLUME 90 fl (80-97); RED BLOOD COUNT 4.81 10^6/uL (3.72-5.28); RED CELL DISTRIBUTION WIDTH 15.7 % (11.5-14.0); SEGMENTED NEUTROPHILS % (AUTO) 78.4 % (42-78); TOTAL CELLS COUNTED % (AUTO) 100 %; WHITE BLOOD COUNT 8.3 10^3/uL (4.0-10.5)
[2018-11-29 15:58] LABS: APPEARANCE,URINE SLIGHTLY-CLOUDY; BILIRUBIN,URINE NEGATIVE (NEGATIVE); COLOR,URINE YELLOW; GLUCOSE, URINE NEGATIVE (NEGATIVE); KETONES,URINE 20 mg/dL (NEGATIVE); LEUKOCYTE ESTERASE,URINE SMALL (NEGATIVE); NITRITE,URINE NEGATIVE (NEGATIVE); PROTEIN,URINE 30 mg/dL (NEGATIVE); UROBILINOGEN,URINE NEGATIVE mg/dL (<2.0)
[2018-11-29 16:04] LABS: PLATELET COUNT 296 10^3/uL (150-450)
[2018-11-29 16:10] LABS: URINE AMPHETAMINES SCREEN NEGATIVE; URINE BARBITURATES SCREEN NEGATIVE; URINE BENZODIAZEPINES SCREEN NEGATIVE; URINE COCAINE SCREEN NEGATIVE; URINE MARIJUANA (THC) SCREEN NEGATIVE; URINE METHADONE SCREEN NEGATIVE; URINE PHENCYCLIDINE SCREEN NEGATIVE
[2018-11-29 16:17] LABS: ALANINE AMINOTRANSFERASE 14 U/L (9-52); ALBUMIN 5.2 g/dL (3.5-5.0); ALKALINE PHOSPHATASE 125 U/L (38-126); ANION GAP 17 (5-19); ASPARTATE AMINO TRANSFERASE 52 U/L (14-36); BILIRUBIN,DIRECT 0.5 mg/dL (0.0-0.4); BILIRUBIN,TOTAL 0.6 mg/dL (0.2-1.3); BLOOD UREA NITROGEN 15 mg/dL (7-20); CALCIUM 10.4 mg/dL (8.4-10.2); CARBON DIOXIDE 22 mmol/L (22-30); CHLORIDE 111 mmol/L (98-107); GLUCOSE 90 mg/dL (75-110); SODIUM 149.6 mmol/L (137-145)
[2018-11-29 16:29] LABS: POTASSIUM 4.2 mmol/L (3.6-5.0)
== END 2018-11-29 15:34 | disposition left against medical advice (07) ==
LOC: ER 13:55
DX: R56.9 Unspecified convulsions (principal)
CPT/HCPCS: 36415; 80053; 80307; 81001; 84703; 85025; 99281

== ENCOUNTER 2018-12-03 13:55 | Emergency (ER) | payer BC, OTHER ==
[2018-12-03 14:02] VITALS: BP 131/79
--- NOTE | 2018-12-03 14:11 | ER Document Report ---
ED Medical Screen (RME) - General Chief Complaint: Probable Seizure Stated Complaint: POSSIBLE SEIZURE Time Seen by Provider: 12/03/18 14:10 Primary Care Provider: MELANY HORNE MD [Primary Care Provider] - Follow up as needed Mode of Arrival: Ambulatory Information source: Patient Notes: 23-year-old female presented to ED for possibly having a seizure since 5 AM this morning and is continuing. She is alert oriented speaking to me in full sentences walks with a even steady gait. She states her seizures start with shaking and then the shaking gets worse and she will start talking and she does go off and mumbles with her seizure. She states she was diagnosed with seizures by Dr. Pedersen and is been to see Dr. Villarreal who stated he did not know what kin d of seizure she would have was having and that she needed to follow-up with a psychiatrist. I have greeted and performed a rapid initial assessment of this patient. A comprehensive ED assessment and evaluation of the patient, analysis of test results and completion of medical decision making process will be conducted by an additional ED providers. Dictation of this chart was performed using voice recognition software; therefore, there may be some unintended grammatical errors. TRAVEL OUTSIDE OF THE U.[place]. IN LAST 30 DAYS: No - Related Data Allergies/Adverse Reactions: No Known Allergies Allergy (Verified 12/03/18 13:57) Past Medical History - Social History Family history: Other - Grandmother of [place] at age 58; mother anemia - Past Medical History Cardiac Medical History: Denies: Hx Heart Attack, Hx Hypertension Pulmonary Medical History: Reports: Hx Asthma Neurological Medical History: Reports: Hx Migraine, Hx Seizures - History of possible seizures, no neuro work up yet. Denies: Hx Cerebrovascular Accident Renal/ Medical History: Denies: Hx Peritoneal Dialysis GI Medical History: Denies: Hx Hepatitis, Hx Hiatal Hernia, Hx Ulcer Psychiatric Medical History: Reports: Hx Depression Infectious Medical History: Denies: Hx Hepatitis Past Surgical History: Reports: Hx Adenoidectomy, Hx Appendectomy, Hx Tonsillectomy. Denies: Hx Mastectomy, Hx Open Heart Surgery, Hx Pacemaker - Immunizations Hx Diphtheria, Pertussis, Tetanus Vaccination: Yes History of Influenza Vaccine for 04/2017 - 09/2017 Season: Unknown Physical Exam - Vital signs Vitals: Temp Pulse Resp BP Pulse Ox 98.1 F 115 H 16 131/79 H 100 12/03/18 14:00 12/03/18 14:00 12/03/18 14:00 12/03/18 14:00 12/03/18 14:00 Course - Vital Signs Vital signs: Temp Pulse Resp BP Pulse Ox 98.1 F 115 H 16 131/79 H 100 12/03/18 14:00 12/03/18 14:00 12/03/18 14:00 12/03/18 14:00 12/03/18 14:00 Doctor's Discharge - Discharge Referrals: MELANY HORNE MD [Primary Care Provider] - Follow up as needed
[2018-12-03 14:36] LABS: ABSOLUTE EOSINOPHILS # (AUTO) 0.1 10^3/uL (0.0-0.6); ABSOLUTE MONOCYTES (AUTO) 0.5 10^3/uL (0.1-1.4); ABSOLUTE NEUT (AUTO) 8.3 10^3/uL (1.7-8.2); BASOPHILS % (AUTO) 0.4 % (0-2); EOSINOPHILS % (AUTO) 0.7 % (0-6); HEMATOCRIT 39.8 % (36.0-47.0); HEMOGLOBIN 13.1 g/dL (12.0-15.5); LYMPHOCYTES % (AUTO) 10.2 % (13-45); MEAN CORPUSCULAR HGB CONC 32.9 g/dL (32.0-36.0); MEAN CORPUSCULAR VOLUME 88 fl (80-97); PLATELET COUNT 278 10^3/uL (150-450); RED BLOOD COUNT 4.52 10^6/uL (3.72-5.28); RED CELL DISTRIBUTION WIDTH 15.1 % (11.5-14.0); SEGMENTED NEUTROPHILS % (AUTO) 83.7 % (42-78); TOTAL CELLS COUNTED % (AUTO) 100 %; WHITE BLOOD COUNT 9.9 10^3/uL (4.0-10.5)
[2018-12-03 14:59] LABS: ALANINE AMINOTRANSFERASE 22 U/L (9-52); ALKALINE PHOSPHATASE 111 U/L (38-126); ANION GAP 14 (5-19); ASPARTATE AMINO TRANSFERASE 21 U/L (14-36); BILIRUBIN,DIRECT 0.3 mg/dL (0.0-0.4); BILIRUBIN,TOTAL 0.4 mg/dL (0.2-1.3); BLOOD UREA NITROGEN 9 mg/dL (7-20); CALCIUM 9.9 mg/dL (8.4-10.2); CARBON DIOXIDE 25 mmol/L (22-30); CHLORIDE 105 mmol/L (98-107); GLUCOSE 106 mg/dL (75-110); POTASSIUM 4.3 mmol/L (3.6-5.0); TOTAL PROTEIN 7.9 g/dL (6.3-8.2)
[2018-12-03 15:10] LABS: APPEARANCE,URINE CLEAR; BILIRUBIN,URINE NEGATIVE (NEGATIVE); COLOR,URINE STRAW; GLUCOSE, URINE NEGATIVE (NEGATIVE); KETONES,URINE NEGATIVE (NEGATIVE); LEUKOCYTE ESTERASE,URINE NEGATIVE (NEGATIVE); NITRITE,URINE NEGATIVE (NEGATIVE); PROTEIN,URINE NEGATIVE (NEGATIVE); URINE SPECIFIC GRAVITY 1.004; UROBILINOGEN,URINE NEGATIVE mg/dL (<2.0)
[2018-12-03 15:34] LABS: URINE AMPHETAMINES SCREEN NEGATIVE; URINE BARBITURATES SCREEN NEGATIVE; URINE BENZODIAZEPINES SCREEN NEGATIVE; URINE COCAINE SCREEN NEGATIVE; URINE MARIJUANA (THC) SCREEN NEGATIVE; URINE METHADONE SCREEN NEGATIVE; URINE PHENCYCLIDINE SCREEN NEGATIVE
== END 2018-12-03 14:52 | disposition left against medical advice (07) ==
LOC: ER 13:55
DX: R68.89 Other general symptoms and signs (principal); J45.909 Unspecified asthma, uncomplicated
CPT/HCPCS: 36415; 80053; 80307; 81001; 84703; 85025; 99281

== ENCOUNTER 2018-12-05 00:07 | Emergency (ER) | payer SELFPAY ==
[2018-12-05] MEDS ORDERED: KETOROLAC TROMETHAMINE 60 MG/2 ML SDV IM ONE (01:59)
--- NOTE | 2018-12-05 02:58 | RADIOLOGY REPORT (SQ) ---
EXAM DESCRIPTION: XR KNEE 4 OR MORE VIEWS COMPLETED DATE/TME: 12/05/2018 01:59 CLINICAL HISTORY: 23 years Female, fall, knee pain COMPARISON: None. Findings: Bones, joints, and soft tissues of the RIGHT XR KNEE 4 OR MORE VIEWS appear intact. IMPRESSION: No acute findings.
--- NOTE | 2018-12-05 03:09 | ER Document Report ---
ED General - General Chief Complaint: Fall Injury Stated Complaint: FACIAL INJURY Time Seen by Provider: 12/05/18 01:35 Primary Care Provider: MELANY HORNE MD [Primary Care Provider] - Follow up as needed Notes: Patient is a 23-year-old female with past medical history of pseudoseizures, SVT, presents complaining of an episode last night which she had a "seizure" fell striking her right knee and left face on a door jam. States that since that time she has had a dull, throbbing, constant, mild to moderate pain to the affected areas. Worsened by touching or moving the affected areas. Has not tried nothing for improvement of the pain. Denies history of similar injuries in the past. Denies focal weakness, numbness, headache, neck pain or confusion. Denies trauma to any other location. Does not use any form of anti- coagulation. Has not seen her primary care physician regarding today's concerns. TRAVEL OUTSIDE OF THE [place] IN LAST 30 DAYS: No - Related Data Allergies/Adverse Reactions: No Known Allergies Allergy (Verified 12/03/18 13:57) Past Medical History - General Information source: Patient - Social History Smoking Status: Never Smoker Frequency of alcohol use: None Drug Abuse: None Lives with: Spouse/Significant other Family History: Reviewed & Not Pertinent Patient has suicidal ideation: No Patient has homicidal ideation: No - Past Medical History Cardiac Medical History: Denies: Hx Heart Attack, Hx Hypertension Pulmonary Medical History: Reports: Hx Asthma Neurological Medical History: Reports: Hx Migraine, Hx Seizures - History of possible seizures, no neuro work up yet. Denies: Hx Cerebrovascular Accident Renal/ Medical History: Denies: Hx Peritoneal Dialysis GI Medical History: Denies: Hx Hepatitis, Hx Hiatal Hernia, Hx Ulcer Psychiatric Medical History: Reports: Hx Depression Infectious Medical History: Denies: Hx Hepatitis Past Surgical History: Reports: Hx Adenoidectomy, Hx Appendectomy, Hx Tonsillectomy. Denies: Hx Mastectomy, Hx Open Heart Surgery, Hx Pacemaker - Immunizations Hx Diphtheria, Pertussis, Tetanus Vaccination: Yes Review of Systems - Review of Systems Notes: Constitutional: Negative for fever. Eyes: Negative for visual changes. ENT: Positive for facial injury Cardiovascular: Negative for chest injury. Respiratory: Negative for shortness of breath. Gastrointestinal: Negative for abdominal injury. Genitourinary: Negative for genital injury Musculoskeletal: Positive for right knee injury Skin: Positive for abrasions to the left face and right knee Neurological: Negative for head injury. Physical Exam - Vital signs Vitals: Temp Pulse Resp BP Pulse Ox 98.1 F 73 18 119/82 98 12/05/18 00:24 12/05/18 00:24 12/05/18 00:24 12/05/18 00:24 12/05/18 00:24 Interpretation: Normal Notes: PHYSICAL EXAMINATION: GENERAL: Well-appearing, no acute distress. HEAD: Atraumatic, normocephalic. EYES: Pupils equal round and reactive to light, extraocular movements intact, sclera anicteric, conjunctiva are normal. ENT: nares patent, no oral pharyngeal trauma. No hemotympanum, no Meyer's sign, no raccoon eyes. NECK: No midline cervical spine tenderness. Patient able to move their head to 45 bilaterally without any discomfort. LUNGS: Breath sounds clear to auscultation bilaterally and equal. No wheezes rales or rhonchi. HEART: Regular rate and rhythm without murmurs. CHEST WALL: No ecchymosis over the chest wall. ABDOMEN: Soft, nontender, normoactive bowel sounds. No guarding, no rebound. No seatbelt sign. EXTREMITIES: Normal range of motion, no pitting or edema. No long bone deformities. BACK: No midline spinal tenderness, step-offs, or deformities. NEUROLOGICAL: Face symmetric. Tongue protrudes midline. Extraocular motions intact. Pupils are 2 mm and equally reactive. Normal speech, normal gait. 5 out of 5 strength in both the distal and proximal upper and lower extremities bilaterally. Sensation is grossly intact throughout. Finger to nose testing normal. Pronator drift normal. PSYCH: Normal mood, normal affect. SKIN: Warm, Dry, normal turgor, superficial abrasions over the right patella, small superficial abrasion over the left upper lip. Course - Re-evaluation Re-evalutation: 12/05/18 03:06 Patient presents after a fall yesterday in which she states she had a "seizure". Patient is well-known to me, has a history of pseudoseizures. Patient states that she hit her left knee and the right knee on the left side of her face. On exam the patient has superficial abrasions over the left knee but has full flexion extension of the knee. X-ray without any evidence of fracture. Strong DP pulse, good cap refill. Patient has a superficial abrasion over her left upper lip without a definitive laceration. No bruising or evidence of trauma over the face. Patient declined CT of the face which I do think is appropriate given absence of any evidence of significant trauma although I did relay to her that she could have a small facial fracture that we could not definitively exclude without this imaging study. Patient is otherwise well in appearance, no additional areas of trauma on exam. No focal deficits. No head or neck trauma. At this time will discharge with return precautions and follow-up recommendations. Verbal discharge instructions given a the bedside and opportunity for questions given. Medication warnings reviewed. Patient is in agreement with this plan and has verbalized understanding of return precautions and the need for primary care follow-up in the next 24-72 hours. - Vital Signs Vital signs: Temp Pulse Resp BP Pulse Ox 98.1 F 73 18 119/82 98 12/05/18 00:24 12/05/18 00:24 12/05/18 00:24 12/05/18 00:24 12/05/18 00:24 - Diagnostic Test Radiology reviewed: Image reviewed, Reports reviewed Radiology results interpreted by me: 12/05/18 03:07 Right knee x-ray: No acute fracture or dislocation Discharge - Discharge Clinical Impression: Abrasions of multiple sites Right knee injury Qualifiers: Encounter type: initial encounter Qualified Code(s): S89.91XA - Unspecified injury of right lower leg, initial encounter Facial injury Qualifiers: Encounter type: initial encounter Qualified Code(s): S09.93XA - Unspecified injury of face, initial encounter Condition: Good Disposition: HOME, SELF-CARE Additional Instructions: The x-ray of your knee is normal. Return if you have severe headache, persistent vomiting, weakness, numbness, confusion, or any other symptoms that are worrisome to you. You can take ibuprofen 600 mg every 6 hours as needed for pain or discomfort. Apply ice to the affected areas 20 minutes every 2 hours while awake. Referrals: MELANY HORNE MD [Primary Care Provider] - Follow up as needed
[2018-12-05 03:30] VITALS: BP 115/73
== END 2018-12-05 03:37 | disposition home or self-care (01) ==
LOC: ER 00:07
DX: S00.511A Abrasion of lip, initial encounter (principal); S80.211A Abrasion, right knee, initial encounter; W19.XXXA Unspecified fall, initial encounter; J45.909 Unspecified asthma, uncomplicated
CPT/HCPCS: 99283; 96372; 73564; J1885

== ENCOUNTER 2018-12-06 12:14 | Emergency (ER) | payer SELFPAY ==
[2018-12-06 13:06] LABS: ABSOLUTE BASOPHILS # (AUTO) 0.1 10^3/uL (0.0-0.2); ABSOLUTE EOSINOPHILS # (AUTO) 0.1 10^3/uL (0.0-0.6); ABSOLUTE MONOCYTES (AUTO) 0.4 10^3/uL (0.1-1.4); ABSOLUTE NEUT (AUTO) 5.8 10^3/uL (1.7-8.2); BASOPHILS % (AUTO) 0.8 % (0-2); EOSINOPHILS % (AUTO) 0.8 % (0-6); HEMOGLOBIN 13.5 g/dL (12.0-15.5); LYMPHOCYTES % (AUTO) 13.1 % (13-45); MEAN CORPUSCULAR HEMOGLOBIN 28.9 pg (27.0-33.4); MEAN CORPUSCULAR VOLUME 88 fl (80-97); MONOCYTES % (AUTO) 5.6 % (3-13); PLATELET COUNT 294 10^3/uL (150-450); RED BLOOD COUNT 4.69 10^6/uL (3.72-5.28); RED CELL DISTRIBUTION WIDTH 15.4 % (11.5-14.0); SEGMENTED NEUTROPHILS % (AUTO) 79.7 % (42-78); TOTAL CELLS COUNTED % (AUTO) 100 %; WHITE BLOOD COUNT 7.3 10^3/uL (4.0-10.5)
[2018-12-06 13:15] LABS: ALANINE AMINOTRANSFERASE 27 U/L (9-52); ALBUMIN 5.1 g/dL (3.5-5.0); ALKALINE PHOSPHATASE 140 U/L (38-126); ANION GAP 13 (5-19); ASPARTATE AMINO TRANSFERASE 19 U/L (14-36); BILIRUBIN,DIRECT 0.3 mg/dL (0.0-0.4); BILIRUBIN,TOTAL 0.6 mg/dL (0.2-1.3); BLOOD UREA NITROGEN 11 mg/dL (7-20); CARBON DIOXIDE 27 mmol/L (22-30); CHLORIDE 109 mmol/L (98-107); GLUCOSE 103 mg/dL (75-110); POTASSIUM 4.4 mmol/L (3.6-5.0); SODIUM 149.1 mmol/L (137-145); TOTAL PROTEIN 8.4 g/dL (6.3-8.2)
[2018-12-06 13:17] LABS: ALCOHOL < 10 mg/dL (NONE DETECTED)
[2018-12-06] MEDS ORDERED: RINGERS SOLUTION,LACTATED 1,000 ML IV ONE (13:57)
[2018-12-06 14:49] LABS: APPEARANCE,URINE CLEAR; BILIRUBIN,URINE NEGATIVE (NEGATIVE); COLOR,URINE STRAW; GLUCOSE, URINE NEGATIVE (NEGATIVE); KETONES,URINE NEGATIVE (NEGATIVE); LEUKOCYTE ESTERASE,URINE NEGATIVE (NEGATIVE); NITRITE,URINE NEGATIVE (NEGATIVE); PROTEIN,URINE NEGATIVE (NEGATIVE); URINE SPECIFIC GRAVITY 1.004; UROBILINOGEN,URINE NEGATIVE mg/dL (<2.0)
[2018-12-06 15:49] LABS: URINE AMPHETAMINES SCREEN NEGATIVE; URINE BARBITURATES SCREEN NEGATIVE; URINE BENZODIAZEPINES SCREEN NEGATIVE; URINE COCAINE SCREEN NEGATIVE; URINE MARIJUANA (THC) SCREEN NEGATIVE; URINE METHADONE SCREEN NEGATIVE; URINE PHENCYCLIDINE SCREEN NEGATIVE
--- NOTE | 2018-12-06 16:51 | RADIOLOGY REPORT (SQ) ---
EXAM DESCRIPTION: CT CERVICAL SPINE WITHOUT COMPLETED DATE/TIME: 12/06/2018 4:12 pm REASON FOR STUDY: sz COMPARISON: None. TECHNIQUE: Axial images acquired through the cervical spine without intravenous contrast. Images re viewed with lung, soft tissue and bone windows. Reconstructed coronal and sagittal MPR images review ed. Images stored on PACS. All CT scanners at this facility use dose modulation, iterative reconstruction, and/or weight based d osing when appropriate to reduce radiation dose to as low as reasonably achievable (ALARA). [facility]: Dose Right [facility]: CareDose [facility]: Dose Right [facility]: Teradose 4D [facility]: [employer] RADIATION DOSE: CT Rad equipment meets quality standard of care and radiation dose reduction techniq ues were employed. CTDIvol: 18.7 mGy. DLP: 417 mGy-cm. mGy. LIMITATIONS: None. FINDINGS: ALIGNMENT: Anatomic. MINERALIZATION: Normal. VERTEBRAL BODIES: No fractures or dislocation. DISCS: No significant disc disease. FACETS, LATERAL MASSES, POSTERIOR ELEMENTS: No fractures. No dislocation. No acute findings. HARDWARE: None in the spine. VISUALIZED RIBS: No fractures. LUNG APICES AND SOFT TISSUES: No significant or acute findings. OTHER: No other significant finding. IMPRESSION: NO ACUTE OR SIGNIFICANT FINDINGS IN THE CERVICAL SPINE. TECHNICAL DOCUMENTATION: JOB ID: [id number] Quality ID # [id number]: Final reports with documentation of one or more dose reduction techniques (e.g., Au tomated exposure control, adjustment of the mA and/or kV according to patient size, use of iterative reconstruction technique) 2010 [employer]- All Rights Reserved Reading location - IP/workstation name: [email or web address]
--- NOTE | 2018-12-06 16:51 | RADIOLOGY REPORT (SQ) ---
EXAM DESCRIPTION: CT HEAD WITHOUT COMPLETED DATE/TIME: 12/06/2018 4:12 pm REASON FOR STUDY: sz COMPARISON: None. TECHNIQUE: Axial images acquired through the brain without intravenous contrast. Images reviewed wi th bone, brain and subdural windows. Additional sagittal and coronal reconstructions were generated. Images stored on PACS. All CT scanners at this facility use dose modulation, iterative reconstruction, and/or weight based d osing when appropriate to reduce radiation dose to as low as reasonably achievable (ALARA). [facility]: Dose Right [facility]: CareDose [facility]: Dose Right [facility]: Teradose 4D [facility]: [employer] RADIATION DOSE: CT Rad equipment meets quality standard of care and radiation dose reduction techniq ues were employed. CTDIvol: 53.2 mGy. DLP: 1017 mGy-cm. mGy. LIMITATIONS: None. FINDINGS: VENTRICLES: Normal size and contour. CEREBRUM: No masses. No hemorrhage. No midline shift. No evidence for acute infarction. Normal gra y/white matter differentiation. No areas of low density in the white matter. CEREBELLUM: No masses. No hemorrhage. No alteration of density. No evidence for acute infarction. EXTRAAXIAL SPACES: No fluid collections. No masses. ORBITS AND GLOBE: No intra- or extraconal masses. Normal contour of globe without masses. CALVARIUM: No fracture. PARANASAL SINUSES: No fluid or mucosal thickening. SOFT TISSUES: No mass or hematoma. OTHER: No other significant finding. IMPRESSION: NORMAL BRAIN CT WITHOUT CONTRAST. EVIDENCE OF ACUTE STROKE: NO. COMMENT: Quality ID # [id number]: Final reports with documentation of one or more dose reduction techniques (e.g., Automated exposure control, adjustment of the mA and/or kV according to patient size, use of iterative reconstruction technique) TECHNICAL DOCUMENTATION: JOB ID: [id number] [employer]- All Rights Reserved Reading location - IP/workstation name: [email or web address]
--- NOTE | 2018-12-06 18:31 | ER Document Report ---
ED General - General Chief Complaint: Seizure Stated Complaint: POSSIBLE SEIZURE Time Seen by Provider: 12/06/18 12:54 Primary Care Provider: MELANY HORNE MD [Primary Care Provider] - Follow up as needed Notes: RN notes: Pt is a 23 yof who presents to the ER by EMS with a CC of possible seizure. EMS reports bystanders called EMS and did not witness seizure. Pt was postictal upon EMS arrival with dilated pupils of 5mm. Pt is alert and able to follow commands; however, pt unable to respond to questions asked. Pt unable to tell this nurse the current month or year, pt remains nonverbal upon this nurse assessment. 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 Spouse of pt further reports that pt was seeing a neurologist in which he is unable to specify name of neurologist or last visit; however, reports that the neurologist took pt off of her Keppra medication due to increased seizing activity. Spouse reports pt does not take any medication for her seizure disorder. Spouse states her last seizure was last week in which they came to the ER; however, left due to the wait being too long. Spouse of pt reports her postictal states generally last 16-20 hours. Spouse is unsure whether pt is at this time. EMS reports pt was in postictal state for 1 hour and 30 minutes [facility] arrival. BGL obtained by this RN at 97. EKG obtained by Lorenzo NEAL. 20 g placed to pt's LAC with blood drawn. Pt remains on continuous cardiac monitoring at this time. V/S stable on the monitor. MY HPI: limited due to Pt presentation. She is able to tell me her name and and then states she had a seizure. There is no family in the room with her. I have never evaluated this patient before. Past chart states that patient has pseudoseizures and presents to the emergency department often. Potentially unwitnessed sz per EMS and bystanders. TRAVEL OUTSIDE OF THE [place] IN LAST 30 DAYS: No - Related Data Allergies/Adverse Reactions: No Known Allergies Allergy (Verified 12/03/18 13:57) Past Medical History - General Information source: Emergency Med Personnel - Social History Smoking Status: Never Smoker Chew tobacco use (# tins/day): No Frequency of alcohol use: None Drug Abuse: None Family History: Reviewed & Not Pertinent Patient has suicidal ideation: No Patient has homicidal ideation: No - Past Medical History Cardiac Medical History: Denies: Hx Heart Attack, Hx Hypertension Pulmonary Medical History: Reports: Hx Asthma Neurological Medical History: Reports: Hx Migraine, Hx Seizures - History of possible seizures, no neuro work up yet. Denies: Hx Cerebrovascular Accident Renal/ Medical History: Denies: Hx Peritoneal Dialysis GI Medical History: Denies: Hx Hepatitis, Hx Hiatal Hernia, Hx Ulcer Psychiatric Medical History: Reports: Hx Depression Infectious Medical History: Denies: Hx Hepatitis Past Surgical History: Reports: Hx Adenoidectomy, Hx Appendectomy, Hx Tonsillectomy. Denies: Hx Mastectomy, Hx Open Heart Surgery, Hx Pacemaker - Immunizations Hx Diphtheria, Pertussis, Tetanus Vaccination: Yes Review of Systems - Review of Systems -: Yes ROS unobtainable due to patient's medical condition Physical Exam - Vital signs Vitals: Temp Resp BP Pulse Ox 98.7 F 11 L 136/84 H 97 12/06/18 12:23 12/06/18 12:23 12/06/18 12:23 12/06/18 12:23 - Notes Notes: GENERAL: Alert to verbal stimuli. HEAD: Normocephalic, atraumatic. EYES: Pupils equal, round, and reactive to light. 5 mm ENT: Oral mucosa moist, tongue midline. Nares patent, TM's intact, no hemotympanum noted bilaterally. NECK: Full range of motion. Supple. Trachea midline. LUNGS: Clear to auscultation bilaterally, no wheezes, rales, or rhonchi. No respiratory distress. HEART: Regular rate and rhythm. No murmur ABDOMEN: Soft, non-tender. Non-distended. Bowel sounds present in all 4 quadrants. EXTREMITIES: Moves all 4 extremities spontaneously. No edema, normal radial and dorsalis pedis pulses bilaterally. No cyanosis. BACK: no cervical, thoracic, lumbar midline tenderness. No saddle anesthesia, normal distal neurovascular exam. NEUROLOGICAL: Alert and oriented to person and date of . SKIN: Warm, dry, normal turgor. No rashes or lesions noted. Course - Re-evaluation Re-evalutation: 12/06/18 19:08 Patient continues to be easily arousable with verbal stimuli. She is now conscious alert and oriented x4. States she thinks she may have had a seizure today. Patient able to sit on the side of the bed no apparent distress. She is able to stand up with no help needed. Patient states she thinks her got went home. Patient's labs are as below, patient's imaging are as below. Cervical Spine CT 12/06/18 15:58 IMPRESSION: NO ACUTE OR SIGNIFICANT FINDINGS IN THE CERVICAL SPINE. Head CT 12/06/18 15:58 IMPRESSION: NORMAL BRAIN CT WITHOUT CONTRAST. EVIDENCE OF ACUTE STROKE: NO. Laboratory 12/06/18 12/06/18 12/06/18 12:36 12:36 13:30 WBC 7.3 RBC 4.69 Hgb 13.5 Hct 41.0 MCV 88 MCH 28.9 MCHC 33.0 RDW 15.4 H Plt Count 294 Seg Neutrophils % 79.7 H Lymphocytes % 13.1 Monocytes % 5.6 Eosinophils % 0.8 Basophils % 0.8 Absolute Neutrophils 5.8 Absolute Lymphocytes 1.0 Absolute Monocytes 0.4 Absolute Eosinophils 0.1 Absolute Basophils 0.1 Sodium 149.1 H Potassium 4.4 Chloride 109 H Carbon Dioxide 27 Anion Gap 13 BUN 11 Creatinine 0.71 Est GFR ( Amer) > 60 Est GFR (Non-Af Amer) > 60 Glucose 103 Calcium 10.0 Magnesium 2.5 H Total Bilirubin 0.6 Direct Bilirubin 0.3 Neonat Total Bilirubin Not Reportable Neonat Direct Bilirubin Not Reportable Neonat Indirect Bili Not Reportable AST 19 ALT 27 Alkaline Phosphatase 140 H Total Protein 8.4 H Albumin 5.1 H Urine Color STRAW Urine Appearance CLEAR Urine pH 6.0 Ur Specific [place] 1.004 Urine Protein NEGATIVE Urine Glucose (UA) NEGATIVE Urine Ketones NEGATIVE Urine Blood SMALL H Urine Nitrite NEGATIVE Urine Bilirubin NEGATIVE Urine Urobilinogen NEGATIVE Ur Leukocyte Esterase NEGATIVE Urine WBC (Auto) 0 Urine RBC (Auto) 2 Urine Bacteria (Auto) TRACE Squamous Epi Cells Auto <1 Urine Ascorbic Acid NEGATIVE Urine Opiates Screen Urine Methadone Screen Ur Barbiturates Screen Ur Phencyclidine Scrn Ur Amphetamines Screen U Benzodiazepines Scrn Urine Cocaine Screen U Marijuana (THC) Screen Serum Alcohol < 10 12/06/18 13:30 WBC RBC Hgb Hct MCV MCH MCHC RDW Plt Count Seg Neutrophils % Lymphocytes % Monocytes % Eosinophils % Basophils % Absolute Neutrophils Absolute Lymphocytes Absolute Monocytes Absolute Eosinophils Absolute Basophils Sodium Potassium Chloride Carbon Dioxide Anion Gap BUN Creatinine Est GFR ( Amer) Est GFR (Non-Af Amer) Glucose Calcium Magnesium Total Bilirubin Direct Bilirubin Neonat Total Bilirubin Neonat Direct Bilirubin Neonat Indirect Bili AST ALT Alkaline Phosphatase Total Protein Albumin Urine Color Urine Appearance Urine pH Ur Specific [place] Urine Protein Urine Glucose (UA) Urine Ketones Urine Blood Urine Nitrite Urine Bilirubin Urine Urobilinogen Ur Leukocyte Esterase Urine WBC (Auto) Urine RBC (Auto) Urine Bacteria (Auto) Squamous Epi Cells Auto Urine Ascorbic Acid Urine Opiates Screen NEGATIVE Urine Methadone Screen NEGATIVE Ur Barbiturates Screen NEGATIVE Ur Phencyclidine Scrn NEGATIVE Ur Amphetamines Screen NEGATIVE U Benzodiazepines Scrn NEGATIVE Urine Cocaine Screen NEGATIVE U Marijuana (THC) Screen NEGATIVE Serum Alcohol Discussed close follow-up with primary care provider with close return precautions. Patient stable for discharge. - Vital Signs Vital signs: Temp Pulse Resp BP Pulse Ox 98.7 F 7 L 116/83 97 12/06/18 12:23 12/06/18 17:00 12/06/18 16:01 12/06/18 17:00 - Laboratory Result Diagrams: 12/06/18 12:36 12/06/18 12:36 Laboratory results interpreted by me: 12/06/18 12/06/18 12/06/18 12:36 12:36 13:30 RDW 15.4 H Seg Neutrophils % 79.7 H Sodium 149.1 H Chloride 109 H Magnesium 2.5 H Alkaline Phosphatase 140 H Total Protein 8.4 H Albumin 5.1 H Urine Blood SMALL H Discharge - Discharge Clinical Impression: Somnolence, Pseudoseizure Condition: Stable Disposition: HOME, SELF-CARE Additional Instructions: As we discussed you have been seen and treated in the emergency department for potential seizure. Your lab evaluation and imaging results show no signs of abnormalities. Please make sure to follow-up with your primary care provider return to the emergency room for any concerns. Referrals: MELANY HORNE MD [Primary Care Provider] - Follow up as needed
--- NOTE | 2018-12-06 18:39 | EKG REPORT ---
SEVERITY:- NORMAL ECG - SINUS RHYTHM : Confirmed by: Kacie Smith MD 06-Dec-2018 18:38:24
[2018-12-06 20:02] VITALS: BP 126/77
== END 2018-12-06 20:05 | disposition home or self-care (01) ==
LOC: ER 12:14
DX: R56.9 Unspecified convulsions (principal); R40.0 Somnolence
CPT/HCPCS: 93005; 99285; 36415; 82962; 80307 ×2; 83735; 85025; 80053; 81001; 70450; 72125; 93010; J7120